=== PATIENT | female | born 2000 | race Caucasian/White ===

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

== ENCOUNTER → 2021-02-20 16:15 | Outpatient (CLI) | payer MEDICAID, SELFPAY ==
--- NOTE | 2021-02-20 16:46 | RAD_ITS ---
STUDY: X-RAY CHEST REASON FOR EXAM: Female, 20 years old. Left-sided chest pain. TECHNIQUE: PA and lateral views of the chest. COMPARISON: None. FINDINGS: The lungs are clear and expanded. There is no demonstrated pleural abnormality. Normal size heart. Normal mediastinum and chloe. Normal visualized pulmonary arteries. Normal visualized aortic arch and descending thoracic aorta. Normal visualized thoracic spine. Normal visualized ribs, clavicles, and shoulders. There is no demonstrated abnormality of the visualized soft tissue structures of the upper abdomen. RAD/Chest PA and Lateral IMPRESSION: Normal x-ray examination of the chest. Electronically Signed: Aristides Bermudez DO at 19:19 EST Tel [phone], Service support ,
[2021-02-20 17:02] LABS: Absolute Lymphocyte Count 1.26 X10^3/uL (0.83-4.51); Absolute Neutrophil Count 7.2 X10^3/uL (2.0-7.7); Basophil# 0.02 X10^3/uL; Basophil% 0.2 % (0-1); Eosinophil# 0.02 X10^3/uL; Eosinophils% 0.2 % (0-5); Hematocrit 40.3 % (37-47); Hemoglobin 13.2 g/dL (12.0-15.0); Lymphocyte # 1.26 X10^3/ul (0.83-4.51); Lymphocyte % 13.5 % (19-41); Mean Corp Hgb Conc 32.8 g/dL (32-36); Mean Corpuscular Hgb 30.3 pg (27.0-32.0); Mean Corpuscular Volume 92.4 fL (81-99); Mean Platelet Vol. 9.6 fl (6.2-12.0); Monocyte# 0.77 X10^3/uL; Monocyte% 8.3 % (0-10); NRBC Flagged by Analyzer 0 % (0-5); Neutrophil # 7.23 X10^3/uL (2.7-7.7); Neutrophil % 77.5 % (47-70); Platelet Count 267 K/mm3 (150-450); RBC Distribution Width CV 12.5 % (11.6-14.6); RBC Distribution Width SD 42.8 fl (35.1-43.9); Red Blood Count 4.36 M/mm3 (4.2-5.4); White Blood Count 9.3 K/mm3 (4.4-11.0)
[2021-02-20 17:23] LABS: D-Dimer Quantitative (DVT/PE) <= 0.27 FEU/ug/m (0.27-0.49)
[2021-02-20 17:26] LABS: Vitamin D,25 Hydroxy 25.8 ng/mL
[2021-02-20 17:40] LABS: AST(SGOT) 11 U/L (15-37); Alanine Aminotransfer ALT/SGPT 14 U/L (13-56); Albumin, Serum 4.4 g/dL (3.2-5.0); Alkaline Phosphatase 73 U/L (45-117); Anion Gap 4 (5-15); BUN 10 mg/dL (7-18); BUN/Creat Ratio 17.4 RATIO (10-20); Calcium,Total 9.4 mg/dL (8.5-10.1); Chloride 104 mmol/L (98-107); Creatinine, Serum 0.58 mg/dL (0.55-1.02); EST Glomerular Filtration Rate 141 mL/min (>60); Est Glom Filt Rate - Afr Amer 171 mL/min (>60); Globulin 4.2 g/dL (2.2-4.2); Glucose 80 mg/dL (74-106); Potassium 3.5 mmol/L (3.5-5.1); Protein, Total 8.6 g/dL (6.4-8.2); Sodium Level 138 mmol/L (136-145); Thyroid Stim Hormone (TSH) 1.63 uIU/mL (0.358-3.74)
== END ==
PROVIDERS: PCP Internal Medicine; Referring Provider Internal Medicine; Visit Provider Internal Medicine
DX: R07.9 Chest pain, unspecified (principal)
CPT/HCPCS: 36415; 71046; 80053; 82306; 84443; 85025; 85379

== ENCOUNTER 2021-07-26 17:32 | Emergency (ER) | payer MEDICAID, SELFPAY ==
[2021-07-26 17:33] VITALS: BP 120/73; PULSE 115; RESP 16; TEMP 37.1; O2SAT 95; BMI 17.2
--- NOTE | 2021-07-26 18:34 | EX.ED.DYSGE1 ---
HPI <CHEYANNE Carnes - Last Filed: 07/26/21 19:07> History of Present Illness Chief Complaint: Nausea/Vomiting Narrative Narrative: 21-year-old female with history of anxiety, depression with history of a eating disorder presents the emergency department 24 hours of nausea and vomiting. Patient states she also has decreased urinary output because she is dehydrated. Patient does smoke marijuana daily however she states is not all day, patient has no history of vomiting secondary to cannabis. Patient denies any abdominal pain however states to have pain in her epigastric area from retching. Patient denies any blood in stool or vomit. Patient denies any recent antibiotics, sick contacts. PFSH <CHEYANNE Carnes - Last Filed: 07/26/21 19:07> [facility] Medical History (Updated 07/26/21 @ 21:[address] Rob Biggs MD) Juvenile idiopathic arthritis Home Medications ondansetron 4 mg PO Q8H PRN #10 tab 07/26/21 [Rx Last Taken Unknown] Allergy/AdvReac Type Severity Reaction Status Date / Time red dye Allergy Mild hives Verified 07/26/21 17:33 yellow dye Allergy Mild hives Verified 07/26/21 17:33 Family History (Updated 02/20/21 @ 14:43 by Suzanne Almeida) Other Asthma Cancer Hypertension Social History (Updated 02/20/21 @ 14:48 by Suzanne Almeida) Smoking Status: Never smoker alcohol intake: current alcohol intake frequency: holidays/special occasions only substance use type: marijuana and other details: smokes daily at least 3 times daily ROS <CHEYANNE Carnes - Last Filed: 07/26/21 19:07> ROS ED ROS Narrative Constitutional: Negative for fever, chills, weight loss, weakness Eyes: Negative for vision loss, vision change, double vision ENT: Negative for any sore throat, ear pain, congestion Cardiovascular: Negative for any chest pain, tightness, palpitations, racing heartbeat Respiratory: Negative for any cough, sputum production, hemoptysis, shortness of breath, shortness of breath on exertion, orthopnea Gastrointestinal: Negative for any abdominal pain, constipation, blood in stool, blood in vomit. Positive for nausea, vomiting, diarrhea : Negative for any urinary frequency, incontinence, dysuria, retention, blood in urine Muscle skeletal: Negative for any muscle joint pain, stiffness, myalgias, arthralgias, neck pain, back pain Neurological: Negative for any headache, dizziness, syncope, numbness or tingling Skin: Negative for any rashes, lumps, itching, abrasions, lacerations Psychiatric: Negative for any depression, anxiety, stress, suicidal ideation, homicidal ideation Hematologic: Negative for any easy bruising, excessive bruising, easy bleeding Allergies: Negative for any eczema, hives, rash EXAM <CHEYANNE Carnes - Last Filed: 07/26/21 19:07> Physical Exam Narrative Exam Narrative: Vital signs reviewed. HEET: Head normocephalic atraumatic, TMs clear bilaterally. Posterior pharynx is clear, dry mucous membranes. Nares clear bilaterally. Neck: Supple with no lymphadenopathy or tenderness. No signs of meningismus, negative jolt sign. Cardiac: Regular rate and rhythm no murmurs gallops or rubs, equal peripheral pulses bilaterally. Respiratory: Lungs clear to auscultation bilaterally. No chest tenderness. Abdomen: Soft, nontender, nondistended. No abdominal bruit or pulsatile masses. No hepatosplenomegaly Extremities: No peripheral edema, no signs of gross trauma or deformity. Active full range of motion of all extremities. Neuro: Cranial nerves II through XII intact, no focal neurological deficits. Skin: Clean dry and intact with no rash, purpura, petechiae, vesicles or pustules. Backslash flank: No CVA tenderness, no midline spinal tenderness, no deformity. Psych: Normal mood and affect. No SI, HI or acute psychosis. Const Vital Signs: 07/26/21 17:33 07/26/21 21:25 Temperature 98.8 F Temperature Source Temporal Pulse Rate 115 H 79 Respiratory Rate 16 18 Blood Pressure 120/73 103/65 Blood Pressure Mean 88 77 Pulse Ox 95 99 Oxygen Delivery Method Room Air Room Air Positive well nourished and well developed General Appearance ED: well developed <Dr. Rob Biggs MD - Last Filed: 07/26/21 22:07> Physical Exam Const Vital Signs: 07/26/21 17:33 07/26/21 21:25 Temperature 98.8 F Temperature Source Temporal Pulse Rate 115 H 79 Respiratory Rate 16 18 Blood Pressure 120/73 103/65 Blood Pressure Mean 88 77 Pulse Ox 95 99 Oxygen Delivery Method Room Air Room Air [facility] <Jules CarpenterTREY-C - Last Filed: 07/26/21 19:07> [facility] Narrative Medical decision making narrative: Patient appears well, patient appears nontoxic, vital signs are stable. Patient presents to the emergency department for 24 hours of nausea vomiting diarrhea. Patient did receive a basic laboratory values, these were unremarkable. Patient did receive IV fluids, IV Zofran, IV Toradol. Patient responded well to treatment. I did discuss at length with the patient secondary to her daily marijuana use. Patient will follow up with her PCP, patient be given Zofran prescription for home. She is instructed to advance her diet as tolerated. Instructed to ensure that she has enough fluids. Due to the patient improving with IV medications, having no abdominal pain, there is no indication for CT scan or any other imaging. Patient be diagnosed with gastroenteritis. Patient stable for discharge. Lab Data Attestation: I reviewed the patient's lab results. Labs: Laboratory Results - last 24 hr 07/26/21 07/26/21 07/26/21 18:45 18:45 19:09 WBC 10.3 RBC 4.83 Hgb 14.7 Hct 43.0 MCV 89.0 MCH 30.4 MCHC 34.2 RDW Std Deviation 41.7 RDW Coeff of Burak 12.7 Plt Count 295 MPV 9.6 Immature Gran % (Auto) 0.300 Neut % (Auto) 69.0 Lymph % (Auto) 18.7 L [place] % (Auto) 11.8 H Eos % (Auto) 0.0 Baso % (Auto) 0.2 Absolute Neuts (auto) 7.1 Absolute Lymphs (auto) 1.92 Nucleated RBC % 0 Sodium 135 L Potassium 3.0 L Chloride 100 Carbon Dioxide 28.0 Anion Gap 7 BUN 10 Creatinine 0.72 Estim Creat Clear Calc 88.97 Est GFR (MDRD) Af Amer 132 Est GFR (MDRD) Non-Af 109 BUN/Creatinine Ratio 13.9 Glucose 109 H Calcium 10.0 Total Bilirubin 0.70 AST 12 L ALT 21 Alkaline Phosphatase 64 Total Protein 8.7 H Albumin 4.6 Globulin 4.1 Albumin/Globulin Ratio 1.1 Lipase 111 Urine Color Yellow Urine Clarity Clear Urine pH 7.0 Ur Specific [place] 1.005 Urine Protein 30 H Urine Glucose (UA) Normal Urine Ketones 150 A* Urine Occult Blood 50 H Urine Nitrite Negative Urine Bilirubin Negative Urine Urobilinogen Normal Ur Leukocyte Esterase 25 H Urine RBC 0 SEEN Urine WBC 0 SEEN Ur Squamous Epith Cells 0 SEEN Urine Bacteria 0 SEEN Urine Mucus 0 SEEN Urine Test Negative <Dr. Rob Biggs MD - Last Filed: 07/26/21 22:07> [facility] Narrative Medical decision making narrative: I have personally performed a face to face assessment of the patient and have reviewed the NUBIA Note. I performed a substantive portion of the visit including all aspects of the following. My [place] findings include: History is remarkable for numerous episodes of vomiting without blood or coffee grounds. 3 mushy soft stools without blood or mucus. No known ill contacts. Does smoke marijuana daily. Denies fever or chills. Denies cardiac respiratory symptoms. She does endorse thirst dry mouth and lightheadedness. Exam is tachycardia and dry mucosa. Clinically patient appears dehydrated. HEENT is otherwise unremarkable. Heart is rapid and regular. Lungs are clear to auscultation. Abdomen soft nontender. Medical Decision Making patient nausea and vomiting with diarrhea most likely is due to viral illness. Doubt hyperemesis due to marijuana. Patient was treated with Zofran and Toradol initially. She will receive 5 mg of Reglan for her persistent nausea. Other additions or changes: Patient was reassessed at 05/08/2004. She feels markedly better. 500 cc of the 1000 cc of D5 half-normal has infused. She will be discharged after the complete liter has infused. Lab Data Attestation: I reviewed the patient's lab results. Lab results narrative: CBC, H&H and differential unremarkable. Potassium is slightly low at 3.0. Glucose is slightly elevated 109. Labs: Laboratory Results - last 24 hr 07/26/21 07/26/21 07/26/21 18:45 18:45 19:09 WBC 10.3 RBC 4.83 Hgb 14.7 Hct 43.0 MCV 89.0 MCH 30.4 MCHC 34.2 RDW Std Deviation 41.7 RDW Coeff of Burak 12.7 Plt Count 295 MPV 9.6 Immature Gran % (Auto) 0.300 Neut % (Auto) 69.0 Lymph % (Auto) 18.7 L [place] % (Auto) 11.8 H Eos % (Auto) 0.0 Baso % (Auto) 0.2 Absolute Neuts (auto) 7.1 Absolute Lymphs (auto) 1.92 Nucleated RBC % 0 Sodium 135 L Potassium 3.0 L Chloride 100 Carbon Dioxide 28.0 Anion Gap 7 BUN 10 Creatinine 0.72 Estim Creat Clear Calc 88.97 Est GFR (MDRD) Af Amer 132 Est GFR (MDRD) Non-Af 109 BUN/Creatinine Ratio 13.9 Glucose 109 H Calcium 10.0 Total Bilirubin 0.70 AST 12 L ALT 21 Alkaline Phosphatase 64 Total Protein 8.7 H Albumin 4.6 Globulin 4.1 Albumin/Globulin Ratio 1.1 Lipase 111 Urine Color Yellow Urine Clarity Clear Urine pH 7.0 Ur Specific [place] 1.005 Urine Protein 30 H Urine Glucose (UA) Normal Urine Ketones 150 A* Urine Occult Blood 50 H Urine Nitrite Negative Urine Bilirubin Negative Urine Urobilinogen Normal Ur Leukocyte Esterase 25 H Urine RBC 0 SEEN Urine WBC 0 SEEN Ur Squamous Epith Cells 0 SEEN Urine Bacteria 0 SEEN Urine Mucus 0 SEEN Urine Test Negative Discharge Plan Triage Chief Complaint: Nausea/Vomiting ED Midlevel Provider: Jules Carpenter ED Provider: Rob Biggs Dx/Rx/DC Orders Clinical Impression: Gastroenteritis, Acute hypokalemia, Moderate dehydration, Ketosis Instructions: ED Gastritis (Adult) Prescriptions: New ondansetron 4 mg tablet,disintegrating 4 mg PO Q8H PRN (Reason: nausea and vomiting) Qty: 10 RF: 0 Primary Care Provider: Linda Rizo Referrals: Linda Rizo MD [Primary Care Provider] - Activity Restrictions/Additional Instructions: Please advance your diet as tolerated Print Language: Ukrainian Disposition Disposition: Home, Self Care
[2021-07-26 19:03] LABS: Absolute Lymphocyte Count 1.92 X10^3/uL (0.83-4.51); Absolute Neutrophil Count 7.1 X10^3/uL (2.0-7.7); Basophil# 0.02 X10^3/uL; Basophil% 0.2 % (0-1); Hemoglobin 14.7 g/dL (12.0-15.0); Lymphocyte # 1.92 X10^3/ul (0.83-4.51); Lymphocyte % 18.7 % (19-41); Mean Corp Hgb Conc 34.2 g/dL (32-36); Mean Corpuscular Hgb 30.4 pg (27.0-32.0); Mean Platelet Vol. 9.6 fl (6.2-12.0); Monocyte# 1.21 X10^3/uL; Monocyte% 11.8 % (0-10); NRBC Flagged by Analyzer 0 % (0-5); Platelet Count 295 K/mm3 (150-450); RBC Distribution Width CV 12.7 % (11.6-14.6); RBC Distribution Width SD 41.7 fl (35.1-43.9); Red Blood Count 4.83 M/mm3 (4.2-5.4); White Blood Count 10.3 K/mm3 (4.4-11.0)
[2021-07-26] MEDS: 0.9% Normal Saline 1,000 ML 1000 ML IV (19:12)
[2021-07-26] MEDS: Ondansetron 4 MG/2 ML Vial IV (19:13)
[2021-07-26 19:17] LABS: Bacteria 0 SEEN /hpf (None Seen); Mucous, Urine 0 SEEN /hpf (<or=2+); Red Blood Cells-Urine 0 SEEN /hpf (0-5); Squamous Epithelial Cells - UA 0 SEEN /hpf (5-10); White Blood Cells 0 SEEN /hpf (0-5)
[2021-07-26 19:19] LABS: BUN 10 mg/dL (7-18); Creatinine, Serum 0.72 mg/dL (0.55-1.02); EST Glomerular Filtration Rate 109 mL/min (>60); Estimated Creatinine Clearance 88.97 ml/min; Glucose 109 mg/dL (74-106)
[2021-07-26 19:20] LABS: ALB/GLOB Ratio 1.1 RATIO (0.9-2.4); AST(SGOT) 12 U/L (15-37); Alanine Aminotransfer ALT/SGPT 21 U/L (13-56); Albumin, Serum 4.6 g/dL (3.2-5.0); Alkaline Phosphatase 64 U/L (45-117); Anion Gap 7 (5-15); BUN/Creat Ratio 13.9 RATIO (10-20); Chloride 100 mmol/L (98-107); Est Glom Filt Rate - Afr Amer 132 mL/min (>60); Globulin 4.1 g/dL (2.2-4.2); Lipase 111 U/L (73-393); Protein, Total 8.7 g/dL (6.4-8.2); Sodium Level 135 mmol/L (136-145)
[2021-07-26 19:20] LABS: Color, Urine Yellow (Yellow); Glucose, Dipstick Normal (Normal); Leukocyte Esterase-Dipstick 25 /ul (Negative); Nitrite-Dipstick Negative (Negative); Occult Blood-Urine 50 /ul (Negative); Protein-Dipstick 30 mg/dl (Negative); Specific Gravity, Urine 1.005 (1.002-1.030); Urine Bilirubin Dipstick Negative (Negative); Urine Clarity Clear (Clear); Urine Urobilinogen Normal (Normal)
[2021-07-26 19:51] LABS: Internal QC Validated? YES +Cl - CLEAR BKGD; Pregnancy, Urine Negative Negative
[2021-07-26 20:07] LABS: Ketone-Dipstick 150 mg/dl (Negative)
[2021-07-26] MEDS: Metoclopramide 10 MG/2 ML Vial 5 MG IV (21:09)
[2021-07-26] MEDS: Dext 5%-0.45% NS 1,000 ML 1000 ML IV (21:23)
[2021-07-26 21:25] VITALS: BP 103/65; PULSE 79; RESP 18; O2SAT 99
[2021-07-26 22:33] VITALS: BP 116/60; PULSE 77; RESP 16; O2SAT 98
== END 2021-07-26 22:34 | disposition home or self-care (01) ==
PROVIDERS: Nurse Practitioner; Emergency Provider Emergency Medicine; PCP Internal Medicine; Visit Provider Emergency Medicine
DX: K52.9 Noninfective gastroenteritis and colitis, unspecified (principal); F41.9 Anxiety disorder, unspecified; E86.0 Dehydration; F32.A Depression, unspecified; F12.90 Cannabis use, unspecified, uncomplicated; E87.6 Hypokalemia
CPT/HCPCS: 80053; 81001; 81025; 83690; 85025; 96361; 96365; 96375; 99283; J7030; A4216; J2405; J7799

== ENCOUNTER → 2021-09-06 | Outpatient (CLI) | payer MEDICAID, SELFPAY ==
[2021-09-06 11:48] LABS: Erythrocyte Sedimentation Rate 4 mm/hr (0-30)
[2021-09-06 11:50] LABS: Absolute Neutrophil Count 1.7 X10^3/uL (2.0-7.7); Basophil# 0.04 X10^3/uL; Basophil% 0.9 % (0-1); Eosinophil# 0.05 X10^3/uL; Eosinophils% 1.1 % (0-5); Hematocrit 40.5 % (37-47); Lymphocyte % 50.3 % (19-41); Mean Corp Hgb Conc 32.1 g/dL (32-36); Mean Corpuscular Hgb 30.4 pg (27.0-32.0); Mean Corpuscular Volume 94.8 fL (81-99); Mean Platelet Vol. 9.3 fl (6.2-12.0); Monocyte# 0.42 X10^3/uL; Monocyte% 9.6 % (0-10); NRBC Flagged by Analyzer 0 % (0-5); Neutrophil # 1.65 X10^3/uL (2.7-7.7); Neutrophil % 37.9 % (47-70); Platelet Count 269 K/mm3 (150-450); RBC Distribution Width CV 12.7 % (11.6-14.6); RBC Distribution Width SD 44.4 fl (35.1-43.9); Red Blood Count 4.27 M/mm3 (4.2-5.4); White Blood Count 4.4 K/mm3 (4.4-11.0)
[2021-09-06 12:17] LABS: AST(SGOT) 10 U/L (15-37); Alanine Aminotransfer ALT/SGPT 15 U/L (13-56); Albumin, Serum 4.1 g/dL (3.2-5.0); Alkaline Phosphatase 56 U/L (45-117); Anion Gap 5 (5-15); BUN 9 mg/dL (7-18); BUN/Creat Ratio 14.6 RATIO (10-20); CRP < 2.90 mg/L (0.0-3.0); Calcium,Total 9.4 mg/dL (8.5-10.1); Chloride 107 mmol/L (98-107); Creatinine, Serum 0.62 mg/dL (0.55-1.02); EST Glomerular Filtration Rate 130 mL/min (>60); Est Glom Filt Rate - Afr Amer 158 mL/min (>60); Glucose 84 mg/dL (74-106); Potassium 3.8 mmol/L (3.5-5.1); Protein, Total 8.1 g/dL (6.4-8.2); Sodium Level 139 mmol/L (136-145)
[2021-09-08 18:06] LABS: Endomysial Antibody IgA Negative (Negative)
[2021-09-09 09:40] LABS: Immunoglobulin A 203 mg/dL (87-352); t-Transglutaminase IgA <2 U/mL (0-3)
[2021-09-09 13:07] LABS: Anti-Centromere B Ab <0.2 AI (0.0-0.9); Anti-Chromatin <0.2 AI (0.0-0.9); Anti-Jo <0.2 AI (0.0-0.9); Anti-Scleroderma-70 AB <0.2 AI (0.0-0.9); RNP Ab <0.2 AI (0.0-0.9); SJOGREN'S Anti-SS-A test < 0.2 AI (0.0-0.9); SJOGREN'S Anti-SS-B test < 0.2 AI (0.0-0.9); Smith Ab <0.2 AI (0.0-0.9)
[2021-09-09 15:38] LABS: Anti-dsDNA Ab <1 IU/mL (0-9)
== END | disposition home or self-care (01) ==
LOC: LAB 11:17
PROVIDERS: PCP Internal Medicine; Referring Provider Nurse Practitioner Adult Health; Visit Provider Nurse Practitioner Adult Health
DX: R19.7 Diarrhea, unspecified (principal); R11.2 Nausea with vomiting, unspecified; R63.4 Abnormal weight loss; Z87.39 Personal history of other diseases of the musculoskeletal system and connective tissue
CPT/HCPCS: 36415; 80053; 82784; 83516; 85025; 85652; 86140; 86225; 86235; 86255

== ENCOUNTER → 2021-10-11 | Outpatient (CLI) | payer MEDICAID, SELFPAY ==
--- NOTE | 2021-10-11 17:29 | CT_ITS ---
STUDY: CT ABDOMEN AND PELVIS WITH CONTRAST REASON FOR EXAM: Female, 21 years old. LLQ tender, wt loss, n/v/d -- oral and iv RADIATION DOSAGE (If Supplied By Facility): CTDIvol = ( 10.58 ) mGy, DLP = ( 227.28 ) mGycm TECHNIQUE: Transaxial images were obtained from the dome of the diaphragm to the symphysis pubis without oral contrast. Oral and amp; IV Readi-CAT and amp; 100mL Isovue-300 was administered. Sagittal and coronal images were reconstructed. Individualized dose optimization techniques were used for this CT. COMPARISON: None. FINDINGS: The visualized lung bases are unremarkable. The visualized portions of the heart are within normal limits. Normal liver. Normal gallbladder and extrahepatic biliary system. Normal spleen. Normal pancreas. Normal bilateral adrenal glands. Normal right kidney. Normal left kidney. Nonspecific gastric distention with diffuse ileus and diffuse colonic fecal retention. No evidence for acute appendicitis. Normal abdominal aorta. Normal inferior vena cava. Normal retroperitoneum. Normal urinary bladder. Cystic changes in left ovary with small amount of free fluid in the cul-de-sac likely due to recent ovulation. Normal abdominal wall. Normal osseous structures. CT/Abdomen/Pelvis WITH Contrast IMPRESSION: Diffuse gastric distention and nonspecific ileus with fecal retention in the colon. No evidence for small bowel obstruction. Cystic changes in left ovary with fluid in the cul-de-sac likely due to recent ovulation Pelvic sonogram may be useful for further evaluation if indicated Electronically Signed: Mario Magallon MD at 22:12 EDT ,
== END | disposition home or self-care (01) ==
LOC: CT 17:27
PROVIDERS: PCP Internal Medicine; Referring Provider Nurse Practitioner Adult Health; Visit Provider Nurse Practitioner Adult Health
DX: K56.7 Ileus, unspecified (principal); R63.4 Abnormal weight loss; R10.814 Left lower quadrant abdominal tenderness; N83.202 Unspecified ovarian cyst, left side; R11.2 Nausea with vomiting, unspecified; R19.7 Diarrhea, unspecified
CPT/HCPCS: 74177; Q9967

== ENCOUNTER 2021-11-16 11:04 | Emergency (ER) | payer MEDICAID, SELFPAY ==
[2021-11-16 11:06] VITALS: BP 104/83; PULSE 136; RESP 17; TEMP 36.4; O2SAT 93; BMI 15.0
--- NOTE | 2021-11-16 11:21 | EDS_ITS ---
HPI <TATYANA Salcedo - Last Filed: 11/16/21 13:45> History of Present Illness Chief Complaint: Nausea/Vomiting Narrative Narrative: 21-year-old female with PMH of cyclic vomiting, anxiety, depression, daily marijuana use presents with 2-day history of worsening nausea and vomiting. This is been a chronic issue for her over the last year. She has had decreased intake of food since November 05 but states she was feeling better the last couple days and try to eat a full meal yesterday which set off vomiting. Today she has not been able to keep down fluids. Her abdomen is sore from vomiting but she has no real pain. Had a normal bowel movement this morning. Normal urination. No surgical history. She saw the GI office 2 months ago and had a normal CT scan. She is scheduled for endoscopy/colonoscopy the first week of December. She still smokes marijuana daily but states she has cut back. PFSH <TATYANA Salcedo - Last Filed: 11/16/21 13:45> PFSH Medical History Juvenile idiopathic arthritis Home Medications ondansetron 4 mg disintegrating tablet 4 mg PO Q6H PRN nausea and vomiting #15 tabs 11/16/21 [Rx Last Taken Unknown] potassium chloride 20 mEq tablet,extended release(part/cryst) (Klor-Con M) 40 meq PO DAILY 5 days #10 TABLETS 11/16/21 [Rx Last Taken Unknown] Allergy/AdvReac Type Severity Reaction Status Date / Time red dye Allergy Mild hives Verified 11/16/21 11:05 yellow dye Allergy Mild hives Verified 11/16/21 11:05 Family History Other Asthma Cancer Hypertension Social History Smoking Status: Never smoker alcohol intake: current alcohol intake frequency: holidays/special occasions only substance use type: marijuana and other details: smokes daily at least 3 times daily ROS <TATYANA Salcedo - Last Filed: 11/16/21 13:45> ROS ED ROS Narrative Constitutional: Negative for fever, chills, malaise. Eyes: Negative for visual change. ENT: Negative for sore throat, ear pain, rhinorrhea. CVS: Negative for palpitations, chest pain, syncope. Respiratory: Negative for shortness of breath, cough, orthopnea. GI: Positive for nausea, vomiting. Negative for abdominal pain, diarrhea, constipation, melena, hematochezia. : Negative for dysuria, hematuria or frequency. Neuro: Negative for headache, motor/sensory dysfunction. Skin: Negative for rash, abscess, or wound. Musc: Negative for joint pain, swelling, trauma. Heme: Negative for easy bruising, bleeding, lymphadenopathy. EXAM <TATYANA Salcedo - Last Filed: 11/16/21 13:45> Physical Exam Narrative Exam Narrative: CONST: Patient sitting in no acute distress. EYES: Normal inspection. ENT: Normal inspection, moist mucous membranes. NECK: Normal inspection. RESP: No respiratory distress, CTAB. CVS: Regular rate and rhythm, no murmur, no gallop. ABD: Soft with mild diffuse tenderness, no guarding or rebound, nondistended, no hepatosplenomegaly. SKIN: Color normal, no rash, warm, dry, intact. EXTREMITIES: Normal appearance, no pedal edema. NEURO: Oriented x4. PSYCH: Normal affect. Const Vital Signs: 11/16/21 11:06 11/16/21 13:04 Temperature 97.5 F L Temperature Source Temporal Pulse Rate 136 H 72 Respiratory Rate 17 16 Blood Pressure 104/83 H 122/64 H Blood Pressure Mean 90 83 Pulse Ox 93 98 Oxygen Delivery Method Room Air Room Air <Dr. Aretha Garcia MD - Last Filed: 11/16/21 13:47> Physical Exam Const Vital Signs: 11/16/21 11:06 11/16/21 13:04 Temperature 97.5 F L Temperature Source Temporal Pulse Rate 136 H 72 Respiratory Rate 17 16 Blood Pressure 104/83 H 122/64 H Blood Pressure Mean 90 83 Pulse Ox 93 98 Oxygen Delivery Method Room Air Room Air MDM <TATYANA Salcedo - Last Filed: 11/16/21 13:45> [facility] Narrative Medical decision making narrative: Patient with history of cyclical vomiting presents with intractable nausea and vomiting. She appears well and nontoxic. She was tachycardic at 136, BP 104/83, otherwise normal vital signs. Medical exam is benign. CBC shows normal white count, hemoconcentration at 16.9. BMP remarkable for hypokalemia 2.5. Patient was given IV fluids, Ativan, Pepcid and Zofran with significant improvement. She was able to tolerate fluids and oral potassium replacement and feels well enough to go home. I prescribed Zofran and 5 days of oral potassium. She is scheduled to follow-up with GI in a few weeks. If symptoms worsen return to ER. Lab Data Attestation: I reviewed the patient's lab results. Labs: Laboratory Results - last 24 hr 11/16/21 11/16/21 11/16/21 11:30 11:30 12:36 WBC 9.2 RBC 5.54 H Hgb 16.9 H Hct 49.6 H MCV 89.5 MCH 30.5 MCHC 34.1 RDW Std Deviation 37.3 RDW Coeff of Burak 11.5 L Plt Count 364 MPV 9.4 Immature Gran % (Auto) 0.200 Neut % (Auto) 57.3 Lymph % (Auto) 32.2 Cooper % (Auto) 9.9 Eos % (Auto) 0.1 Baso % (Auto) 0.3 Absolute Neuts (auto) 5.3 Absolute Lymphs (auto) 2.97 Nucleated RBC % 0 Sodium 133 L Potassium 2.5 L* Chloride 86 L Carbon Dioxide 35.0 H Anion Gap 12 BUN 11 Creatinine 0.94 Estim Creat Clear Calc 59.18 Est GFR (MDRD) Af Amer 96 Est GFR (MDRD) Non-Af 79 BUN/Creatinine Ratio 11.6 Glucose 109 H Calcium 10.3 H Total Bilirubin 1.00 AST 39 H ALT 70 H Alkaline Phosphatase 64 Total Protein 9.7 H Albumin 5.0 Globulin 4.7 H Albumin/Globulin Ratio 1.1 Urine Color Urine Clarity Urine pH Ur Specific [place] Urine Protein Urine Glucose (UA) Urine Ketones Urine Occult Blood Urine Nitrite Urine Bilirubin Urine Urobilinogen Ur Leukocyte Esterase Urine Test Negative 11/16/21 12:36 WBC RBC Hgb Hct MCV MCH MCHC RDW Std Deviation RDW Coeff of Burak Plt Count MPV Immature Gran % (Auto) Neut % (Auto) Lymph % (Auto) Cooper % (Auto) Eos % (Auto) Baso % (Auto) Absolute Neuts (auto) Absolute Lymphs (auto) Nucleated RBC % Sodium Potassium Chloride Carbon Dioxide Anion Gap BUN Creatinine Estim Creat Clear Calc Est GFR (MDRD) Af Amer Est GFR (MDRD) Non-Af BUN/Creatinine Ratio Glucose Calcium Total Bilirubin AST ALT Alkaline Phosphatase Total Protein Albumin Globulin Albumin/Globulin Ratio Urine Color Yellow Urine Clarity Clear Urine pH 6.0 Ur Specific [place] 1.025 Urine Protein 30 H Urine Glucose (UA) Normal Urine Ketones 50 H Urine Occult Blood 25 H Urine Nitrite Negative Urine Bilirubin 1 H Urine Urobilinogen 1 H Ur Leukocyte Esterase Negative Urine Test <Dr. Aretha Garcia MD - Last Filed: 11/16/21 13:47> [facility] Lab Data Labs: Laboratory Results - last 24 hr 11/16/21 11/16/21 11/16/21 11:30 11:30 12:36 WBC 9.2 RBC 5.54 H Hgb 16.9 H Hct 49.6 H MCV 89.5 MCH 30.5 MCHC 34.1 RDW Std Deviation 37.3 RDW Coeff of Burak 11.5 L Plt Count 364 MPV 9.4 Immature Gran % (Auto) 0.200 Neut % (Auto) 57.3 Lymph % (Auto) 32.2 Cooper % (Auto) 9.9 Eos % (Auto) 0.1 Baso % (Auto) 0.3 Absolute Neuts (auto) 5.3 Absolute Lymphs (auto) 2.97 Nucleated RBC % 0 Sodium 133 L Potassium 2.5 L* Chloride 86 L Carbon Dioxide 35.0 H Anion Gap 12 BUN 11 Creatinine 0.94 Estim Creat Clear Calc 59.18 Est GFR (MDRD) Af Amer 96 Est GFR (MDRD) Non-Af 79 BUN/Creatinine Ratio 11.6 Glucose 109 H Calcium 10.3 H Total Bilirubin 1.00 AST 39 H ALT 70 H Alkaline Phosphatase 64 Total Protein 9.7 H Albumin 5.0 Globulin 4.7 H Albumin/Globulin Ratio 1.1 Urine Color Urine Clarity Urine pH Ur Specific [place] Urine Protein Urine Glucose (UA) Urine Ketones Urine Occult Blood Urine Nitrite Urine Bilirubin Urine Urobilinogen Ur Leukocyte Esterase Urine Test Negative 11/16/21 12:36 WBC RBC Hgb Hct MCV MCH MCHC RDW Std Deviation RDW Coeff of Burak Plt Count MPV Immature Gran % (Auto) Neut % (Auto) Lymph % (Auto) Cooper % (Auto) Eos % (Auto) Baso % (Auto) Absolute Neuts (auto) Absolute Lymphs (auto) Nucleated RBC % Sodium Potassium Chloride Carbon Dioxide Anion Gap BUN Creatinine Estim Creat Clear Calc Est GFR (MDRD) Af Amer Est GFR (MDRD) Non-Af BUN/Creatinine Ratio Glucose Calcium Total Bilirubin AST ALT Alkaline Phosphatase Total Protein Albumin Globulin Albumin/Globulin Ratio Urine Color Yellow Urine Clarity Clear Urine pH 6.0 Ur Specific [place] 1.025 Urine Protein 30 H Urine Glucose (UA) Normal Urine Ketones 50 H Urine Occult Blood 25 H Urine Nitrite Negative Urine Bilirubin 1 H Urine Urobilinogen 1 H Ur Leukocyte Esterase Negative Urine Test Treatment and Re-Evaluation Narrative: Patient seen and evaluated with [facility]. I personally interviewed and examined the patient. I was involved in all aspects of patient's orders, interpretation of results, and treatment. Patient presents secondary to nausea and vomiting. She has a history of cyclic vomiting. Symptoms have been well controlled over the past couple months but worsened again last evening. She is following with Dr. Esquivel and is scheduled for an EGD in December. No fever or chills. No diarrhea. Patient sitting upright in bed no acute distress. She is nontoxic-appearing. Head and neck examination reveals mildly dry mucous membranes. Heart is tachycardic but regular. Lung sounds are clear. Abdomen is soft with no focal tenderness. Hypoactive bowel sounds are noted. Patient given IV fluids along with Pepcid, Ativan, Zofran. Lab work is significant for hypokalemia with potassium of 2.5. Hemoglobin is concentrated at 16.9. test is negative. Urinalysis reveals 50 ketones with no nitrites. Patient was able to tolerate p.o. potassium and symptoms are significantly improved. She is being discharged with a prescription for Zofran and potassium. Return instructions given. At the time of discharge heart rate is improved into the 70s. Discharge Plan Triage Chief Complaint: Nausea/Vomiting ED Midlevel Provider: Haylee Camejo ED Provider: Aretha Garcia Dx/Rx/DC Orders Clinical Impression: Nausea & vomiting, Acute hypokalemia Instructions: ED Hypokalemia, ED Vomiting (Adult) Prescriptions: New ondansetron 4 mg tablet,disintegrating 4 mg PO Q6H PRN (Reason: nausea and vomiting) Qty: 15 0RF potassium chloride [Klor-Con M20] 20 mEq tablet,ER particles/crystals 40 meq PO DAILY 5 Days Qty: 10 0RF Primary Care Provider: Linda Rizo Referrals: Linda Rizo MD [Primary Care Provider] - Activity Restrictions/Additional Instructions: Take potassium for the next 5 days. Use Zofran as needed for nausea and vomiting. Follow-up with the GI office. If symptoms worsen despite medication return to the ER. Disposition Disposition: Home, Self Care
[2021-11-16 11:37] LABS: Absolute Lymphocyte Count 2.97 X10^3/uL (0.83-4.51); Absolute Neutrophil Count 5.3 X10^3/uL (2.0-7.7); Basophil# 0.03 X10^3/uL; Basophil% 0.3 % (0-1); Eosinophil# 0.01 X10^3/uL; Eosinophils% 0.1 % (0-5); Hematocrit 49.6 % (37-47); Hemoglobin 16.9 g/dL (12.0-15.0); Lymphocyte # 2.97 X10^3/ul (0.83-4.51); Lymphocyte % 32.2 % (19-41); Mean Corp Hgb Conc 34.1 g/dL (32-36); Mean Corpuscular Hgb 30.5 pg (27.0-32.0); Mean Corpuscular Volume 89.5 fL (81-99); Mean Platelet Vol. 9.4 fl (6.2-12.0); Monocyte# 0.91 X10^3/uL; Monocyte% 9.9 % (0-10); NRBC Flagged by Analyzer 0 % (0-5); Neutrophil # 5.28 X10^3/uL (2.7-7.7); Neutrophil % 57.3 % (47-70); Platelet Count 364 K/mm3 (150-450); RBC Distribution Width CV 11.5 % (11.6-14.6); RBC Distribution Width SD 37.3 fl (35.1-43.9); Red Blood Count 5.54 M/mm3 (4.2-5.4); White Blood Count 9.2 K/mm3 (4.4-11.0)
[2021-11-16] MEDS: Famotidine 200 MG/20 ML MDV 20 MG in 0.9% Normal Saline (Pres. free 8 ML 300 MG IV (11:50)
[2021-11-16] MEDS: Ondansetron 4 MG/2 ML Vial IV (11:51)
[2021-11-16] MEDS: LORazepam 2 MG/ML Syringe 0.5 MG IV (11:51)
[2021-11-16] MEDS: 0.9% Normal Saline 1,000 ML 999 ML IV (11:51)
[2021-11-16 11:57] LABS: ALB/GLOB Ratio 1.1 RATIO (0.9-2.4); AST(SGOT) 39 U/L (15-37); Alanine Aminotransfer ALT/SGPT 70 U/L (13-56); Alkaline Phosphatase 64 U/L (45-117); Anion Gap 12 (5-15); BUN 11 mg/dL (7-18); BUN/Creat Ratio 11.6 RATIO (10-20); Calcium,Total 10.3 mg/dL (8.5-10.1); Chloride 86 mmol/L (98-107); Creatinine, Serum 0.94 mg/dL (0.55-1.02); EST Glomerular Filtration Rate 79 mL/min (>60); Est Glom Filt Rate - Afr Amer 96 mL/min (>60); Estimated Creatinine Clearance 59.18 ml/min; Globulin 4.7 g/dL (2.2-4.2); Glucose 109 mg/dL (74-106); Potassium 2.5 mmol/L (3.5-5.1); Protein, Total 9.7 g/dL (6.4-8.2); Sodium Level 133 mmol/L (136-145)
[2021-11-16] MEDS: Potassium Chloride Oral Tablet 20 MEQ 40 MEQ PO (12:31)
[2021-11-16 12:46] LABS: Mucous, Urine 0 SEEN /hpf (<or=2+); Red Blood Cells-Urine 0 SEEN /hpf (0-5); Squamous Epithelial Cells - UA 0 SEEN /hpf (5-10)
[2021-11-16 12:51] LABS: Internal QC Validated? YES +Cl - CLEAR BKGD; Pregnancy, Urine Negative Negative
[2021-11-16 13:04] VITALS: BP 122/64; PULSE 72; RESP 16; O2SAT 98
[2021-11-16 13:40] LABS: Color, Urine Yellow (Yellow); Glucose, Dipstick Normal (Normal); Ketone-Dipstick 50 mg/dl (Negative); Leukocyte Esterase-Dipstick Negative /ul (Negative); Nitrite-Dipstick Negative (Negative); Occult Blood-Urine 25 /ul (Negative); Protein-Dipstick 30 mg/dl (Negative); Specific Gravity, Urine 1.025 (1.002-1.030); Urine Bilirubin Dipstick 1 mg/dL (Negative); Urine Clarity Clear (Clear); Urine Urobilinogen 1 mg/dl (Normal)
[2021-11-16 13:47] LABS: Bacteria 2+ /hpf (None Seen); White Blood Cells 0-5 SEEN /hpf (0-5)
== END 2021-11-16 14:07 | disposition home or self-care (01) ==
PROVIDERS: Physician Assistant; Emergency Provider Emergency Medicine; PCP Internal Medicine; Visit Provider Emergency Medicine
DX: E87.6 Hypokalemia (principal); F41.9 Anxiety disorder, unspecified; R11.15 Cyclical vomiting syndrome unrelated to migraine; F12.90 Cannabis use, unspecified, uncomplicated
CPT/HCPCS: 80053; 81001; 81025; 85025; 87086; 96361; 96374; 96375; 99284; J7030; A4216; J2405; J3490

== ENCOUNTER 2022-05-10 13:32 | Emergency (ER) | payer MEDICAID, SELFPAY ==
[2022-05-10 13:33] VITALS: BP 113/84; PULSE 91; RESP 14; TEMP 36.6; O2SAT 100; BMI 16.8
--- NOTE | 2022-05-10 14:40 | ED.RN ---
im going somewhere else.
== END 2022-05-10 14:40 | disposition left against medical advice (07) ==
LOC: ED 15:06
PROVIDERS: PCP Internal Medicine
DX: Z53.21 Procedure and treatment not carried out due to patient leaving prior to being seen by health care provider (principal)

== ENCOUNTER 2022-05-15 16:05 | Emergency (ER) | payer MEDICAID, SELFPAY ==
[2022-05-15 16:07] VITALS: BP 102/65; PULSE 110; RESP 16; TEMP 37.1; O2SAT 94; BMI 16.9
--- NOTE | 2022-05-15 17:04 | EX.ED.DYSGE1 ---
HPI History of Present Illness Chief Complaint: Shortness of Breath Informant: patient and parent Narrative Narrative: Patient was seen by her primary physician today. He did call in and the case was discussed with him by members of our staff. This patient has a history of chronic nausea and vomiting. She has known cannabis hyperemesis syndrome. She is still using cannabis. She states she just uses it regularly on a daily basis. She was admitted at [facility] about 4 days ago. She had a low potassium and was dehydrated. She was treated with IV fluids and meds in the hospital. She said they did a CT scan. She was sent home. She is eating and drinking now. She is not getting the nausea and vomiting that she was getting. She is not taking anything for nausea and vomiting. Nothing was sent home with her or prescribe to her for nausea and vomiting by the hospital nor her primary. When she swallows food she gets esophageal pain. She can swallow liquids and soft stuff without pain. The pain is in the lower esophagus. No vomiting of blood. Mom started Prilosec about 2 days ago and it seems like that is helping the odynophagia. Patient is not having diarrhea. She is not having fevers. She has had no prior surgery. Patient is not complaining of cough or dyspnea to me. She states when she swallows and gets chest pain it hurts and affects her breathing but she is not short of breath at any other time. This is all related to swallowing solid foods only. [facility] Medical History Anxiety Back pain Depression Gastric reflux History of edema Juvenile idiopathic arthritis Marijuana use Migraine headache Shortness of breath on exertion Home Medications ondansetron 4 mg disintegrating tablet 4 mg PO Q6H PRN nausea and vomiting #15 tabs 11/16/21 [Rx Last Taken Unknown] cholecalciferol (vitamin D3) 25 mcg (1,000 unit) capsule (Vitamin D3) 25 mcg PO DAILY 12/04/21 [History Last Taken Unknown] Allergy/AdvReac Type Severity Reaction Status Date / Time red dye Allergy Mild hives Verified 05/15/22 15:03 yellow dye Allergy Mild hives Verified 05/15/22 15:03 Family History Other Asthma Cancer Hypertension Social History Smoking Status: Never smoker alcohol intake: current alcohol intake frequency: holidays/special occasions only substance use type: marijuana and other details: smokes daily at least 3 times daily ROS ROS ED Constitutional Constitutional ED: Denies chills or fever(s) ENT ENT ED: Denies rhinorrhea or sore throat Cardiovascular Cardiovascular: Denies palpitations or racing heartbeat Respiratory/Chest Respiratory/Chest: Denies cough or dyspnea Gastrointestinal Gastrointestinal: Reports nausea and other Details: History of present illness. ; Denies abdominal pain, diarrhea or vomiting Genitourinary Genitourinary ED: Denies dysuria or hematuria Musculoskeletal Musculoskeletal: Denies myalgias or neck pain Integumentary Denies Abrasions or rash Neurologic Neurologic: Denies paresthesias or weakness Endocrine Endocrinology: Denies polydipsia or polyuria Hematologic/Lymphatic Hematologic/Lymphatic: Denies easy bleeding or easy bruising Allergic/Immunologic Allergic/Immunologic ED: Denies urticaria EXAM Physical Exam Narrative Exam Narrative: Patient is awake alert no acute distress. She carries on normal conversation. She is quite thin but not emaciated. Does not look toxic or acutely ill. HEENT: Mucous membranes are moist. No icterus. No JVD. No stridor. Chest is clear bilaterally. Heart is regular. Current rate is about 90 without murmur gallop or rub. Peripheral pulses are equal. Abdomen is thin soft and nontender. Her abdomen is actually quite benign. : No CVA tenderness. No suprapubic tenderness. Extremities: No edema. No mottling. No trauma. Neurologically patient is awake alert and appropriate. No sign of weakness. No carpopedal spasm. Const Vital Signs: 05/15/22 16:07 Temperature 98.8 F Temperature Source Temporal Pulse Rate 110 H Respiratory Rate 16 Blood Pressure 102/65 Blood Pressure Mean 77 Pulse Ox 94 Oxygen Delivery Method Room Air MDM MDM MDM Narrative Medical decision making narrative: Patient's CBC shows mildly elevated hemoglobin at 15.8. However, her electrolytes, liver function test are all within normal limits. Potassium is not low today. My independent interpretation of the patient's 2 view chest x-ray shows no sign of pneumothorax or mediastinal air. Heart is normal shape and size. No mediastinal enlargement. This patient is actually doing better with home treatment. I will write for some Zofran as she is still having some intermittent nausea but she is able to eat and drink. I was able to discuss the case with gastroenterology, DrSteph Esquivel. We will start the patient on pantoprazole twice a day, meds for nausea and she will follow-up as an outpatient. I talked with her and her family and all questions were answered including reasons to return. We also discussed slowly advancing diet from liquids to thicker liquids to soft and then finally to easily chewed solids. Lab Data Attestation: I reviewed the patient's lab results. Labs: Laboratory Results - last 24 hr 05/15/22 05/15/22 17:05 17:05 WBC 8.1 RBC 5.12 Hgb 15.8 H Hct 46.1 MCV 90.0 MCH 30.9 MCHC 34.3 RDW Std Deviation 39.7 RDW Coeff of Burak 12.0 Plt Count 329 MPV 9.2 Immature Gran % (Auto) 0.200 Neut % (Auto) 44.8 L Lymph % (Auto) 45.0 H [place] % (Auto) 8.4 Eos % (Auto) 0.9 Baso % (Auto) 0.7 Absolute Neuts (auto) 3.6 Absolute Lymphs (auto) 3.64 Nucleated RBC % 0 Sodium 137 Potassium 3.5 Chloride 99 Carbon Dioxide 27.0 Anion Gap 11 BUN 13 Creatinine 0.81 Estim Creat Clear Calc 77.49 Est GFR (MDRD) Af Amer 114 Est GFR (MDRD) Non-Af 95 BUN/Creatinine Ratio 16.1 Glucose 76 Calcium 9.8 Total Bilirubin 0.50 AST 15 ALT 19 Alkaline Phosphatase 59 Total Protein 8.3 H Albumin 4.3 Globulin 4.0 Albumin/Globulin Ratio 1.1 Radiography Diagnostic Testing: Clinical Impression(s) from Imaging Studies Chest X-Ray 05/15/22 17:20 IMPRESSION: No radiographic evidence of acute cardiopulmonary disease. Electronically Signed: Jules Ott MD at 17:35 EST , Discharge Plan Triage Chief Complaint: Shortness of Breath Other Complaint: Chest Pain Nausea/Vomiting ED Provider: Errol Bergman Dx/Rx/DC Orders Clinical Impression: Odynophagia, Cannabis hyperemesis syndrome concurrent with and due to cannabis abuse, Esophagitis Instructions: Esophagitis Prescriptions: No Action cholecalciferol (vitamin D3) [Vitamin D3] 25 mcg (1,000 unit) Capsule 25 mcg PO DAILY ondansetron 4 mg tablet,disintegrating 4 mg PO Q6H PRN (Reason: nausea and vomiting) Qty: 15 0RF Primary Care Provider: Linda Rizo Referrals: Linda Rizo MD [Primary Care Provider] - Ga Esquivel DO [Med Staff - Active Staff] - As soon as possible Disposition Disposition: Home, Self Care
[2022-05-15 17:18] LABS: Absolute Lymphocyte Count 3.64 X10^3/uL (0.83-4.51); Absolute Neutrophil Count 3.6 X10^3/uL (2.0-7.7); Basophil# 0.06 X10^3/uL; Basophil% 0.7 % (0-1); Eosinophil# 0.07 X10^3/uL; Eosinophils% 0.9 % (0-5); Hematocrit 46.1 % (37-47); Hemoglobin 15.8 g/dL (12.0-15.0); Lymphocyte # 3.64 X10^3/ul (0.83-4.51); Mean Corp Hgb Conc 34.3 g/dL (32-36); Mean Corpuscular Hgb 30.9 pg (27.0-32.0); Mean Platelet Vol. 9.2 fl (6.2-12.0); Monocyte# 0.68 X10^3/uL; Monocyte% 8.4 % (0-10); NRBC Flagged by Analyzer 0 % (0-5); Neutrophil # 3.62 X10^3/uL (2.7-7.7); Neutrophil % 44.8 % (47-70); Platelet Count 329 K/mm3 (150-450); RBC Distribution Width SD 39.7 fl (35.1-43.9); Red Blood Count 5.12 M/mm3 (4.2-5.4); White Blood Count 8.1 K/mm3 (4.4-11.0)
--- NOTE | 2022-05-15 17:20 | RAD_ITS ---
INDICATION: CP, shortness of breath EXAMINATION/TECHNIQUE: X-RAY - XR Chest 2 Views COMPARISON: 02/20/2021 FINDINGS: LINES/DEVICES: None. LUNGS: No consolidation, edema or effusion. No pneumothorax. MEDIASTINUM AND CARDIOVASCULAR STRUCTURES: Cardiac silhouette not enlarged. Central airways and mediastinal contour are unremarkable. RAD/Chest PA and Lateral IMPRESSION: No radiographic evidence of acute cardiopulmonary disease. Electronically Signed: Jules Ott MD at 17:35 EST ,
[2022-05-15 17:33] LABS: ALB/GLOB Ratio 1.1 RATIO (0.9-2.4); AST(SGOT) 15 U/L (15-37); Alanine Aminotransfer ALT/SGPT 19 U/L (13-56); Albumin, Serum 4.3 g/dL (3.2-5.0); Alkaline Phosphatase 59 U/L (45-117); Anion Gap 11 (5-15); BUN 13 mg/dL (7-18); BUN/Creat Ratio 16.1 RATIO (10-20); Calcium,Total 9.8 mg/dL (8.5-10.1); Chloride 99 mmol/L (98-107); Creatinine, Serum 0.81 mg/dL (0.55-1.02); EST Glomerular Filtration Rate 95 mL/min (>60); Est Glom Filt Rate - Afr Amer 114 mL/min (>60); Estimated Creatinine Clearance 77.49 ml/min; Glucose 76 mg/dL (74-106); Potassium 3.5 mmol/L (3.5-5.1); Protein, Total 8.3 g/dL (6.4-8.2); Sodium Level 137 mmol/L (136-145)
== END 2022-05-15 19:18 | disposition home or self-care (01) ==
PROVIDERS: Emergency Provider Emergency Medicine; PCP Internal Medicine; Visit Provider Emergency Medicine
DX: F12.188 Cannabis abuse with other cannabis-induced disorder (principal); R11.2 Nausea with vomiting, unspecified; R06.02 Shortness of breath; R13.10 Dysphagia, unspecified; K20.90 Esophagitis, unspecified without bleeding
CPT/HCPCS: 71046; 80053; 85025; 96361; 96374; 99282; J7030; A4216; J3490

== ENCOUNTER → 2022-06-12 | Outpatient (CLI) | payer MEDICAID, SELFPAY ==
[2022-06-12 16:33] LABS: Absolute Lymphocyte Count 2.99 X10^3/uL (0.83-4.51); Absolute Neutrophil Count 2.8 X10^3/uL (2.0-7.7); Basophil# 0.07 X10^3/uL; Basophil% 1.1 % (0-1); Eosinophil# 0.04 X10^3/uL; Eosinophils% 0.6 % (0-5); Hematocrit 40.4 % (37-47); Hemoglobin 13.3 g/dL (12.0-15.0); Lymphocyte # 2.99 X10^3/ul (0.83-4.51); Lymphocyte % 46.8 % (19-41); Mean Corp Hgb Conc 32.9 g/dL (32-36); Mean Corpuscular Hgb 30.9 pg (27.0-32.0); Mean Corpuscular Volume 93.7 fL (81-99); Mean Platelet Vol. 9.3 fl (6.2-12.0); Monocyte# 0.52 X10^3/uL; Monocyte% 8.1 % (0-10); NRBC Flagged by Analyzer 0 % (0-5); Neutrophil # 2.76 X10^3/uL (2.7-7.7); Neutrophil % 43.2 % (47-70); Platelet Count 290 K/mm3 (150-450); RBC Distribution Width CV 12.1 % (11.6-14.6); Red Blood Count 4.31 M/mm3 (4.2-5.4); White Blood Count 6.4 K/mm3 (4.4-11.0)
[2022-06-12 17:12] LABS: Vitamin D,25 Hydroxy 26.8 ng/mL
[2022-06-12 17:23] LABS: ALB/GLOB Ratio 1.1 RATIO (0.9-2.4); AST(SGOT) 14 U/L (15-37); Alanine Aminotransfer ALT/SGPT 23 U/L (13-56); Albumin, Serum 4.2 g/dL (3.2-5.0); Alkaline Phosphatase 59 U/L (45-117); Anion Gap 6 (5-15); BUN 11 mg/dL (7-18); BUN/Creat Ratio 18.3 RATIO (10-20); Calcium,Total 9.6 mg/dL (8.5-10.1); Chloride 103 mmol/L (98-107); EST Glomerular Filtration Rate 133 mL/min (>60); Est Glom Filt Rate - Afr Amer 161 mL/min (>60); Free T3 2.4 pg/mL (2.18-3.98); Globulin 3.7 g/dL (2.2-4.2); Glucose 80 mg/dL (74-106); Potassium 3.6 mmol/L (3.5-5.1); Protein, Total 7.9 g/dL (6.4-8.2); Sodium Level 137 mmol/L (136-145); T4 Free Direct 0.86 ng/dL (0.76-1.46); Thyroid Stim Hormone (TSH) 4.48 uIU/mL (0.358-3.74)
== END | disposition home or self-care (01) ==
LOC: LAB 15:56
PROVIDERS: PCP Internal Medicine; Referring Provider Internal Medicine; Visit Provider Internal Medicine
DX: F41.9 Anxiety disorder, unspecified (principal); F12.20 Cannabis dependence, uncomplicated; F50.9 Eating disorder, unspecified; R11.10 Vomiting, unspecified; E55.9 Vitamin D deficiency, unspecified
CPT/HCPCS: 36415; 80053; 82306; 84439; 84443; 84481; 85025

== ENCOUNTER 2022-07-02 06:47 | Day surgery (SDC) | payer MEDICAID, SELFPAY ==
[2022-07-02] VITALS (9 sets, daily range): BP systolic 92–122; BP diastolic 57–87; PULSE 59–100; RESP 16–17; TEMP 36.2–36.6; O2SAT 93–99; BMI 17.4
[2022-07-02 07:12] LABS: Internal QC Validated? YES +Cl - CLEAR BKGD; Pregnancy, Urine Negative Negative
[2022-07-02] MEDS: Lactated Ringers 1,000 ML 15 ML IV (07:18)
--- NOTE | 2022-07-02 07:43 | HP.PCM_ITS ---
History and Physical Date of Admission: 07/02/22 21 F who presents to the office today for nausea and vomiting, and loose stools in the setting of weight loss, eating disorder, anxiety and depression, marijuana use. She is feeling better for about a month now, but is curious if she has an ulcer or other underlying GI issue. Prior to having nausea and vomiting, she reports a long history of her brain and stomach not telling her that she is hungry.? She does not think she limited her food intake intentionally.? She says she now has some appetite, no longer forgetting to eat, no longer getting stomach upset when she eats.? Her BMI is only 17.2. Years of nausea, notices it at least 1-2x per day, not any worse, not bothersome currently, says she is just used to this being her norm. No vomiting for about 1 month now, she is not sure why.? She does still use marijuana daily but may be less often than before. Bowels--stools tend to be soft, attributes this to poor food choices ie processed foods. Denies abdominal pain. Says she has occas diaphragm pain. Says no recent heartburn, but maybe feels something in throat at times, no regurgitation. No difficulty swallowing.? She has not had hematemesis or hematochezia or melena. She was seen in the ED 07/26/2021 for nausea vomiting and diarrhea, it was felt she had a gastroenteritis.? She has seen her primary care doctor Dr. Rizo twice since then.? He has encouraged counseling for her anxiety and depression. 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 Symptoms not as bad now as in her teens but still has symptoms--intermittent joint swelling, has joint pains, back pain. She was treated with melatonin to try to help sleep. Doesn't recall other meds for RA. Was told it had resolved because RF was negative. No rashes. No dry eyes. No oral sores. FH autoimmune but not certain re details ROS Const Constitutional: Positive for fatigue and weight change ENT ENT: No difficulty swallowing Gastro GI: Positive for abdominal pain, bloating, change in bowel habits, constipation, diarrhea, heartburn, excessive flatus and nausea/dyspepsia; No belching, change in stool character, coffee ground emesis, cramping, difficulty swallowing, feeling full early, incontinent of stools, Vomiting blood/hematemesis, Blood in stool, loose stools, Black,tarry stools, pain with swallowing, vomiting or other Musc Musculoskeletal: Positive for joint pain, back pain, numbness, stiffness, t ingling, Arthritis and restless legs Skin Skin: No yellowing of the eye or itchy eyes Neuro Neurology: Positive for numbness, tingling and restless legs Psych Psychiatric: Positive for anxiety, Positive for depression, Positive for hyperactivity and Positive for inattentiveness Endo Endocrine: Positive for fatigue and weight change Aller/Imm Allergy/Immunologic: No itchy eyes Jean/Lymp Hematologic/Lymphatic: No easy bleeding or easy bruising Exam Const General: cooperative and no acute distress Nutritional Appearance: underweight Eyes Conjunctivae: conjunctivae normal Sclera: sclerae normal Neck Neck: normal visual inspection Resp Effort & Inspection: normal respiratory effort GI Inspection: normal to inspection Auscultation: normal bowel sounds Palpation: soft, no hepatosplenomegaly, no masses and tender in the LLQ Skin General: no rashes or lesions noted and no jaundice Neuro Speech: speech normal Gait: normal gait Psych Mood: anxious mood (mildly) Affect: normal affect Quality Reporting Tobacco Screening ([facility] 138) Smoking Status: Never smoker Assessment and Plan Assessment and Plan (1) Hx of acute juvenile rheumatoid arthritis: ?Status:?Acute (2) Nausea & vomiting: ?Status:?Acute (3) Diarrhea: ?Status:?Acute (4) Weight loss: ?Status:?Acute (5) Abdominal tenderness of left lower quadrant: ?Status:?Acute ? ? ? Orders:?Orders: ? Comprehensive Metabolic Profil Today Z87.39, R11.2, R19.7, R63.4 ? ? CRP Today Z87.39, R11.2, R19.7, R63.4 ? ? CBC W/Diff, Automated Today Z87.39, R11.2, R19.7, R63.4 ? ? Erythrocyte Sed Rate Today Z87.39, R11.2, R19.7, R63.4 ? ? ALBERTO Comprehensive Panel Today Z87.39, R11.2, R19.7, R63.4 ? ? Calprotectin, Stool Today Z87.39, R11.2, R19.7, R63.4 ? ? Stool Lactoferrin/WBC Today Z87.39, R11.2, R19.7, R63.4 ? ? Celiac Disease Profile Today Z87.39, R11.2, R19.7, R63.4 ? ? Abdomen/Pelvis WITH Contrast Today R11.2, R19.7, R63.4, R10.814 ? ? Ova and Parasites 8623 Today R19.7 ? ? CDIFF (PCR) Today R19.7 ? ? ENTERIC PATHOGEN PANEL STOOL Today R19.7 ? ? Giardia Lamblia, Stool EIA Today R19.7 ?Plan - Sadie Mcmillan LICENSED AND CERTIFIED MIDWIFE, LICENSED AND CERTIFIED MIDWIFE-C: This very nice 21-year-old female with nausea and vomiting, diarrhea, weight loss, left lower quadrant abdominal tenderness on exam, marijuana use, juvenile rheumatoid arthritis.? Differential diagnosis includes IBS, IBD, other au toimmune disorder, eating disorder, marijuana hyperemesis.? Biochemical work-up to include inflammatory markers, comprehensive ALBERTO panel.? Stool tests for ruling out infection, looking for inflammation in the colon.? Abdomen and pelvis with oral and IV contrast considering significant weight loss, chronic nausea vomiting and diarrhea, abdominal tenderness on exam.? She will be scheduled for EGD and colonoscopy.? Follow-up 2 weeks after endoscopies.? We will also do office follow-up before her endoscopies to review results and see how she is feeling and if any further eval or treatment is needed before endoscopies are done. I have examined the patient and the H&P has been reviewed. There are no clinical changes since date of exam.
--- NOTE | 2022-07-02 07:45 | IMM_PTH ---
PATIENT: DEBORAH GOMEZ LOC: EN U#:[id number] AGE/SX: 21/F ROOM: RE07/02/[address]: Dr. Ga Esquivel DO : 2000 BED: DIS: 07/02/2022 SPEC #: [id number] RECD: 07/02/22 14:18 STATUS: [place] #: [id number] ABBE: 07/02/22 07:[address]: Ga Esquivel DEPT: IMMUNOHISTOCHEMISTRY RECD BY: Ana Borjas ENTERED: 07/02/22 14:19 SP TYPE: IMMUNO OTHR DR: Dr. Linda Rizo MD Tissues: B - Stomach, NOS Procedures: H Pylori (initial) PHYSICIAN & INSTITUTION [address] [address] SPECIMEN INFORMATION: Tissue Source: B ? Gastric body Clinical Info: Nausea, vomiting, diarrhea, weight loss, abdominal tenderness left lower quadrant Specimen Number: [id number] CPT code: 80671 METHODOLOGY: Deparaffinized sections of prefer/formalin-fixed tissue or PAP/DQ stained slides are incubated with monoclonal/polyclonal antibodies/oligonucleotide probes. Localization is made via biotin free immunoperoxidase method. Appropriate controls are performed and reacted as expected. Results on target cell population are indicated in the following table: RESULTS: ANTIBODY / CLONE RESULT Block B H Pylori (polyclonal) negative These tests were developed and their performance characteristics determined by [facility]. They may not have been cleared or approved by the U.S. Food and Drug Administration. The FDA has determined that such clearance or approval is not necessary. The above immunohistochemical/dualISH markers are ordered and reviewed by the Pathologist. INTERPRETATION: B. Gastric body, biopsy: Negative for Helicobacter pylori organisms. AM:aure 07/03/2022
--- NOTE | 2022-07-02 07:45 | COLBX_PTH ---
PATIENT: DEBORAH GOMEZ LOC: EN U#:[id number] AGE/SX: 21/F ROOM: RE07/02/[address]: Dr. Ga Esquivel DO : 2000 BED: DIS: 07/02/2022 SPEC #: [id number] RECD: 07/02/22 09:21 STATUS: [place] COURTNEY #: [id number] ABBE: 07/02/22 07:[address]: Ga Esquivel DEPT: SURGICAL PATHOLOGY RECD BY: Perry Rubio ENTERED: 07/02/22 11:20 SP TYPE: COLON BX OTHR DR: Dr. Linda Rizo MD Tissues: A - Duodenum, NOS B - Gastric mucous membrane C - Esophagus, NOS D - Ileum, NOS Procedures: Special Stain Group II Surgery Specimen Level IV Alcian Blue/PAS (control) HEADER OPERATION: Colonoscopy, EGD ([place]) with biopsies PRE-OP DIAGNOSIS: Nausea, vomiting, diarrhea, weight loss, abdominal tenderness of left lower quadrant TISSUE SUBMITTED: A ? Duodenal biopsy, B ? Gastric body biopsy, C ? Distal esophagus biopsy, D ? Terminal ileum biopsy MICROSCOPIC DIAGNOSIS A. 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 B. Gastric body, biopsy: Chronic gastritis. See comment. C. Distal esophagus, biopsy: Fragment of gastric mucosa with mild chronic inflammation. No evidence of goblet cell metaplasia. See comment. D. Terminal ileum, biopsy: No pathologic change. AM:aure 07/03/2022 COMMENT B. The results of immunohistochemistry for Helicobacter pylori will be reported separately ([id number]). C. Alcian blue/PAS stain with matched control supports the above diagnosis. MICROSCOPIC DESCRIPTION Slides are reviewed. GROSS DESCRIPTION A - Received in fixative is one container labeled with the patient's name and designated duodenum biopsy. The specimen consists of three irregular fragments of light montero soft tissue that in aggregate measure 1.3 x 0.5 x 0.1 cm. The specimen is totally submitted in one cassette. B - Received in fixative is one container labeled with the patient's name and designated gastric body biopsy. The specimen consists of two irregular fragments of light montero soft tissue that in aggregate measure 1.0 x 0.5 x 0.1 cm. The specimen is totally submitted in one cassette. C - Received in fixative is one container labeled with the patient's name and designated distal esophagus. The specimen consists of one irregular fragment of light montero soft tissue that measures 0.5 x 0.3 x 0.1 cm. The specimen is totally submitted in one cassette. D - Received in fixative is one container labeled with the patient's name and designated terminal ileum. The specimen consists of one irregular fragment of light montero soft tissue that measures 0.7 x 0.5 x 0.1 cm. The specimen is totally submitted in one cassette. / AM:aure 07/02/2022 TC:5 CPT: 38254 x4, 62148
--- NOTE | 2022-07-02 08:16 | OP.EGD_ITS ---
Patient Name: Brynn Venegas Procedure Date: 07/02/2022 7:39 AM Date of : 2000 Age: 21 Procedure: Upper GI endoscopy Indications: Epigastric abdominal pain Providers: Ga Esquivel DO Referring MD: Linda Rizo Medicines: Monitored Anesthesia Care Patient Profile: This is a 21 year old female. Refer to note in patient chart for documentation of history and physical. Patient has symptoms of chronic abdominal cramping, chronic epigastric abdominal pain and chronic dyspepsia. Complications: No immediate complications. Procedure: Pre-Anesthesia Assessment: - Prior to the procedure, a History and Physical was performed, and patient medications and allergies were reviewed. The patient is competent. The risks and benefits of the procedure and the sedation options and risks were discussed with the patient. All questions were answered and informed consent was obtained. Patient identification and proposed procedure were verified by the physician. Mental Status Examination: alert and oriented. Airway Examination: normal oropharyngeal airway and neck mobility. Respiratory Examination: clear to auscultation. CV Examination: normal. Prophylactic Antibiotics: The patient does not require prophylactic antibiotics. Prior Anticoagulants: The patient has taken no previous anticoagulant or antiplatelet agents. ASA Grade Assessment: II - A patient with mild systemic disease. After reviewing the risks and benefits, the patient was deemed in satisfactory condition to undergo the procedure. The anesthesia plan was to use monitored anesthesia care (MAC). Immediately prior to administration of medications, the patient was re-assessed for adequacy to receive sedatives. The heart rate, respiratory rate, oxygen saturations, blood pressure, adequacy of pulmonary ventilation, and response to care were monitored throughout the procedure. The physical status of the patient was re-assessed after the procedure. After obtaining informed consent, the endoscope was passed under direct vision. Throughout the procedure, the patient's blood pressure, pulse, and oxygen saturations were monitored continuously. The colonoscope was introduced through the mouth, and advanced to the second part of duodenum. The upper GI endoscopy was accomplished without difficulty. The patient tolerated the procedure well. Scope In: 7:49:22 AM Scope Out: 7:53:17 AM Total Procedure Duration Time 0 hours 3 minutes 55 seconds Findings: Non-severe esophagitis with no bleeding was found 37 to 38 cm from the incisors. Biopsies were taken with a cold forceps for histology. Verification of patient identification for the specimen was done. Estimated blood loss was minimal. Patchy mildly erythematous mucosa without bleeding was found in the gastric body. Biopsies were taken with a cold forceps for histology. Verification of patient identification for the specimen was done. Estimated blood loss was minimal. No gross lesions were noted in the second portion of the duodenum. Biopsies were taken with a cold forceps for histology. Verification of patient identification for the specimen was done. Estimated blood loss was minimal. Impression: - Non-severe reflux esophagitis. Biopsied. - Erythematous mucosa in the gastric body. Biopsied. - No gross lesions in the second portion of the duodenum. Biopsied. Recommendation: - Discharge patient to home. - Resume previous diet. - Continue present medications. - Await pathology results. Procedure Code(s): --- Professional --- 06253, Esophagogastroduodenoscopy, flexible, transoral; with biopsy, single or multiple CPT copyright 2017 [employer]. All rights reserved. The codes documented in this report are preliminary and upon pet training instructor review may be revised to meet current compliance requirements. Ga Esquivel DO 07/02/2022 8:16:20 AM This report has been signed electronically. Number of Addenda: 0 Note Initiated On: 07/02/2022 7:39 AM
--- NOTE | 2022-07-02 08:17 | OP.CCLET_ITS ---
07/02/2022 Linda Rizo [facility] [address] [place] [address] Re : Upper GI endoscopy procedure for Brynn Venegas Dear Dr. Rizo This procedure was performed on Saturday, July 02, 2022. My impressions and recommendations are as follows: Impressions : - Non-severe reflux esophagitis. Biopsied. - Erythematous mucosa in the gastric body. Biopsied. - No gross lesions in the second portion of the duodenum. Biopsied. Recommendations : - Discharge patient to home. - Resume previous diet. - Continue present medications. - Await pathology results. My findings are described in the full procedure note, which is enclosed. If I can be of further assistance, please feel free to contact me at . Sincerely, Ga Esquivel, 07/02/2022 8:16:20 AM This report has been signed electronically.
--- NOTE | 2022-07-02 08:24 | OP.COLON_ITS ---
Patient Name: Brynn Venegas Procedure Date: 07/02/2022 7:53 AM Date of : 2000 Age: 21 Procedure: Colonoscopy Indications: Generalized abdominal pain Providers: Ga Esquivel DO Referring MD: Linda Rizo Medicines: Monitored Anesthesia Care Patient Profile: This is a 21 year old female. Refer to note in patient chart for documentation of history and physical. Patient has symptoms of chronic abdominal cramping, chronic epigastric abdominal pain and chronic dyspepsia. Last Colonoscopy: none. The patient's first colonoscopy is today. Complications: No immediate complications. Procedure: Pre-Anesthesia Assessment: - Prior to the procedure, a History and Physical was performed, and patient medications and allergies were reviewed. The patient is competent. The risks and benefits of the procedure and the sedation options and risks were discussed with the patient. All questions were answered and informed consent was obtained. Patient identification and proposed procedure were verified by the physician. Mental Status Examination: alert and oriented. Airway Examination: normal oropharyngeal airway and neck mobility. Respiratory Examination: clear to auscultation. CV Examination: normal. Prophylactic Antibiotics: The patient does not require prophylactic antibiotics. Prior Anticoagulants: The patient has taken no previous anticoagulant or antiplatelet agents. ASA Grade Assessment: II - A patient with mild systemic disease. After reviewing the risks and benefits, the patient was deemed in satisfactory condition to undergo the procedure. The anesthesia plan was to use monitored anesthesia care (MAC). Immediately prior to administration of medications, the patient was re-assessed for adequacy to receive sedatives. The heart rate, respiratory rate, oxygen saturations, blood pressure, adequacy of pulmonary ventilation, and response to care were monitored throughout the procedure. The physical status of the patient was re-assessed after the procedure. After I obtained informed consent, the scope was passed under direct vision. Throughout the procedure, the patient's blood pressure, pulse, and oxygen saturations were monitored continuously. The colonoscope was introduced through the anus and advanced to the terminal ileum. The terminal ileum, ileocecal valve, appendiceal orifice, and rectum were photographed. The quality of the bowel preparation was poor. Scope In: 7:55:27 AM Scope Withdrawal Time 0 hours 6 minutes 5 seconds Scope Out: 8:11:18 AM Total Procedure Duration Time 0 hours 15 minutes 51 seconds Findings: The perianal and digital rectal examinations were normal. Extensive amounts of stool was found in the entire colon, precluding visualization. The terminal ileum appeared normal. Biopsies were taken with a cold forceps for histology. Verification of patient identification for the specimen was done. Estimated blood loss was minimal. Impression: - Stool in the entire examined colon. - The examined portion of the ileum was normal. Biopsied. Recommendation: - Discharge patient to home. - Resume previous diet. - Continue present medications. - Await pathology results. - Repeat colonoscopy for surveillance based on pathology results. Procedure Code(s): --- Professional --- 69468, Colonoscopy, flexible; with biopsy, single or multiple CPT copyright 2017 [place] [employer] [place] [employer]. All rights reserved. The codes documented in this report are preliminary and upon film and video editor review may be revised to meet current compliance requirements. Ga Esquivel DO 07/02/2022 8:24:16 AM This report has been signed electronically. Number of Addenda: 0 Note Initiated On: 07/02/2022 7:53 AM
--- NOTE | 2022-07-02 08:25 | OP.CCLET_ITS ---
07/02/2022 Linda Rizo [facility] [address] [place] [address] Re : Colonoscopy procedure for Brynn Venegas Dear Dr. Rizo This procedure was performed on Saturday, July 02, 2022. My impressions and recommendations are as follows: Impressions : - Stool in the entire examined colon. - The examined portion of the ileum was normal. Biopsied. Recommendations : - Discharge patient to home. - Resume previous diet. - Continue present medications. - Await pathology results. - Repeat colonoscopy for surveillance based on pathology results. My findings are described in the full procedure note, which is enclosed. If I can be of further assistance, please feel free to contact me at . Sincerely, Ga Esquivel, 07/02/2022 8:24:16 AM This report has been signed electronically.
== END 2022-07-02 09:23 | disposition home or self-care (01) ==
LOC: EN 06:48 → AC 06:49
PROVIDERS: Anesthesiology; PCP Internal Medicine; Referring Provider Internal Medicine; Visit Provider Internal Medicine Gastroenterology
PROC: 0DJD8ZZ Inspection of Lower Intestinal Tract, Via Natural or Artificial Opening Endoscopic (ICD-10-PCS; CPT 45378; principal; 2022-07-02 07:40)
DX: K21.00 Gastro-esophageal reflux disease with esophagitis, without bleeding (principal); K29.50 Unspecified chronic gastritis without bleeding
CPT/HCPCS: 45380; 43239; 81025; 88305; 88313; 88342; J7120; J2405

== ENCOUNTER 2022-08-16 13:26 | Emergency (ER) | payer MEDICAID, SELFPAY ==
[2022-08-16 13:27] VITALS: BP 110/78; PULSE 119; RESP 16; TEMP 36.7; O2SAT 98; BMI 15.7
--- NOTE | 2022-08-16 13:53 | EDS_ITS ---
HPI History of Present Illness Chief Complaint: Nausea/Vomiting Informant: patient Narrative Narrative: Noted increasing nausea 2 days increasing indigestion decreased p.o. intake. No diarrhea nonbloody stools. Muscle aches. History of marijuana dependence. La st used today. She is followed by GI DrSteph Esquivel, upper and lower endoscopy recently. She states there is gastritis findings. States he is not aching and medications for this. Denies urinary symptoms. States she has had low potassium in the past for unclear reasons. She denies any laxative use. She has been told of cannabis hyperemesis syndrome. Symptoms do improve with warm water she is caring of hot water container currently. Prior similar symptoms: Yes [facility] Medical History Abdominal tenderness of left lower quadrant Anxiety Back pain Depression Diarrhea Gastric reflux History of edema Juvenile idiopathic arthritis Marijuana use Migraine headache Shortness of breath on exertion Home Medications ondansetron 4 mg disintegrating tablet 4 mg PO Q8H PRN PRN Nausea #10 tabs 05/15 [Rx Last Taken Unknown] haloperidol 0.5 mg tablet 0.5 mg PO BID PRN nausea and vomiting #14 tabs 05/23/22 [Rx Last Taken Unknown] pantoprazole 20 mg tablet,delayed release 20 mg PO BID #60 tabs 06/18/22 [Rx Last Taken Unknown] cyanocobalamin (vitamin B-12) 100 mcg tablet (Vitamin B-12) 100 mcg PO DAILY 06/26/22 [History Last Taken Unknown] thiamine HCl (vitamin B1) 50 mg tablet (Vitamin B-1) 50 mg PO DAILY 06/26/22 [History Last Taken Unknown] sucralfate 1 gram tablet 1 g PO BID #60 tabs 07/18/22 [Rx Last Taken Unknown] pantoprazole 20 mg tablet,delayed release 20 mg PO BID #60 tabs 08/16/22 [Rx Last Taken Unknown] potassium chloride 20 mEq tablet,extended release 20 meq PO BID #7 tabs 08/16/22 [Rx Last Taken Unknown] sucralfate 1 gram tablet (Carafate) 1 g PO BID #60 tabs 08/16/22 [Rx Last Taken Unknown] Allergy/AdvReac Type Severity Reaction Status Date / Time red dye Allergy Mild hives Verified 08/16/22 13:27 yellow dye Allergy Mild hives Verified 08/16/22 13:27 Family History Other Asthma Cancer Hypertension Social History Smoking Status: Never smoker alcohol intake: current alcohol intake frequency: holidays/special occasions only substance use type: marijuana and other details: smokes daily at least 3 times daily ROS ROS ED Constitutional Constitutional ED: Denies chills, fever(s) or sweats Eyes Eyes: Denies change in vision ENT ENT ED: Denies dysphagia or sore throat Cardiovascular Cardiovascular: Denies chest pain, leg edema, palpitations or racing heartbeat Respiratory/Chest Respiratory/Chest: Denies cough, dyspnea or dyspnea on exertion Gastrointestinal Gastrointestinal: Reports nausea; Denies abdominal pain, diarrhea or vomiting Genitourinary Genitourinary ED: Denies dysuria, hematuria or urinary frequency Musculoskeletal Musculoskeletal: Reports myalgias; Denies back pain, extremity pain or neck pain Integumentary Denies rash or wounds Neurologic Neurologic: Denies headache(s), paresthesias or weakness EXAM Physical Exam Const Vital Signs: 08/16/22 13:27 08/16/22 16:08 Temperature 98.0 F Temperature Source Temporal Pulse Rate 119 H 93 Respiratory Rate 16 16 Blood Pressure 110/78 100/69 Blood Pressure Mean 88 79 Pulse Ox 98 97 Oxygen Delivery Method Room Air Room Air Positive well nourished and well developed General Appearance ED: well developed and NAD HEENT Reports dry mucous membranes normocephalic and atraumatic Mouth ED: Yes dry mucous membranes Mouth: dry mucous membranes Eyes PERRL, EOMs intact bilaterally and conjunctivae normal General Eye ED: Yes normal appearance of both eyes Neck no lymphadenopathy and supple General: Negative for tenderness Chest Wall Chest: Negative for tenderness Resp normal respiratory effort and normal air movement Effort and Inspection: symmetric chest movement; Negative for respiratory distress Cardio regular rhythm and no murmurs Rate: tachycardic Peripheral Pulses: pulses 2+ throughout GI normal to inspection, nondistended, normoactive bowel sounds and non-tender GI Narrative: Negative Asencio's or McBurney's tenderness, no epigastric tenderness on exam. Palpation: Negative for guarding or rebound tenderness present Back/Spine no CVA tenderness and no thoracic nor lumbar tenderness Extremity normal to inspection General Extremety ED: Negative for edema or tenderness General Extremity: Negative for edema Neuro oriented x3 and no sensory deficits noted Sensorium / Orientation: awake and alert Skin no rashes or lesions noted and no wounds MDM MDM MDM Narrative Medical decision making narrative: Interventions / MDM: Differential diagnosis: Cannabis hyperemesis syndrome, electrolyte abnormalities, esophagitis, gastritis Diagnosis considered but do not suspect: N/A My EKG interpretation: N/A Imaging independently reviewed and interpreted by myself: N/A External documents reviewed: Reviewing of the GI notes from June with endoscopies noting esophagitis and recommendations continuing her pantoprazole twice daily and Carafate that was started last month. Test considered but not ordered:N/A ED course: Clinical dehydration IV fluids were given Labs were checked potassium 2.6 magnesium normal at 2.4. She is treated with Pepcid Zofran IV fluids.. White count normal 10.6. hCG negative. Patient able to take p.o. intake with potassium. Discussed recommendations from her GI team for which she states she ran out of her pantoprazole she did not ever scrap picker prescription for her Carafate from her follow-up with GI. She written for a week ago potassium for replacement she is written for a month supply of her pantoprazole along with her Carafate. She will follow-up with her doctors for recheck of labs. Patient has Zofran at home. Return precautions. All questions were answered. Re-evaluation: stable Disposition discussed with patient/family/significant other: Patient Case discussed with consulting clinician: N/A Lab Data Attestation: I reviewed the patient's lab results. Labs: Laboratory Results - last 24 hr 08/16/22 08/16/22 08/16/22 14:02 14:02 14:02 WBC 9.1 RBC 5.16 Hgb 15.6 H Hct 45.6 MCV 88.4 MCH 30.2 MCHC 34.2 RDW Std Deviation 37.3 RDW Coeff of Burak 11.7 Plt Count 306 MPV 9.4 Immature Gran % (Auto) 0.600 Neut % (Auto) 43.7 L Lymph % (Auto) 44.0 H Thurston % (Auto) 10.8 H Eos % (Auto) 0.3 Baso % (Auto) 0.6 Absolute Neuts (auto) 4.0 Absolute Lymphs (auto) 3.99 Nucleated RBC % 0 Sodium 129 L Potassium 2.6 L* Chloride 84 L Carbon Dioxide 34.0 H Anion Gap 11 BUN 13 Creatinine 0.86 Estim Creat Clear Calc 67.38 Est GFR (MDRD) Af Amer 107 Est GFR (MDRD) Non-Af 88 BUN/Creatinine Ratio 15.2 Glucose 107 H Calcium 9.5 Magnesium 2.4 Serum , Qual NEGATIVE Discharge Plan Triage Chief Complaint: Nausea/Vomiting ED Provider: Rajeev Leung Dx/Rx/DC Orders Clinical Impression: Gastritis, Nausea & vomiting, Dehydration, Hypokalemia, Marijuana dependence Instructions: Dehydration, ED Gastritis (Adult), ED Hypokalemia Prescriptions: New pantoprazole 20 mg tablet,delayed release (DR/EC) 20 mg PO BID Qty: 60 0RF sucralfate [Carafate] 1 gram tablet 1 g PO BID Qty: 60 0RF potassium chloride 20 mEq tablet extended release 20 meq PO BID Qty: 7 0RF No Action sucralfate 1 gram tablet 1 g PO BID Qty: 60 0RF cyanocobalamin (vitamin B-12) [Vitamin B-12] 100 mcg Tablet 100 mcg PO DAILY thiamine HCl (vitamin B1) [Vitamin B-1] 50 mg Tablet 50 mg PO DAILY ondansetron [ondansetron] 4 mg tablet,disintegrating 4 mg PO Q8H PRN PRN (Reason: Nausea) Qty: 10 0RF haloperidol 0.5 mg tablet 0.5 mg PO BID PRN (Reason: nausea and vomiting) Qty: 14 0RF pantoprazole 20 mg tablet,delayed release (DR/EC) 20 mg PO BID Qty: 60 5RF Primary Care Provider: Linda Rizo Referrals: Linda Rizo MD [Primary Care Provider] - 1 Week Ga Esquivel DO [Med Staff - Active Staff] - 1-2 Weeks Activity Restrictions/Additional Instructions: Potassium 2.6 magnesium normal at 2.4. Oral placement in the ED continued prescriptions as prescribed. Take Carafate and pantoprazole as prescribed and recommended by your GI team on your visits. Your EGD noted esophagitis with this recommendation. Trying to stop your marijuana use to prevent symptoms. Disposition Disposition: Home, Self Care Discharge Date/Time: 08/16/22 16:14
[2022-08-16] MEDS: 0.9% Normal Saline 1,000 ML 1000 ML IV (14:07)
[2022-08-16] MEDS: Ondansetron 4 MG/2 ML Vial IV (14:08)
[2022-08-16 14:16] LABS: Absolute Lymphocyte Count 3.99 X10^3/uL (0.83-4.51); Basophil# 0.05 X10^3/uL; Basophil% 0.6 % (0-1); Eosinophil# 0.03 X10^3/uL; Eosinophils% 0.3 % (0-5); Hematocrit 45.6 % (37-47); Hemoglobin 15.6 g/dL (12.0-15.0); Lymphocyte # 3.99 X10^3/ul (0.83-4.51); Mean Corp Hgb Conc 34.2 g/dL (32-36); Mean Corpuscular Hgb 30.2 pg (27.0-32.0); Mean Corpuscular Volume 88.4 fL (81-99); Mean Platelet Vol. 9.4 fl (6.2-12.0); Monocyte# 0.98 X10^3/uL; Monocyte% 10.8 % (0-10); NRBC Flagged by Analyzer 0 % (0-5); Neutrophil # 3.97 X10^3/uL (2.7-7.7); Neutrophil % 43.7 % (47-70); Platelet Count 306 K/mm3 (150-450); RBC Distribution Width CV 11.7 % (11.6-14.6); RBC Distribution Width SD 37.3 fl (35.1-43.9); Red Blood Count 5.16 M/mm3 (4.2-5.4); White Blood Count 9.1 K/mm3 (4.4-11.0)
[2022-08-16 14:22] LABS: Internal QC Validated? YES +Cl - CLEAR BKGD; Pregnancy, Serum, hCG Quali. NEGATIVE Negative
[2022-08-16] MEDS: Famotidine 200 MG/20 ML MDV 20 MG in 0.9% Normal Saline (Pres. free 8 ML 300 MG IV (14:27)
[2022-08-16 14:31] LABS: Anion Gap 11 (5-15); BUN 13 mg/dL (7-18); BUN/Creat Ratio 15.2 RATIO (10-20); Calcium,Total 9.5 mg/dL (8.5-10.1); Chloride 84 mmol/L (98-107); Creatinine, Serum 0.86 mg/dL (0.55-1.02); EST Glomerular Filtration Rate 88 mL/min (>60); Est Glom Filt Rate - Afr Amer 107 mL/min (>60); Estimated Creatinine Clearance 67.38 ml/min; Glucose 107 mg/dL (74-106); Magnesium 2.4 mg/dL (1.6-2.6); Potassium 2.6 mmol/L (3.5-5.1); Sodium Level 129 mmol/L (136-145)
[2022-08-16] MEDS: Potassium Chloride Oral Tablet 20 MEQ 40 MEQ PO (14:45)
[2022-08-16 16:08] VITALS: BP 100/69; PULSE 93; RESP 16; O2SAT 97
== END 2022-08-16 16:14 | disposition home or self-care (01) ==
PROVIDERS: Emergency Provider Emergency Medicine; PCP Internal Medicine; Visit Provider Emergency Medicine
DX: K29.70 Gastritis, unspecified, without bleeding (principal); F12.20 Cannabis dependence, uncomplicated; E86.0 Dehydration; E87.6 Hypokalemia; Z79.899 Other long term (current) drug therapy
CPT/HCPCS: 80048; 83735; 84703; 85025; 96361; 96374; 96375; 99282; J7030; A4216; J2405; J3490

== ENCOUNTER 2022-09-10 13:35 | Emergency (ER) | payer MEDICAID, SELFPAY ==
[2022-09-10 13:36] VITALS: BP 134/101; PULSE 89; RESP 16; TEMP 35.9; O2SAT 100; BMI 15.7
--- NOTE | 2022-09-10 13:45 | ED.RN ---
pt states abd pain started after vomiting
--- NOTE | 2022-09-10 13:59 | CT_ITS ---
EXAM: CT ABDOMEN AND PELVIS WITHOUT INTRAVENOUS CONTRAST CLINICAL INDICATION: Pain -- N/V X3 DAYS TECHNIQUE: Helically acquired images were obtained of the abdomen and pelvis without intravenous contrast. This CT exam was performed using one or more of the following dose reduction techniques: automated exposure control, adjustment of the mA and/or kV according to patient size, and/or use of iterative reconstruction technique. RADIATION DOSE: CTDIvol = 6.04 mGy, DLP = 288.42 mGy-cm COMPARISON: 7.8.22 FINDINGS: LOWER THORAX: Unremarkable. Lung bases are clear. No cardiomegaly. No significant pericardial effusion. ABDOMEN: LIVER: Unremarkable. Homogeneous. GALLBLADDER AND BILE DUCTS: Unremarkable. No calcified gallstones. No gallbladder distention or wall edema. No intra- or extrahepatic biliary ductal dilation. PANCREAS: Unremarkable. No focal cystic mass. SPLEEN: Unremarkable. Normal size without focal cystic or solid mass. ADRENALS: Unremarkable. No nodules. KIDNEYS AND URETERS: Unremarkable. Normal renal size and position. No hydronephrosis. STOMACH AND BOWEL: Unremarkable. No stomach or bowel distention. No focal inflammatory change. PELVIS: APPENDIX: No evidence of acute appendicitis. BLADDER: Unremarkable. REPRODUCTIVE: Unremarkable as visualized. No mass. ABDOMEN and PELVIS: INTRAPERITONEAL SPACE: Unremarkable. No ascites or other fluid collection. No free air. BONES/JOINTS: Unremarkable. No suspicious lytic or blastic abnormality. SOFT TISSUES: Unremarkable. No discrete abdominal or pelvic wall hernia. VASCULATURE: Unremarkable. Abdominal aorta is non-dilated. LYMPH NODES: Unremarkable. No enlarged lymph nodes. CT/Abdomen/Pelvis without Cont IMPRESSION: Negative CT of the abdomen and pelvis without intravenous contrast. Electronically Signed: Wesley Mckeon MD at 16:45 EDT ,
--- NOTE | 2022-09-10 14:00 | EX.ED.DYSGE1 ---
HPI History of Present Illness Chief Complaint: Nausea/Vomiting Detail of Chief Complaint: Vomiting and abdominal pain Informant: patient Narrative Narrative: Patient presents the emergency department complaint of vomiting and abdominal pain is been going on for about 3 days. Patient now having mostly dry heaves. Patient describes diffuse abdominal pain. She has had no real diarrhea. Patient states she had episodes like this before and had been attributed to hyperemesis from THC use. Patient continues to smoke marijuana. She denies any other illicit drug use. She has not missed a menstrual period. She denies fevers. [facility] Medical History (Updated 09/10/22 @ 16:[address] Vj Shi, DO) Abdominal tenderness of left lower quadrant Anxiety Avoidant-restrictive food intake disorder (ARFID) Back pain Depression Diarrhea Gastric reflux History of edema Juvenile idiopathic arthritis Marijuana use Migraine headache Shortness of breath on exertion Home Medications ondansetron 4 mg disintegrating tablet 4 mg PO Q8H PRN PRN Nausea #10 tabs 05/15/22 [Rx Last Taken Unknown] haloperidol 0.5 mg tablet 0.5 mg PO BID PRN nausea and vomiting #14 tabs 05/23/22 [Rx Last Taken Unknown] pantoprazole 20 mg tablet,delayed release 20 mg PO BID #60 tabs 06/18/22 [Rx Last Taken Unknown] cyanocobalamin (vitamin B-12) 100 mcg tablet (Vitamin B-12) 100 mcg PO DAILY 06/26/22 [History Last Taken Unknown] thiamine HCl (vitamin B1) 50 mg tablet (Vitamin B-1) 50 mg PO DAILY 06/26/22 [History Last Taken Unknown] sucralfate 1 gram tablet 1 g PO BID #60 tabs 07/18/22 [Rx Last Taken Unknown] pantoprazole 20 mg tablet,delayed release 20 mg PO BID #60 tabs 08/16/22 [Rx Last Taken Unknown] potassium chloride 20 mEq tablet,extended release 20 meq PO BID #7 tabs 08/16/22 [Rx Last Taken Unknown] sucralfate 1 gram tablet (Carafate) 1 g PO BID #60 tabs 08/16/22 [Rx Last Taken Unknown] ondansetron 4 mg disintegrating tablet 4 mg PO Q8H PRN PRN Nausea #10 tabs 09/10/22 [Rx Last Taken Unknown] Allergy/AdvReac Type Severity Reaction Status Date / Time red dye Allergy Mild hives Verified 09/10/22 13:36 yellow dye Allergy Mild hives Verified 09/10/22 13:36 Family History Other Asthma Cancer Hypertension Social History Smoking Status: Never smoker alcohol intake: current alcohol intake frequency: holidays/special occasions only substance use type: marijuana and other details: smokes daily at least 3 times daily ROS ROS ED Review of Systems ROS Unobtainable: other Constitutional Constitutional ED: Reports lethargy; Denies chills, fever(s), sweats or weight loss Eyes Eyes: Denies blurry vision, change in vision or diplopia ENT ENT ED: Denies rhinorrhea or sore throat Cardiovascular Cardiovascular: Reports racing heartbeat; Denies chest pain or orthopnea Respiratory/Chest Respiratory/Chest: Denies cough, dyspnea, dyspnea on exertion, orthopnea or sputum Gastrointestinal Gastrointestinal: Reports abdominal pain, nausea and vomiting; Denies diarrhea Genitourinary Genitourinary ED: Denies dysuria, hematuria or urinary frequency Musculoskeletal Musculoskeletal: Denies arthralgias, back pain, myalgias or neck pain Integumentary Denies abscess, Abrasions or rash Neurologic Neurologic: Denies headache(s) or weakness Psychiatric Psychiatric: Denies anxiety, depression or suicidal thoughts Endocrine Endocrinology: Denies polydipsia, polyphagia or polyuria Hematologic/Lymphatic Hematologic/Lymphatic: Denies easy bleeding, easy bruising or lymphadenopathy Allergic/Immunologic Allergic/Immunologic ED: Denies mouth swelling, tongue swelling or urticaria EXAM Physical Exam Const Vital Signs: 09/10/22 13:36 Temperature 96.7 F L Temperature Source Temporal Pulse Rate 89 Respiratory Rate 16 Blood Pressure 134/101 H Blood Pressure Mean 112 Pulse Ox 100 Oxygen Delivery Method Room Air Positive well nourished and well developed General Appearance ED: well developed and NAD HEENT Reports TM's clear and dry mucous membranes; Denies moist mucous membranes normocephalic and atraumatic; Negative for trauma or tenderness Tympanic Membrane ED: Yes TM's clear Mouth ED: Yes dry mucous membranes Mouth: dry mucous membranes Eyes PERRL and EOMs intact bilaterally General Eye ED: Negative for pale conjunctiva or scleral icterus Neck no lymphadenopathy, supple and no JVD General: Negative for tenderness Chest Wall inspection of chest normal and palpation of chest normal Chest: Negative for tenderness Resp normal respiratory effort and clear to auscultation bilaterally Effort and Inspection: Negative for respiratory distress or pain with movement Auscultation: Negative for rhonchi, wheezes or diminished lung sounds Cardio regular rate, regular rhythm, S1 normal heart sound, S2 normal heart sound and no murmurs Peripheral Pulses: pulses 2+ throughout GI normal to inspection, nondistended, normoactive bowel sounds, soft to palpation, non-distended and no masses GI Narrative: Tenderness diffusely. There is no rebound or rigidity. There is some mild guarding diffusely. Back/Spine no CVA tenderness and no thoracic nor lumbar tenderness Extremity normal to inspection General Extremety ED: Negative for edema General Extremity: Negative for edema Neuro oriented x3, CN's II-XII intact bilaterally, no sensory deficits noted and gait normal Sensorium / Orientation: awake, alert, oriented to person, oriented to place and oriented to time Motor Exam: strength 5/5 throughout and strength abnormal Psych mental status grossly normal Skin no rashes or lesions noted and no wounds MDM MDM MDM Narrative Medical decision making narrative: IV line established. Patient given a liter of the same fluid bolus. Patient was given Zofran 4 mg IV. CBC with differential showing of 8.7 with hemoglobin 14.6 and platelet count of 345. Chemistries showed a depressed potassium of 2.7 for which I did order 40 mEq of potassium chloride p.o. LFTs essentially unremarkable. Urinalysis was negative infection but did show 100 for bones. Serum hCG ordered and pending. Patient also had a CT scan of the abdomen pelvis ordered to evaluate for significant abdominal pain. Care of patient turned over to evening physician awaiting CT results. Lab Data Labs: Laboratory Results - last 24 hr 09/10/22 09/10/22 09/10/22 14:15 14:15 15:10 WBC 8.7 RBC 4.92 Hgb 14.6 Hct 44.5 MCV 90.4 MCH 29.7 MCHC 32.8 RDW Std Deviation 41.6 RDW Coeff of Burak 12.6 Plt Count 345 MPV 9.5 Immature Gran % (Auto) 0.700 Neut % (Auto) 76.4 H Lymph % (Auto) 16.7 L [place] % (Auto) 5.8 Eos % (Auto) 0.1 Baso % (Auto) 0.3 Absolute Neuts (auto) 6.6 Absolute Lymphs (auto) 1.45 Nucleated RBC % 0 Sodium 135 L Potassium 2.7 L* Chloride 101 Carbon Dioxide 22.0 Anion Gap 12 BUN 18 Creatinine 0.91 Estim Creat Clear Calc 63.54 Est GFR (MDRD) Af Amer 99 Est GFR (MDRD) Non-Af 82 BUN/Creatinine Ratio 19.7 Glucose 124 H Calcium 9.8 Total Bilirubin 0.60 AST 22 ALT 34 Alkaline Phosphatase 57 Total Protein 8.8 H Albumin 4.4 Globulin 4.4 H Albumin/Globulin Ratio 1.0 Lipase 29 Urine Color Yellow Urine Clarity Sl. Cloudy Urine pH 5.0 Ur Specific [place] 1.030 Urine Protein 30 H Urine Glucose (UA) Normal Urine Ketones 150 A* Urine Occult Blood 50 H Urine Nitrite Negative Urine Bilirubin 1 H Urine Urobilinogen 1 H Ur Leukocyte Esterase Negative Urine RBC 0-5 SEEN Urine WBC 0-5 SEEN Ur Squamous Epith Cells 0-5 SEEN Urine Bacteria 1+ Urine Mucus 1+ Discharge Plan Triage Chief Complaint: Nausea/Vomiting ED Provider: Vj Shi Dx/Rx/DC Orders Clinical Impression: Vomiting, Abdominal pain Prescriptions: New ondansetron [ondansetron] 4 mg tablet,disintegrating 4 mg PO Q8H PRN PRN (Reason: Nausea) Qty: 10 0RF No Action sucralfate 1 gram tablet 1 g PO BID Qty: 60 0RF cyanocobalamin (vitamin B-12) [Vitamin B-12] 100 mcg Tablet 100 mcg PO DAILY thiamine HCl (vitamin B1) [Vitamin B-1] 50 mg Tablet 50 mg PO DAILY ondansetron [ondansetron] 4 mg tablet,disintegrating 4 mg PO Q8H PRN PRN (Reason: Nausea) Qty: 10 0RF pantoprazole 20 mg tablet,delayed release (DR/EC) 20 mg PO BID Qty: 60 0RF sucralfate [Carafate] 1 gram tablet 1 g PO BID Qty: 60 0RF potassium chloride 20 mEq tablet extended release 20 meq PO BID Qty: 7 0RF haloperidol 0.5 mg tablet 0.5 mg PO BID PRN (Reason: nausea and vomiting) Qty: 14 0RF pantoprazole 20 mg tablet,delayed release (DR/EC) 20 mg PO BID Qty: 60 5RF Primary Care Provider: Linda Rizo Referrals: Linda Rizo MD [Primary Care Provider] -
[2022-09-10] MEDS: 0.9% Normal Saline 1,000 ML 125 ML IV (14:16)
[2022-09-10 14:35] LABS: Absolute Lymphocyte Count 1.45 X10^3/uL (0.83-4.51); Absolute Neutrophil Count 6.6 X10^3/uL (2.0-7.7); Basophil# 0.03 X10^3/uL; Basophil% 0.3 % (0-1); Eosinophil# 0.01 X10^3/uL; Eosinophils% 0.1 % (0-5); Hematocrit 44.5 % (37-47); Hemoglobin 14.6 g/dL (12.0-15.0); Lymphocyte # 1.45 X10^3/ul (0.83-4.51); Lymphocyte % 16.7 % (19-41); Mean Corp Hgb Conc 32.8 g/dL (32-36); Mean Corpuscular Hgb 29.7 pg (27.0-32.0); Mean Corpuscular Volume 90.4 fL (81-99); Mean Platelet Vol. 9.5 fl (6.2-12.0); Monocyte% 5.8 % (0-10); NRBC Flagged by Analyzer 0 % (0-5); Neutrophil # 6.62 X10^3/uL (2.7-7.7); Neutrophil % 76.4 % (47-70); Platelet Count 345 K/mm3 (150-450); RBC Distribution Width CV 12.6 % (11.6-14.6); RBC Distribution Width SD 41.6 fl (35.1-43.9); Red Blood Count 4.92 M/mm3 (4.2-5.4); White Blood Count 8.7 K/mm3 (4.4-11.0)
[2022-09-10 15:19] LABS: Color, Urine Yellow (Yellow); Glucose, Dipstick Normal (Normal); Leukocyte Esterase-Dipstick Negative /ul (Negative); Nitrite-Dipstick Negative (Negative); Occult Blood-Urine 50 /ul (Negative); Protein-Dipstick 30 mg/dl (Negative); Urine Clarity Sl. Cloudy (Clear); Urine Urobilinogen 1 mg/dl (Normal)
[2022-09-10 15:20] LABS: Ketone-Dipstick 150 mg/dl (Negative); Urine Bilirubin Dipstick 1 mg/dL (Negative)
[2022-09-10 15:29] LABS: AST(SGOT) 22 U/L (15-37); Alanine Aminotransfer ALT/SGPT 34 U/L (13-56); Albumin, Serum 4.4 g/dL (3.2-5.0); Alkaline Phosphatase 57 U/L (45-117); Anion Gap 12 (5-15); BUN 18 mg/dL (7-18); BUN/Creat Ratio 19.7 RATIO (10-20); Calcium,Total 9.8 mg/dL (8.5-10.1); Chloride 101 mmol/L (98-107); Creatinine, Serum 0.91 mg/dL (0.55-1.02); EST Glomerular Filtration Rate 82 mL/min (>60); Est Glom Filt Rate - Afr Amer 99 mL/min (>60); Estimated Creatinine Clearance 63.54 ml/min; Globulin 4.4 g/dL (2.2-4.2); Glucose 124 mg/dL (74-106); Lipase 29 U/L (13-75); Potassium 2.7 mmol/L (3.5-5.1); Protein, Total 8.8 g/dL (6.4-8.2); Sodium Level 135 mmol/L (136-145)
[2022-09-10 15:31] LABS: Bacteria 1+ /hpf (None Seen); Mucous, Urine 1+ /hpf (<or=2+); Squamous Epithelial Cells - UA 0-5 SEEN /hpf (5-10); White Blood Cells 0-5 SEEN /hpf (0-5)
[2022-09-10 15:32] LABS: Red Blood Cells-Urine 0-5 SEEN /hpf (0-5)
[2022-09-10] MEDS: Potassium Chloride Oral Tablet 20 MEQ 40 MEQ PO (15:37)
[2022-09-10] MEDS: Ondansetron 4 MG/2 ML Vial IV (15:37)
[2022-09-10] MEDS: 0.9% Normal Saline 1,000 ML 999 ML IV (15:39)
[2022-09-10 16:25] LABS: Internal QC Validated? YES +Cl - CLEAR BKGD; Pregnancy, Serum, hCG Quali. NEGATIVE Negative
[2022-09-10] MEDS: LORazepam 2 MG/ML Syringe 0.5 MG IV (17:03)
[2022-09-10] MEDS: Famotidine 200 MG/20 ML MDV 20 MG in 0.9% Normal Saline (Pres. free 8 ML 300 MG IV (17:14)
[2022-09-10] MEDS: Capsaicin 0.025% 1 APPLIC Tube TOPICAL (17:14)
[2022-09-10] MEDS: Potassium Chloride Oral Soln 20 MEQ/15 ML UDC 40 MEQ PO (19:27)
== END 2022-09-10 20:21 | disposition home or self-care (01) ==
PROVIDERS: Emergency Provider Emergency Medicine; PCP Internal Medicine; Visit Provider Emergency Medicine
DX: R11.2 Nausea with vomiting, unspecified (principal); R10.9 Unspecified abdominal pain
CPT/HCPCS: 74176; 80053; 81001; 83690; 84703; 85025; 87086; 96361; 96365; 96367; 96375; 99284; J7030; A4216; J2405; J3490

== ENCOUNTER → 2023-01-14 | Outpatient (CLI) | payer MEDICAID, SELFPAY ==
[2023-01-14 15:58] LABS: Absolute Lymphocyte Count 2.68 X10^3/uL (0.83-4.51); Absolute Neutrophil Count 3.4 X10^3/uL (2.0-7.7); Basophil# 0.06 X10^3/uL; Basophil% 0.9 % (0-1); Eosinophil# 0.02 X10^3/uL; Eosinophils% 0.3 % (0-5); Hematocrit 39.6 % (37-47); Hemoglobin 12.4 g/dL (12.0-15.0); Lymphocyte # 2.68 X10^3/ul (0.83-4.51); Lymphocyte % 38.8 % (19-41); Mean Corp Hgb Conc 31.3 g/dL (32-36); Mean Corpuscular Volume 95.9 fL (81-99); Mean Platelet Vol. 9.2 fl (6.2-12.0); Monocyte# 0.73 X10^3/uL; Monocyte% 10.6 % (0-10); NRBC Flagged by Analyzer 0 % (0-5); Neutrophil # 3.39 X10^3/uL (2.7-7.7); Neutrophil % 49.1 % (47-70); Platelet Count 253 K/mm3 (150-450); RBC Distribution Width CV 12.8 % (11.6-14.6); RBC Distribution Width SD 45.2 fl (35.1-43.9); Red Blood Count 4.13 M/mm3 (4.2-5.4); White Blood Count 6.9 K/mm3 (4.4-11.0)
[2023-01-14 16:08] LABS: Erythrocyte Sedimentation Rate 3 mm/hr (0-30)
[2023-01-14 16:47] LABS: Insulin 14.1 mU/L (2.6-37.6); Vitamin B12 425 pg/mL (211-911); Vitamin D,25 Hydroxy 27.9 ng/mL
[2023-01-14 16:56] LABS: ALB/GLOB Ratio 1.1 RATIO (0.9-2.4); AST(SGOT) 12 U/L (15-37); Alanine Aminotransfer ALT/SGPT 30 U/L (13-56); Albumin, Serum 3.8 g/dL (3.2-5.0); Alkaline Phosphatase 55 U/L (45-117); Anion Gap 1 (5-15); BUN 10 mg/dL (7-18); BUN/Creat Ratio 12.3 RATIO (10-20); CRP < 2.90 mg/L (0.0-3.0); Calcium,Total 9.2 mg/dL (8.5-10.1); Chloride 109 mmol/L (98-107); Cholesterol 130 mg/dL (200); Creatinine, Serum 0.81 mg/dL (0.55-1.02); EST Glomerular Filtration Rate 93 mL/min (>60); Est Glom Filt Rate - Afr Amer 113 mL/min (>60); Globulin 3.6 g/dL (2.2-4.2); Glucose 83 mg/dL (74-106); High Density Lipoprotein 59 mg/dL; Protein, Total 7.4 g/dL (6.4-8.2); Sodium Level 139 mmol/L (136-145); Thyroid Stim Hormone (TSH) 1.98 uIU/mL (0.358-3.74); Triglycerides 84 mg/dL; Very Low Density Lipoprotein 17 mg/dL (5-40)
== END | disposition home or self-care (01) ==
LOC: LAB 15:39
PROVIDERS: PCP Internal Medicine; Referring Provider Internal Medicine; Visit Provider Internal Medicine
DX: K58.0 Irritable bowel syndrome with diarrhea (principal); M06.9 Rheumatoid arthritis, unspecified; F41.1 Generalized anxiety disorder; F50.9 Eating disorder, unspecified; R10.10 Upper abdominal pain, unspecified; R63.4 Abnormal weight loss; Z87.39 Personal history of other diseases of the musculoskeletal system and connective tissue; E55.9 Vitamin D deficiency, unspecified; E53.8 Deficiency of other specified B group vitamins; Z13.220 Encounter for screening for lipoid disorders
CPT/HCPCS: 36415; 80053; 80061; 82306; 82607; 83525; 84443; 85025; 85652; 86140

== ENCOUNTER 2023-03-29 20:22 | Emergency (ER) | payer MEDICAID, SELFPAY ==
[2023-03-29 20:23] VITALS: BP 123/110; PULSE 102; RESP 16; TEMP 36.8; O2SAT 97; BMI 16.1
--- NOTE | 2023-03-29 20:48 | ED.VIS.GI ---
HPI HPI - GI History of Present Illness Chief Complaint: Abd Pain Informant: patient Abdominal Pain/Flank Pain Onset: Days (4) Context: Sudden Onset Timing: Continuous Quality: Burning, Cramping and Dull Location: Diffuse Worsened by: - (Exertion) Relieved by: Nothing Nausea/Vomiting/Emesis GI Symptom: Positive for Nausea and Vomiting Diarrhea/Melena/Hematochezia GI Symptom: Negative for Diarrhea, Melena or Hematochezia Associated Symptoms Associated Symptoms: Negative for Dysuria, Frequency or Hematuria LMP: 4 days ago Narrative Narrative: Patient presents with abdominal pain that has been getting worse over the past 4 days. Patient states it began rather suddenly. Patient describes it as dull, cramping, and burning. Patient states her pain is diffuse across her abdomen. Patient states it is worse with exertion. Patient states nothing seems to help with it. Patient admits to some nausea and vomiting. Patient denies any hematemesis or coffee-ground emesis. Patient denies any diarrhea, melena, or hematochezia. Patient denies any dysuria, frequency, or hematuria. Patient states her last menstrual period started 4 days ago. Patient admits to some subjective chills. [facility] Medical History Abdominal tenderness of left lower quadrant Anxiety Avoidant-restrictive food intake disorder (ARFID) Back pain Depression Diarrhea Gastric reflux Generalized anxiety disorder History of edema Juvenile idiopathic arthritis Marijuana use Migraine headache Shortness of breath on exertion Home Medications cyanocobalamin (vitamin B-12) 100 mcg tablet (Vitamin B-12) 100 mcg PO DAILY 06/26/22 [History Last Taken Unknown] gabapentin 100 mg capsule 200 mg (2 x 100 mg) PO TID #180 caps 01/14/23 [Rx Last Taken Unknown] metoclopramide HCl 10 mg tablet 10 mg PO BID PRN nausea and vomiting 30 days #60 tabs 01/14/23 [Rx Last Taken Unknown] pantoprazole 40 mg tablet,delayed release 40 mg PO DAILY 30 days #30 tabs 01/14/23 [Rx Last Taken Unknown] Allergy/AdvReac Type Severity Reaction Status Date / Time red dye Allergy Mild hives Verified 03/29/23 20:25 yellow dye Allergy Mild hives Verified 03/29/23 20:25 Family History Other Asthma Cancer Hypertension Surgical History no surgical history no surgical history Social History Smoking Status: Never smoker alcohol intake: current alcohol intake frequency: holidays/special occasions only substance use type: marijuana and other details: smokes daily at least 3 times daily ROS ROS ED Constitutional Constitutional ED: Reports chills; Denies fever(s) Eyes Eyes: Reports blurry vision; Denies change in vision ENT ENT ED: Denies rhinorrhea or sore throat Cardiovascular Cardiovascular: Reports chest pain; Denies palpitations Respiratory/Chest Respiratory/Chest: Reports dyspnea; Denies cough Gastrointestinal Gastrointestinal: Reports abdominal pain, nausea and vomiting Genitourinary Genitourinary ED: Denies dysuria or hematuria Musculoskeletal Musculoskeletal: Reports back pain; Denies neck pain Integumentary Denies abscess or rash Neurologic Neurologic: Denies headache(s) or weakness Allergic/Immunologic Allergic/Immunologic ED: Denies mouth swelling or urticaria EXAM Physical Exam Const Vital Signs: 03/29/23 20:23 03/29/23 22:23 Temperature 98.2 F Temperature Source Temporal Pulse Rate 102 H 66 Respiratory Rate 16 18 Blood Pressure 123/110 H 110/62 Blood Pressure Mean 114 78 Pulse Ox 97 Oxygen Delivery Method Room Air Positive cachectic General Appearance ED: cachectic and NAD Nutritional Appearance: cachectic HEENT Reports moist mucous membranes Neck supple and no JVD Resp normal respiratory effort and clear to auscultation bilaterally Cardio regular rate and regular rhythm GI non-distended Palpation: soft and tender epigastric, LLQ, RLQ, LUQ, RUQ, periumbilical and suprapubic; Negative for guarding or rebound tenderness present Extremity full ROM Neuro CN's II-XII intact bilaterally, moves all extremities, no sensory deficits noted and gait normal Sensorium / Orientation: alert Motor Exam: strength 5/5 throughout Psych mental status grossly normal MDM MDM MDM Narrative Medical decision making narrative: Differential diagnosis includes gastroenteritis, viral illness, bowel obstruction, perforation, urinary tract infection, diabetes, pancreatitis, ectopic , and ovarian cyst. CT scan of the abdomen and pelvis will be obtained to assess for bowel obstruction, perforation, and ovarian cyst. CBC will be obtained to assess for leukocytosis and anemia. Comprehensive metabolic profile will be obtained to assess for electrolyte abnormality, renal function, and hepatic function. Lipase will be obtained to assess for pancreatitis. Serum hCG will be obtained to assess for . Urinalysis will be obtained to assess for urinary tract infection and hematuria. Lab Data Lab results narrative: CBC was reviewed and was essentially within normal limits. Comprehensive metabolic profile was reviewed. Potassium was low at 2.7. The remainder was within normal limits. Lipase was reviewed and was normal at 45. Serum hCG was reviewed and was negative. Urinalysis was reviewed. There is no evidence of urinary tract infection or hematuria. Labs: Laboratory Results - last 24 hr 03/29/23 03/29/23 20:55 21:30 WBC 7.9 RBC 5.30 Hgb 15.7 H Hct 46.4 MCV 87.5 MCH 29.6 MCHC 33.8 RDW Std Deviation 38.0 RDW Coeff of Burak 11.9 Plt Count 307 MPV 9.6 Immature Gran % (Auto) 0.300 Neut % (Auto) 36.4 L Lymph % (Auto) 50.0 H [place] % (Auto) 11.9 H Eos % (Auto) 0.8 Baso % (Auto) 0.6 Absolute Neuts (auto) 2.9 Absolute Lymphs (auto) 3.96 Nucleated RBC % 0 Sodium 133 L Potassium 2.7 L* Chloride 93 L Carbon Dioxide 31.0 Anion Gap 9 BUN 10 Creatinine 0.87 Estim Creat Clear Calc 68.41 Est GFR (MDRD) Af Amer 105 Est GFR (MDRD) Non-Af 86 BUN/Creatinine Ratio 11.5 Glucose 119 H Calcium 9.9 Total Bilirubin 0.90 AST 19 ALT 48 Alkaline Phosphatase 60 Total Protein 8.1 Albumin 4.1 Globulin 4.0 Albumin/Globulin Ratio 1.0 Lipase 45 Serum , Qual NEGATIVE Urine Color Yellow Urine Clarity Clear Urine pH 6.0 Ur Specific [place] 1.015 Urine Protein 30 H Urine Glucose (UA) Normal Urine Ketones 15 H Urine Occult Blood 25 H Urine Nitrite Negative Urine Bilirubin Negative Urine Urobilinogen 4 H Ur Leukocyte Esterase 25 H Urine RBC 0-5 SEEN Urine WBC 0-5 SEEN Ur Squamous Epith Cells 0 SEEN Urine Bacteria 1+ Urine Mucus 2+ Radiography Diagnostic Testing: Clinical Impression(s) from Imaging Studies Abdomen/Pelvis CT 03/29/23 23:30 IMPRESSION: Negative CT of the abdomen and pelvis with intravenous contrast. Electronically Signed: Jameel Gonzalez MD at 23:53 EST , CT scan of the abdomen and pelvis was obtained. There is no evidence of bowel obstruction or perforation. There is no free air or free fluid. There is no acute abnormality noted. This was interpreted by the radiologist and was also independently reviewed by myself. Treatment and Re-Evaluation :: Patient was given IV fluids, morphine, and Zofran. Patient was feeling better on reevaluation. Patient was advised of her findings. Patient was given oral potassium and IV potassium here. Patient was instructed to drink plenty of fluids. Patient was instructed to follow-up with her primary care physician in 3 to 5 days for reevaluation. Patient understood and was agreeable with the plan. All questions were answered. Discharge Plan Triage Chief Complaint: Abd Pain Other Complaint: Nausea/Vomiting ED Provider: Carlos Aguilar Dx/Rx/DC Orders Clinical Impression: Abdominal pain, Eating disorder Instructions: ED Abdominal Pain Unkn Cause Fem Prescriptions: No Action gabapentin 100 mg capsule 200 mg PO TID Qty: 180 2RF metoclopramide HCl 10 mg tablet 10 mg PO BID PRN (Reason: nausea and vomiting) 30 Days Qty: 60 2RF pantoprazole 40 mg tablet,delayed release (DR/EC) 40 mg PO DAILY 30 Days Qty: 30 2RF cyanocobalamin (vitamin B-12) [Vitamin B-12] 100 mcg Tablet 100 mcg PO DAILY Primary Care Provider: Linda Rizo Referrals: Linda Rizo MD [Primary Care Provider] - 3-5 Days Disposition Disposition: Home, Self Care
[2023-03-29 21:32] LABS: Absolute Lymphocyte Count 3.96 X10^3/uL (0.83-4.51); Absolute Neutrophil Count 2.9 X10^3/uL (2.0-7.7); Basophil# 0.05 X10^3/uL; Basophil% 0.6 % (0-1); Eosinophil# 0.06 X10^3/uL; Eosinophils% 0.8 % (0-5); Hematocrit 46.4 % (37-47); Hemoglobin 15.7 g/dL (12.0-15.0); Lymphocyte # 3.96 X10^3/ul (0.83-4.51); Mean Corp Hgb Conc 33.8 g/dL (32-36); Mean Corpuscular Hgb 29.6 pg (27.0-32.0); Mean Corpuscular Volume 87.5 fL (81-99); Mean Platelet Vol. 9.6 fl (6.2-12.0); Monocyte# 0.94 X10^3/uL; Monocyte% 11.9 % (0-10); NRBC Flagged by Analyzer 0 % (0-5); Neutrophil # 2.89 X10^3/uL (2.7-7.7); Neutrophil % 36.4 % (47-70); Platelet Count 307 K/mm3 (150-450); RBC Distribution Width CV 11.9 % (11.6-14.6); White Blood Count 7.9 K/mm3 (4.4-11.0)
[2023-03-29] MEDS: 0.9% Normal Saline (1000mL) 1,000 ML 1000 ML IV (21:32)
[2023-03-29] MEDS: Ondansetron 4 MG/2 ML Vial IV (21:33)
[2023-03-29] MEDS: Morphine 4 MG/ML Syringe IV (21:34)
[2023-03-29 21:35] LABS: Internal QC Validated? YES +Cl - CLEAR BKGD; Pregnancy, Serum, hCG Quali. NEGATIVE Negative
[2023-03-29 21:36] LABS: Lipase 45 U/L (13-75)
[2023-03-29 21:39] LABS: Squamous Epithelial Cells - UA 0 SEEN /hpf (5-10)
[2023-03-29 21:43] LABS: Color, Urine Yellow (Yellow); Glucose, Dipstick Normal (Normal); Ketone-Dipstick 15 mg/dl (Negative); Leukocyte Esterase-Dipstick 25 /ul (Negative); Nitrite-Dipstick Negative (Negative); Occult Blood-Urine 25 /ul (Negative); Protein-Dipstick 30 mg/dl (Negative); Specific Gravity, Urine 1.015 (1.002-1.030); Urine Bilirubin Dipstick Negative (Negative); Urine Clarity Clear (Clear); Urine Urobilinogen 4 mg/dl (Normal)
[2023-03-29 21:51] LABS: Mucous, Urine 2+ /hpf (<or=2+)
[2023-03-29 21:52] LABS: Bacteria 1+ /hpf (None Seen); Red Blood Cells-Urine 0-5 SEEN /hpf (0-5); White Blood Cells 0-5 SEEN /hpf (0-5)
[2023-03-29 22:23] VITALS: BP 110/62; PULSE 66; RESP 18
[2023-03-29 23:12] LABS: AST(SGOT) 19 U/L (15-37); Alanine Aminotransfer ALT/SGPT 48 U/L (13-56); Albumin, Serum 4.1 g/dL (3.2-5.0); Alkaline Phosphatase 60 U/L (45-117); Anion Gap 9 (5-15); BUN 10 mg/dL (7-18); BUN/Creat Ratio 11.5 RATIO (10-20); Calcium,Total 9.9 mg/dL (8.5-10.1); Chloride 93 mmol/L (98-107); Creatinine, Serum 0.87 mg/dL (0.55-1.02); EST Glomerular Filtration Rate 86 mL/min (>60); Est Glom Filt Rate - Afr Amer 105 mL/min (>60); Estimated Creatinine Clearance 68.41 ml/min; Glucose 119 mg/dL (74-106); Potassium 2.7 mmol/L (3.5-5.1); Protein, Total 8.1 g/dL (6.4-8.2); Sodium Level 133 mmol/L (136-145)
--- NOTE | 2023-03-29 23:30 | CT_ITS ---
EXAM: CT ABDOMEN AND PELVIS WITH INTRAVENOUS CONTRAST CLINICAL INDICATION: Abdominal pain -- IV PO Contrast TECHNIQUE: Helically acquired images were obtained of the abdomen and pelvis with intravenous contrast. This CT exam was performed using one or more of the following dose reduction techniques: automated exposure control, adjustment of the mA and/or kV according to patient size, and/or use of iterative reconstruction technique. CONTRAST: Oral and amp; IV Gastrografin and amp; 75mL Isovue-300 COMPARISON: 09/10/2022 FINDINGS: LOWER THORAX: Unremarkable. Lung bases are clear. No cardiomegaly. No significant pericardial effusion. ABDOMEN: LIVER: Unremarkable. Homogeneous. No focal mass. GALLBLADDER AND BILE DUCTS: Unremarkable. No calcified gallstones. No gallbladder distention or wall edema. No intra- or extrahepatic biliary ductal dilation. PANCREAS: Unremarkable. No focal cystic or solid mass. SPLEEN: Unremarkable. Normal size without focal cystic or solid mass. ADRENALS: Unremarkable. No nodules. KIDNEYS AND URETERS: Unremarkable. Normal renal size and position. No hydronephrosis. STOMACH AND BOWEL: Unremarkable. No stomach or bowel distention. No focal inflammatory change. PELVIS: APPENDIX: No evidence of acute appendicitis. BLADDER: Unremarkable. REPRODUCTIVE: Unremarkable as visualized. No mass. ABDOMEN and PELVIS: INTRAPERITONEAL SPACE: Unremarkable. No ascites or other fluid collection. No free air. BONES/JOINTS: Unremarkable. No suspicious lytic or blastic abnormality. SOFT TISSUES: Unremarkable. No discrete abdominal or pelvic wall hernia. VASCULATURE: Unremarkable. Abdominal aorta is non-dilated. LYMPH NODES: Unremarkable. No enlarged lymph nodes. CT/Abdomen/Pelvis WITH Contrast IMPRESSION: Negative CT of the abdomen and pelvis with intravenous contrast. Electronically Signed: Jameel Gonzalez MD at 23:53 EST ,
[2023-03-29] MEDS: Potassium Chloride 10mEq/100mL 10 MEQ/100 ML IV.SOLN. 100 MEQ IV BOLUS (23:44)
[2023-03-29] MEDS: Potassium Chloride Oral Tablet 20 MEQ 40 MEQ PO (23:44)
[2023-03-30 00:46] VITALS: BP 116/72; PULSE 86; RESP 16; O2SAT 93
== END 2023-03-30 01:07 | disposition home or self-care (01) ==
PROVIDERS: Emergency Provider Emergency Medicine; PCP Internal Medicine; Visit Provider Emergency Medicine
DX: R10.9 Unspecified abdominal pain (principal); R11.2 Nausea with vomiting, unspecified; F50.9 Eating disorder, unspecified; R07.9 Chest pain, unspecified; R06.00 Dyspnea, unspecified; M54.9 Dorsalgia, unspecified
CPT/HCPCS: 74177; 80053; 81001; 83690; 84703; 85025; 96361; 96365; 96366; 96375; 99282; J7030; J7050; Q9967; A4216; J2405

== ENCOUNTER → 2023-08-25 | Outpatient (CLI) | payer MEDICAID, SELFPAY ==
--- NOTE | 2023-08-25 11:29 | NM_ITS ---
CLINICAL: 23-year-old female with history of chronic nausea. SEMI-SOLID PHASE 99m Tc SULFUR COLLOID GASTRIC EMPTYING STUDY COMPARISON: None available FINDINGS: The patient was administered 1.1 mCi of 99m Tc sulfur colloid mixed with oatmeal and consumed per os. Image acquisitions in the anterior-posterior projections were obtained for 60 minutes. There is prompt visualization of the stomach. There is no gastroesophageal reflux identified. First order kinetics are maintained throughout the duration of the acquisitions. The T ? linear fit was extrapolated to be 123.23 minutes, (Normal: 12-56 minutes). NM/Gastric Emptying Study IMPRESSION: 1. ABNORMAL 99m Tc sulfur colloid semi-solid phase (oatmeal) gastric emptying imaging examination. A. There is delayed semi-solid phase gastric emptying compared to normal controls with maintained first order kinetics throughout all components of the examination. (Laura et al, J Nucl Med Tech 38: 186, 2010). Electronically Signed: Krish Castañeda DO at 9:13 EDT ,
== END | disposition home or self-care (01) ==
PROVIDERS: PCP Internal Medicine; Referring Provider Internal Medicine Gastroenterology; Visit Provider Internal Medicine Gastroenterology
DX: F41.1 Generalized anxiety disorder (principal); R68.81 Early satiety
CPT/HCPCS: 78264; A9541

== ENCOUNTER → 2023-11-19 | Outpatient (CLI) | payer MEDICAID, SELFPAY ==
[2023-11-19 16:48] LABS: Erythrocyte Sedimentation Rate 1 mm/hr (0-30)
[2023-11-19 17:02] LABS: Vitamin B12 622 pg/mL (211-911)
[2023-11-19 17:35] LABS: AST(SGOT) 21 U/L (15-37); Alanine Aminotransfer ALT/SGPT 34 U/L (13-56); Albumin, Serum 4.1 g/dL (3.2-5.0); Alkaline Phosphatase 71 U/L (45-117); Anion Gap 7 (5-15); BUN 12 mg/dL (7-18); BUN/Creat Ratio 14.6 RATIO (10-20); Calcium,Total 9.2 mg/dL (8.5-10.1); Chloride 103 mmol/L (98-107); Creatinine, Serum 0.82 mg/dL (0.55-1.02); EST Glomerular Filtration Rate 91 mL/min (>60); Est Glom Filt Rate - Afr Amer 111 mL/min (>60); Globulin 4.1 g/dL (2.2-4.2); Glucose 83 mg/dL (74-106); Magnesium 1.9 mg/dL (1.6-2.6); Potassium 3.4 mmol/L (3.5-5.1); Protein, Total 8.2 g/dL (6.4-8.2); Rheumatoid Factor < 10.0 IU/mL (<15); Sodium Level 138 mmol/L (136-145)
[2023-11-23 15:07] LABS: ANTINUCLEAR ANTIBODIES DIRECT Negative (Negative)
[2023-11-25 01:07] LABS: Vitamin B1, Thiamine 156.2 nmol/L (66.5-200.0)
== END | disposition home or self-care (01) ==
LOC: LAB 15:41
PROVIDERS: PCP Internal Medicine; Referring Provider Internal Medicine; Visit Provider Internal Medicine
DX: E53.8 Deficiency of other specified B group vitamins (principal); M06.9 Rheumatoid arthritis, unspecified; K31.84 Gastroparesis; F41.1 Generalized anxiety disorder
CPT/HCPCS: 86225; 86235 ×5; 36415; 80053; 82607; 83735; 84425; 85652; 86038; 86431

== ENCOUNTER 2024-01-26 08:00 | Outpatient (RCR) | payer MEDICAID, SELFPAY ==
--- NOTE | 2024-01-26 09:29 | BH.COMM ---
Communication Note Communication with Client Communication Note: Met with pt to complete initial paperwork and administer the CSSR-S screening and risk assessment. Pt is a mild-moderate risk as pt has had suicidal ideations with thoughts of methods in the past month, but no history of attempts and no active SI. Pt denies any passive SI today, sharing it was three weeks ago that she had passive SI. Pt did not want to discuss methods, but pt did deny any access to weapons and guns. Pt has history of self-harm by burning but pt has not done this within the past three months. Pt does endorse survival ambivalence and thoughts of . Pt is future oriented. Pt reports ability to maintain safety today. Discussed case with Dr. 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
--- NOTE | 2024-01-26 10:15 | BH.SGPN.GN ---
Behaviors/Verbalizations/Mental Status: [] Eye contact is poor. Motor activity is restless. Appearance is casual. Speech is Appropriate. Mood is anxious. Affect is congruent. Thoughts are linear and logical. No evidence of psychosis. Client Response/Progress/Benefit: [] Pt was an engaged participant AEB listening attentively to others, taking notes, and providing feedback in small group discussions. Attentive during psychoeducation AEB by note taking and providing some input. Pt worked along with peers in small groups to define inappropriate guilt and appropriate guilt. Interactive discussion on examples of both inappropriate and appropriate guilt. Worked well in small group with peers where they identified example of inappropriate vs appropriate guilt and the impact inappropriate guilt can have on MH. Benefited from increased awareness of guilt and the differences between appropriate and inappropriate guilt. Plan is to continue in IOP to prevent decompensation, increase healthy coping, and improve functioning.
--- NOTE | 2024-01-26 11:15 | BH.SGPN.GN ---
Behaviors/Verbalizations/Mental Status: []Pt alert and oriented, casually dressed and groomed. Eye contact fair. Motor activity appropriate. Speech within normal limits. Affect congruent, mood anxious. Thoughts linear, logical, no signs of hallucinations or delusions. Client Response/Progress/Benefit: []Pt engaged participant AEB listening attentively to others and providing input throughout group. Pt worked within their small group to identify strategies to manage inappropriate guilt. Identified a personal example of inappropriate guilt, but did not share out loud with group. Pt seemed to connect with the strategies for combatting inappropriate guilt. Pt seemed to benefit from learning about strategies to manage appropriate and inappropriate guilt. Pt to continue IOP level of care to improve use of healthy coping skills, challenge distortions, and prevent decompensation.
--- NOTE | 2024-01-27 09:05 | BH.SGPN.GN ---
Behaviors/Verbalizations/Mental Status: [] Eye contact is good. Motor activity is restless. Appearance is casual. Speech is Appropriate. Mood is anxious. Affect is congruent. Thoughts are linear and logical. No evidence of psychosis. Reviewed daily check in sheet and no reports of suicidal ideations or intent. Client Response/Progress/Benefit: [] Pt was an active participant in group discussions. Attentive. This was her 2nd?day in IOP and first day in process group. Briefly introduced herself and discussed mental healthy struggles which have been exacerbated by ? being around people? as well as family and life stressors. Identified a mental health win from yesterday which was that she ?went to be early?. Discussed struggles related to sleep due to ruminations, anxiety, and racing thoughts. No progress noted as this is 2nd?day. Benefited from group support, encouragement, and feedback. Will continue in IOP to prevent decompensation, increase healthy coping, and improve functioning. Narrative Note: []
--- NOTE | 2024-01-27 11:10 | BH.NA_ITS ---
Physical Data Vital Signs Pulse Rate: 69 Blood Pressure: 108/69 Height/Weight Height: 1.63 m Weight:: 46.266 kg Weight in Pounds: 102.0 lbs Nutritional History Appetite Nutritional Instructions: Describe your appetite:: Fair Additional nutritional information:: Client has ARFID and gastroparesis- client states her weight is stable and it is typical for her not to have a large appetite. Client states she typically eats 1-2 meals per day. Functional Assessment Sleep Pattern Describe any problems with sleeping: Client states she sleeps about 6 hours per night. 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 If so, list type and date:: No Substance Abuse Substance Abuse Please describe substance abuse in the last 30 days:: Client denies current alcohol use. Client denies tobacco use. Client smokes 5 bowls of marijuana per day and has for 4-5 years. Client denies caffeine use. Mental Status Summary Mental Status Significant Findings/Observations on Appearance and Mood:: Client is alert and oriented x 4. Client is casually groomed. Client is cooperative with assessment. Client makes fair eye contact. Client's voice has normal rate and volume. Client has a restricted affect. Client makes logical associations and has normal processing. Client denies delusions/hallucinations. Client admits to some passive thoughts of , but denies SI or plan or intent. Suicide Assessment Suicidal Ideation Are you currently or have you been suicidal in the past?: Yes Suicidal Intentional Rating Scale (SIRS): Suicidal thoughts (past) (passive thoughts of , but denies active SI with plan or intent) Physician Notification Past Psychiatric History MH Treatment Hx Past Psychiatric Medications:: some antidepressants but does not know the names Age of first mental health symptoms: Client states she first had issues with her mental health around age 19 and first took medication for her mental health around age 20. Describe (age, circumstance, etc) any past hospitalizations: None. Current providers for mental health treatment (counselor, psychiatrist, case finishing machine adjuster, etc.): Dr. Torres for psychiatry Fall Risk Assessment Age Age: Less than 60 Mental Status Mental Status: Willing & able to ask for assistance when needed Physical Status Physical Status: No problems Impairments Impairments: None Elimination Elimination: Continent AND independent Gait or Balance Gait or Balance: Walks independently Hx of Falls History of falls in the past 6 months: No known history Medications/Substances Psychotropics:: Antidepressants Medications/substances used within the past 24 hours or ordered to administer: 1-2 of the medications/substances listed above Total Score Total Points:: 1 RN Summary of Impressions Impressions Recommendations Impressions: Psychiatric Issues: 1. Major depressive disorder, recurrent, severe without psychosis 2. Generalized anxiety disorder 3. Strong cluster B traits 4. ARFID and gastroparesis 5. Rule out mild autism 6. Rule out PTSD 7. THC use disorder 8. Primary support and work issues Level of Care How do the client's current symptoms and functional deficits support need for this level of care?: Client was referred to IOP by Dr. Torres for increased anxiety and passive thoughts of . Client states she has been feeling overwhelmed recently with passive thoughts of (why am I even alive?). Client also reports ruminations, constant worry, isolation and decreased motivation. Client states I've been trying to figure out my health lately, and it's just been overwhelming. IOP will promote gains and prevent further decompensation while providing social support and skills training.
[2024-01-27 11:42] VITALS: BP 108/69; PULSE 69
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
--- NOTE | 2024-01-27 12:55 | BH.DR.ITP ---
Initial Treatment Plan Patient Information Visit Information: ADMISSION DATE: EXPECTED LOS: 4-6 weeks Problems/Symptoms Problem #1:: Depression Symptom:: Sadness, hopelessness, worthlessness, low energy, guilt, recent suicidal ideation Problem #2:: Anxiety Symptom:: Worry, rumination, panic attacks, avoidance
--- NOTE | 2024-01-27 14:00 | BH.MTP_ITS ---
Master Treatment Plan Patient Information Program Physician:: Dr. Prather Primary Therapist:: Monika Berkowitz, [facility] Psychiatric Diagnoses Psychiatric Diagnoses:: 1. Major depressive disorder, recurrent, severe without psychosis 2. Generalized anxiety disorder 3. Strong cluster B traits 4. ARFID and gastroparesis 5. Rule out mild autism 6. Rule out PTSD 7. THC use disorder Diagnosis Code(s):: F33.2 Estimated LOS Estimated LOS (in weeks):: 6 Problem/Goal #1 Problem/Goal #1 Stated Goal:: Client will reduce depressive symptoms, feeling of hopelessness, and anhedonia due to Major Depressive Disorder through Intensive Outpatient Program. Description of Barriers: Client's ARFID could be potential barrier if client has difficulty eating enough to have nutrients and energy. Client has hx of needing to go to ER for fluids and potassium when has ARFID flareups. Additional potential barriers include: cognitive distortions, low self-worth, anxious thoughts, and difficulty focusing on self-care. Functional Impact: lient reported throughout her life she has struggled with depression, anxiety, and Avoidant Restrictive Food Intake Disorder (ARFID). Client reported was referred to the [facility] behavioral health IOP by her psychiatrist due to worsening anxiety, depression and suicidal ideation. 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 Client reported she has a difficult time keeping a job due to her ARFID. Client stated she has to call off often when she gets sick which leads her to either having to quit or get fired. She restricts her food based on textures and taste and is done this perception a number of years. The patient is stressed by some family conflict with her mother, sister and her grandmother and she states that she has no strong connections with anyone in the family. She endorses sadness, some crying, low motivation, hopelessness, worthlessness, decreased appetite with stable weight, low energy, guilt. The patient had suicidal ideation 1 month ago but denies passive thoughts of , suicidal ideation although then later admits she had passive suicidal ideation possibly 1 week ago but has no plan. Reports panic attacks at least once a week. Goal Relevant Strengths/Supports: Client is resilient, intelligent, and is open- minded to change. Objectives Objective #1: Stated Objective: Client will learn and utilize 2-3 healthy coping strategies to manage depressive symptoms. Interventions: Therapist and group therapy will utilize CBT techniques to assist client with understanding the connection between thoughts, feelings and behaviors. Education will be provided on behavioral activation. Therapist will assist client in learning internal coping strategies to manage depressive symptoms, along with helping client identify triggers. Discharge Criteria: Client will have achieved this goal when can verbalize and has practiced at least 2 healthy coping strategies that successfully manage depressive symptoms. Target Date: 03/08/24 Review Date: 02/23/24 Objective #2: Stated Objective: Identify at least 2-3 negative self-talk messages that reinforce feelings of hopelessness and replace thoughts with positive messages. Interventions: Therapist and group therapy will help client identify distorted, negative beliefs about self and replace with more realistic, affirmative messages. Discharge Criteria: Client will have achieved this goal when can verbalize at least 2 negative self-talk messages and effectively replace those thoughts with affirmative messages. Target Date: 03/08/24 Review Date: 02/23/24 Problem/Goal #2 Problem/Goal #2 Stated Goal:: Client will reduce overall frequency, intensity, and duration of the anxiety so that daily functioning is not impaired.? Description of Barriers: Client's ARFID could be potential barrier if client has difficulty eating enough to have nutrients and energy. Client has hx of needing to go to ER for fluids and potassium when has ARFID flareups. Additional potential barriers include: cognitive distortions, low self-worth, anxious t houghts, and difficulty focusing on self-care. Functional Impact: liekinsey reported throughout her life she has struggled with depression, anxiety, and Avoidant Restrictive Food Intake Disorder (ARFID). Client reported was referred to the [facility] behavioral health IOP by her psychiatrist due to worsening anxiety, depression and suicidal ideation. 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 Client reported she has a difficult time keeping a job due to her ARFID. Client stated she has to call off often when she gets sick which leads her to either having to quit or get fired. She restricts her food based on textures and taste and is done this perception a number of years. The patient is stressed by some family conflict with her mother, sister and her grandmother and she states that she has no strong connections with anyone in the family. She endorses sadness, some crying, low motivation, hopelessness, worthlessness, decreased appetite with stable weight, low energy, guilt. The patient had suicidal ideation 1 month ago but denies passive thoughts of , suicidal ideation although then later admits she had passive suicidal ideation possibly 1 week ago but has no plan. Identifies having panic attacks at least once week. Goal Relevant Strengths/Supports: Client is resilient, intelligent, and is open- minded to change. Objectives Objective #1: Stated Objective: Client will learn and implement 2-3 calming skills to reduce overall anxiety and manage anxiety symptoms. Interventions: Therapist and group sessions will help client identify physiological warning signs of anxiety, increase awareness of thoughts that increase anxiety, and identify behaviors that reinforce anxious symptoms. Group and individual counseling will teach client calming skills to help manage anxious symptoms. Discharge Criteria: Client will have achieved this goal when can verbalize at least 2 calming skills and reports skills successfully help reduce anxious s ymptoms. Target Date: 03/08/24 Review Date: 02/23/24 Objective #2: Stated Objective: Client will identify 2-3 anxiety triggers and 2 coping skills to use when feeling anxious. Interventions: Therapist and group therapy will assist client in exploring what triggers anxiety and teach client coping strategies to effectively manage anxiety symptoms. Discharge Criteria: Client will have met this goal when can identify at least 2 triggers to anxiety and verbalize two healthy ways to cope with feelings of anxiety. Target Date: 03/08/24 Review Date: 02/23/24
--- NOTE | 2024-01-27 15:26 | BH.MDN ---
Multi-Disciplinary Note Note 60-min Individual: Time Started:: 11:30 Date: 01/27/24 Purpose of session/treatment goals addressed:: Purpose of session was to build rapport, gather background information, and identify treatment goals for IOP. Eye Contact:: Fair Motor Activity:: Restless Appearance:: Casual Speech:: Rambling Mood:: Anxious Affect:: Congruent Thoughts:: Logical and No evidence of hallucinations/delusions noted Staff Interventions:: CBT techniques, mindfulness skills, rapport building, strengths perspective, treatment planning and taught coping skills (belly breathing and grounding tools) Client Response:: Client reported throughout her life she has struggled with depression, anxiety, and Avoidant Restrictive Food Intake Disorder (ARFID). Client reported was referred to the [facility] behavioral health IOP by her psychiatrist due to worsening anxiety, depression and suicidal ideation. 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 Client reported she has a difficult time keeping a job due to her ARFID. Client stated she has to call off often when she gets sick which leads her to either having to quit or get fired. She restricts her food based on textures and taste and is done this perception a number of years. The patient is stressed by some family conflict with her mother, sister and her grandmother and she states that she has no strong connections with anyone in the family. She endorses sadness, some crying, low motivation, hopelessness, worthlessness, decreased appetite with stable weight, low energy, guilt. The patient had suicidal ideation 1 month ago but denies passive thoughts of , suicidal ideation although then later admits she had passive suicidal ideation possibly 1 week ago but has no plan. Client stated she has a hard time identifying goals for herself because she has no direction. Client reported she does have difficulty being social because of her anxiety. Client stated she does feel like she is constantly hypervigilant when out of her home. Client reported she will avoid doing things because of her anxiety like she doesn't drive out of fear. Client reported she would like to explore life direction. Client reported she would be open to learning about anxiety, strategies to help decrease anxious avoidance, and improve ability to challenge thoughts. Client connected with psychoeducation about anxiety and the impact avoidance has on anxiety. Client responded well to education about belly breathing and grounding. Agreeable to practice skills over the next week. Risks/Concerns:: Client denies current suicidal ideation, plan, or intention to date. Progress Toward Goals/Plan:: No progress observed given it's first week in IOP. Session focused on building rapport and exploring what client would like to get out of IOP. Client stated she struggles with identifying future goals because currently lacks direction. Client reported it would be helpful to better understand her anxiety and how to manage anxious symptoms. Plan is for client to continue IOP to improve daily functioning, increase healthy coping skills, and prevent decompensation. Time Stopped:: 12:30
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
--- NOTE | 2024-03-25 10:10 | BH.SGPN.GN ---
Behaviors/Verbalizations/Mental Status: [] Client alert and oriented, casually dressed and groomed. Eye contact good. Motor activity appropriate. Speech within normal limits. Affect congruent, mood dysthymic and anxious. Thoughts linear, logical, no signs of hallucinations or delusions. Client Response/Progress/Benefit: [] Client was an active participant AEB contributing to discussion, taking notes, and engaging in group activity. Connected with the topic of pitfalls and listened to group discussion on barriers that prevent from choosing a healthier path to mental wellness. Group worked together to identify examples of personal pitfalls. Pt identified personal pitfalls to include: negative thinking, lack of communication with supports, rumination, not using skills. Client benefited from group as client learned to better identify potential barriers to improving mental health symptoms. Client will continue IOP tx to improve mood stability, promote use of healthy coping skills, and prevent decompensation. Narrative Note: []
== END 2024-02-04 23:59 ==
LOC: BHIOP 08:00
PROVIDERS: PCP Internal Medicine; Referring Provider Psychiatry & Neurology Psychiatry; Visit Provider Psychiatry & Neurology Psychiatry
DX: F33.2 Major depressive disorder, recurrent severe without psychotic features (principal); F41.1 Generalized anxiety disorder; F50.82 Avoidant/restrictive food intake disorder; K31.84 Gastroparesis; F12.90 Cannabis use, unspecified, uncomplicated; Z79.899 Other long term (current) drug therapy
CPT/HCPCS: H2012; S9480; 90837

== ENCOUNTER 2024-02-05 08:01 | Outpatient (RCR) | payer MEDICAID, SELFPAY ==
[2024-02-05 00:53] VITALS: BP 108/69; PULSE 69
--- NOTE | 2024-02-05 09:05 | BH.SGPN.GN ---
Behaviors/Verbalizations/Mental Status: [] Eye contact is good. Motor activity is restless. Appearance is casual. Speech is Appropriate. Mood is anxious. Affect is congruent. Thoughts are linear and logical. No evidence of psychosis. Reviewed daily check in sheet and no reports of suicidal ideations or intent. Client Response/Progress/Benefit: [] Pt was an active participant in group discussions. Attentive. Shared with the group that she was sick all last week however did not elaborate which did impact her mental health. Negative thoughts, hopelessness, and low energy. Restless during most of group. No progress noted. Benefited from group support, encouragement, and feedback. Will continue in IOP to prevent decompensation, stabilize mood, and improve functioning. Narrative Note: []
--- NOTE | 2024-02-05 11:10 | BH.SGPN.GN ---
Behaviors/Verbalizations/Mental Status: []Pt alert and oriented, casual in appearance. Eye contact good. Motor activity appropriate. Speech within normal limits. Affect constricted, mood anxious. Thoughts linear, logical, no signs of hallucinations or delusions. Client Response/Progress/Benefit: [] Pt responded well to session, taking notes and participating in worksheet discussion. Pt connected with the discussion on motion vs action steps, and this helped pt learn how to set goals differently. Pt set a goal to improving physical health. Pt identified motion steps including identifying daily gratitude, planning meals, planning fun activities, and breathing exercises. Pt stated what will help take action is set alarm same time everyday as a reminder to engage in strategies. Appeared to benefit from identifying a small goal to benefit mental health. Pt is to continue IOP tx to challenge distorted thoughts, decrease anxious avoidance, and prevent decompensation.
--- NOTE | 2024-02-05 15:54 | BH.MDN ---
Multi-Disciplinary Note Note 45-min Individual: Time Started:: 12:15 Date: 02/05/24 Purpose of session/treatment goals addressed:: Purpose of session was to address goals 1 and 2 from MTP. Eye Contact:: Fair Motor Activity:: Restless Appearance:: Casual Speech:: Soft Mood:: Anxious Affect:: Congruent Thoughts:: Linear, Logical and No evidence of hallucinations/delusions noted Staff Interventions:: CBT techniques, mindfulness skills, strengths perspective, treatment planning, goal setting and taught coping skills Client Response:: Client reported she has missed several days of IOP due to getting sick which she noted is part of her gastroparesis and possibly connected to her ARFID. Client stated she did have to go to the ER two times since last due to feeling weak. Client reported she was given fluids both times for dehydration and a potassium drink. Client shared at the one ER visit she was under 95 pounds, which she reported she knows is a concerning weight for her. Client stated she had been doing well with not getting sick, but has noticed decreased appetite and difficulty finding foods that she can eat because of her ARFID. Client reported she doesn't like to waste food so usually goes day by day on what to eat. Client stated this will keep her from meal prepping in advance. Client reported she eats small amounts of snacks throughout the day that probably equal to one meal a day. Client reported either she will forget to eat or can't eat something because the texture of the food is wrong to her. Client stated she does start thinking about if eating will make her nauseous before she eats anything. Client agreed her anxious thoughts surrounding food could lead her to feel nauseous. Client stated she has been trying to practice the breathing and grounding tools reviewed in previous sessions. This instructional writer provided psychoeducation that there is a connection between anxiety and ARFID. This instructional writer explained that client practicing calming skills and working on reduction of anxiety could have a positive impact on her ARFID. Client agreed to start using the breathing skills prior to eating to see if she can reduce anxious thoughts surrounding food. Risks/Concerns:: This instructional writer is concerned that client had to go to the ER for fluids two times in the last week due to vomiting. This instructional writer will speak with treatment team today to discuss if client's ARFID diagnosis needs to be addressed first by a specialist. Client shared she had previously tried the [facility] program and did not find it to be helpful. Client admitted she only attended the program for one day. Progress Toward Goals/Plan:: Progress limited due to client missing 3 IOP sessions in the last week due to getting physically sick and having to go to the ER two times. Client's gastroparesis and ARFID are current barriers to her mental charlee treatment. This instructional writer will be working with treatment team to discuss best plan of action for client to ensure she is getting the right level of care. Plan is for client to continue IOP to increase consistent use of calming skills, improve view of self, and prevent decompensation. Time Stopped:: 13:00
--- NOTE | 2024-02-09 09:00 | BH.SGPN.GN ---
Behaviors/Verbalizations/Mental Status: [] Pt alert and oriented, casually dressed and groomed. Eye contact good. Motor activity appropriate. Speech within normal limits. Affect congruent, mood anxious. Thoughts linear, logical, no signs of hallucinations or delusions. Reviewed pt?s symptom tracker, no risk for suicidal ideation, plan, or intent 02/09/24 Client Response/Progress/Benefit: []Pt was an active participant in group discussions. Attentive. Able to identify mental health wins including coming to group despite feeling anxious, eating this morning, and not smoking marijuana this morning. Pt's stressor today is that she has ongoing health issues that I feel so frustrated about because I don't have answers or what causes what. Others connected with this and pt reported benefitting from this. Pt stated she is feeling anxious this morning. Pt receptive to feedback from peers which pt reported was helpful. Progress noted. Benefited from group support, encouragement, and feedback. Will continue in IOP to prevent decompensation, improve daily functioning, and gain healthy coping skills. Narrative Note: []
--- NOTE | 2024-02-09 10:15 | BH.SGPN.GN ---
Behaviors/Verbalizations/Mental Status: [] Eye contact is fair. Motor activity is appropriate. Appearance is casual. Speech is Appropriate. Mood is anxious. Affect is congruent. Thoughts are linear and logical. No evidence of psychosis. Client Response/Progress/Benefit: [] Pt was an active participant during interactive group discussions. Along with peers contributed to interactive discussion on defining what a boundary is in mental health. Pt along with peers identified challenges to setting boundaries which included; people pleasing, fear of rejection, fear of loss, fear people won't respect the boundary, etc. Pt along with peers identified the benefits to setting boundaries such as reduces assumptions, can reduce stress, improve communication/relationships, and can keep us safe. Attentive during psychoeducation on types of boundaries (rigid, porous, flexible). Pt benefited from increased awareness and insight on the importance/benefit to setting health boundaries. Will continue in IOP to increase consistent use of healthy coping skills, improve view of self, and prevent decompensation.
--- NOTE | 2024-02-09 11:20 | BH.SGPN.GN ---
Behaviors/Verbalizations/Mental Status: []Eye contact is good. Motor activity is appropriate. Appearance is casual. Speech is Appropriate. Mood is depressed and anxious. Affect is congruent. Thoughts are linear and logical. No evidence of psychosis. Client Response/Progress/Benefit: []Pt responded well to session AEB listening attentively to peers and taking notes throughout. Reports connecting with porous boundaries, especially with her intellectual and emotional boundaries. Participated in group discussion brainstorming various strategies for improving healthy boundary setting. Pt reports wanting to improve her ability to more intentionally share with others and know what not to share at times. Seemed to benefit from increased awareness of how different boundary styles can impact mental health. Will continue IOP tx to prevent decompensation, improve daily functioning, and increase mood stability. Narrative Note: []
--- NOTE | 2024-02-10 09:00 | BH.SGPN.GN ---
Behaviors/Verbalizations/Mental Status: [] Eye contact is good. Motor activity is restless. Appearance is casual. Speech is Appropriate. Mood is anxious. Affect is congruent. Thoughts are linear and logical. No evidence of psychosis. Reviewed daily check in sheet and no reports of suicidal ideations or intent. Client Response/Progress/Benefit: [] Pt was an active participant in group discussions. Attentive. Reports feeling anxious today. Shared long-standing intrusive thoughts or unnecessary and gory images. Elaborated on how these can impact her mental health, thoughts, and overall functioning. Also described a recent stressor event which caused her to be restless and anxious. States I didn't freak out and actually utilized support and healthy coping skills to manage through the distress. Progress noted. Benefited from group support, encouragement, and feedback. Will continue in IOP to prevent decompensation, stabilize mood, and improve functioning. Narrative Note: []
--- NOTE | 2024-02-10 10:15 | BH.SGPN.GN ---
Behaviors/Verbalizations/Mental Status: [] Eye contact is good. Motor activity is appropriate. Appearance is casual. Speech is Appropriate. Mood is anxious and content. Affect is congruent. Thoughts are linear and logical. No evidence of psychosis. Client Response/Progress/Benefit: [] Pt receptive to session AEB listening attentively to others and taking notes. Pt attentive and contributing throughout psychoeducation on the cognitive triangle and maintenance cycles. Pt engaged during group discussion reviewing the impact of daily activities and behaviors in either reinforcing unhealthy maintenance cycles and depression or assisting in reducing symptoms (?down? vs ?up? activities). Pt identified personal ?down? activities they engage in as: avoiding tasks, shutting down, and isolating. Attentive during discussion on Common ?Up? activities Pt identified theirs to include: walks, taking care of basic needs, and crafting. Appeared to benefit from increased awareness of current behaviors and impact these have on mental health. Will continue IOP to improve mood stability, prevent decompensation, and reduce negative thinking patterns. ?? Narrative Note: []
--- NOTE | 2024-02-10 11:15 | BH.SGPN.GN ---
Behaviors/Verbalizations/Mental Status: []Eye contact is fair. Motor activity is appropriate. Appearance is casual. Speech is Appropriate. Mood is anxious. Affect is congruent. Thoughts are linear and logical. No evidence of psychosis. Client Response/Progress/Benefit: [] Pt responded well to session, attentive and engaged in group discussions and activity. Actively engaged in continued discussion about up activities and down activities. Active participant as group discussed values and the benefits that knowing one's values can have on one's mental health. Pt completed personal cognitive triangle negative loop. Pt set a goal to use opposite action by reaching out to supports instead of isolating and not communicating. Benefited from increased awareness of their personal values and how incorporating their values into behavioral activation goals can positive impact mental health. Will continue in IOP to increase consistent use of healthy coping skills, challenge negative/distorted thoughts, and prevent decompensation.
--- NOTE | 2024-02-11 09:00 | BH.SGPN.GN ---
Behaviors/Verbalizations/Mental Status: [] Client alert and oriented, casual appearance. Eye contact fair. Motor activity restless. Speech within normal limits. Affect congruent, mood anxious. Thoughts linear, logical, no signs of hallucinations or delusions. Reviewed client's symptom tracker, no risk for suicidal ideation, plan, or intent. Client Response/Progress/Benefit: [] Client responded well to session AEB listening to others and sharing thoughts/feelings. Client stated mental health positive as spending the night at her sister's last night. Client reported it was nice to spend quality time with her sister. Client reported additional positive as not getting sick yesterday after eating and feeling nauseous. Client reported current stressor as his grandma wanting to cut off all of the family from her. Client stated she is frustrated that her grandma won't talk to client so they can work it out. Client reported having a hard time accepting what is outside her control. Appeared to benefit from support from peers. Will continue IOP tx to Narrative Note: []
--- NOTE | 2024-02-11 10:15 | BH.SGPN.GN ---
Behaviors/Verbalizations/Mental Status: []Client alert and oriented, casually dressed and groomed. Eye contact good. Motor activity appropriate. Speech within normal limits. Affect congruent, mood depressed and engaged. Thoughts linear, logical, no signs of hallucinations or delusions. Client Response/Progress/Benefit: [] Pt responded well to session, contributing to discussion and engaged during the activity. Group identified the benefits of change which included: better mental health, increased confidence, and improved relationships. Worked with the group to identify barriers to change, which included: uncomfortable emotions such as anxiety, lack of motivation, fear of failure, negative self-talk, and not having control of the change. Pt participated along with group in activity where they identified and discussed the emotions related to change. Pt discussed how even difficult emotions can push you to make meaningful change. Benefited from increased awareness and understanding of emotions, benefits, and barriers related to change. Will continue IOP tx to prevent decompensation, gain healthy coping skills, and reduce isolation. Narrative Note: []
--- NOTE | 2024-02-11 15:40 | BH.MDN ---
Multi-Disciplinary Note Note 45-min Individual: Time Started:: 11:20 Date: 02/11/24 Purpose of session/treatment goals addressed:: Purpose of session was to address goals 1 and 2 from MTP. Eye Contact:: Good Motor Activity:: Restless Appearance:: Casual Speech:: Appropriate Mood:: Anxious Affect:: Congruent Thoughts:: Logical and No evidence of hallucinations/delusions noted Staff Interventions:: thought challenging, psychoeducation on: (cognitive distortions), CBT techniques, strengths perspective, goal setting, taught coping skills and other (provided referral to ARFID specialist) Client Response:: Client reported overall she feels like she has been doing better compared to last week. Client stated she has been able to stay out of the ER for over a week. Client reported she has been trying to focus on eating as best she can to ensure she is being nutrients she needs. Client stated although she has been trying to eat something every day she does find herself still in having a hard time with feeling nauseous which then results in her throwing up. Client stated part of her nausea and throwing up is her gastroparesis and part of it is also connected to her Avoidant/Restrictive Food Intake Disorder (ARFID). Client reported at this time she does not have a specialist for her ARFID and recognizes it is probably something that she needs to explore. This job specification writer explained to her that there is concern among the treatment team that if client does not work on treating her ARFID then there is a chance she will need residential care or higher level of care for her ARFID. Client expressed understanding and agreed to contact the provided number that has individual counselors and utility engineer that can help treat ARFID. Client stated while in IOP they can work together to build healthy coping skills to manage anxiety which is closely connected and related to ARFID. Client agreed it would also be helpful to work on challenging and developing healthier thought patterns. Client states she often feels like a burden and that she is a nuisance which can keep her from reaching out for help. Client agreeable to complete homework to identify cognitive distortions that she connects with and to start using a thought log. Risks/Concerns:: Denies suicidal ideation, plan, or intention. future oriented. Progress Toward Goals/Plan:: Progress noted with client reporting improvement with decrease in getting sick and staying out of the ER due to her ARFID. Client still struggling with negative thought patterns which negatively impact her self-esteem and self-worth. Client's low self-esteem contributes to increased anxiety when has to make decisions or is worried about upsetting someone else. Plan is for client to reach out to provided number to get established with the [facility] that has specialists in ARFID. Pt is to continue IOP to increase consistent use of healthy coping skills, improve view of self, and prevent decompensation. Time Stopped:: 12:00
--- NOTE | 2024-02-16 09:05 | BH.SGPN.GN ---
Behaviors/Verbalizations/Mental Status: [] Pt alert and oriented, casually dressed and groomed. Eye contact good. Motor activity restless. Speech within normal limits. Affect congruent, mood anxious. Thoughts linear, logical, no signs of hallucinations or delusions. Reviewed pt?s symptom tracker, no risk for suicidal ideation, plan, or intent 02/16/24 Client Response/Progress/Benefit: []Pt was an active participant in group discussions. Attentive. Able to identify mental health wins including not getting as anxious after a conflict, blocking someone toxic, and eating today even though she got sick this morning. Pt's stressor today is that she was woken up by the girlfriend of a friend who then started yelling at me. Pt shared she has tried to defuse conflict with this person in the past, but she is jealous and puts her insecurities on me. Pt appeared to handle the situation well and gave herself some credit. Pt stated pt is feeling lost this morning. Pt receptive to feedback from peers which pt reported was helpful. Progress noted. Benefited from group support, encouragement, and feedback. Will continue in IOP to prevent decompensation, improve daily functioning, and increase distress tolerance skills. Narrative Note: []
--- NOTE | 2024-02-16 10:15 | BH.SGPN.GN ---
Behaviors/Verbalizations/Mental Status: []Pt alert and oriented, casually dressed and groomed. Eye contact fair. Motor activity appropriate. Speech within normal limits. Affect congruent, mood anxious. Thoughts linear, logical, no signs of hallucinations or delusions. Client Response/Progress/Benefit: [] Pt was attentive during psychoeducation and participated in group activity. Group discussed what contributes to a person?s perspective and how perspective can positively or negatively impact mental health treatment. Pt reflected on their perspective today and how it is impacting them. Pt shared she is currently closer to a negative perspective about mental health treatment. Pt stated she judges herself for needing help which contributes to pessimistic perspective. Pt shared she is starting to allow some positive perspective in by having a little hope she can get better. Pt appeared to benefit from increasing awareness of different perspectives and how they can affect mental health. Pt will continue IOP tx to challenge distorted thoughts, improve view of self, and prevent decompensation.
--- NOTE | 2024-02-16 11:18 | BH.SGPN.GN ---
Behaviors/Verbalizations/Mental Status: []Pt alert and oriented, casually dressed and groomed. Eye contact good. Motor activity appropriate. Speech within normal limits. Affect congruent, mood anxious and dysthymic. Thoughts linear, logical, no signs of hallucinations or delusions. Client Response/Progress/Benefit: []Pt was attentive and contributed to group discussion. Pt worked with group to identify strategies that can help with challenging negative perspective. Pt stated she can try asking others for help reframing as a way to challenge negative perspective. Pt completed strengths exploration worksheet, identifying personal strengths. Pt able to acknowledge how these strengths are helping pt and can continue to help pt in mental health journey. Pt identified wanting to work on leaning on strength of empathy and to practice skill of daily gratitude. Benefited from identifying personal strengths and strategies for enhancing use of identified strengths. Pt will continue IOP tx to continue practice healthy coping skills, build confidence and consistent self-care application, and prevent decompensation. Narrative Note: []
--- NOTE | 2024-02-17 09:05 | BH.SGPN.GN ---
Behaviors/Verbalizations/Mental Status: [] Pt alert and oriented, casually dressed and groomed. Eye contact good. Motor activity appropriate. Speech within normal limits. Affect congruent, mood depressed and anxious. Thoughts linear, logical, no signs of hallucinations or delusions. Reviewed pt?s symptom tracker, no risk for suicidal ideation, plan, or intent 02/17/24 Client Response/Progress/Benefit: [] Pt was an active participant in group discussions. Attentive. Able to identify mental health wins including beginning to use breathing exercises to better manage her anxiety, as well as successfully eating something this morning despite being sick all day yesterday. Shared that her ongoing issues with nausea continue to be a stressor and are impacting her relationships as a result. Did well to identify steps that she is taking to relieve additional help and support in that area. Benefited from group support, encouragement, and feedback. Will continue in IOP to prevent decompensation, promote mood stability, and continue to improve use of healthy coping and mindfulness skills. Narrative Note: []
--- NOTE | 2024-02-17 10:15 | BH.SGPN.GN ---
Behaviors/Verbalizations/Mental Status: []Eye contact is good. Motor activity is appropriate. Appearance is casual. Speech is Appropriate. Mood is anxious. Affect is congruent. Thoughts are linear and logical. No evidence of psychosis. Client Response/Progress/Benefit: [] Pt was engaged and participating throughout, providing input and taking notes. Participated in an interactive discussion on defining anxiety and identifying cognitive and physiological symptoms of anxiety. The group discussed the role of anxiety on isolation, avoidance, and who this emotion impacts their ability to start and complete activities/goals. Pt identified their physical/physiological signs of anxiety (i.e. bowel irritation, pain, numbness, and shallow breathing). Pt identified safety behaviors (i,e not going out to eat, people pleasing, and avoiding.) Benefited from increased awareness and insight on anxiety and its impact. Will continue in IOP to prevent decompensation, increase distress tolerance skills, and improve daily functioning. Narrative Note: []
--- NOTE | 2024-02-17 12:11 | PCM.BH.PN ---
Progress Note Progress Note: History of Present Illness/Interim History: The patient is a 23-year-old single, female with a history of anxiety, depression and avoidant restrictive food intake disorder who is seen in follow-up at the [facility] behavioral health IOP. I last saw the patient 3 weeks ago and at that time no medication changes were made as the patient is very resistant to taking or changing medication. The patient states that in the past few weeks she has been doing pretty well overall. She has not had any visits to the emergency room since over a week ago. She continues to restrict her food intake and vomited 1 time yesterday but otherwise is doing better than she was a few weeks ago. She feels her mood is less depressed overall. She states that she has had some increase stress lately due to somebody online confronting her but states that she was able to handle this. She still has some sadness but less hopelessness than before. She is having panic attacks about once a week still. She denies passive thoughts of , suicidal ideation, homicidal ideation, plan for suicide, hallucinations, delusions or marilia ever. Current Psychiatric Medications: [] Prozac 10 mg p.o. daily; gabapentin 200 mg p.o. 3 times daily but takes it only once a day. Mental Status Examination: [] The patient is a 23-year-old female who is very thin and appears younger than stated age. She is ambulatory with a normal gait and casually dressed and groomed with good hygiene. She has no psychomotor agitation or retardation. Eye contact is good and speech is normal rate and rhythm and fluent with no pressure. Mood is less depressed and anxious. Affect is mildly constricted. Thought process is goal-directed and organized. Thought content: There is no evidence of passive thoughts of , suicidal ideation, homicidal ideation, plan for suicide, hallucinations or delusions. The patient remains very resistant to taking medication or changing medication. Reality testing is intact. Intelligence is average. Judgment is intact. Insight is limited. Impulsivity is moderate to high. Diagnoses: [] 1. Major depressive disorder, recurrent, moderate 2. Generalized anxiety disorder 3. Strong cluster B traits 4. ARFID and gastroparesis 5. Rule out mild autism 6. Rule out PTSD 7. THC use disorder 8. Primary support and work issues Plan: [] The patient will continue the IOP in behavioral health at [facility] as the structure, support, education and group therapy will hopefully prevent worsening of the patient's symptoms. She felt safe during the interview and if it anytime she does not feel safe she agrees to let us know or go to the emergency room. During the interview the patient states that she feels that the Prozac worsens her nausea so she does not take it every day. But then she refuses to try the mirtazapine or Remeron which would not cause nausea and then she backtracks and states that well I am uncertain if the Prozac causes nausea so I am going to try to take it and see. Patient is very resistant to changing or taking medication. She will continue to follow-up with her outpatient providers and I will see the patient in follow-up while in the [facility].
--- NOTE | 2024-02-17 14:42 | BH.MTP_ITS ---
Treatment Plan Review Demographics Date of Admission:: 01/26/24 Date of Treatment Plan Review:: 02/17/24 Admitting Diagnoses:: 1. Major depressive disorder, recurrent, severe without psychosis F33.2 2. Generalized anxiety disorder 3. Strong cluster B traits 4. ARFID and gastroparesis 5. Rule out mild autism 6. Rule out PTSD 7. THC use disorder Current Diagnoses:: 1. Major depressive disorder, recurrent, severe without psychosis F33.2 2. Generalized anxiety disorder 3. Strong cluster B traits 4. ARFID and gastroparesis 5. Rule out mild autism 6. Rule out PTSD 7. THC use disorder Patient Status Patient's Response to Treatment:: Pt has missed several IOP sessions due to being sick and needed to go to the ER two times due to dehydration and malnutrition. Pt's ARFID symptoms have recently started to worsen, which has led to difficulty eating and throwing up. When pt has attended IOP sessions she often provides her contributions and feedback. Pt does struggle with follow th rough on some goals set in individual sessions outside treatment environment. Pt not compliant with psychiatric medications. Pt reports daily negative thoughts about herself which contribute to depressed symptoms. Pt reports worries that she is a nuisance to others and doesn't want to be a bother. Pt has not been medication compliant because she is worried her medication is causing her nausea. Status of Current Problems and Symptoms: Ongoing problems. Pt had to miss 4 IOP sessions due to getting sick connected to her ARFID. Pt had to go to the ER two separate times to get fluids for dehydration. Pt has reported recent improvement in the last few days with not getting sick. Pt continues to report daily moderate to severe anxiety and moderate depression. Pt reported motivation and energy has been low. Pt has struggled with consistent use of healthy coping skills. Pt has shared part of her struggles with the idea of getting better because she is used to feeling the way she has felt most her life. Progress Problem #1: Problem Name:: Depression Status of Goals:: Obj 1 - not met. Pt is able to identify healthy coping skills like opposite action, healthy distraction, challenging perspective, and engaging in hobbies. Pt does struggle with consistent follow through on the skills learned. Per DSM 5 cross-cutting measure at review pt's scores indicate a 17% decrease in depression. Obj 2 - not met. Client recently started to learn and gain more awareness of her distorted and negative thought patterns that reinforce depressed symptoms. Client struggles with reframing distorted thoughts. Team Recommendations:: Team recommends referral to ARFID specialist due to two recent ER visits for malnutrition and dehydration connected to not being able to eat. Team also recommends continued reinforcement of healthy coping skills and helping address barriers that are getting in the way to pt practicing skills on a more consistent basis. Problem #2: Problem Name:: Anxiety Status of Goals:: Obj 1- not met. Client continues to report moderate anxious symptoms. Per DSM 5 cross-cutting measure at review pt's scores indicate a 10% decrease in anxiety. Pt is able to identify healthy calming skills like belly breathing, grounding, and walking. Pt has shown recent improvement with starting to use these skills. Obj 2 - not met. Pt able to identify several triggers to her anxiety, but needs to continued work and practice with skills. Team Recommendations:: Team recommends referral to ARFID specialist due to two recent ER visits for malnutrition and dehydration connected to not being able to eat. Team also recommends continued reinforcement of healthy coping skills and helping address barriers that are getting in the way to pt practicing skills on a more consistent basis.
--- NOTE | 2024-02-19 09:00 | BH.SGPN.GN ---
Behaviors/Verbalizations/Mental Status: [] Client alert and oriented, casual appearance. Eye contact good. Motor activity appropriate. Speech within normal limits. Affect congruent, mood anxious. Thoughts linear, logical, no signs of hallucinations or delusions. Reviewed client's symptom tracker, no risk for suicidal ideation, plan, or intent. Client Response/Progress/Benefit: [] Client responded well to session AEB listening to others and sharing thoughts/feelings. Client reported mental health positive as practicing belly breathing techniques learned in previous sessions. Client stated additional mental health positive as reorganizing cat area. Client reported current stressor as feeling scattered which has made it hard to remember things. Client appeared to benefit from support from peers. Will continue IOP tx to increase consistent use of healthy coping skills, challenge negative thoughts, and prevent decompensation.
--- NOTE | 2024-02-19 10:15 | BH.SGPN.GN ---
Behaviors/Verbalizations/Mental Status: [] Eye contact is good. Motor activity is restless. Appearance is casual. Speech is Appropriate. Mood is anxious. Affect is congruent. Thoughts are linear and logical. No evidence of psychosis. Client Response/Progress/Benefit: [] Pt was an active participant during group discussions and group activities. This portion of group was very psychoeducation heavy and pt was attentive during psychoeducation. Engaged during activity in which they identified which type of foods (i.e. carbs, sugar, salt, fast food, caffeine, etc) they seek out when sad, tired, angry, stressed, anxious, etc. Pt was able to identify the impact that certain foods as well as lack of proper nutrition can have on their mental health through group example which was beneficial. Benefited from increased awareness of the connection between nutrition and mental health. Will continue in IOP to prevent decompensation, increase functioning, and improve healthy coping strategies. Narrative Note: []
--- NOTE | 2024-02-19 11:15 | BH.SGPN.GN ---
Behaviors/Verbalizations/Mental Status: [] Client alert and oriented, casually dressed and groomed. Eye contact good. Motor activity appropriate. Speech within normal limits. Affect congruent, mood anxious. Thoughts linear, logical, no signs of hallucinations or delusions. Client Response/Progress/Benefit: []Client was an active participant throughout AEB contributing to group discussion and taking notes. Client provided input during small group discussion on strategies to combat each factor maintaining adverse nutritional cycles. Worked with group to identify ways to foster more mindful nutritional choices. Each group participant identified one small step they could take today to begin establishing mental wellness promoting nutritional choices. Client noted plans to practice gaining awareness of her daily nutritional choices.?Appeared to benefit from gaining insight into mental wellness centered nutrition and identifying personal steps client can take to support own nutritional psychology. Recommended continued IOP tx to prevent decompensation, promote mood stability, and improve overall functioning.? Narrative Note: []
--- NOTE | 2024-02-19 14:49 | BH.MDN ---
Multi-Disciplinary Note Note 60-min Individual: Time Started:: 12:05 Date: 02/19/24 Purpose of session/treatment goals addressed:: Purpose of session was to address goals 1 and 2 from MTP. Eye Contact:: Fair Motor Activity:: Restless Appearance:: Casual Speech:: Appropriate Mood:: Anxious Affect:: Constricted Thoughts:: Racing Staff Interventions:: thought challenging (reviewed thought log), CBT techniques, mindfulness skills, strengths perspective and goal setting Client Response:: Client reported she completed homework from last individual session of looking at cognitive distortions handout and highlighting the ones she connects with the most. Client stated she connects with personalization, all or nothing thinking, predicting the future, and overgeneralization. Client reported she could connect with most of the distortions, but utilizes the former more frequently. Client able to connect how her distorted thoughts negatively impact her behavior and mood. Client completed thought log over the last week. Client struggled with challenging distorted thought patterns even with help from therapist. Client stated what if there is evidence to support the negative thought, each time therapist attempted to help her challenge or reframe the distortion. Client stated she has a hard time believing the reframed thought or coming up with evidence against many of her distorted thoughts. Client did not want to continue practicing reframing/challenging distortions. Client expressed anxiety about upcoming appointment with her gastrologist today. Client stated she thinks she knows what she wants to talk about with the provider. Therapist recommended client write down any questions or thoughts she wants to share with the specialist. Client stated she didn't think it was necessary to write down anything. Client expressed anxiety about having to wait for another 2 hours before her appointment and is worried people will be judging her for sitting in the hospital for that long. Client somewhat receptive to challenging this distorted thought. Therapist reviewed calming skills like belly breathing, grounding, and taking a walk. Client agreeable to practice these skills while waiting for her appointment. Risks/Concerns:: Denies suicidal ideation, plan, or intention to date. Client does have chronic passive thoughts of , but denies any intention to ever act on those thoughts. Progress Toward Goals/Plan:: Client progress variable. Client struggles with using skills on a consistent basis which could contribute to reasoning behind client still reporting moderate to severe anxiety and depression. Client not appearing ready to challenge distorted/negative thoughts based on her not wanting to continue to practice in session. Client continuing to not take her Prozac out of fear it has caused nausea. Client did not report any throwing up recently. Client does have intake appointment with [facility] in 2 weeks to get established with provider for ARFID. Client to continue IOP to increase utilization of healthy coping skills, build confidence, and prevent decompensation. Time Stopped:: 13:00
--- NOTE | 2024-02-22 09:05 | BH.SGPN.GN ---
Behaviors/Verbalizations/Mental Status: [] Eye contact is good. Motor activity is appropriate. Appearance is casual. Speech is Appropriate. Mood is anxious. Affect is congruent. Thoughts are linear and logical. No evidence of psychosis. Reviewed daily check in sheet and pt reports 1/5 for suicidal ideations and 0/5 for intent. Client Response/Progress/Benefit: [] Pt was an active participant in group discussions. Attentive. Daily symptom tracker notes 2/5 for depression, 1/5 for anxiety, and 1/5 for self-harm urges. ? I started taking a new medication?. According to pt her dross puller prescribed her Xanax to help with sleep and nausea. She is fearful that she will become addicted and that making herself ?numb? will worsen her depression. Despite these concerns she took the medication and reported ?good sleep? last evening and decreased anxiety this AM. From pt?s perspective her nausea and limited food intake are becoming a concern to her health therefore using a ?schedule one? medication may be necessary. Benefited from group support, encouragement, and feedback. Will continue in IOP to maintain safety, decrease anxiety, increase healthy coping, and improve functioning. Narrative Note: []
--- NOTE | 2024-02-22 10:10 | BH.SGPN.GN ---
Behaviors/Verbalizations/Mental Status: [] Eye contact is fair. Motor activity is appropriate. Appearance is casual. Speech is Appropriate. Mood is anxious. Affect is constricted. Thoughts are linear and logical. No evidence of psychosis. Client Response/Progress/Benefit: [] Pt receptive of session, actively engaged throughout AEB taking notes, providing input, and contributing in small group discussion. Appeared to connect with group topic of automatic thoughts and cognitive distortions, as well as the impact of thought patterns on mental health, coping behaviors, and relationships. This particular group is very heavy on psychoeducation and pt appeared to connect with distortions and how they can impact functioning. Identified struggling with personalization distortion. Pt appeared to benefit from gaining insight on distorted thinking patterns and how this impacts overall mental health. Will continue IOP to improve view of self, increase use of healthy coping skills, and prevent decompensation.
--- NOTE | 2024-02-22 11:15 | BH.SGPN.GN ---
Behaviors/Verbalizations/Mental Status: [] Eye contact is good. Motor activity is appropriate. Appearance is casual. Speech is Appropriate. Mood is anxious. Affect is congruent. Thoughts are linear and logical. No evidence of psychosis. Client Response/Progress/Benefit: [] Pt was an active participant during group discussion. Pt was placed in a smaller group and participated in cognitive distortions jeopardy game with peers. Pt was engaged in the smaller group, participated in group interactions to brainstorm answers, and appeared to be comprehending cognitive distortions. Pt stated could connect with many of the distortions covered in group. Pt stated they now have knowledge on how cognitive distortions are affecting them negatively, and reports struggling specifically with labeling. Benefited from gaining further insight and awareness of cognitive distortions as well as practicing ways to reframe and challenge thoughts. Will continue in IOP tx to increase healthy thinking patterns, functioning, and reduce anxiety. Narrative Note: []
--- NOTE | 2024-02-23 10:15 | BH.SGPN.GN ---
Behaviors/Verbalizations/Mental Status: [] Eye contact is fair. Motor activity is appropriate. Appearance is casual. Speech is Appropriate. Mood is anxious. Affect is congurent. Thoughts are linear and logical. No evidence of psychosis Client Response/Progress/Benefit: [] Pt engaged in session AEB listening attentively to others and providing input throughout. Pt engaged in activity, able to connect how it can be uncomfortable and difficult to accept when things are out of one?s own control. Worked with peer group to identify things in life which are hard to accept which included; loss, medical diagnoses, change, lack of control, failure, and needing help. Seemed to benefit from increased awareness of the meaning as well as the importance of acceptance. Will continue in IOP to prevent decompensation, stabilize anxiety, improve healthy coping, and improve functioning. Narrative Note: []
--- NOTE | 2024-02-23 11:10 | BH.SGPN.GN ---
Behaviors/Verbalizations/Mental Status: []Pt alert and oriented, casually dressed and groomed. Eye contact fair. Motor activity appropriate. Speech within normal limits. Affect congruent, mood anxious. Thoughts linear, logical, no signs of hallucinations or delusions. Client Response/Progress/Benefit: [] Pt responded well to session AEB taking notes and contributing to discussion throughout. Pt engaged as group continued discussion on acceptance and the mental health benefits of practicing acceptance. Pt and peers identified what makes acceptance challenging and pt completed a self-reflection exercise on what is hard to accept in pt's life. Pt identified things that are hard to accept for her include: change, past trauma, needing help, and limitations. Client stated by not accepting certain situations it leads to decreased confidence and motivation. Group identified strategies to increase acceptance. Pt appeared to benefit from gaining insight and learning strategies to increase acceptance. Pt will continue IOP tx to increase consistent use of healthy coping skills, challenge distortions, and prevent decompensation.
--- NOTE | 2024-02-23 14:50 | BH.MDN_ITS ---
Multi-Disciplinary Note Note 45-min Individual: Time Started:: 09:00 Date: 02/23/24 Purpose of session/treatment goals addressed:: Purpose of session was to address goals 1 and 2 from MTP. Eye Contact:: Fair Motor Activity:: Restless Appearance:: Casual Speech:: Tangential Mood:: Anxious Affect:: Congruent Thoughts:: Racing Staff Interventions:: thought challenging, CBT techniques, mindfulness skills, strengths perspective and goal setting Client Response:: Client reported she met with her gastrologist last week and was given Xanax she thinks to help with nausea and vomiting. Client stated they didn't talk about her two ER visits due to her needing fluids because of throwing up and being dehydrated. Client reported she thought he would bring it up, but he never asked her about it. Client stated she didn't bring it up because in appointments she struggles with verbalizing her questions in the moment. Client reported after appointments is when she thinks about the things she wanted to talk about. Client stated she did not write down questions prior to the appointment as suggested by therapist last week. Client reported she doesn't really understand the long-term plan provided to her by the gastrologist. Client stated she wasn't sure if she was supposed to be taking the medication two times a day until her next appointment which is in three weeks. Client had the medication bottle on her and therapist showed client per the mason ttle instructions she only has enough medication for 2 times a day for 10 days. Therapist encouraged client to write down her questions and concerns then call the specialist office to speak to one of the nurses for clarification. Client reported she did try one of the Xanax over the weekend and it did help her feel less nauseous which helped her be able to eat. Client stated the medication also makes her feel tired so she took one closer to bed to help her eat in the evening and get better sleep. Client expressed still feeling anxious since she doesn't understand the plan from the specialist. Client agreeable to reach out to her specialist office to get clarification which would help decrease her anxiety. Client noted she did complete homework from last session of practicing breathing and grounding tools as she waited for her appointment on Thursday. Client shared she did think using those skills helped her be more in the moment and less focused on what others were thinking. Risks/Concerns:: Client reports passive thoughts of stating she sometimes thinks it would be easier if she didn't exist. client denies any active plan or intention to kill herself. no access to firearms. Pt reports ability to keep self safe. Progress Toward Goals/Plan:: Progress stagnant. Client continuing to struggle with daily anxiety and depression. Client's anxiety impacts ability for client to advocate for herself or ask questions to her medical providers which has led to her feeling confused and lost. Client's negative view of herself and fear of being a burden negatively impact her ability to stand of up for herself because she tries to be invisible. Client has hard time challenging negative thoughts about herself and often reinforces her negative beliefs. Client still not taking Prozac because she is worried about the interaction with her Xanax. Plan is for client to reach out to her specialist office today to get clarification on the plan of care decided by her doctor last week. Client to continue IOP to increase consistent use of healthy coping skills, challenge distorted/negative thoughts, and prevent decompensation. Time Stopped:: 09:45
--- NOTE | 2024-02-26 09:00 | BH.SGPN.GN ---
Behaviors/Verbalizations/Mental Status: [] Eye contact is good. Motor activity is appropriate. Appearance is casual. Speech is Appropriate. Mood is anxious/depressed. Affect is congruent. Thoughts are linear and logical. No evidence of psychosis. Reviewed daily check in sheet and pt reports 1/5 for thoughts of and 0/5 for suicidal intent. Client Response/Progress/Benefit: [] ?Pt was an active participant in group discussions. Attentive. Daily symptom tracker notes 3/5 for anxiety and 2/5 for depression. Also reports 1/5 for self-harm thoughts. ?Bad anxiety today?. Shared that she is struggling to use skills and ?it feels like my brain has more space for negative stuff? Ruminating on an interaction with her PCP in which it she discussed recent prescription for Xanax from gastro. The short-term prescription has been beneficial with improved sleep and appetite which has kept her from vomiting and ER visits.? ? I?m not getting sick?. Benefited from group support, encouragement, and feedback. Will continue in IOP to prevent decompensation, stabilize anxiety, and improve functioning. Narrative Note: []
--- NOTE | 2024-02-26 10:15 | BH.SGPN.GN ---
Behaviors/Verbalizations/Mental Status: []Pt alert and oriented, casually dressed and groomed. Eye contact good. Motor activity appropriate. Speech within normal limits. Affect congruent, mood content. Thoughts linear, logical, no signs of hallucinations or delusions. Client Response/Progress/Benefit: [] Pt took notes and contributed to group discussions. Attentive during psychoeducation on growth mindset. Participated during the activity. Interactive group discussion on growth mindset in which group verbalized their current fixed mindsets and how they affect their mental health. Pt shared common fixed mindset thoughts they have. These thoughts lead to feeling and staying stuck, giving up, and self-criticism. Pt stated they have personally struggled with fixed thoughts causing them to stay stuck in unhealthy patterns. Pt benefited from increased awareness of growth mindset and fixed thoughts and how fixed thoughts impact their mental health. Will continue IOP tx to prevent decompensation, improve daily functioning, and promote mood stability. Narrative Note: []
--- NOTE | 2024-02-26 11:10 | BH.SGPN.GN ---
Behaviors/Verbalizations/Mental Status: []Pt alert and oriented, casually dressed and groomed. Eye contact good. Motor activity appropriate. Speech within normal limits. Affect congruent, mood stressed. Thoughts linear, logical, no signs of hallucinations or delusions. Client Response/Progress/Benefit: []Pt was an active participant during activity and discussion. Pt did well to remain attentive and participate as group worked on identifying characteristics and benefits of adopting a growth mindset. Worked with fellow participants in reframing the example fixed thoughts into growth mindset thoughts. Pt worked on changing own fixed thought and reframed the thought to ?those who care about me want the best for me and want me to take care of myself.? Pt also wants to work on using dialectical thinking. Pt appeared to benefit from challenging own thoughts and engaging in the activity. Pt will continue IOP tx to reduce negative thinking patterns, improve distress tolerance skills, and increase use of healthy coping skills. Narrative Note: []
--- NOTE | 2024-02-29 09:00 | BH.SGPN.GN ---
Behaviors/Verbalizations/Mental Status: [] Eye contact is good. Motor activity is appropriate. Appearance is casual. Speech is Appropriate. Mood is depressed. Affect is full. Thoughts are linear and logical. No evidence of psychosis. Reviewed daily check in sheet and pt reports SI as 3/5 with intent noted as 1/5. Pt will meet with individual therapist today for further assessment. Client Response/Progress/Benefit: [] Pt participated throughout. Attentive and providing supportive feedback to peers. Daily symptom tracker notes 2/5 for anxiety and 3/5 for depression. Reports mental health wins as using positive self-talk throughout her weekend. Stated that she has still had some negative thoughts but is doing better to focus on the positive. Additional win noted as taking her cat on a walk as a form of personal self-care. Current stressor reported as ongoing existential thoughts but did not elaborate further. Benefited from group support, encouragement, and feedback. Will continue in IOP to prevent decompensation, stabilize mood, and further improve functioning. Narrative Note: []
--- NOTE | 2024-02-29 10:15 | BH.SGPN.GN ---
Behaviors/Verbalizations/Mental Status: []Patient was alert and oriented, casually dressed and groomed. Eye contact fair. motor activity congruent. speech within normal limits. Affect congruent, mood anxious and dysthymic. Thoughts linear, logical, no signs of hallucinations or delusion. Client Response/Progress/Benefit: []Pt participated in the group discussions AEB nodding and taking notes. Attentive during psychoeducation Goal Setting. Participated during the discussion on common barriers. Pt stated a personal barrier to completing goals is fear of not being worthy of the accomplishment. Group also identified benefits of goals as sense of purpose, improved self-confidence, more motivation for other goals, and improved mental health. Pt identified personal benefits to goal setting. Benefited from increased awareness of mental health benefits of goals as well as psychoeducation on SMART goal criteria. Will continue in IOP to increase consistent use of healthy coping skills, challenge negative/distorted thoughts, improve view of self, and prevent decompensation.
--- NOTE | 2024-02-29 14:50 | BH.MDN ---
Multi-Disciplinary Note Note 45-min Individual: Time Started:: 11:10 Date: 02/29/24 Purpose of session/treatment goals addressed:: Purpose of session was to address goals 1 and 2 from MTP. Eye Contact:: Fair Motor Activity:: Restless Appearance:: Casual Speech:: Rambling Mood:: Anxious and Depressed Affect:: Constricted Thoughts:: Racing and No evidence of hallucinations/delusions noted Staff Interventions:: thought challenging, CBT techniques, strengths perspective, goal setting, taught coping skills and other (problem solving) Client Response:: Client reported she has not reached out to the donor recruitment manager as recommended last individual session to clarify the plan of action in regards to medication and follow up. Therapist work with client to write down the questions she has for clarification purposes that client can right in her online portal directly to her doctor. Client had expressed some anxiety about having the xanax because her primary care doctor that she just met with mentioned it wasn't good option for her to take xanax as a replacement of her marijuana. Therapist did provide some psychoeducation about cannabinoid hyperemesis syndrome. Client stated she could connect with majority of the symptoms connected with this syndrome including taking numerous hot showers as a way to alleviate nausea. Client reported she has been trying to reduce her marijuana usage to only two times a day which is a significant decrease for her period client stated she has not gotten sick via vomiting in over a week. Client still has some issues with bouts of nausea but has noted that the Xanax has helped her eat more. Therapist encouraged client to utilize her climbing skills like breathing techniques, mindfulness, and grounding tools prior to smoking marijuana as a way to teach yourself how to manage anxiety without needing to use a substance. Client stated she recognizes it would be important for her to decrease or stop marijuana use but doesn't know if it's realistic at this time. Client reported she will continue to focus on decreasing her use the marijuana and is open to trying the calming skills prior to smoking. Therapist discouraged client from taking the xanax and smoking together which client noted she has done at least one time recently. Client reported she does have her intake appointment with the [facility] to establish with an individual therapist that specializes in arfid. Client expresses some anxiety because she knows it's something that she needs to work on but it's still unsure if she wants to do the hard work that would be associated with that. 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 Risks/Concerns:: Daily check in sheet and pt reports SI/thoughts of not existing as 3/5 with intent noted as 1/5. Therapist clarified client's responses on symptom tracker. Client stated when she scored a 3/5 she was referring to thoughts of not existing. Client reported she doesn't have any intention on acting on those thoughts. Client denied any suicidal intention or plan. Client reported recent increase in existential thinking which leads to thoughts of not existing. Client future oriented. No access to guns. Client reports ability to maintain safety. Progress Toward Goals/Plan:: Progress stagnant. Client struggles with consistent use of healthy coping and calming skills to manage anxiety and depressed symptoms. Client did not recent use of opposite action to make herself get things done around her house instead of sitting doing nothing. Client continues to report not taking her Prozac at this time. Client is to reach out via online portal to her specialist today with the questions identified and written down in session to get clarification for her treatment. Client has intake appointment with [facility] tomorrow. Plan is for client to continue IOP to reinforce and build calming skills, decrease use of substances to manage her anxiety, and prevent decompensation. Time Stopped:: 12:00
--- NOTE | 2024-03-01 09:05 | BH.SGPN.GN ---
Behaviors/Verbalizations/Mental Status: [] Eye contact is good. Motor activity is restless. Appearance is casual. Speech is Appropriate. Mood is depressed and anxious. Affect is congruent. Thoughts are linear and logical. No evidence of psychosis. Reviewed daily check in sheet and pt reports 4/5 for passive thoughts of or survival ambivalence and 0/5 for suicidal intent. Client Response/Progress/Benefit: [] Pt was an active participant in group discussions. Attentive. Daily symptom tracker notes 3/5 for depression and 4/5 for thoughts of not existing. ?I accomplished my goal yesterday?. Shared she has been ruminating regarding the reasons for recent prescription and sent a message to physician rather than continue to mind read and speculate. ?My anxiety is better however my depression is worse?. Improve sleep and appetite. No visits to the ER in past week. Progress noted, however unclear reasons for increase in depression. Will continue in IOP to maintain safety, stabilize mood, and increase healthy coping skills. Narrative Note: []
--- NOTE | 2024-03-01 10:15 | BH.SGPN.GN ---
Behaviors/Verbalizations/Mental Status: [] Eye contact is fair. Motor activity is appropriate. Appearance is casual. Speech is Appropriate. Mood is dysthymic and anxious. Affect is congruent. Thoughts are linear and logical. No evidence of psychosis. Client Response/Progress/Benefit: [] Pt engaged participant AEB listening to others, engaging in activity, and providing feedback at times. Attentive during psychoeducation and provided insight into obstacles that impede mental wellness. Pt chose to not share with group current mental health reality and desired mental health reality. Did appear attentive to others that shared. Identified barriers to desired reality include: low self-worth, fear of failure, and feeling like a burden. Benefited from taking look at current mental health state and obstacles for progress. Pt to continue IOP tx to improve use of healthy coping skills, challenge negative/distorted thoughts, and prevent decompensation.
--- NOTE | 2024-03-02 09:00 | BH.SGPN.GN ---
Behaviors/Verbalizations/Mental Status: []Client alert and oriented, casual appearance. Eye contact fair. Motor activity restless. Speech within normal limits. Affect congruent, mood dysthymic and anxious. Thoughts linear, logical, no signs of hallucinations or delusions. Reviewed client's symptom tracker, no risk for suicidal ideation, plan, or intent. Client Response/Progress/Benefit: []Client responded well to session AEB listening to others and sharing thoughts/feelings. Client reported mental health positive as watching positive/interesting videos on social media instead of watching videos that put her in a negative headspace. Client reported additional mental health positive as feeling appreciation for her dog because of the emotional support her dog provides. Client reported current stressor as having difficult time maintaining boundaries with others. Appeared to benefit from support from peers. Will continue IOP tx to increase consistent use of healthy coping skills, challenge distorted/negative thoughts, and prevent decompensation.
--- NOTE | 2024-03-02 11:15 | BH.SGPN.GN ---
Behaviors/Verbalizations/Mental Status: []Pt alert and oriented, neatly dressed. Eye contact good. Motor activity appropriate. Speech within normal limits. Affect congruent, mood anxious. Thoughts linear, logical, no signs of hallucinations or delusions. Client Response/Progress/Benefit: [] Pt responded well to session AEB Pt listening attentively to others and providing input during group discussion on the pay offs and costs of the different communication styles. Pt able to connect how current communication style impacts mental health. Connected with peers? comments about importance of using assertive communication. Pt did well with practicing being assertive in the group activity and worked with group to identify potential skills for improving communication skills. Pt stated she will practice being assertive by being a ?better active listener? and writing out things she wants to say. Pt seemed to benefit from increasing awareness of healthy strategies to improve communication. Will continue IOP tx to prevent decompensation, gain healthy coping skills, and increase self-care. Narrative Note: []
--- NOTE | 2024-03-02 12:04 | PCM.BH.PN ---
Progress Note Progress Note: History of Present Illness/Interim History: The patient is a 23-year-old single, female with a history of anxiety, depression and avoidant restrictive food intake disorder and gastroparesis who is seen in follow-up at the [facility]. I last saw the patient 2 weeks ago and at that time no medication changes were made as the patient is very resistant to changing medication. The patient states today that she discontinued her Prozac while she was sick but wants to restart it soon. In addition her GI doctor has prescribed Xanax to help with her anxiety and possibly to help with her wean off the marijuana use to ultimately help with her GI issues. The patient states that in the past 2 weeks she has not had any emergency room visits and no significant vomiting in any way. She said her anxiety has improved since last visit but her depression remains. No recent panic attacks. She denies passive thoughts of , suicidal ideation, homicidal ideation, plan for suicide, hallucinations or delusions. Patient states that she has tried to decrease her marijuana use and may have decreased it slightly but she states that if she feels depressed that day then she smokes more marijuana. Current Psychiatric Medications: [] Prozac 10 mg p.o. daily: Discontinued while sick but patient is unable to state exactly when that was that she stopped taking it.; Gabapentin 200 mg p.o. 3 times daily but takes it once daily at most; Xanax 1 mg p.o. as needed for anxiety and patient states that she does not take it every day but only takes if she has severe anxiety at night which is several days a week at most. Mental Status Examination: [] The patient is a 23-year-old female who is very thin and appears younger than stated age. She is casually dressed and groomed with good hygiene and ambulatory with a normal gait. She has no psychomotor agitation or retardation. Eye contact is good and speech is normal rate and rhythm and fluent with no pressure. Mood is depressed. Affect is mildly constricted. Thought process is goal-directed and organized. Thought content: There is no evidence of passive thoughts of , suicidal ideation, homicidal ideation, plan for suicide, hallucinations or delusions. The patient remains resistant to changing medication or taking medication as prescribed. Reality testing is intact. Intelligence is average. Judgment is intact. Insight is limited. Impulsivity is moderate to high. Diagnoses: [] 1. Major depressive disorder, recurrent, moderate 2. Generalized anxiety disorder 3. Strong cluster B traits 4. ARFID and gastroparesis 5. Rule out mild autism 6. Rule out PTSD 7. THC use disorder 8. Primary support and work issues Plan: [] The patient will continue the IOP and behavioral health at [facility] as the structure, support, education and group therapy will hopefully prevent worsening of the patient's symptoms. She felt safe during the interview and if it anytime she does not feel safe she has agreed to let us know or go to the emergency room. No medication changes were made today. The patient has an appointment with [facility] ([facility]) in 2 days. No medication changes were made today. The patient will continue to follow-up with all her outpatient medical and psychiatric providers and I will see the patient in follow-up while she is in the IOP.
== END 2024-03-05 23:59 ==
LOC: BHIOP 08:01
PROVIDERS: PCP Internal Medicine; Referring Provider Psychiatry & Neurology Psychiatry; Visit Provider Psychiatry & Neurology Psychiatry
DX: F33.2 Major depressive disorder, recurrent severe without psychotic features (principal); F50.82 Avoidant/restrictive food intake disorder; F41.1 Generalized anxiety disorder; K31.84 Gastroparesis; F12.99 Cannabis use, unspecified with unspecified cannabis-induced disorder; Z79.899 Other long term (current) drug therapy
CPT/HCPCS: H2012; H2020; S9480; 90834; 90837

== ENCOUNTER → 2024-02-19 | Outpatient (CLI) | payer MEDICAID, SELFPAY ==
[2024-02-19 14:54] LABS: Vitamin B12 655 pg/mL (211-911)
[2024-02-19 15:28] LABS: ALB/GLOB Ratio 1.1 RATIO (0.9-2.4); AST(SGOT) 19 U/L (15-37); Alanine Aminotransfer ALT/SGPT 26 U/L (13-56); Albumin, Serum 4.1 g/dL (3.2-5.0); Alkaline Phosphatase 67 U/L (45-117); Anion Gap 7 (5-15); BUN 5 mg/dL (7-18); BUN/Creat Ratio 6.5 RATIO (10-20); Calcium,Total 9.3 mg/dL (8.5-10.1); Chloride 104 mmol/L (98-107); Creatinine, Serum 0.77 mg/dL (0.55-1.02); EST Glomerular Filtration Rate 99 mL/min (>60); Est Glom Filt Rate - Afr Amer 120 mL/min (>60); Globulin 3.9 g/dL (2.2-4.2); Glucose 81 mg/dL (74-106); Potassium 2.9 mmol/L (3.5-5.1); Sodium Level 139 mmol/L (136-145)
[2024-02-24 14:09] LABS: Ceruloplasmin 22.3 mg/dL (19.0-39.0); Copper, Serum or Plasma 82 ug/dL (80-158); Immunoglobulin A 235 mg/dL (87-352); Immunoglobulin G 1484 mg/dL (586-1602); Immunoglobulin M 101 mg/dL (26-217); VITAMIN B6 9.9 ug/L (3.4-65.2)
[2024-02-25 00:07] LABS: Methylmalonic Acid Bld 88 nmol/L (0-378)
--- NOTE | 2024-03-02 10:15 | BH.SGPN.GN ---
Behaviors/Verbalizations/Mental Status: [] Eye contact is good. Motor activity is appropriate. Appearance is casual. Speech is Appropriate. Mood is anxious and dysthymic. Affect is congruent. Thoughts are linear and logical. No evidence of psychosis. Client Response/Progress/Benefit: [] Pt was an active participant in group discussions. Attentive during psychoeducation on the 4 communication styles (Passive, Passive-Aggressive, Aggressive, and Assertive) and the obstacles to effective communication. ?Participated during interactive discussions on the benefits and disadvantages to each communication style. Along with peers was able to identify struggles and illusions to effective communication. Pt believes that she is most often passive which results in people-pleasing, walking on egg shells to avoid conflcit, and isolation. Benefited from increased understanding of communication styles and how these can impact effective communication. Will continue in IOP tx to prevent decompensation/re-admission to psych unit, decrease anxiety, and improve functioning. Narrative Note: []
== END | disposition home or self-care (01) ==
PROVIDERS: PCP Internal Medicine
DX: R20.9 Unspecified disturbances of skin sensation (principal)
CPT/HCPCS: 82175; 83655; 83825; 36415; 80053; 82390; 82525; 82607; 82746; 82784; 83921; 84207; 84443; 86334

== ENCOUNTER 2024-03-07 07:06 | Outpatient (RCR) | payer MEDICAID, SELFPAY ==
[2024-03-06 00:53] VITALS: BP 108/69; PULSE 69
--- NOTE | 2024-03-07 09:05 | BH.SGPN.GN ---
Behaviors/Verbalizations/Mental Status: [] Pt alert and oriented, casually dressed and groomed. Eye contact good. Motor activity appropriate. Speech within normal limits. Affect congruent, mood dysthymic and anxious. Thoughts linear, logical, no signs of hallucinations or delusions. Reviewed pt?s symptom tracker, no risk for suicidal ideation, plan, or intent 03/07/24 Client Response/Progress/Benefit: [] Pt was an active participant in group discussions. Attentive. Able to identify mental health wins including successfully attending family Thanksgiving without panic or self-comparison. Noted that she had gone on a long emotional release walk prior to the get together and believes this helped significantly in managing her anxiety during the gathering. Additional win noted as continuing to use opposite action to engage in self-care and challenge unhealthy thought patterns. Stressor continues to be pt's existential thoughts that reinforce depressive sx. Benefited from group support, encouragement, and feedback. Will continue in IOP to prevent decompensation, promote mood stability, and continue to improve use of dialectical thinking. Narrative Note: []
--- NOTE | 2024-03-07 10:15 | BH.SGPN.GN ---
Behaviors/Verbalizations/Mental Status: [] Client alert and oriented, neatly dressed and groomed. Eye contact good. Motor activity appropriate. Speech within normal limits. Affect congruent, mood euthymic. Thoughts linear, logical, no signs of hallucinations or delusions. Client Response/Progress/Benefit: [] Client was anactive participant in group discussions. Attentive during psychoeducation on 4 types of conflict styles (Competing, Collaborating, Avoiding, and Accommodating). Worked with group to define conflict and identify how conflict is helpful. With peers identified barriers to addressing or managing conflict which included:trauma, body language, and cognitive distortions. Client believes they use avoidant style of conflict resolution. Client shared this style leads them having poor boundary making skills. Benefited from group due to increase insight and awareness of benefits to conflict, conflict styles, and obstacles to managing conflict. Will continue in IOP to prevent decompensation, gain healthier core beliefs, and increase self care. Narrative Note: []
--- NOTE | 2024-03-07 11:20 | BH.SGPN.GN ---
Behaviors/Verbalizations/Mental Status: [] Client alert and oriented, neatly dressed and groomed. Eye contact good. Motor activity appropriate. Speech within normal limits. Affect congruent, mood euthymic. Thoughts linear, logical, no signs of hallucinations or delusions. Client Response/Progress/Benefit: [] Client engaged in session AEB contributing to discussion and engaging in small group. Attentive during discussion on strategies for more effectively managing conflict in personal life. Client participated in small group for activity and did well collaborating. Client given handout on DEAR [employer] with strategies to to communicate effectively in conflict. Client indicated what needs improvement in conflict for them to work on is knowing when to step away and body language. Appeared to benefit from gaining strategies to help client better manage conflict. Will continue IOP tx to reduce negative thinking patterns, increase overall functioning, and increase self-care. Narrative Note: []
--- NOTE | 2024-03-09 09:00 | BH.SGPN.GN ---
Behaviors/Verbalizations/Mental Status: [] Client alert and oriented, casual appearance. Eye contact good. Motor activity appropriate. Speech within normal limits. Affect congruent, mood anxious. Thoughts linear, logical, no signs of hallucinations or delusions. Reviewed client's symptom tracker client noted a 1 out of 5 with 5 being severe for thoughts of not existing. Per symptom tracker client denies any risk of suicide or intent. This score is lower than her baseline. Client Response/Progress/Benefit: [] Client responded well to session AEB listening to others and sharing thoughts/feelings. Per daily symptom tracker client notes a 2/5 for depression, with 5 being severe, and a 3/5 for anxiety. Client shared mental positive as trying to utilize positive affirmations and challenging negative thought patterns on a more consistent basis. Client reported she still has a hard time believing some of the affirmations but does see progress with how frequently she uses them. Client reported challenging negative thoughts has been useful in changing her behavior for the better. Client noted additional mental positive as feeling a connection to a kitten that she has been caring for. Client stated stressor is still being stuck in her head with racing thoughts at times and not being able to get out of it at times. Stated her emotion this morning is grateful. Appeared to benefit from support from peers. Will continue IOP tx to promote utilization of positive affirmations and challenging negative thoughts, continue utilization of healthy coping skills, and prevent decompensation. Narrative Note: []
--- NOTE | 2024-03-09 10:10 | BH.SGPN.GN ---
Behaviors/Verbalizations/Mental Status: [] Pt alert and oriented, casually dressed and groomed. Eye contact good. Motor activity appropriate. Speech within normal limits. Affect congruent, mood dysthymic and anxious. Thoughts linear, logical, no signs of hallucinations or delusions. Client Response/Progress/Benefit: [] Pt participated during small group discussions. Attentive during psychoeducation on self-sabotage and the reasons people self-sabotage, and impacts on mental health. Showed engagement during small group discussions and helped group identify different types of self-sabotage. Noted she struggles with perfectionism, people pleasing, and chronic quitting which often results in resentment, disappointment, and not following through with goals. Seemed to benefit from gaining awareness about the different ways people self-sabotage and identifying their own. Pt to continue IOP tx to prevent decompensation, stabilize mood, increase healthy coping, and improve functioning. Narrative Note: []
--- NOTE | 2024-03-09 11:05 | BH.SGPN.GN ---
Behaviors/Verbalizations/Mental Status: []Pt alert and oriented, neatly dressed and groomed. Eye contact good. Motor activity appropriate. Speech within normal limits. Affect congruent, mood anxious. Thoughts linear, logical, no signs of hallucinations or delusions. Client Response/Progress/Benefit: []Pt responded well to session, attentive and providing input. Pt worked on her mental health wellness garden picture and discussed things that contribute to mental wellness in his life. With peers, pt discussed things that would sabotage one's mental health wellness and added it to the garden metaphor. Pt identified things pt personally does to sabotage as getting impatient and destroying things, procrastination, and setting unrealistic goals. Pt attentive during psychoeducation on ways to reduce self-sabotage and pt selected using an accomplishment log and delay, distract, decide as the skills that could help pt reduce self-sabotaging behaviors. Pt appeared to benefit from learning skills and gaining awareness of self-sabotaging behaviors. Pt will continue IOP tx to prevent decompensation, increase distress tolerance skills, and improve daily functioning. Narrative Note: []
--- NOTE | 2024-03-11 10:10 | BH.SGPN.GN ---
Behaviors/Verbalizations/Mental Status: [] Eye contact is good. Motor activity is appropriate. Appearance is casual. Speech is Appropriate. Mood is anxious. Affect is congruent. Thoughts are linear and logical. No evidence of psychosis Client Response/Progress/Benefit: [] Pt responded well to session AEB contributing to small group discussion, taking notes, and listening attentively to others. Group defined anger and discussed the benefits of managed anger (advocating for self, getting needs met, catalyst for change). Worked with peers in small groups to identify common anger triggers as well as emotions which lay underneath anger or 'drive anger such as; helplessness, fear, guilt, anxiety, grief, shame, and jealously. Appeared to benefit from increased knowledge of the anger cycle as well as personal triggers. Will continue IOP to prevent decompensation, increase healthy coping, and improve functioning. Narrative Note: []
--- NOTE | 2024-03-11 11:15 | BH.SGPN.GN ---
Behaviors/Verbalizations/Mental Status: []Client alert and oriented, casually dressed and groomed. Eye contact fair. Motor activity appropriate. Speech within normal limits. Affect congruent, mood anxious. Thoughts linear, logical, no signs of hallucinations or delusions. Client Response/Progress/Benefit: []Pt was engaged throughout AEB contributing to group discussion and activity. Group processed how they each responded to the intentionally difficult task they were asked to completed and described the physical and emotional anger cues experienced throughout, as well as strategies used for managing these frustrations. Pt contributed as group brainstormed healthy coping skills for better managing anger which included: music, walking/exercise, taking a break, healthy venting, avoiding unnecessary stressors, reflection, and journaling. Pt cooperative with working in small groups to identify what strategy wants to work on to help interrupt personal anger cycle. Pt to continue IOP to increase consistent use of healthy coping skills, improve view of self, and prevent decompensation.
--- NOTE | 2024-03-11 14:39 | BH.MDN ---
Multi-Disciplinary Note Note 45-min Individual: Time Started:: 09:05 Date: 03/11/24 Purpose of session/treatment goals addressed:: Purpose of session was to address goals 1 and 2 from MTP. Eye Contact:: Fair Motor Activity:: Restless Appearance:: Casual Speech:: Appropriate Mood:: Anxious Affect:: Congruent Thoughts:: Racing (At one point pt reported her thoughts were rapidly racing that she had to stop talking mid-sentence.) and No evidence of hallucinations/delusions noted Staff Interventions:: thought challenging, CBT techniques, mindfulness skills, discharge planning, strengths perspective and goal setting (Homework is to complete accomplishment journal ) Client Response:: Client reported she has been doing better of the last week with improved motivation, improved mood, and being able to function better around the house. Client stated she has allowed herself to break tasks into smaller parts which has helped decrease feelings of being overwhelmed and get her chores completed. Client stated she felt very motivated yesterday and also noticed ability to cope with her emotions more effectively. Client reported she has noticed since starting to feel a little better with decreased depression and decreased anxiety that she is feeling emotions that she is not used to. Client stated she has started to feel angry which has led her to be more passive aggressive towards her friends and family. Client stated this makes her feel a little selfish because she is starting to see that her emotions matter but recognizes she is not going about it in the most healthy way to stand up for herself. Client reported her nausea has improved drastically, improved eating, and no throwing up in the last week. Client reported she became too nervous about taking the Xanax that was prescribed to her by her specialist so she only takes it about once a week for severe anxiety at night so that she can sleep. Client stated she is still not taking the Prozac. Client stated she is unsure if she will be willing to explore other medications. When therapist address concern over client not being able to formulate thoughts due to her racing thoughts in session client stated she just used to being that way. Client reported part of her is unsure if she wants to get rid of the racing thoughts because it has been a part of who she is for most of her life. Client could connect potential consequences of not being able to function in certain areas of her life if her anxiety continues to stay worth or get worse. During discussion about tentative discharge time frame for IOP client stated she is most worried about discharging because she will not have the social support that she has from group therapy. Client reported she is worried about being only around her family home are not always the most supportive people in her life. Client agreed with a tentative discharge date of 2 weeks. Discussed possibly starting the [facility] aftercare group program following discharge from [facility] for continued reinforcement of skills and social support. Client stated she needs to find out from the [facility] on when her first individual counseling appointment will be. Client stated she is concerned that her individual counseling through the [facility] will be virtual and she is worried she will be able to be as honest because of fear that her mom will overhear what she says during session. Discussed possibly only working on the RFID with the [facility] counselor and getting established with a different outpatient counselor to work on trauma and other issues that she could do in person. Client agreeable with this discharge plan. Client agreeable to talk with the [facility] and to 10 sure it is okay to have 2 different counselors. Risks/Concerns:: Denies suicidal ideation, plan, intention. Improvement with eating and no ER visits for malnutrition or dehydration in several weeks. Progress Toward Goals/Plan:: Progress note with client reporting improved mood, decreased depression, decreased anxiety, improved eating, and starting to view herself in a better light. Provided homework for client to focus on giving herself credit for the things she is accomplishing because her negative core beliefs about herself continue to bring her down which results in her putting other people's needs and opinions ahead of her own. Plan is for client to discharge from [facility] in 2 weeks. Client has had her first intake with the [facility] to establish with a individual counselor that specializes in ARFID. Will help client also established with a trauma therapist. Time Stopped:: 09:50
--- NOTE | 2024-03-15 09:05 | BH.SGPN.GN ---
Behaviors/Verbalizations/Mental Status: [] Eye contact is good. Motor activity is appropriate. Appearance is casual. Speech is Appropriate. Mood is anxious/depressed. Affect is congruent. Thoughts are linear and logical. No evidence of psychosis. Reviewed daily check in sheet and pt reports 1/5 for passive thoughts of and 0/5 for intent. Client Response/Progress/Benefit: [] - Pt was an active participant in group discussions. Attentive. Daily symptom tracker notes 2/5 for depression and anxiety. Started off by discussion increase confidence and self-esteem as she recently learned a new skill and ?I?m getting good at it?. Discussed how anxiety, negative thoughts, and poor self-esteem have in the past been obstacles in learning new skills. Was also able to work through normal setbacks and feels of failure associated with learning something new. She reports ?scattered brain? and ?weird energy in my chest?. Spent time with a friend which was beneficial however taking pictures triggered poor self-concept which led to negative through which were difficulty to manage. She attempted to use skills. Group praised her for trying and practicing rather than giving up or self-medicating. Benefited from group support, encouragement, and feedback. Will continue in IOP to maintain safety, prevent decompensation, and increase healthy coping skills. Narrative Note: []
--- NOTE | 2024-03-15 10:15 | BH.SGPN.GN ---
Behaviors/Verbalizations/Mental Status: []Pt alert and oriented, neatly dressed and groomed. Eye contact good. Motor activity appropriate. Speech within normal limits. Affect congruent, mood anxious. Thoughts linear, logical, no signs of hallucinations or delusions. Client Response/Progress/Benefit: [] Pt engaged and participating in discussion, taking notes. Pt attentive during psychoeducation about the window of tolerance and noted personal connections. Group identified what contributes to low distress tolerance. The group gained awareness of the three zones of tolerance and pt was able to identify what they look like in each zone. Pt noted that in the hyperarousal zone pt gets controlling, fearful, and over thinks. In Hypoarousal, pt shtus down and people pleases to avoid conflict. When pt is in the window of tolerance, Pt feels mindful and able to problem-solve. Pt appeared to benefit from psychoeducation on distress tolerance and practicing self-reflection. Pt will continue IOP tx to prevent decompensation, improve use of healthy coping skills, and increase self-care. Narrative Note: []
--- NOTE | 2024-03-15 11:20 | BH.SGPN.GN ---
Behaviors/Verbalizations/Mental Status: []Pt alert and oriented, casually dressed and groomed. Eye contact good. Motor activity appropriate. Speech within normal limits. Affect congruent, mood anxious. Thoughts linear, logical, no signs of hallucinations or delusions. Client Response/Progress/Benefit: [] Pt responded well to session AEB taking notes and contributing to discussion throughout. Pt engaged as group continued discussion on distress tolerance and the mental health benefits of widening their overall Window of Tolerance. Pt engaged with group in experiential activity provided input on connections between variables in the activity and distress tolerance. Worked within small groups to identify strategies to increase distress tolerance and reduce hyper-arousal and hypo-arousal states. Identified wanting to begin implementing distress tolerance skills of: dialectical thinking, improve boundaries, and values based activities. Pt appeared to benefit from gaining insight and learning strategies to increase distress tolerance. Pt will continue IOP tx to promote use of healthy coping skills, improve perspective, and prevent decompensation. Narrative Note: []
--- NOTE | 2024-03-16 09:00 | BH.SGPN.GN ---
Behaviors/Verbalizations/Mental Status: [] Pt alert and oriented, casually dressed and groomed. Eye contact good. Motor activity appropriate. Speech within normal limits. Affect congruent, mood anxious and content. Thoughts linear, logical, no signs of hallucinations or delusions. Reviewed pt?s symptom tracker, no risk for suicidal ideation, plan, or intent 03/16/24 Client Response/Progress/Benefit: [] Pt was an active participant in group discussions. Attentive. Able to identify mental health wins including not allowing her fire truck driver's mood to negatively impact her own. Pt reports she instead allowed her front loader residential driver to vent without internalizing it by reminding herself that this is not because of something she did. Additional win noted as spending time crafting with her family yesterday and was able to see her grandmother as well which was a positive. Stressor noted as ongoing issues with negative self-talk and perspective but is actively working on improving in thought challenging skills. Benefited from group support, encouragement, and feedback. Will continue in IOP to prevent decompensation, promote mood stability, and continue to improve use of thought challenging. Narrative Note: []
--- NOTE | 2024-03-16 10:05 | BH.SGPN.GN ---
Behaviors/Verbalizations/Mental Status: []Client alert and oriented, casually dressed and groomed. Eye contact fair. Motor activity appropriate. Speech within normal limits. Affect constricted, mood anxious and dysthymic. Thoughts linear, logical, no signs of hallucinations or delusions. Client Response/Progress/Benefit: [] Pt was an attentive an active participant, AEB taking notes and providing input in group discussion when prompted. Attentive during psychoeducation. Pt engaged during interactive discussion in which the group defined self-care and discussed its benefits. Group discussed barriers to engaging in self-care. Group members together came up with guilt, time, ?people pleasing?, not knowing what to do, and perception that its unproductive as barriers to engage in self-care. Pt stated their personal barrier is feeling like she doesn't deserve to engage in self-care. Pt participated in small groups where they worked to identify and challenge common self-care ?myths?. Benefited from increased awareness of self-care, its benefits, and the consequences of not utilizing self-care strategies. Will continue IOP tx to challenge negative thoughts, increase use of healthy coping skills, and prevent decompensation.
--- NOTE | 2024-03-16 11:05 | BH.SGPN.GN ---
Behaviors/Verbalizations/Mental Status: []Client alert and oriented, casually dressed and groomed. Eye contact good. Motor activity appropriate. Speech within normal limits. Affect congruent, mood anxious. Thoughts linear, logical, no signs of hallucinations or delusions. Client Response/Progress/Benefit: [] Pt engaged in discussion reviewing different areas of self-care and completing self-assessment of current self-care, as well as providing input throughout discussion. Did well to complete self-care self-assessment worksheet. Pt identified how pt is doing in each category and what self-care activities pt wants to start using. Pt selected emotional self-care to begin practicing more consistently. Pt plans to do this by addressing her emotions and sitting with them without making it worse (the ride the wave technique). Appeared to benefit from completing the self-care evaluation and gaining insights into current self-care practices, as well as identifying areas in which pt would like to improve upon. Pt will continue IOP tx to prevent decompensation, improve self-confidence, and increase distress tolerance. Narrative Note: []
--- NOTE | 2024-03-18 10:05 | BH.SGPN.GN ---
Behaviors/Verbalizations/Mental Status: []Pt alert and oriented, casually dressed and groomed. Eye contact good. Motor activity appropriate. Speech within normal limits. Affect congruent, mood depressed and engaged. Thoughts linear, logical, no signs of hallucinations or delusions. ? Client Response/Progress/Benefit: [] Pt responded well to session, attentive and engaged. Group participated in the discussion defining stigma as well as what stigma has kept pt's from doing in their lives. Pt stated mental health stigma has kept pt from getting help and led pt to ?become a shape shifter? which pt shared kept her from being authentic. Pt worked with peers to begin discussion of what reinforces stigma, both socially and internally, and this was discussed further in the next group. Pt appeared to benefit from learning about the different types of stigma as well as gaining awareness of how stigma has personally impacted pt. Pt will continue IOP tx to promote the use of healthy coping skills, reduce negative self-talk, and increase socialization. Narrative Note: []
--- NOTE | 2024-03-18 11:05 | BH.SGPN.GN ---
Behaviors/Verbalizations/Mental Status: []Pt alert and oriented, casually dressed and groomed. Eye contact fair. Motor activity appropriate. Speech within normal limits. Affect congruent, mood dysthymic. Thoughts linear, logical, no signs of hallucinations or delusions. Client Response/Progress/Benefit: [] Pt engaged participant AEB participating in the activity, providing input during small group discussion, and listening attentively to others. Pt appeared to connect with discussion in the benefits of addressing mental health stigma which included: improved relationships, increased willingness to seek help, increased happiness, and improved confidence. Group brainstormed strategies to combat social and perceived stigma. Pt identified that they can contribute to stigma by shutting down and not advocating for themselves.?Pt shared one thing pt can do to combat stigma is to be mindful to not use negative mental health labels and practice self-compassion. Appeared to benefit from increasing awareness of strategies to combat stigma. Pt is to continue IOP to improve view of self, challenge distortions, and prevent decompensation.
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
--- NOTE | 2024-03-22 09:00 | BH.SGPN.GN ---
Behaviors/Verbalizations/Mental Status: [] Eye contact is good. Motor activity is appropriate. Appearance is casual. Speech is Appropriate. Mood is anxious and depressed. Affect is congruent. Thoughts are linear and logical. No evidence of psychosis. Reviewed daily check in sheet and pt reports 1/5 for passive thoughts of and 0/5 for intent. Client Response/Progress/Benefit: [] Pt was an active participant in group discussions. Attentive. Daily symptom tracker notes 2/5 for depression and 1/5 for anxiety. ?I?m appreciating the world?. Discussed mindfulness skills associated with nature. ? I?m still doing my skills ? kind of?. Frustrated that she feels she constantly has to challenge and reframe her thoughts. She has urge to stop trying her skills however understands that practicing is helping even if there is not significant relief. Progress noted. Benefited from group support, encouragement, and feedback. Will continue in IOP to prevent decompensation, increase healthy coping, and improve functioning. Narrative Note: []
--- NOTE | 2024-03-22 10:10 | BH.SGPN.GN ---
Behaviors/Verbalizations/Mental Status: []Pt alert and oriented, casually dressed and groomed. Eye contact good. Motor activity appropriate. Speech within normal limits. Affect congruent, mood depressed and anxious. Thoughts linear, logical, no signs of hallucinations or delusions. Client Response/Progress/Benefit: [] Pt was an active?participant in small group discussion. Pt?s group worked together to identify benefits of healthy relationships which included insight, accountability, and guidance. Group identified factors that lead to unhealthy relationships. Pt?s personal factors included lack of communication and poor boundaries. Actively participated in group experiential activity and expressed ideas to group. Benefited from increased insight and awareness of benefits of healthy relationships and factors that contribute to unhealthy relationships. Will continue IOP tx to promote mood stability, increase self-compassion and calming skill application, and improve daily functioning. Narrative Note: []
--- NOTE | 2024-03-22 11:10 | BH.SGPN.GN ---
Behaviors/Verbalizations/Mental Status: [] Pt alert and oriented, casually dressed and groomed. Eye contact good. Motor activity appropriate. Speech within normal limits. Affect coingruent, mood euthymic, Thoughts linear, logical, no signs of hallucinations or delusions. Client Response/Progress/Benefit: [] Client responded well to session, engaged and taking notes throughout. Worked with group to connect components of the experiential activity with characteristics of healthy and unhealthy relationships. Attentive during psychoeducation about characteristics of healthy, unhealthy, and abusive relationships. Client reported she would like to work on giving herself more control over own decisions instead of constantly people pleasing. Client stated she is going to start to do this by doing things that she likes. Appeared to benefit from identifying current healthy relationship attributes and an area client wants to work on to build healthier relationships. Client to continue IOP to promote use of healthy coping, improve view of self, and prevent decompensation.
--- NOTE | 2024-03-23 09:00 | BH.SGPN.GN ---
Behaviors/Verbalizations/Mental Status: [] Client alert and oriented, casual appearance. Eye contact fair. Motor activity appropriate. Speech within normal limits. Affect congruent, mood euthymic and slightly anxious. Thoughts linear, logical, no signs of hallucinations or delusions. Reviewed client's symptom tracker, no risk for suicidal ideation, plan, or intent. Client Response/Progress/Benefit: [] Client responded well to session AEB listening to others and sharing thoughts/feelings. Per daily symptom tracker client reports a 1/5 for depression and 2/5 for anxiety. Client reported mental health positive as waking up and her mind being less busy. Client reported additional mental health positive as feeling rested and alert this morning. Client stated she is finding it easier to use healthy skills when her mind is less busy. Client stated last night she used opposite action by doing stretches prior to going to bed. Client shared current stressor is still having to experience negative and anxious thought loops. Appeared to benefit from support from peers. Will continue IOP tx to promote use of consistently applying healthy coping skills, improve view of self, and prevent decompensation.
--- NOTE | 2024-03-23 10:10 | BH.SGPN.GN ---
Behaviors/Verbalizations/Mental Status: [] Eye contact is good. Motor activity is appropriate. Appearance is casual. Speech is Appropriate. Mood is depressed/anxious. Affect is congruent. Thoughts are linear and logical. No evidence of psychosis. Client Response/Progress/Benefit: [] Pt participated at times during the interactive group discussions. Along with peers contributed to interactive discussion on defining what a boundary is in mental health. Pt along with peers identified challenges to setting boundaries which included; people pleasing, possible conflict, possible abandonment, fear of rejection, fear of loss, fear people won't respect the boundary, etc. Pt worked well in small group in which they identified different types of boundaries (material, sexual, intellectual, physical, emotional) and provided examples. Pt benefited from increased awareness and insight on the challenges to setting boundaries and the types of boundaries. Will continue in IOP to prevent decompensation, stabilize mood, and improve functioning Narrative Note: []
--- NOTE | 2024-03-23 14:39 | BH.MDN ---
Multi-Disciplinary Note Note 45-min Individual: Time Started:: 11:15 Date: 03/23/24 Purpose of session/treatment goals addressed:: Purpose of session was to identify treatment goals, complete maintenance plan, and solidify aftercare plans. Eye Contact:: Good Motor Activity:: Restless Appearance:: Casual Speech:: Appropriate and Soft (at times) Mood:: Euthymic and Anxious Affect:: Congruent Thoughts:: Logical, Racing (at times) and No evidence of hallucinations/delusions noted Staff Interventions:: thought challenging, CBT techniques, discharge planning, strengths perspective and other (completed maintenance plan) Client Response:: Client reported overall her weekend went well. Client stated on Fridays she has been spending time with her brothers and one of their friends playing dungeons and dragons together. Client stated this has been helpful for her anxiety because in a way she is forced to make decisions for herself throughout the game play. Client reported spending helpful to be around supportive individuals to allow her to take time in outpatient when she needs time to think about her decisions throughout the game. Client stated she recognizes Jorge continues to expose herself to anxious provoking situations that can help her to feel better and gain confidence on her decision making. Client reported this morning she woke up with less racing thoughts which helped her be able to use skills throughout the day so far more efficiently. Client worked with therapist to complete maintenance plan in which she identified possible triggers, warning signs, self-care activities and healthy coping skills. Client was provided this maintenance plan handout to have for continued reference as she discharges from [facility] this week. When working together to identify treatment progress client really struggled with giving herself credit for the things she has done throughout this program. Often client would immediately say after identifying a small progress that does not really count because she has also been struggling in her area. Client agreed she does have expectations for herself that she can give herself credit unless it is something that she does all the time. Through discussion client recognizes if her expectations are to be perfect in order for her to give herself credit and she likely will never give herself credit. With support and assistance from therapist client could identify treatment progress with using breathing skills to help manage her anxiety, decreased nausea, improved functioning with getting daily chores completed at home, decreased depression, and ability to bounce back from rough days. Client stated in the past prior to [facility] some of her negative thought spirals would be at least a week when she would not get much accomplished, but now she is able to catch herself spiral, reframe thoughts, and get back to functioning within 2 to 3 days. Client stated she has been also doing better with starting to acknowledge accomplishments throughout the day. Risks/Concerns:: Denies suicide ideation, plan, or intention. Progress Toward Goals/Plan:: Per DSM 5 cross-cutting measure client's scores indicate a 33% decrease in depression, 30% decrease in anxiety, 100% decrease in thoughts of hurting self, and an overall 35% decrease in mental health symptoms when compared to admission DSM 5 scores. Client struggled with identifying her treatment progress. Client expects herself to be doing 100% better in order for her to give any credit or identify progress. Through discussion with therapist client recognizes these unrealistic expectations will maintain a not good enough negative belief set and reinforce depressed symptoms. Client has struggled throughout her time in [facility] with giving self credit for progress and often comes up with a counter argument as to why an area of progress, is not progress. Client recently has been trying to work on this by acknowledging daily accomplishments which she has noted has become easier. Client has noted use of healthy calming skills like engaging in temperature change and breathing techniques to help decrease anxiety and physiological symptoms. Client reports decrease in nausea and throwing up in the last couple weeks. Client starting to make connection that if she can decrease her anxiety she experiences less issues with food and nausea. Client has established with a specialist for her ARFID at the [facility] and has weekly sessions scheduled. Client has also reported improvement with getting chores and responsibilities completed around the house. Plan is for client to discharge from [facility] on Thursday. Client is established with Dr. Torres for psychiatry. Client is also to establish with [facility] for trauma counseling. Client will start [facility] Aftercare program on 04/08/24. Time Stopped:: 12:00
--- NOTE | 2024-03-25 09:00 | BH.SGPN.GN ---
Behaviors/Verbalizations/Mental Status: [] Eye contact is good. Motor activity is appropriate. Appearance is casual. Speech is Appropriate. Mood is anxious. Affect is congruent. Thoughts are linear and logical. No evidence of psychosis. Reviewed daily check in sheet and no reports of suicidal ideations or intent. Client Response/Progress/Benefit: [] Pt was an active participant in group discussions. Attentive. Symptom tracker notes 05/11 for depression and 04/10 for anxiety. Shared with the group that she is discharging successfully from [facility] today. She is nervous about discharge however states that she is ? doing better with skills?. Admits that she became attached to the ?people? here is [facility] and will have a hard time not attending. She will however follow-up with aftercare here. Discussed her progress and believed that the groups surrounding communication were most beneficial for her. Will discharge from [facility] today. Narrative Note: []
--- NOTE | 2024-03-25 11:10 | BH.SGPN.GN ---
Behaviors/Verbalizations/Mental Status: []Client alert and oriented, casually dressed and groomed. Eye contact good. Motor activity appropriate. Speech within normal limits. Affect congruent, mood euthymic and anxious. Thoughts linear, logical, no signs of hallucinations or delusions. Client Response/Progress/Benefit: [] Pt receptive of session, engaged throughout AEB Pt actively listening and contributing to discussion as well as taking notes.? Pt participated in the experiential activity and did well to communicate ideas with peers and manage emotions. Pt attentive as group processed how the emotions and perspective of the group impacted the activity. Group worked together to identify different coping skills to help manage pitfalls. Pt identified a pitfall they struggle with as not acknowledging progress. Pt plans to work on their pitfall by continuing to find the lezama and practice self-compassion. Benefited from identifying personal pitfalls and strategies to overcome these pitfalls. Pt will discharge from IOP as she has accomplished her tx goals and no longer meets criteria for IOP level of care. Narrative Note: []
--- NOTE | 2024-03-25 19:12 | BH.DS_ITS ---
Discharge Summary Demographics Date of Admission:: 02/10/24 Discharge Date: 03/25/24 Presenting Problems at Admission:: Client reported throughout her life she has struggled with depression, anxiety, and Avoidant Restrictive Food Intake Disorder (ARFID). Client reported was referred to the [facility] behavioral health IOP by her psychiatrist due to worsening anxiety, depression and suicidal ideation. 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 Client reported she has a difficult time keeping a job due to her ARFID. Client stated she has to call off often when she gets sick which leads her to either having to quit or get fired. She restricts her food based on textures and taste and is done this perception a number of years. The patient is stressed by some family conflict with her mother, sister and her grandmother and she states that she has no strong connections with anyone in the family. She endorses sadness, some crying, low motivation, hopelessness, worthlessness, decreased appetite with stable weight, low energy, guilt. The patient had suicidal ideation 1 month ago but denies passive thoughts of , suicidal ideation although then later admits she had passive suicidal ideation possibly 1 week ago but has no plan. Reports panic attacks at least once a week. Discharge Diagnoses:: 1. Major depressive disorder, recurrent, severe without psychosis F33.2 2. Generalized anxiety disorder 3. Strong cluster B traits 4. ARFID and gastroparesis 5. Rule out mild autism 6. Rule out PTSD 7. THC use disorder Reason for Discharge:: Pt discharging from IOP due to showing treatment progress on goals and meeting maximum benefit from IOP. Treatment Progress During Treatment & Response: Per DSM 5 cross-cutting measure client's scores indicate a 33% decrease in depression, 30% decrease in anxiety, 100% decrease in thoughts of hurting self, and an overall 35% decrease in mental health symptoms when compared to admission DSM 5 scores. Client struggled with identifying her treatment progress. Client expects herself to be doing 100% better in order for her to give any credit or identify progress. Through discussion with therapist client recognizes these unrealistic expectations will maintain a not good enough negative belief set and reinforce depressed symptoms. Client has struggled throughout her time in IOP with giving self credit for progress and often comes up with a counter argument as to why an area of progress, is not progress. Client recently has been trying to work on this by acknowledging daily accomplishments which she has noted has become easier. Client has noted use of healthy calming skills like engaging in temperature change and breathing techniques to help decrease anxiety and physiological symptoms. Client reports decrease in nausea and throwing up in the last couple weeks. Client starting to make connection that if she can decrease her anxiety she experiences less issues with food and nausea. Issues Still to be Addressed:: Client could benefit from continued work on improving healthy coping skills, increase utilization of healthy calming skills to manage anxiety, and continued reinforcement in challenge distorted thoughts. client could also benefit from trauma therapy and creating healthy core beliefs. Discharge Recommendations/Instructions:: Client is established for outpatient counseling at the [facility] for individual counseling, specifically focusing on ARFID and sees her therapist every Thursday. Client is working on getting established with Aretha Phan at [facility] for trauma therapy. Client is established with Dr. Torres for psychiatry. Discharge Handout
== END 2024-03-25 12:42 | disposition home or self-care (01) ==
LOC: BHIOP 07:06
PROVIDERS: PCP Internal Medicine; Referring Provider Psychiatry & Neurology Psychiatry; Visit Provider Psychiatry & Neurology Psychiatry
DX: F33.2 Major depressive disorder, recurrent severe without psychotic features (principal); F41.1 Generalized anxiety disorder; F50.82 Avoidant/restrictive food intake disorder; K31.84 Gastroparesis; F12.99 Cannabis use, unspecified with unspecified cannabis-induced disorder; Z79.899 Other long term (current) drug therapy
CPT/HCPCS: H2012; H2020; S9480; 90834

== ENCOUNTER → 2024-03-15 | Outpatient (CLI) | payer MEDICAID, SELFPAY ==
[2024-03-28 05:06] LABS: Arsenic 7245 2 ug/L (0-9); Lead, Blood < 1.0 ug/dL (0.0-3.4); Mercury, Blood 85324 < 1.0 ug/L (0.0-14.9)
== END | disposition home or self-care (01) ==
LOC: LAB.FUTURE 13:53 → LAB 14:00
PROVIDERS: PCP Internal Medicine
DX: R20.9 Unspecified disturbances of skin sensation (principal)
CPT/HCPCS: 36415; 82175; 83655; 83825

== ENCOUNTER 2024-04-07 08:00 | Outpatient (RCR) | payer MEDICARE, MEDICAID, SELFPAY ==
--- NOTE | 2024-04-07 14:00 | BH.SGPN.GN ---
Behaviors/Verbalizations/Mental Status: []Pt alert and oriented, casually dressed and groomed. Eye contact fair. Motor activity appropriate. Speech within normal limits. Affect constricted, mood anxious. Thoughts linear, logical, no signs of hallucinations or delusions. Client Response/Progress/Benefit: []Pt receptive of session, engaged throughout. Pt has been consistent with taking his medications and has an appointment with her outpatient therapist tomorrow. Pt reported she has been using coping skills of breathing, accomplishment log, and yoga to help manage stress and symptoms. Receptive of discussion on ?Chapters of my life? poem. Pt contributed to the discussion of the different chapters one may go through and how they connect with current mental health progress. Pt completed self-reflection on what chapter he believes she is in. During processing of situation with another group member that was coming off angry throughout their check-in client stated she felt nervous and wishes she could have said something that would have helped the group member feel better. Pt seemed to benefit from support from peers and increasing understanding of ?Chapters of my life?. Will continue IOP aftercare to increase consistent use of healthy coping skills and prevent decompensation.
--- NOTE | 2024-04-07 15:32 | BH.MTP ---
Master Treatment Plan Patient Information Program Physician:: Dr. Kenzie Abdul Primary Therapist:: Deb WALTER Psychiatric Diagnoses Psychiatric Diagnoses:: 1. Major depressive disorder, recurrent, severe without psychosis F33.2 2. Generalized anxiety disorder 3. Strong cluster B traits 4. ARFID and gastroparesis 5. Rule out mild autism 6. Rule out PTSD 7. THC use disorder Diagnosis Code(s):: F 33.2 Estimated LOS Estimated LOS (in weeks):: 8 Problem/Goal #1 Problem/Goal #1 Stated Goal:: client will maintain or see a reduction in symptoms AEB client score on the DSM 5 cross-cutting measure and improve client's daily functioning. Objectives Objective #1: Stated Objective: Client will continue to consistently apply healthy coping skills to maintain progress made in IOP tx. Interventions: Through group therapy, client will review warning signs and triggers as well as healthy coping skills learned in IOP tx to successfully maintain gains while transitioning into outpatient therapy. Discharge Criteria: Client will have accomplished this goal when client's score on the DSM-5 cross-cutting measure has maintained or reduced over a 8 week period Target Date: 06/02/24 Review Date: 05/05/24 Status: open Objective #2: Stated Objective: Client will learn and utilize 2-3 maintenance strategies to prevent decompensation from original IOP DSM-5 scores. Interventions: Through group therapy, client will be provided with education on healthy maintenance behaviors, relapse prevention techniques, and healthy coping strategies. Discharge Criteria: Client will have accomplished this goal when can report using at least 2 maintenance skills to prevent decompensation compared to original IOP DSM-5 scores Target Date: 06/02/24 Review Date: 05/05/24 Status: open
--- NOTE | 2024-04-14 14:00 | BH.SGPN.GN ---
= Behaviors/Verbalizations/Mental Status: []Pt alert and oriented, casually dressed and groomed. Eye contact good. Motor activity appropriate. Speech within normal limits. Affect congruent, mood anxious. Thoughts linear, logical, no signs of hallucinations or delusions. Client Response/Progress/Benefit: []Pt responded well to session AEB sharing and listening attentively to others. Pt has scheduled outpatient mental health appointments virtually and in process of scheduling in-person. Pt reports using skills of healthy distraction, opposite action, and vagus nerve stretches to maintain mood stability. Pt participated in group discussion defining affirmations and why they are important. Pt provided insight throughout clinician?s presentation of tips for writing personal affirmations and wrote their own affirmations, including ?I am excited about the person I am becoming?, ?I am alive and deserving of living? and ?I am making efforts to improve?. Pt appeared to benefit from increased knowledge of affirmation writing skills and creating their own affirmation statements to remind themselves of outside tx environment. Will continue aftercare tx to promote consistent mental health maintenance and prevent decompensation. Narrative Note: []
--- NOTE | 2024-04-21 14:00 | BH.SGPN.GN ---
Behaviors/Verbalizations/Mental Status: []Client alert and oriented, neatly dressed and groomed. Eye contact good. Motor activity appropriate. Speech within normal limits. Affect constricted, mood anxious. Thoughts linear, logical, no signs of hallucinations or delusions. Client Response/Progress/Benefit: []Pt responded well to session, providing support to peers and contributing. Pt reports meeting with her therapist, taking her meds, and using healthy coping skills. Pt reported using skills such as; deep breathing, stretching, jazz hands, and affirmations to cope with stressors. Pt engaged in discussion of problem-solving, learned the ABCDEs of problem-solving, and participated in the activity. Pt, along with peers, had to use outside of the box thinking and team work to accomplish the goal. Pt shared she learned that she tends to struggle with seeing other perspectives when she is faced with a problem, so pt benefitting from asking for clarification. Pt will work on problem-solving skills for homework. Pt will continue IOP aftercare to reinforce healthy coping skills and promote mental wellness. Narrative Note: []
--- NOTE | 2024-05-05 14:00 | BH.SGPN.GN ---
Behaviors/Verbalizations/Mental Status: []Pt alert and oriented, neatly dressed and groomed. Eye contact good. Motor activity appropriate. Speech within normal limits. Affect congruent, mood euthymic and anxious. Thoughts linear, logical, no signs of hallucinations or delusions. Client Response/Progress/Benefit: []Pt responded well to session, completed their self-reflection worksheet. Pt noted they have met with their therapist since last session and used coping skills like giving herself credit, stretching, reframing thoughts, deep breathing, and affirmations. Pt also noted they completed last weeks homework and found it helpful. Pt engaged well during the discussion of the components of self-compassion. Pt connected with the benefits of self-compassion and participated in the activity of reframing a recent setback using self-compassion. Pt used self-compassion to combat negative self-talk and assisted peers in identifying examples of the three components of self-compassion.?Pt appeared to benefit from practicing self-compassion and connecting with peers. Will continue aftercare to promote mood stability and reinforce healthy coping skills.? Narrative Note: []
--- NOTE | 2024-05-05 14:36 | BH.TPR ---
Treatment Plan Review Demographics Date of Admission:: 04/07/24 Date of Treatment Plan Review:: 05/05/24 Admitting Diagnoses:: 1. Major depressive disorder, recurrent, severe without psychosis F33.2 2. Generalized anxiety disorder 3. Strong cluster B traits 4. ARFID and gastroparesis 5. Rule out mild autism 6. Rule out PTSD 7. THC use disorder Current Diagnoses:: 1. Major depressive disorder, recurrent, severe without psychosis F33.2 2. Generalized anxiety disorder 3. Strong cluster B traits 4. ARFID and gastroparesis 5. Rule out mild autism 6. Rule out PTSD 7. THC use disorder Patient Status Patient's Response to Treatment:: Pt continues to respond well to treatment AEB pt's consistent attendance, ongoing attentiveness and engagement in group discussions, and continued reporting use of skills outside treatment environment. Pt's DSM-5 scores are 42% lower than pt's admission scores to [facility] with depression being 17% lower and anxiety being 40% lower. Pt also reports an increase in mindfulness skills since IOP discharge. Status of Current Problems and Symptoms: Pt's symptoms of depression, issues with sleep, and use of marijuana are still present, but less intense compared to IOP. Pt also continues to report stressors at home, negative thinking patterns, and isolation at times. Progress Problem #1: Problem Name:: Pt will maintain or see a reduction in sx Status of Goals:: Obj 1 - completed but ongoing work encouraged. As noted above, pt's scores are still lower than they were at IOP admission. Obj 2 - complete with ongoing work encouraged. Pt had been reporting using opposite action, self-talk, stretching, and challenging thoughts. Team Recommendations:: Recommended client continue [facility] aftercare group in addition to attending regular outpatient counseling in order to maintain gains. Pt also recommended to continue working on self-compassion, practice self-care, and setting realistic goals.
== END 2024-05-06 23:59 ==
LOC: BHOG 08:00
PROVIDERS: PCP Internal Medicine; Referring Provider Psychiatry & Neurology Psychiatry; Visit Provider Psychiatry & Neurology Psychiatry
DX: F33.2 Major depressive disorder, recurrent severe without psychotic features (principal); F41.1 Generalized anxiety disorder; F50.82 Avoidant/restrictive food intake disorder; K31.84 Gastroparesis; F12.90 Cannabis use, unspecified, uncomplicated; Z79.899 Other long term (current) drug therapy
CPT/HCPCS: 90853

== ENCOUNTER 2024-05-09 07:18 | Outpatient (RCR) | payer MEDICARE, MEDICAID, SELFPAY ==
--- NOTE | 2024-05-19 14:00 | BH.SGPN.GN ---
Behaviors/Verbalizations/Mental Status: []Client alert and oriented, casually dressed and groomed. Eye contact good. Motor activity appropriate. Speech within normal limits. Affect congruent, mood anxious, rushed. Thoughts linear, logical, no signs of hallucinations or delusions. Client Response/Progress/Benefit: []Pt responded well to session AEB sharing and listening attentively to others. Pt followed up with all mental health appointments this week, however pt notes she is struggling with taking medications regularly. Pt stated self-hugs, deep breathing, thought challenging, and gratitude skills as pt?s primary coping skills this week. Pt participated in group discussion defining vulnerability, how and why we avoid it, and the benefits. Pt was an active participant and provided personal examples of being vulnerable and the positive things that came with this. Pt stated that she would like to practice vulnerability this week by challenging herself to give out more compliments. Will continue aftercare treatment to reinforce healthy coping skills and promote gains. Narrative Note: []
--- NOTE | 2024-05-26 14:00 | BH.SGPN.GN ---
Behaviors/Verbalizations/Mental Status: []Pt alert and oriented, casually dressed and groomed. Eye contact good. Motor activity appropriate. Speech within normal limits. Affect congruent, mood euthymic. Thoughts linear, logical, no signs of hallucinations or delusions. Client Response/Progress/Benefit: [] Pt receptive of session, engaged throughout. Pt has been reporting utilizing healthy coping skills outside of aftercare. But pt did not meet with her therapist this week. These skills included: finding the lezama, grounding skills, DDD, and giving herself credit. ?Receptive of discussion on distress tolerance and emotional urges. Pt contributed to the discussion of distress tolerance and how building distress tolerance can help improve mood stability and resilience. Pt wants to keep building distress tolerance by not over apologizing. Pt seemed to benefit from support from peers and increasing understanding of distress tolerance. Will discharge from [facility] aftercare as pt has completed the 8-week program. Narrative Note: []
--- NOTE | 2024-05-26 15:44 | BH.DS ---
Discharge Summary Demographics Date of Admission:: 04/07/24 Discharge Date: 05/26/24 Presenting Problems at Admission:: Pt admitted to IOP due to worsening symptoms of depression, anxiety, and ARFID. Pt was avoiding tasking, isolating, and had constant negative thoughts. Pt also reported difficulty functioning in her daily life due to symptoms. Pt admitted to Aftercare to improve distress tolerance, challenge distortions, and maintain gains from IOP. Discharge Diagnoses:: 1. Major depressive disorder, recurrent, severe without psychosis F33.2 2. Generalized anxiety disorder 3. Strong cluster B traits 4. ARFID and gastroparesis 5. Rule out mild autism 6. Rule out PTSD 7. THC use disorder Reason for Discharge:: Pt has accomplished tx goals AEB ability to maintain mood stability and gains made in IOP. Treatment Progress During Treatment & Response: Throughout Aftercare client has reported consistent use of healthy coping skills such as stretching, challenging negative thinking, deep breathing, grounding, and affirmations to cope with stressors. Client has reported difficulty with taking her medications consistently. Per client's discharge scores indicate an overall 33% decrease from her IOP admission scores. Client has reported throughout the program improved functioning and ability to manage stressors. Client responded well to program AEB consistent attendance, active engagement in sessions and consistent completion of homework. Issues Still to be Addressed:: Client could benefit from continued work on improving healthy coping skills, increase utilization of healthy calming skills to manage anxiety, and continued reinforcement in challenge distorted thoughts. client could also benefit from trauma therapy and creating healthy core beliefs. Discharge Recommendations/Instructions:: Client is established for outpatient counseling at the [facility] for individual counseling, specifically focusing on ARFID and sees her therapist every Thursday. Client is established with Dr. Torres for psychiatry. Discharge Handout
== END 2024-05-26 15:29 | disposition home or self-care (01) ==
LOC: BHOG 07:18
PROVIDERS: PCP Internal Medicine; Referring Provider Psychiatry & Neurology Psychiatry; Visit Provider Psychiatry & Neurology Psychiatry
DX: F33.2 Major depressive disorder, recurrent severe without psychotic features (principal); F41.1 Generalized anxiety disorder; F50.82 Avoidant/restrictive food intake disorder; K31.84 Gastroparesis; F12.90 Cannabis use, unspecified, uncomplicated; Z79.899 Other long term (current) drug therapy
CPT/HCPCS: 90853

== ENCOUNTER 2024-09-07 22:58 | Emergency (ER) | payer MEDICARE, MEDICAID, SELFPAY ==
[2024-09-07 22:59] VITALS: BP 148/94; PULSE 105; RESP 26; TEMP 36; O2SAT 97; BMI 17.4
[2024-09-07 23:19] LABS: Absolute Lymphocyte Count 0.82 X10^3/uL (0.83-4.51); Basophil# 0.07 X10^3/uL; Basophil% 0.4 % (0-1); Hematocrit 40.6 % (37-47); Hemoglobin 13.8 g/dL (12.0-15.0); Lymphocyte # 0.82 X10^3/ul (0.83-4.51); Lymphocyte % 4.6 % (19-41); Mean Corpuscular Hgb 30.3 pg (27.0-32.0); Mean Platelet Vol. 9.3 fl (6.2-12.0); Monocyte# 0.76 X10^3/uL; Monocyte% 4.3 % (0-10); NRBC Flagged by Analyzer 0 % (0-5); Neutrophil # 16.03 X10^3/uL (2.7-7.7); Neutrophil % 90.2 % (47-70); Platelet Count 266 K/mm3 (150-450); RBC Distribution Width CV 12.2 % (11.6-14.6); RBC Distribution Width SD 39.9 fl (35.1-43.9); Red Blood Count 4.56 M/mm3 (4.2-5.4); White Blood Count 17.8 K/mm3 (4.4-11.0)
[2024-09-07 23:32] LABS: Internal QC Validated? YES +Cl - CLEAR BKGD; Pregnancy, Serum, hCG Quali. NEGATIVE Negative
[2024-09-07 23:53] LABS: ALB/GLOB Ratio 1.4 RATIO (0.9-2.4); AST(SGOT) 22 U/L (<=31); Alanine Aminotransfer ALT/SGPT 13 U/L (<=34); Albumin, Serum 4.9 g/dL (3.5-5.0); Alkaline Phosphatase 69 U/L (35-104); Anion Gap 17 (5-15); BUN 10 mg/dL (4-19); Calcium,Total 9.9 mg/dL (7.6-11.0); Carbon Dioxide 19.1 mmol/L (21.0-32.0); Chloride 104 mmol/L (98-108); Creatinine, Serum 0.69 mg/dL (0.70-1.20); EST Glomerular Filtration Rate 124 (>60); Estimated Creatinine Clearance 91.49 ml/min (50-250); Globulin 3.6 g/dL (2.2-4.2); Glucose 173 mg/dL (70-99); Lipase 17 U/L (13-75); Potassium 3.7 mmol/L (3.3-5.1); Protein, Total 8.4 g/dL (5.9-8.4); Sodium Level 140 mmol/L (133-145); Total Bilirubin 0.57 mg/dL (0.00-1.30)
--- OUTSIDE RECORDS SUMMARY | 2024-09-07 23:58 | XMS RPT_ITS | CCD ---
Author Organization [facility] Care Team Providers Care Specialist Managers Name Role Phone PERRI WHITTAKER Unavailable Unavailable ADRI, AYAN DEHASS Unavailable Unavailable ADRI, AYAN DEHASS Unavailable Unavailable Dr. Kylah Rizo Primary Care Provider Dr. Kylah Rizo Attending Provider [phone] Dr. Kylah Rizo Referring Provider Deyanira YANG, AUTOMOTIVE MECHANICAL ENGINEER-C Sadie Wright Attending Provider [phone] Dr. Kylah Rizo Primary Care Provider Dr. Kylah Rizo Attending Provider Dr. Kylah Rizo Referring Provider Lyla Arcos Unavailable [phone] Bilderback, Marleen Unavailable Unavailabl e BILDERBACK, MARLEEN Attending Unavailabl e Francisco Jones Unavailable Unavailable BRANDEN PONCE, DR CHOI Admitting Unava ilable KAREL DUNNE MD Attending Unavailable NONE, NONE Primary Care Unavailable JAIME CHAVARRIA APRN Consulting Unavailab DR JIMBO Kaye MD Consulting Unava ilable ODALYS MONTERROSO, DR LIZ Jones Consulting Unavail able RUPALI ST APRN Consulting Unavailable TI PONCE, Robert Wright Consulting Unavailab eda RUTLEDGE MD, RUPAL Lo Consulting Unava SANA Robison MD Consulting Unavailable NONE, NONE Consulting Unavailable CANDELARIO WING, NICOLA Jones Consulting Unavailable KYLAH RIZO Primary Care Unavailable HELLEN DO~[id number], HELLEN Holley Admitting Unavailable HELLEN DO~[id number], HELLENDea Holley Attending Unavailable CANDELARIO WING, NICOLA Jones Consulting Unavailable KYLAH RIZO Consulting Unavailable DARRIUS, KYLAH Consulting Unavailable Josselyn PONCE, Lyla Wilson Primary Care Provide r Kylah Rizo MD Primary Care Provider LYLA ARCOS Primary Care Unavail able LICO RUIZ Attending Unavailable LYLA ARCOS Primary Care Unavail able BARBRA ARELLANO Attending Unavailable LYLA ARCOS Primary Care Unavail able KYLAH RIZO Primary Care Unavaila ble MANOCCHIO, MARLEEN Referring Unavailable KYLAH RIZO Primary Care Unavaila LICO Gaffney Attending Unavailable LICO RUIZ Primary Care Unavailable LICO RUIZ Admitting Unavailable NO, DOCTOR ON Consulting Unavailable Kenzie Abdul Referring Unavailable Kenzie Abdul Attending Unavailable Darrius, Kylah Primary Care Unavailable Kenzie Abdul Attending Unavailable Kenzie Abdul Referring Unavailable Darrius, Kylah Primary Care Unavailable Kenzie Abdul Attending Unavailable Kenzie Abdul Referring Unavailable Darrius, Kylah Primary Care Unavailable Darrius, Kylah Primary Care Unavailable Kenzie Abdul Referring Unavailable Kenzie Abdul Attending Unavailable Darrius, Kylah Primary Care Unavailable AdrianackAretha Attending Unavailable Darrius, Kylah Primary Care Unavailable SknancyckAretha Attending Unavailable Darrius, Kylah Referring Unavailable Darrius, Kylah Attending Unavailable Darrius, Kylah Primary Care Unavailable Darrius, Kylah Attending Unavailable Darrius, Kylah Primary Care Unavailable Darrius, Kylah Primary Care Unavailable SkruckAretha Attending Unavailable Darrius, Kylah Primary Care Unavailable SkruckAretha Attending Unavailable Darrius, Kylah Primary Care Unavailable SkruckAretha Attending Unavailable Darrius, Kylah Primary Care Unavailable Alessandro Torres Attending Unavailable Alessandro Torres Attending Unavailable Darrius, Kylah Primary Care Unavailable Darrius, Kylah Referring Unavailable Alvin, Ga Attending Unavailable Darrius, Kylah Primary Care Unavailable Darrius, Kylah Primary Care Unavailable Seese, Alessandro L Attending Unavailable Darrius, Kylah Primary Care Unavailable SkruckAretha Attending Unavailable Darrius, Kylah Primary Care Unavailable SeeseAlessandro L Attending Unavailable Darrius, Kylah Referring Unavailable Alvin Ga Attending Unavailable Darrius, Kylah Primary Care Unavailable Seese, Alessandro L Attending Unavailable Darrius, Kylah Primary Care Unavailable Seese, Alessandro L Attending Unavailable Darrius, Kylah Primary Care Unavailable Skruck Aretha Attending Unavailable Darrius, Kylah Primary Care Unavailable Darrius, Kylah Primary Care Unavailable SknancyckAretha Attending Unavailable ISAAC BALBUENA Referring Unavailable CHRISTINAEISAAC Attending Unavailable Darrius, Kylah Primary Care Unavailable Kenzie Abdul Attending Unavailable Kenzie Abdul Referring Unavailable Darrius, Kylah Primary Care Unavailable Darrius, Kylah Primary Care Unavailable SkruckAretha Attending Unavailable Darrius, Kylah Primary Care Unavailable SkruckAretha Attending Unavailable Darrius, Kylah Primary Care Unavailable SkruckAretha Attending Unavailable Darrius, Kylah Primary Care Unavailable Darrius, Kylah Attending Unavailable Darrius, Kylah Primary Care Unavailable Skruck, Aretha Attending Unavailable Darrius, Kylah Primary Care Unavailable Skruck, Aretha Attending Unavailable Darrius, Kylah Primary Care Unavailable SkruckBridgetAretha Attending Unavailable Darrius, Kylah Primary Care Unavailable SkAretha price Attending Unavailable KAYODE BALBUENAE Attending Unavailable Darrius, Kylah Primary Care Unavailable Allergies Allergy Classification Reported Allergen(s) Allergy Type Date of Onset Reaction(s) Facility (12 sources) Contrast media; Translations: [RED DYE] Allergy to substance 07-26-2021 [facility] (12 sources) yellow dye; Translations: [YELLOW DYE] Allergy to substance 07-26-2021 [facility] Medications Current Medications Medication Drug Class(es) Dates Sig (Normalized) Sig (Original) cholecalciferol 0.025 mg oral capsule (6 sources) Vitamin D Start: 12-04-2021 take 1 capsule by mouth once daily Cholecalciferol (Vitamin D3) (Vitamin D3) 25 mcg (1,000 unit) Capsule Active 25 MCG PO DAILY December 03, 2021 11:00pm take 1 capsule by mouth once joyce ly gabapentin 100 mg oral capsule (5 sources) Anti-epileptic Agent gabapentin (Neurontin) 100 mg capsule Take 2 capsules (200 mg) by mouth 3 times a day. Only takes once daily Active Magnesium (5 sources) take 1 dose by mouth once daily take 1 dose by mouth once daily 2 ml metoclopramide 5 mg/ml injection (8 sources) Dopamine-2 Receptor Antagonist Start: 01-30-2024 10 mg, intravenous, Once, On 01/30/24 at 1725, For 1 dose Start: 01-30-2024 End: 02-02-2024 take 1 tablet by mouth every six hours metoclopramide (Reglan) 10 mg tablet Indications: Nausea and vomiting, unspecified vomiting type , Gastroparesis , Cannabis abuse, daily use Take 1 tablet (10 mg) by mouth every 6 hours for 3 days. 12 tablet 01/30/2024 02/02/2024 Active Start: 12-16-2022 End: 12-16-2023 take 1 tablet by mouth every six hours metoclopramide (Reglan) 10 mg tablet TAKE 1 TABLET BY MOUTH EVERY 6 HOURS 30 tablet 12/16/2022 12/16/2023 Active Comment on above: It is very important that you take or use this exactly as directed. Do not skip doses or discontinue unless directed by your doctor.May cause drowsiness or dizziness.Take medication on an empty stomach 1 hour before or 2 to 3 hours after a meal unless otherwise directed by your doctor. ondansetron 4 mg disintegrating oral tablet (20 sources) Serotonin-3 Receptor Antagonist Start: take 1 tablet by mouth every eight hours for nausea ondansetron ODT (Zofran-ODT) 4 mg disintegrating tablet Indications: Nausea and vomiting, unspecified vomiting type Take 1 tablet (4 mg) by mouth every 8 hours if needed for nausea or vomiting. 30 tablet 05/02/2023 Active Start: 05-02-2023 End: 05-02-2023 ondansetron (Zofran) injecti on 4 mg Start: 11-16-2021 take 4 mg by mouth e very six hours Ondansetron Active 4 MG PO EVERY 6 HOURS November 15, 2021 11:00pm Start: 07-26-2021 End: 08-29-2021 take 4 mg by mouth every eight hours Ondansetron Discontinued 4 MG PO Q8H July 30, 2021 8:31am August 29, 2021 8:34am Start: 07-28-2019 End: 02-20-2021 take 4 mg by mouth every eight hours as needed Ondansetron Discontinued 4 MG PO EVERY 8 HOURS NEEDED July 27, 2019 11:00pm February 20, 2021 2:41pm pantoprazole 40 mg injection (9 sources) Proton Pump Inhibitor Start: 01-30-2024 40 mg, intravenous, Daily, First dose on 01/30/24 at 1725 Start: 05-02-2023 pantoprazole ( ProtoNix) injection 40 mg Start: 12-16-2022 End: 05-01-2024 take 1 tablet by mouth once daily before mealtime pantoprazole (ProtoNix) 40 mg EC tablet Indications: Nausea and vomiting, unspecified vomiting type Take 1 tablet (40 mg) by mouth once daily in the morning. Take before meals. Do not crush, chew, or split. 30 tablet 05/02/2023 05/01/2024 Active promethazine hydrochloride 25 mg rectal suppository (3 sources) Phenothiazine Start: 11-03-2023 promethazine (Phenergan) 25 mg suppository Indications: Nausea and vomiting, unspecified vomiting type Insert 1 suppository (25 mg) into the rectum every 6 hours if needed for nausea or vomiting for up to 12 doses. 12 suppository 11/03/2023 Active vitamin b12 0.1 mg oral tablet (5 sources) Vitamin B12 take 1 tablet by mouth once daily cyanocobalamin (Vitamin B-12) 100 mcg tablet Take 1 tablet (100 mcg) by mouth once daily. Active Completed/Discontinued Medications Medication Drug Class(es) Dates Sig (Normalized) Sig (Original) diphenhydrAMINE (3 sources) Histamine-1 Receptor Antagonist Start: 01-30-2024 End: 01-30-2024 50 mg, intravenous, Once, On 01/30/24 at 1725, For 1 dose, If giving IV push, max rate of 25 mg/min. Start: 10-13-2023 End: 10-13-2023 50 mg, intravenous, Once, On Thu10/13/23 at 1600, For 1 dose, If giving IV push, max rate of 25 mg/min. Start: 10-13-2023 End: 10-13-2023 Starting on Thu10/13/23 at 15 57, For 1 dose, Created by cabkayleent override 1 ml LORazepam 2 mg/ml injection (2 sources) Benzodiazepine Start: 01-30-2024 End: 01-30-2024 1 mg, intravenous, Administer over 5 Minutes, Once, On 01/30/24 at 1845, For 1 dose Start: 10-13-2023 End: 10-13-2023 0.5 mg, intravenous, Adminis ter over 5 Minutes, Once, On Thu10/13/23 at 1620, For 1 dose, Maximum rate of 2 mg/min. potassium chloride 20 meq powder for oral solution (5 sources) Start: 01-30-2024 End: 01-30-2024 take 1 [oz_av] by mouth once 40 mEq, oral, Once, On 01/30/24 at 1855, For 1 dose, Dissolve each packet in 4 ounces of water = 5 mEq per 1 oz fluid. Start: 10-13-2023 End: 10-13-2023 take 1 [oz_av] by mouth once 20 mEq, oral, Once, On 10/13/23 at 1720, For 1 dose, Dissolve each packet in 4 ounces of water = 5 mEq per 1 oz fluid. Start: 05-02-2023 End: 05-02-2023 potassium chloride CR (Klor- Con M20) ER tablet 40 mEq Start: 05-22-2022 End: 05-25-2022 Potassium Chloride (Eqv-Klor -Con 10) 10 mEq oral tablet, extended release ; 2 tab(s) orally 2 times a day Quantity: 16 Refills: 0 Ordered: 22-May-2022 Malreen Jack Start: 22-May-2022 End: 25-May-2022 Generic Substitution Allowed Comments: It is very important that you take or use this exactly as directed. Do not skip doses or discontinue unless directed by your doctor.Medication should be taken with plenty of water.Take with food or milk. Start: 11-16-2021 Potassium Chlo ride (Klor-Con M20) 20 mEq tablet,ER particles/crystals Active 40 MEQ PO DAILY 01 08November 16, 2021 12:00am Comment on above: It is very important that you take or use this exactly as directed. Do not skip doses or discontinue unless directed by your doctor.Medication should be taken with plenty of water.Take with food or milk. prochlorperazine 5 mg/ml injectable solution (1 source) Phenothiazine Start: 10-13-2023 End: 10-13-2023 10 mg, intravenous, Once, On Thu10/13/23 at 1530, For 1 dose 1000 ml sodium chloride 9 mg/ml injection (4 sources) Start: 01-30-2024 End: 01-30-2024 500 mL, intravenous, at 500 mL/hr, Administer over 1 Hours, Once, On 01/30/24 at 1725, For 1 dose Start: 10-13-2023 End: 10-13-2023 1,000 mL, intravenous, at 2, 000 mL/hr, Administer over 30 Minutes, Once, On Thu10/13/23 at 1620, For 1 dose Start: 05-02-2023 End: 05-02-2023 sodium chloride 0.9 % bolus 1,000 mL Problems Active Problems Problem Classification Problem Date Documented Da te Episodic/Chronic Abdominal pain (14 sources) Abdominal tenderness of left lower quadrant; Translations: [Left lower quadrant abdominal tenderness] Onset: 05-22-2022 Episodic Anxiety disorders (8 sources) Chronic anxiety; Translations: [Anxiety disorder, unspecified] Onset: 04-27-2024 02-20-2021 Chronic Diseases of white blood cells (2 sources) Leukocytosis; Translations: [Leukocytosis, unspecified] 12-14-2022 Chronic Headache; including migraine (5 sources) Frequent headache; Translations: [Frequent headaches] 02-20-2021 Episodic Miscellaneous mental health disorders (13 sources) Eating disorder; Translations: [Eating disorder, unspecified] Onset: 04-27-2024 Chronic Noninfectious gastroenteritis (5 sources) Gastroenteritis; Translations: [Noninfective gastroenteritis and colitis, unspecified] 08-03-2021 Episodic Nonspecific chest pain (5 sources) Chest pain; Translations: [Chest pain, unspecified] 02-20-2021 Episodic Osteoarthritis (5 sources) Degenerative joint disease involving multiple joints; Translations: [Polyosteoarthritis, unspecified] 02-20-2021 Chronic Other connective tissue disease (4 sources) H/O: arthritis; Translations: [Personal history of other diseases of the musculoskeletal system and connective tissue] 09-06-2021 Episodic Other connective tissue disease (3 sources) Personal history of other diseases of the musculoskeletal system and connective tissue; Translations: [Personal history of arthritis] Episodic Other disorders of stomach and duodenum (2 sources) Gastroparesis syndrome; Translations: [Gastroparesis] Onset: 01-30-2024 01-30-2024 Episodic Other gastrointestinal disorders (4 sources) Diarrhea; Translations: [Diarrhea, unspecified] 09-06-2021 Episodic Other gastrointestinal disorders (6 sources) Diarrhea, unspecified; Translations: [Diarrhea] Episodic Other nutritional; endocrine; and metabolic disorders (5 sources) Ketosis; Translations: [Other specified metabolic disorders] 08-03-2021 Chronic Other nutritional; endocrine; and metabolic disorders (4 sources) Weight loss; Translations: [Abnormal weight loss] 09-06-2021 Episodic Other nutritional; endocrine; and metabolic disorders (6 sources) Abnormal weight loss; Translations: [Loss of weight] Episodic Rheumatoid arthritis and related disease (6 sources) Rheumatoid arthritis; Translations: [Rheumatoid arthritis, unspecified] Onset: 11-19-2023 02-20-2021 Chronic Substance-related disorders (14 sources) Cannabis dependence; Translations: [Cannabis dependence, uncomplicated] Onset: 05-15-2022 Chronic Substance-related disorders (1 source) Cannabis use, unspecified with intoxication, uncomplicated; Translations: [CANNABIS USE UNS W/INTOXICAT UNCOMP] Onset: 03-31-2023 Episodic Unclassified (2 sources) VOMITING UNCONTROLLED 05-22-2022 Comment on above: VOMITING UNCONTROLLE D Unclassified (2 sources) VOMITTING. 12-15-2022 Comment on above: VOMITTING. Unclassified (1 source) Nausea and vomiting in adult 12-12-2022 Past or Other Problems Problem Classification Problem Date Documented Da te Episodic/Chronic Fluid and electrolyte disorders (20 sources) Moderate dehydration; Translations: [Dehydration] Onset: 05-15-2022 08-03-2021 Episodic Nausea and vomiting (20 sources) Vomiting; Translations: [Vomiting, unspecified] Onset: 05-22-2022 Episodic Nutritional deficiencies (1 source) Deficiency of other specified B group vitamins; Translations: [Deficiency of other specified B group vitamins] Onset: 12-08-2023 Episodic Other disorders of stomach and duodenum (2 sources) Gastroparesis; Translations: [Gastroparesis] Onset: 11-19-2023 Episodic Other nervous system disorders (1 source) Unspecified disturbances of skin sensation; Translations: [Unspecified disturbances of skin sensation] Onset: 05-03-2024 Episodic Unclassified (1 source) VOMITTING UNCONTROLLED 05-22-2022 Comment on above: VOMITTING UNCONTROLL ED Unclassified (1 source) VOMITTING 12-15-2022 Comment on above: VOMITTING Results Test Name Value Interpretation Reference Range Facility MR/BMSStephNayla 09-02-2024 MR/BMSSteph [facility] [address] [place] [address] OFFICE VISIT Date of Service: 09/02/24 MR#: [id number] Acct: [id number] Name: BRYNN GOMEZYONNY Rep #: [id number] : 2000 Provider: [facility] Aretha cantu Age/Sex: 24/F [place] [facility] [place]: Signed Intake Vital Signs 05/07/24 07:39 08/27/24 11:08 09/02/24 15:57 Height 5 ft 4 in 5 ft 4 in 5 ft 4 in BP Intake Visit Reasons: follow up Allergies red dye Allergy (Mild, Verified 04/27/24 15:13) hives yellow dye Allergy (Mild, Verified 04/27/24 15:13) hives [facility] Medical History Major depressive disorder, recurrent severe without psychotic features Gastroparesis Generalized anxiety disorder Avoidant-restrictive food intake disorder (ARFID) Depression Anxiety Marijuana use Back pain Migraine headache Gastric reflux Shortness of breath on exertion History of edema Abdominal tenderness of left lower quadrant Diarrhea Juvenile idiopathic arthritis Family History Other Asthma Cancer Hypertension Social History Smoking Status: Never smoker alcohol intake: current alcohol intake frequency: holidays/special occasions only substance use type: marijuana and other details: smokes daily at least 3 times daily HPI History of Present Illness HPI: Brynn Gomez is a 24 year-old female returning for therapy. She reported a reduction in depressive symptoms over the last week. Brynn has implemented behavioral activation strategies and reported some increase in social activities. She discussed ongoing stressors about interacting with others including feeling awkward, feeling intense emotions if others do not respond with the same level of intimacy and validation she provides them, and worry about how others perceive her. Reinforced her use of behavioral activation. She is also using mindfulness of thoughts, thought defusion, breathing, and CBT interventions, which was also reinforced. Brynn noted that she has difficulty consistently applying coping skills and that they vary in level of effectiveness. Encouraged verbalization of emotions while providing support. Normalized emotions. Provided psychoeducation on skills varying in effectiveness depending on intensity of emotions with some more effective at certain levels of emotions than others and importance of using skills early to prevent emotions from escalating. Worked on thought patterns related to social interactions using Socratic questioning and exploring alternative thinking. Discussed thoughts and feelings related to past trauma working on dialectics. Assisted her in recognizing her personal strengths including empathy, ability to contemplate, and having a growth mindset. Brynn continues to have times where she physically does not feel well and anxiety impacts her eating. No SI. Future-oriented. Exam Mental Status Exam - Psych Appearance adequately groomed and thin Attitude cooperative, calm and engaged Activity/Motor Behavior appropriate eye contact and fidgeting Speech regular rate, regular volume and regular prosody Mood anxious Affect congruent Thought Process linear, logical, coherent and goal directed Thought Content no delusions and no hallucinations Suicidal Ideation none Homicidal Ideation none Attention intact Concentration intact Sensorium/Orientation awake, alert and oriented x3 Memory/Cognition intact Insight fair Judgement fair Assessment Plan Assessment Plan (1) Generalized anxiety disorder: Plan: therapy using CBT, DBT, and ACT interventions to address thought patterns contributing to anxious symptoms and to teach coping skills. Psychiatric services to monitor anxious symptoms and medication effectiveness. (2) Avoidant-restrictive food intake disorder (ARFID): Plan: Psychiatric monitoring of symptoms and medication effectiveness. No longer participating in treatment from the [facility]. Plan TREATMENT PLAN Goal 1 - Eliminate or reduce the negative impact trauma related symptoms have on functioning AEB reduction of PCL-5 rating. Objective 1 - Participate in Cognitive Processing Therapy to process the trauma and reduce its impact. Intervention 1 - Teach relationship between thoughts, behaviors, and emotions associated with trauma experienced. Intervention 2 - Use cognitive therapy techniques to question biased thoughts and beliefs and explore unbiased alternatives; repeat this process until a shift from biased to unbiased thinking is evident. Goal 2 - Will reduce overall level of anxiety by 50% per self-report. (Added 08/05/2024) Objective 1 - Will learn and implement calming skills to reduce overall an (more content not included)... Normal [facility] MR/BMS.BPon 08-27-2024 MR/BMS.BP [facility] [address] [facility], [address] [place] [address] OFFICE VISIT Date of Service: 08/26/24 MR#: [id number] Acct: [id number] Name: BRYNN GOMEZ Rep #: [id number] : 2000 [facility] Age/Sex: 24/F [place] [facility] [place] Status: Signed Intake Vital Signs 05/07/24 07:39 08/22/24 06:40 08/27/24 11:08 Height 5 ft 4 in 5 ft 4 in 5 ft 4 in BP Intake Visit Reasons: Follow up Allergies red dye Allergy (Mild, Verified 04/27/24 15:13) hives yellow dye Allergy (Mild, Verified 04/27/24 15:13) hives [facility] Medical History Major depressive disorder, recurrent severe without psychotic features Gastroparesis Generalized anxiety disorder Avoidant-restrictive food intake disorder (ARFID) Depression Anxiety Marijuana use Back pain Migraine headache Gastric reflux Shortness of breath on exertion History of edema Abdominal tenderness of left lower quadrant Diarrhea Juvenile idiopathic arthritis Family History Other Asthma Cancer Hypertension Social History Smoking Status: Never smoker alcohol intake: current alcohol intake frequency: holidays/special occasions only substance use type: marijuana and other details: smokes daily at least 3 times daily HPI History of Present Illness HPI: Brynn Gomez is a 24 year-old female returning for therapy. She reported recent increase in depressive symptoms stating that she has had reduced energy, reduced motivation, and some difficulty eating. Assessed level of trauma symptoms using PCL-5. Brynn scored a 34 reflecting a slight reduction in trauma symptoms. She did not completed the CPT homework, which was completing a daily Challenging Questions Worksheet. Worked to complete one during the session on a stuck point related to belonging and acceptance from others. Brynn had significant difficulty doing this as she struggled with perfectionism and racing thoughts. At this time, will not continue CPT protocol as Brynn is struggling with a CBT approach. May resume if she experiences reduced symptoms and/or increased ability to examine thoughts. Discussed recent use of skills. Brynn is using breathing, which is effective when her anxiety does not reach a panic level. She is also utilizing self-compassion meditation. Brynn reported some success with mindfulness of thoughts and ACT defusion techniques as long as symptoms remain moderate. Worked on level of depression providing psychoeducation on behavioral activation. Brynn will implement pleasant, physical, social, and productive tasks over the next week. No SI. Future-oriented. Exam Mental Status Exam - Psych Appearance well kempt and thin Attitude cooperative, calm, engaged and pleasant Activity/Motor Behavior appropriate eye contact and fidgeting Speech regular rate, regular volume and regular prosody Mood depressed and anxious Affect congruent Thought Process linear, logical, coherent and goal directed Thought Content no delusions and no hallucinations Suicidal Ideation none Homicidal Ideation none Attention intact Concentration intact Sensorium/Orientation awake, alert and oriented x3 Memory/Cognition intact Insight fair Judgement fair Assessment Plan Assessment Plan (1) Generalized anxiety disorder: Plan: therapy using CBT, DBT, and ACT interventions to address thought patterns contributing to anxious symptoms and to teach coping skills. Psychiatric services to monitor anxious symptoms and medication effectiveness. (2) Avoidant-restrictive food intake disorder (ARFID): Plan: Psychiatric monitoring of symptoms and medication effectiveness. No longer getting treatment from the [facility]. Plan TREATMENT PLAN Goal 1 - Eliminate or reduce the negative impact trauma related symptoms have on functioning AEB reduction of PCL-5 rating. Objective 1 - Participate in Cognitive Processing Therapy to process the trauma and reduce its impact. Intervention 1 - Teach relationship between thoughts, behaviors, and emotions associated with trauma experienced. Intervention 2 - Use cognitive therapy techniques to question biased thoughts and beliefs and explore unbiased alternatives; repeat this process until a shift from biased to unbiased thinking is evident. Goal 2 - Will reduce overall level of anxiety by 50% per self-report. (Added 08/05/2024) Objective 1 - Will learn and implement calming skills to reduce overall anxiety and manage anxious symptoms. Intervention 1 - Teach calming/relaxation skills (applied relaxation, progressive muscle relaxation, cued controlled relaxation, and mindful breathing); how to discriminate better between (more content not included)... Normal [facility] MR/BMS.BPon 08-22-2024 MR/BMS.BP [facility] [address] [place] [address], [address] [place] [address] OFFICE VISIT Date of Service: 08/19/24 MR#: [id number] Acct: [id number] Name: BRYNN GOMEZ Rep #: [id number] : 2000 [facility] Age/Sex: 24/F [place] [facility] [place] Status: Signed Intake Vital Signs 05/07/24 07:39 08/06/24 09:30 08/22/24 06:40 Height 5 ft 4 in 5 ft 4 in 5 ft 4 in BP Intake Visit Reasons: follow up Allergies red dye Allergy (Mild, Verified 04/27/24 15:13) hives yellow dye Allergy (Mild, Verified 04/27/24 15:13) hives [facility] Medical History Major depressive disorder, recurrent severe without psychotic features Gastroparesis Generalized anxiety disorder Avoidant-restrictive food intake disorder (ARFID) Depression Anxiety Marijuana use Back pain Migraine headache Gastric reflux Shortness of breath on exertion History of edema Abdominal tenderness of left lower quadrant Diarrhea Juvenile idiopathic arthritis Family History Other Asthma Cancer Hypertension Social History Smoking Status: Never smoker alcohol intake: current alcohol intake frequency: holidays/special occasions only substance use type: marijuana and other details: smokes daily at least 3 times daily HPI History of Present Illness HPI: Brynn Gomez is a 24 year-old female returning for therapy. Administered PCL-5 to assess level of trauma symptoms. Brynn scored a 39 endorsing the following as bothering her extremely in the last week: negative thoughts about self, others, and the world. She endorsed the following as bothering her quite a bit in the last week: re-experiencing; feeling very upset when exposed to trauma reminders; physical reactivity when exposed to trauma reminders; feeling distant or cut off from others; and having difficulty concentrating. Brynn identified recognizing stuck points in her daily living but often feeling powerless to address them. Discussed options of using CPT worksheets for addressing and/or labeling them as stuck point thoughts when they occur. Brynn reported some recent panic attacks. Breathing has been effective in managing most symptoms, which was reinforced. She described times of hyperventilating. Provided psychoeducation on breathing techniques to assist with hyperventilation and returning breathing to normal. Brynn is implementing the self-compassion meditation discussed at previous session. This was also reinforced. Practiced completing a Challenging Questions Worksheet, which Brynn will complete daily for homework. No SI. Future- oriented. Exam Mental Status Exam - Psych Appearance well kempt Attitude cooperative, calm, engaged and pleasant Activity/Motor Behavior appropriate eye contact and fidgeting Speech regular rate, regular volume and regular prosody Mood OK and anxious Affect anxious Thought Process linear, logical, coherent and goal directed Thought Content no delusions and no hallucinations Suicidal Ideation none Homicidal Ideation none Attention intact Concentration intact Sensorium/Orientation awake, alert and oriented x3 Memory/Cognition intact Insight fair Judgement fair Assessment Plan Assessment Plan (1) Generalized anxiety disorder: Plan: therapy using CBT, DBT, and ACT interventions to address thought patterns contributing to anxious symptoms and to teach coping skills. Psychiatric services to monitor anxious symptoms and medication effectiveness. (2) Avoidant-restrictive food intake disorder (ARFID): Plan: Psychiatric monitoring of symptoms and medication effectiveness. No longer getting treatment from the [facility]. Plan TREATMENT PLAN Goal 1 - Eliminate or reduce the negative impact trauma related symptoms have on functioning AEB reduction of PCL-5 rating. Objective 1 - Participate in Cognitive Processing Therapy to process the trauma and reduce its impact. Intervention 1 - Teach relationship between thoughts, behaviors, and emotions associated with trauma experienced. Intervention 2 - Use cognitive therapy techniques to question biased thoughts and beliefs and explore unbiased alternatives; repeat this process until a shift from biased to unbiased thinking is evident. Goal 2 - Will reduce overall level of anxiety by 50% per self-report. (Added 08/05/2024) Objective 1 - Will learn and implement calming skills to reduce overall anxiety and manage anxious symptoms. Intervention 1 - Teach calming/relaxation skills (applied relaxation, progressive muscle relaxation, cued controlled relaxation, and mindful breathing); how to discriminate better between relaxation and tension; and how to apply t (more content not included)... Normal [facility] MR/BMS.BPon 08-12-2024 MR/BMS.BP [facility] [address] [facility], [address] [place] [address] OFFICE VISIT Date of Service: 08/12/24 MR#: [id number] Acct: [id number] Name: BRYNN GOMEZ Rep #: [id number] : 2000 [facility] Age/Sex: 24/F [place] [facility] [place] Status: Signed Intake Vital Signs 05/07/24 07:39 08/06/24 09:30 08/12/24 17:21 Height 5 ft 4 in 5 ft 4 in 5 ft 4 in BP Intake Visit Reasons: Follow up Allergies red dye Allergy (Mild, Verified 04/27/24 15:13) hives yellow dye Allergy (Mild, Verified 04/27/24 15:13) hives [facility] Medical History Major depressive disorder, recurrent severe without psychotic features Gastroparesis Generalized anxiety disorder Avoidant-restrictive food intake disorder (ARFID) Depression Anxiety Marijuana use Back pain Migraine headache Gastric reflux Shortness of breath on exertion History of edema Abdominal tenderness of left lower quadrant Diarrhea Juvenile idiopathic arthritis Family History Other Asthma Cancer Hypertension Social History Smoking Status: Never smoker alcohol intake: current alcohol intake frequency: holidays/special occasions only substance use type: marijuana and other details: smokes daily at least 3 times daily HPI History of Present Illness HPI: Brynn Gomez is a 24 year-old female returning for therapy. She reported that her anxious symptoms are reduced and that she was consistently implementing 5-5-8-2 breathing. Continued to work on breathing including implementing into her daily routine and how to increase effectiveness when anxiety is increased. Worked on self-compassion providing psychoeducation and teaching a loving- kindness meditation. Discussed how Brynn could implement into daily living. Brynn discussed recent stressors and how she managed them including situation involving her cat's safety. Encouraged verbalization of emotions while providing support. Assisted her in recognizing that she had been able to problem solve worst case scenario resulting in confidence in taking action. Discussed change process related to thoughts normalizing her thoughts and feelings. Worked on feelings of anger and injustice related to past trauma using CBT interventions. No SI. Future-oriented. Exam Mental Status Exam - Psych Appearance casually dressed and adequately groomed Attitude cooperative, calm and engaged Activity/Motor Behavior appropriate eye contact and fidgeting Speech regular rate, regular volume and regular prosody Mood OK and anxious Affect anxious Thought Process linear, logical, coherent and goal directed Thought Content no delusions and no hallucinations Suicidal Ideation none Homicidal Ideation none Attention intact Concentration intact Sensorium/Orientation awake, alert and oriented x3 Memory/Cognition intact Insight fair Judgement fair Assessment Plan Assessment Plan (1) Generalized anxiety disorder: Plan: therapy using CBT, DBT, and ACT interventions to address thought patterns contributing to anxious symptoms and to teach coping skills. Psychiatric services to monitor anxious symptoms and medication effectiveness. (2) Avoidant-restrictive food intake disorder (ARFID): Plan: Psychiatric monitoring of symptoms and medication effectiveness. No longer getting treatment from the [facility]. Plan TREATMENT PLAN Goal 1 - Eliminate or reduce the negative impact trauma related symptoms have on functioning AEB reduction of PCL-5 rating. Objective 1 - Participate in Cognitive Processing Therapy to process the trauma and reduce its impact. Intervention 1 - Teach relationship between thoughts, behaviors, and emotions associated with trauma experienced. Intervention 2 - Use cognitive therapy techniques to question biased thoughts and beliefs and explore unbiased alternatives; repeat this process until a shift from biased to unbiased thinking is evident. Goal 2 - Will reduce overall level of anxiety by 50% per self-report. (Added 08/05/2024) Objective 1 - Will learn and implement calming skills to reduce overall anxiety and manage anxious symptoms. Intervention 1 - Teach calming/relaxation skills (applied relaxation, progressive muscle relaxation, cued controlled relaxation, and mindful breathing); how to discriminate better between relaxation and tension; and how to apply these skills to daily life. Visit Details Duration of visit (minutes): 60 Duration of counseling (minutes): 60 Total time (minutes): 60 Type of visit: psychotherapy and [id number] [place] [address] PSYTX W PT 60 MINUTES Patient Type Established (more content not included)... Normal [facility] MR/BMS.BPon 08-06-2024 MR/BMS.BP [facility] [address] [facility], [address] [place] [address] OFFICE VISIT Date of Service: 08/05/24 MR#: [id number] Acct: [id number] Name: BRYNN GOMEZ Rep #: [id number] : 2000 [facility] Age/Sex: 24/F [place] [facility] [place] Status: Signed Intake Vital Signs 05/07/24 07:39 07/21/24 15:34 08/06/24 09:30 Height 5 ft 4 in 5 ft 4 in 5 ft 4 in BP Intake Visit Reasons: Follow up Allergies red dye Allergy (Mild, Verified 04/27/24 15:13) hives yellow dye Allergy (Mild, Verified 04/27/24 15:13) hives [facility] Medical History Major depressive disorder, recurrent severe without psychotic features Gastroparesis Generalized anxiety disorder Avoidant-restrictive food intake disorder (ARFID) Depression Anxiety Marijuana use Back pain Migraine headache Gastric reflux Shortness of breath on exertion History of edema Abdominal tenderness of left lower quadrant Diarrhea Juvenile idiopathic arthritis Family History Other Asthma Cancer Hypertension Social History Smoking Status: Never smoker alcohol intake: current alcohol intake frequency: holidays/special occasions only substance use type: marijuana and other details: smokes daily at least 3 times daily HPI History of Present Illness HPI: Brynn Foster is a 24 year-old female returning for therapy. She presented with increased anxiety. Brnyn stated that she is making progress addressing anxious thoughts and recognizing stuck points. She identified increased physical symptoms of anxiety, which has resulted in reduced eating. Brynn discussed stopping treatment with the [facility]. She has implemented the sleep meditation discussed at previous session and has found it helpful. Brynn was given a handout on this. Reinforced her implementing this skill. Explored factors contributing to increased anxiety. Brynn discussed lack of non-treatment support and fulfilling interactions. She stated that group therapy fulfilled some of her needs to meaningfully connect with peers and that she no longer has this since completing IOP. She also identified negative thoughts related to herself and others, which she recognized as stuck points. Explored thought patterns using CBT interventions. Brynn would like to get her permit and take steps towards driving to increase her options for interactions with others. Worked on breaking down driving goals to reduce feelings of being overwhelmed. Worked on mindfulness of body exploring where Brynn experiences physical symptoms of anxiety. Worked on physical interventions including recognizing how she is holding her body and implementing robot vs. noodle intervention. Taught and led Brynn in 5-5-8-2 breathing. She identified experiencing significant reduction in physical symptoms of anxiety following 5-5-8-2 breathing. Encouraged use in daily living. Brynn reported increased panic symptoms. No SI. Future-oriented. Exam Mental Status Exam - Psych Appearance casually dressed and adequately groomed Attitude cooperative and engaged Activity/Motor Behavior appropriate eye contact and fidgeting Speech regular rate, regular volume and regular prosody Mood sad and anxious Affect sad, tearful and anxious Thought Process linear, logical, coherent and goal directed Thought Content no delusions, no hallucinations and ruminations (Related to forming meaningful relationships with others.) Suicidal Ideation none Homicidal Ideation none Attention intact Concentration intact Sensorium/Orientation awake, alert and oriented x3 Memory/Cognition intact Insight fair Judgement fair Assessment Plan Assessment Plan (1) Generalized anxiety disorder: Plan: therapy using CBT, DBT, and ACT interventions to address thought patterns contributing to anxious symptoms and to teach coping skills. Psychiatric services to monitor anxious symptoms and medication effectiveness. (2) Avoidant-restrictive food intake disorder (ARFID): Plan: Psychiatric monitoring of symptoms and medication effectiveness. No longer getting treatment from the [facility]. Plan TREATMENT PLAN Goal 1 - Eliminate or reduce the negative impact trauma related symptoms have on functioning AEB reduction of PCL-5 rating. Objective 1 - Participate in Cognitive Processing Therapy to process the trauma and reduce its impact. Intervention 1 - Teach relationship between thoughts, behaviors, and emotions associated with trauma experienced. Intervention 2 - Use cognitive therapy techniques to question biased thoughts and beliefs and explore unbiased alternatives; repeat this process until a shift from biased to unbiased (more content not included)... Normal [facility] MR/BMS.BPon 07-21-2024 MR/BMS.BP [facility] [address] [facility], [address] [place] [address] OFFICE VISIT Date of Service: 07/21/24 MR#: [id number] Acct: [id number] Name: BRYNN GOMEZ Rep #: [id number] : 2000 Provider: SANTIAGO cantu Age/Sex: 24/F [place] [facility] [place] Status: Signed Intake Vital Signs 05/07/24 07:39 07/04/24 08:38 07/21/24 15:34 Height 5 ft 4 in 5 ft 4 in 5 ft 4 in BP Intake Visit Reasons: follow up Allergies red dye Allergy (Mild, Verified 04/27/24 15:13) hives yellow dye Allergy (Mild, Verified 04/27/24 15:13) hives [facility] Medical History Major depressive disorder, recurrent severe without psychotic features Gastroparesis Generalized anxiety disorder Avoidant-restrictive food intake disorder (ARFID) Depression Anxiety Marijuana use Back pain Migraine headache Gastric reflux Shortness of breath on exertion History of edema Abdominal tenderness of left lower quadrant Diarrhea Juvenile idiopathic arthritis Family History Other Asthma Cancer Hypertension Social History Smoking Status: Never smoker alcohol intake: current alcohol intake frequency: holidays/special occasions only substance use type: marijuana and other details: smokes daily at least 3 times daily HPI History of Present Illness HPI: Brynn Gomez is a 24 year-old female returning for therapy. She reported being less impacted by depressive symptoms but struggling with sleep. Provided psychoeducation on sleep protocol meditation. Administered PCL-5 to assess level of trauma symptoms. Brynn scored a 35, which is a reduction from the previous session. She endorsed the following as bothering her quite a bit: trouble remembering parts of the trauma; strong negative beliefs about self, others, and world; strong negative feelings; anhedonia; difficulty concentrating; and difficulty sleeping. Reviewed 2 A-B-C sheets Brynn completed as homework. She is making progress developing alternative thoughts. Brynn discussed stuckpoints related to the world and to herself. Addressed using Socratic questioning. Brynn will review Patterns of Problematic Thinking Worksheet for homework. No SI. Future-oriented. Exam Mental Status Exam - Psych Appearance well kempt Attitude cooperative and engaged Activity/Motor Behavior MSE activity/motor behavior finding no adventitious movements and appropriate eye contact Speech regular rate, regular volume, regular prosody and excessive Mood anxious Affect anxious Thought Process linear, logical, coherent and goal directed Thought Content no delusions, no hallucinations and ruminations (Related to how she communicates with others.) Suicidal Ideation none Homicidal Ideation none Attention intact Concentration intact Sensorium/Orientation alert and oriented x3 Memory/Cognition intact Insight fair Judgement fair Assessment Plan Assessment Plan (1) Generalized anxiety disorder: Plan: BH therapy using CBT, DBT, and ACT interventions to address thought patterns contributing to anxious symptoms and to teach coping skills. Psychiatric services to monitor anxious symptoms and medication effectiveness. (2) Avoidant-restrictive food intake disorder (ARFID): Plan: Psychiatric monitoring of symptoms and medication effectiveness. No longer getting treatment from the [facility]. Plan TREATMENT PLAN Goal 1 - Eliminate or reduce the negative impact trauma related symptoms have on functioning AEB reduction of PCL-5 rating. Objective 1 - Participate in Cognitive Processing Therapy to process the trauma and reduce its impact. Intervention 1 - Teach relationship between thoughts, behaviors, and emotions associated with trauma experienced. Intervention 2 - Use cognitive therapy techniques to question biased thoughts and beliefs and explore unbiased alternatives; repeat this process until a shift from biased to unbiased thinking is evident. Visit Details Duration of visit (minutes): 60 Duration of counseling (minutes): 60 Total time (minutes): 60 Type of visit: psychotherapy and [id number] [place] [address] PSYTX W PT 60 MINUTES Patient Type Established Diagnoses Generalized anxiety disorder F41.1 Avoidant-restrictive food intake disorder (ARFID) F50.82 Time Spent (min) 60 07/21/24 1700 Date Aretha Phan [facility] Cosigner Signature: Date (if applicable) CC: [facility] MR/BMS.Nayla 07-19-2024 MR/[place] [address] OFFICE VISIT Date of Service: 07/15/24 MR#: [id number] Acct: [id number] Name: BRYNN GOMEZ AFTAB Rep #: [id number] : 2000 Provider: SANTIAGO cantu Age/Sex: 24/F [place] [facility] [place] Status: Signed Intake Vital Signs 05/07/24 07:39 07/04/24 08:05 07/19/24 08:03 Height 5 ft 4 in 5 ft 4 in 5 ft 4 in BP Intake Visit Reasons: follow up Allergies red dye Allergy (Mild, Verified 04/27/24 15:13) hives yellow dye Allergy (Mild, Verified 04/27/24 15:13) hives [facility] Medical History Major depressive disorder, recurrent severe without psychotic features Gastroparesis Generalized anxiety disorder Avoidant-restrictive food intake disorder (ARFID) Depression Anxiety Marijuana use Back pain Migraine headache Gastric reflux Shortness of breath on exertion History of edema Abdominal tenderness of left lower quadrant Diarrhea Juvenile idiopathic arthritis Family History Other Asthma Cancer Hypertension Social History Smoking Status: Never smoker alcohol intake: current alcohol intake frequency: holidays/special occasions only substance use type: marijuana and other details: smokes daily at least 3 times daily HPI History of Present Illness HPI: Brynn Gomez is a 24 year-old female returning for therapy. She reported experiencing avoidance with completing CPT homework but completing several A-B-C worksheets, which was reinforced. Brynn identified struggling with increased depressive symptoms over the last 2 weeks. Explored triggers for increased depressive symptoms and whether or not CPT was increasing her symptoms. Brynn identified pattern of depressive symptoms historically and not believing CPT was causing an increase in depressive symptoms. Brynn identified coping by using opposite action skill, which was reinforced. Administered PCL-5 to assess level of trauma symptoms. Brynn scored a 40, which is a slight reduction from her previous session. She reported being extremely bothered by the following symptoms: emotional reactivity to trauma reminders and negative beliefs about self, others, and the world. Brynn endorsed the following as bothering her quite a bit: intrusive memories; physical reactivity to trauma reminders; anhedonia; and difficulty concentrating. Reviewed A-B-C sheets. Addressed stuck points using Socratic questioning working on cognitive restructuring. Provided a handout out on common trauma stuck points. Brynn will complete several A-B-C sheets for homework and review handout on stuck points for homework. No reports of SI. Future-oriented. Exam Mental Status Exam - Psych Appearance well kempt Attitude cooperative, calm and engaged Activity/Motor Behavior MSE activity/motor behavior finding no adventitious movements and appropriate eye contact Speech regular rate, regular volume and regular prosody Mood sad and anxious Affect restricted Thought Process linear, logical, coherent and goal directed Thought Content no delusions and no hallucinations Suicidal Ideation none Homicidal Ideation none Attention intact Concentration intact Sensorium/Orientation alert and oriented x3 Memory/Cognition intact Insight fair Judgement fair Assessment Plan Assessment Plan (1) Generalized anxiety disorder: Plan: therapy using CBT, DBT, and ACT interventions to address thought patterns contributing to anxious symptoms and to teach coping skills. Psychiatric services to monitor anxious symptoms and medication effectiveness. (2) Avoidant-restrictive food intake disorder (ARFID): Plan: Psychiatric monitoring of symptoms and medication effectiveness. No longer getting treatment from the [facility]. Plan TREATMENT PLAN Goal 1 - Eliminate or reduce the negative impact trauma related symptoms have on functioning AEB reduction of PCL-5 rating. Objective 1 - Participate in Cognitive Processing Therapy to process the trauma and reduce its impact. Intervention 1 - Teach relationship between thoughts, behaviors, and emotions associated with trauma experienced. Intervention 2 - Use cognitive therapy techniques to question biased thoughts and beliefs and explore unbiased alternatives; repeat this process until a shift from biased to unbiased thinking is evident. Visit Details Duration of visit (minutes): 60 Duration of counseling (minutes): 60 Total time (minutes): 60 Type of visit: psychotherapy and [id number] [place] [address] PSYTX W PT 60 MINUTES Patient Type Established Diagnoses Generalized anxiety disorder F41.1 Avoidant- (more content not included)... Normal [facility] MR/BMS.BPon 07-04-2024 MR/BMS.BP [facility] [address] [place] [address], [address] [place] [address] OFFICE VISIT Date of Service: 07/04/24 MR#: [id number] Acct: [id number] Name: BRYNN GOMEZYONNY Rep #: [id number] : 2000 [facility] Age/Sex: 23/F [place] [facility] [place] Status: Signed Intake Vital Signs 05/07/24 07:39 06/27/24 14:14 07/04/24 08:38 Height 5 ft 4 in 5 ft 4 in 5 ft 4 in BP 91/60 Blood Pressure Location Lt brachial Position Sitting Respiration 16 Pulse 82 Pulse Source Monitor BP Intake Visit Reasons: follow up Allergies red dye Allergy (Mild, Verified 04/27/24 15:13) hives yellow dye Allergy (Mild, Verified 04/27/24 15:13) hives [facility] Medical History Major depressive disorder, recurrent severe without psychotic features Gastroparesis Generalized anxiety disorder Avoidant-restrictive food intake disorder (ARFID) Depression Anxiety Marijuana use Back pain Migraine headache Gastric reflux Shortness of breath on exertion History of edema Abdominal tenderness of left lower quadrant Diarrhea Juvenile idiopathic arthritis Family History Other Asthma Cancer Hypertension Social History Smoking Status: Never smoker alcohol intake: current alcohol intake frequency: holidays/special occasions only substance use type: marijuana and other details: smokes daily at least 3 times daily HPI History of Present Illness HPI: Brynn Gomez is a 23 year-old female returning for therapy. Continued CPT. Administered PCL-5 to assess level of trauma symptoms. Brynn scored a 42, which is an increase in symptoms from the previous session when she scored a 37. She identified difficulty concentrating as a symptom bothering her extremely in the last week. Symptoms bothering her quite a bit included intrusive memories, avoidance, difficulty remembering aspects of the trauma, strong negative beliefs, hypervigilance, and difficulty falling asleep. Brynn identified a high level of avoidance since the last session. She minimally completed the A-B-C sheets. Explored factors contributing to the avoidance and problem solved how to manage them. Worked on how trauma has impacted her view of control (assuming ability to control things that cannot be controlled and assuming no control), providing psychoeducation, and normalizing impact trauma has on view of control. Worked on thought pattern that there is one right way to do things exploring impact of this thought on functioning and alternative thinking. No reports of SI. Future-oriented. Exam Mental Status Exam - Psych Appearance well kempt Attitude cooperative, calm and engaged Activity/Motor Behavior appropriate eye contact and fidgeting Speech regular rate, regular volume and regular prosody Mood OK and anxious Affect restricted Thought Process linear, logical, coherent and goal directed Thought Content no delusions, no hallucinations and ruminations (Related to her own actions.) Suicidal Ideation none Homicidal Ideation none Attention intact Concentration intact Sensorium/Orientation alert and oriented x3 Memory/Cognition intact Insight fair Judgement fair Assessment Plan Assessment Plan (1) Generalized anxiety disorder: Plan: therapy using CBT, DBT, and ACT interventions to address thought patterns contributing to anxious symptoms and to teach coping skills. Psychiatric services to monitor anxious symptoms and medication effectiveness. (2) Avoidant-restrictive food intake disorder (ARFID): Plan: Psychiatric monitoring of symptoms and medication effectiveness. No longer getting treatment from the [facility]. Plan TREATMENT PLAN Goal 1 - Eliminate or reduce the negative impact trauma related symptoms have on functioning AEB reduction of PCL-5 rating. Objective 1 - Participate in Cognitive Processing Therapy to process the trauma and reduce its impact. Intervention 1 - Teach relationship between thoughts, behaviors, and emotions associated with trauma experienced. Intervention 2 - Use cognitive therapy techniques to question biased thoughts and beliefs and explore unbiased alternatives; repeat this process until a shift from biased to unbiased thinking is evident. Visit Details Duration of visit (minutes): 60 Duration of counseling (minutes): 60 Total time (minutes): 60 Type of visit: psychotherapy and [id number] [place] [address] PSYTX W PT 60 MINUTES Patient Type Established Diagnoses Generalized anxiety disorder F41.1 Avoidant-restrictive food intake disorder (ARFID) F50.82 Time Spent (min) 60 07/04/24 1008 Date ____ (more content not included)... Normal [facility] MR/BMS.on 06-27-2024 MR/BMS. [address], [address] [place] [address] OFFICE VISIT Date of Service: 06/27/24 MR#: [id number] Acct: [id number] Name: BRYNN GOMEZYONNY Rep #: [id number] : 2000 Provider: Dr. Alessandro Chino se, DO Age/Sex: 23/F [place] [facility] [place] Status: Signed Intake Vital Signs 04/27/24 15:08 06/18/24 07:51 06/27/24 14:14 Height 5 ft 4 in 5 ft 4 in 5 ft 4 in BP 91/60 Blood Pressure Location Lt brachial Position Sitting Respiration 16 Pulse 82 Pulse Source Monitor BP Intake Visit Reasons: 2 M FU Allergies red dye Allergy (Mild, Verified 04/27/24 15:13) hives yellow dye Allergy (Mild, Verified 04/27/24 15:13) hives [facility] Medical History Major depressive disorder, recurrent severe without psychotic features Gastroparesis Generalized anxiety disorder Avoidant-restrictive food intake disorder (ARFID) Depression Anxiety Marijuana use Back pain Migraine headache Gastric reflux Shortness of breath on exertion History of edema Abdominal tenderness of left lower quadrant Diarrhea Juvenile idiopathic arthritis Family History Other Asthma Cancer Hypertension Social History Smoking Status: Never smoker alcohol intake: current alcohol intake frequency: holidays/special occasions only substance use type: marijuana and other details: smokes daily at least 3 times daily HPI History of Present Illness History provided by: patient HPI: Brynn Gomez is a 23 year old female who presents today for follow up evaluation. Patient reports mood has been pretty good. Feels like she continues to have overstimulated moments but otherwise feels like she is doing well. Feels more present than she had been previously. Does feel like she is getting benefit from therapy to this point. Does feel like she has been somewhat more forgetful in word finding in recent past. Still not taking fluoxetine. Has also not been taking medication for nausea in prolonged time, but almost did around her menstrual cycle last month. Has been eating much better overall. Has not been doing therapy through the [facility]. Feels like her self image is in the middle ground. Elaborates that she has days where she judges her body image and others she is 'ok.' Sleep has been doing largely good. Denies SI/HI or AVH. Overall feels like things are still [place]. Review of Systems Constitutional Denies: chills or fatigue Eyes Denies: change in vision or blurry vision Ears, Nose, Mouth, Throat Denies: throat pain, neck pain or change in hearing Cardiovascular Denies: chest pain, palpitations or dyspnea Respiratory Denies: dyspnea, cough or wheezing Gastrointestinal Reports: abdominal pain, nausea (intermittent) and vomiting; Denies: diarrhea or constipation Genitourinary Denies: dysuria or urinary frequency Musculoskeletal Denies: back pain, neck pain, joint pain or muscle weakness Integumentary/Breast Denies: rash or new lesions Neurological Reports: weakness in extremities; Denies: headache(s), dizziness or confusion Psychiatric Reports: anxiety Endocrine Reports: cold intolerance; Denies: fatigue or excessive sweating Hematologic/Lymphatic Denies: easy bruising or easy bleeding Allergic/Immunologic Denies: wheezing Exam Mental Status Exam - Psych Appearance casually dressed and adequately groomed Attitude cooperative and calm Activity/Motor Behavior fidgeting and limited eye contact Speech regular rate, regular volume and regular prosody Mood OK Affect restricted Thought Process linear, logical, coherent and goal directed Thought Content no delusions and no hallucinations Suicidal Ideation none Homicidal Ideation none Attention intact Concentration intact Sensorium/Orientation awake, alert and oriented x3 Memory/Cognition intact Insight fair Judgement fair Assessment Plan Assessment Plan (1) Generalized anxiety disorder: Plan: - has not been taking fluoxetine, and again does not wish to take medication at this time as she feels like she is making progress psychiatrically with behavioral mechanisms alone (2) Avoidant-restrictive food intake disorder (ARFID): Plan: - Continues to have intermittent periods where she just will not eat with no intention of trying to lose weight and actually conversely finds herself frustrated with losing weight especially given to changes in body image that happen along with this Medications: Discontinued gabapentin Discontinued Reason: Order Completed 200 mg (2 x 100 mg) PO TID 180 caps 1RF Visit Details Comments: Spent 22 minutes outside of [facility] (more content not included)... Normal [facility] MR/BMS.BPon 06-18-2024 MR/BMS.BP [address], [address] [place] [address] OFFICE VISIT Date of Service: 06/17/24 MR#: [id number] Acct: [id number] Name: BRYNN GOMEZ Rep #: [id number] : 2000 [facility] Age/Sex: 23/F [place] [facility] [place] Status: Signed Intake Vital Signs 04/27/24 15:08 06/13/24 13:57 06/18/24 07:51 Height 5 ft 4 in 5 ft 4 in 5 ft 4 in BP Intake Visit Reasons: FOLLOW UP Allergies red dye Allergy (Mild, Verified 04/27/24 15:13) hives yellow dye Allergy (Mild, Verified 04/27/24 15:13) hives [facility] Medical History Major depressive disorder, recurrent severe without psychotic features Gastroparesis Generalized anxiety disorder Avoidant-restrictive food intake disorder (ARFID) Depression Anxiety Marijuana use Back pain Migraine headache Gastric reflux Shortness of breath on exertion History of edema Abdominal tenderness of left lower quadrant Diarrhea Juvenile idiopathic arthritis Family History Other Asthma Cancer Hypertension Social History Smoking Status: Never smoker alcohol intake: current alcohol intake frequency: holidays/special occasions only substance use type: marijuana and other details: smokes daily at least 3 times daily HPI History of Present Illness Chief complaint: trauma symptoms HPI: Brynn Gomez is a 23 year-old female returning for therapy. Continued CPT sessions. Administered PCL-5 to assess level of trauma symptoms. Brynn scored a 37, which is a slight reduction in symptoms from previous session. She reported beginning to recognize triggers, thoughts or stuck points, and resulting emotions in daily living. Reviewed A-B-C sheets Brynn completed as homework. She did well identifying triggers, thoughts, and resulting emotions and demonstrated progress at recognizing stuck points. Assisted Brynn in examining stuck points and adding to stuck point log. Stuck points tended to focus on negative view of world and self. Examined whether or not thoughts were realistic or helpful. Worked on recognizing alternative thinking, which was more challenging for Brynn. Assigned completion of 7 A-B-C sheets and review of stuck point handout as homework to complete for next session. No reports of SI. Future-oriented. Exam Mental Status Exam - Psych Appearance casually dressed and adequately groomed Attitude cooperative, calm and engaged Activity/Motor Behavior MSE activity/motor behavior finding no adventitious movements and appropriate eye contact Speech regular rate, regular volume and regular prosody Mood anxious Affect anxious Thought Process linear, logical, coherent and goal directed Thought Content no delusions and no hallucinations Suicidal Ideation none Homicidal Ideation none Attention impaired (Per pt. report.) Concentration impaired (Per pt. report.) Sensorium/Orientation awake, alert and oriented x3 Memory/Cognition intact Insight fair Judgement fair Assessment Plan Assessment Plan (1) Generalized anxiety disorder: Plan: therapy using CBT, DBT, and ACT interventions to address thought patterns contributing to anxious symptoms and to teach coping skills. Psychiatric services to monitor anxious symptoms and medication effectiveness. (2) Avoidant-restrictive food intake disorder (ARFID): Plan: Psychiatric monitoring of symptoms. Treatment from the [facility]. Plan TREATMENT PLAN Goal 1 - Eliminate or reduce the negative impact trauma related symptoms have on functioning AEB reduction of PCL-5 rating. Objective 1 - Participate in Cognitive Processing Therapy to process the trauma and reduce its impact. Intervention 1 - Teach relationship between thoughts, behaviors, and emotions associated with trauma experienced. Intervention 2 - Use cognitive therapy techniques to question biased thoughts and beliefs and explore unbiased alternatives; repeat this process until a shift from biased to unbiased thinking is evident. Visit Details Duration of visit (minutes): 60 Duration of counseling (minutes): 60 Total time (minutes): 60 Type of visit: psychotherapy and [id number] C[place] [address] PSYTX W PT 60 MINUTES Patient Type Established Diagnoses Generalized anxiety disorder F41.1 Avoidant-restrictive food intake disorder (ARFID) F50.82 Time Spent (min) 60 06/18/24 0817 Date Aretha Phan [facility] Cosigner Signature: Date (if applicable) CC: [facility] MR/BMS.BPon 06-13-2024 MR/BMS.BP [address], [place] [address] OFFICE VISIT Date of Service: 06/10/24 MR#: [id number] Acct: [id number] Name: BRYNN GOMEZ Rep #: [id number] : 2000 Provider: [facility] Aretha cantu Age/Sex: 23/F Location: [facility] Status: Signed Intake Vital Signs 04/27/24 15:08 06/06/24 12:59 06/13/24 13:57 Height 5 ft 4 in 5 ft 4 in 5 ft 4 in BP Intake Visit Reasons: FOLLOW UP Allergies red dye Allergy (Mild, Verified 04/27/24 15:13) hives yellow dye Allergy (Mild, Verified 04/27/24 15:13) hives [facility] Medical History Major depressive disorder, recurrent severe without psychotic features Gastroparesis Generalized anxiety disorder Avoidant-restrictive food intake disorder (ARFID) Depression Anxiety Marijuana use Back pain Migraine headache Gastric reflux Shortness of breath on exertion History of edema Abdominal tenderness of left lower quadrant Diarrhea Juvenile idiopathic arthritis Family History Other Asthma Cancer Hypertension Social History Smoking Status: Never smoker alcohol intake: current alcohol intake frequency: holidays/special occasions only substance use type: marijuana and other details: smokes daily at least 3 times daily HPI History of Present Illness HPI: Brynn Gomez is a 23 year-old female returning for therapy. Assessed level of trauma symptoms using PCL-5. Brynn scored a 41. This is an increase from the previous session, which is typical as avoidance is reduced. She identified the following symptoms as most problematic: psychological reactivity to trauma reminders; physical reactivity to trauma reminders; avoidance; negative beliefs; and difficulty concentrating. Brynn came to session with her impact statement complete and was able to read it. Worked with her to begin identifying stuck points and adding them to her stuck point log. Provided psychoeducation on natural (automatic) vs. manufactured (resulting from a thought) emotions. Explored continuums of emotions and discussed emotions Brynn commonly has and how they are experienced. Provided psychoeducation on what stuck points are and are not. Taught A-B-C intervention. Practiced identifying a trigger, thought, and resulting emotions. Explored whether or not the thought was realistic or helpful and identifying a better thought. Brynn will complete an A-B-C sheet daily including one on the index trauma. No reports of SI. Future-oriented. Exam Mental Status Exam - Psych Appearance casually dressed and adequately groomed Attitude cooperative and engaged Activity/Motor Behavior appropriate eye contact and fidgeting Speech regular rate, regular volume and regular prosody Mood anxious Affect anxious Thought Process linear, logical, coherent and goal directed Thought Content no delusions, no hallucinations and ruminations (Related to whether or not she was completing treatment work correctly.) Suicidal Ideation none Homicidal Ideation none Attention impaired (Per pt. report.) Concentration impaired (Per pt. report.) Sensorium/Orientation awake, alert and oriented x3 Memory/Cognition intact Insight fair Judgement fair Assessment Plan Assessment Plan (1) Generalized anxiety disorder: Plan: BH therapy using CBT, DBT, and ACT interventions to address thought patterns contributing to anxious symptoms and to teach coping skills. Psychiatric services to monitor anxious symptoms and medication effectiveness. (2) Avoidant-restrictive food intake disorder (ARFID): Plan: Psychiatric monitoring of symptoms. Treatment from the [facility]. Plan TREATMENT PLAN Goal 1 - Eliminate or reduce the negative impact trauma related symptoms have on functioning AEB reducation of PCL-5 rating. Objective 1 - Participate in Cognitive Processing Therapy to proccess the trauma and reduce its impact. Intervention 1 - Teach relationship between thoughts, behaviors, and emotions associated with trauma experienced. Intervention 2 - Use cognitive therapy techniques to question biased thoughts and beliefs and explore unbiased alternatives; repeat this process until a shift from biased to unbiased thinking is evident. Visit Details Duration of visit (minutes): 60 Duration of counseling (minutes): 60 Total time (minutes): 60 Type of visit: psychotherapy and [id number] C[place] [address] PSYTX W PT 60 MINUTES Patient Type Established Diagnoses Generalized anxiety disorder F41.1 Avoidant-restrictive food intake disorder (ARFID) F50.82 Time Spent (min) 60 06/17/24 1217 Date (more content not included)... Normal [facility] MR/BMS.on 06-06-2024 MR/BMS.BP [address], [place] [address] OFFICE VISIT Date of Service: 06/03/24 MR#: [id number] Acct: [id number] Name: BRYNN GOMEZYONNY Rep #: [id number] : 2000 Provider: [facility] Aretha cantu Age/Sex: 23/F [place] [facility] [place] Status: Signed Intake Vital Signs 04/27/24 15:08 05/07/24 07:39 06/06/24 12:59 Height 5 ft 4 in 5 ft 4 in 5 ft 4 in BP Intake Visit Reasons: FOLLOW UP Allergies red dye Allergy (Mild, Verified 04/27/24 15:13) hives yellow dye Allergy (Mild, Verified 04/27/24 15:13) hives [facility] Medical History Major depressive disorder, recurrent severe without psychotic features Gastroparesis Generalized anxiety disorder Avoidant-restrictive food intake disorder (ARFID) Depression Anxiety Marijuana use Back pain Migraine headache Gastric reflux Shortness of breath on exertion History of edema Abdominal tenderness of left lower quadrant Diarrhea Juvenile idiopathic arthritis Family History Other Asthma Cancer Hypertension Social History Smoking Status: Never smoker alcohol intake: current alcohol intake frequency: holidays/special occasions only substance use type: marijuana and other details: smokes daily at least 3 times daily HPI History of Present Illness HPI: Brynn is a 23 year-old returning for therapy. She arrived to session without her CPT binder and reported confusion about the assignment (writing an impact statement of why the trauma occurred and impact on her thoughts about safety, trust, intimacy, power/control, and and esteem). Administered PCL-5 to assess trauma symptoms. Brynn scored a 30 endorsing the following as bothering her moderately suddenly feeling or acting as if the the stressful experience were actually happening again; avoiding external reminders of the stressful experience; and trouble remembering important parts of the stressful experience. Re-explained assignment and discussed options for completing it if Brynn struggles to complete it outside of session. Provided psychoeducation on stuck points. Brynn appeared to grasp information presented and was able to apply to insight she gained about herself and CBT from [facility]. She recognized that a primary stuckpoint she has is that she is responsible for others actions towards her. No reports of SI. Future-oriented. Exam Mental Status Exam - Psych Appearance casually dressed, malodorous and thin Attitude cooperative and engaged Activity/Motor Behavior appropriate eye contact and fidgeting Speech regular rate, regular volume and regular prosody Mood anxious Affect anxious Thought Process linear, logical, coherent, goal directed and other (Often lost train of thought.) Thought Content no delusions, no hallucinations and ruminations Suicidal Ideation none Homicidal Ideation none Attention impaired (Per pt. report.) Concentration impaired (Per pt. report.) Sensorium/Orientation awake, alert and oriented x3 Memory/Cognition intact Insight fair Judgement fair Assessment Plan Assessment Plan (1) Generalized anxiety disorder: Plan: BH therapy using CBT, DBT, and ACT interventions to address thought patterns contributing to anxious symptoms and to teach coping skills. Psychiatric services to monitor anxious symptoms and medication effectiveness. (2) Avoidant-restrictive food intake disorder (ARFID): Plan: Psychiatric monitoring of symptoms. Treatment from the [facility]. Plan TREATMENT PLAN Goal 1 - Eliminate or reduce the negative impact trauma related symptoms have on functioning AEB reducation of PCL-5 rating. Objective 1 - Participate in Cognitive Processing Therapy to proccess the trauma and reduce its impact. Intervention 1 - Teach relationship between thoughts, behaviors, and emotions associated with trauma experienced. Intervention 2 - Use cognitive therapy techniques to question biased thoughts and beliefs and explore unbiased alternatives; repeat this process until a shift from biased to unbiased thinking is evident. Visit Details Duration of visit (minutes): 60 Duration of counseling (minutes): 60 Total time (minutes): 60 Type of visit: psychotherapy and [id number]-[id number] Coding [place] [address] PSYTX W PT 60 MINUTES Patient Type Established Diagnoses Generalized anxiety disorder F41.1 Avoidant-restrictive food intake disorder (ARFID) F50.82 Time Spent (min) 60 06/07/24 0734 Date Aretha Phan [facility] Cosigner Signature: Date (if applicable) CC: [facility] MR/BMS.Nayla 05-27-2024 MR/[place] [address] OFFICE VISIT Date of Service: 05/27/24 MR#: [id number] Acct: [id number] Name: BRYNN GOMEZYONNY Rep #: [id number] : 2000 [facility] Age/Sex: 23/F [place] [facility] [place] Status: Signed Intake Vital Signs 04/27/24 15:08 05/07/24 07:39 05/27/24 11:45 Height 5 ft 4 in 5 ft 4 in 5 ft 4 in Weight: 95 lb BMI 16.2 BP 87/57 L Blood Pressure Location Lt brachial Position Sitting Respiration 16 Pulse 96 Pulse Source Monitor BP Intake Visit Reasons: FOLLOW UP Allergies red dye Allergy (Mild, Verified 04/27/24 15:13) hives yellow dye Allergy (Mild, Verified 04/27/24 15:13) hives [facility] Medical History Major depressive disorder, recurrent severe without psychotic features Gastroparesis Generalized anxiety disorder Avoidant-restrictive food intake disorder (ARFID) Depression Anxiety Marijuana use Back pain Migraine headache Gastric reflux Shortness of breath on exertion History of edema Abdominal tenderness of left lower quadrant Diarrhea Juvenile idiopathic arthritis Family History Other Asthma Cancer Hypertension Social History Smoking Status: Never smoker alcohol intake: current alcohol intake frequency: holidays/special occasions only substance use type: marijuana and other details: smokes daily at least 3 times daily HPI History of Present Illness HPI: Brynn is a 23 year-old female returning for therapy. She was referred by [facility] for CPT work to address past trauma. Administered PC-L 5 to evaluate level of trauma symptoms. Brynn scored a 42. She endorsed being bothered by feeling distant and cut off from other people as extremely and endorsed the following as quite a bit: suddenly feeling or acting as if the stressful experience is actually happening again; having strong physical reactions when something reminded you of the stressful experience; having strong negative beliefs about yourself, other people, or the world; having strong negative feelings such as fear, horror, anger, guilt, or shame; irritable behavior, angry outbursts, or acting aggressively; having difficulty concentrating; and trouble falling or staying asleep. Brynn endorsed all other symptoms as bothering her moderately, a little bit, or not at all. Provided psychoeducation on trauma symptoms including intrusive symptoms, arousal, autobiographical memory/thought and emotions about the trauma, and avoidance. Brynn identified smell as an intrusive symptom for her and discussed hypervigilance she experiences. Provided psychoeducation on fight/flight, freeze and role of avoidance in maintaining trauma symptoms. She discussed having fight/flight reactions but typically freezing. Provided psychoeducation on cognitive theory including belief structure and stuckpoints. Discussed role of emotions in trauma recovery. Brynn identified index trauma she will be addressing as physical and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 940037-Odhwxqa, Blood; 425799-Gyszdpm, Bloodwas developed and its performance characteristicsdetermined by [facility]. It has not been cleared or approvedby the Food and Drug Administration. Result Comment: Dete ction Limit = 5 Performed By: #### L 500.4050, L3300.0100, L3300.8200, L7400.3000, L3400.0700, L501.9520, L506.0250, L3200.1275, L801.1541, L503.0105, L801.1543 ####[facility] [address] [place], [place], [phone] Immunofixation, Serumon 11-2 VIKAS RESULT,S Comment Normal . [facility] Comment on above: Order Comment: Test( s) 117102-Lbyl, Blood; 444787-Dekalei, Blood; 554717-Aafrmgw, Bloodwas developed and its performance characteristicsdetermined by [facility]. It has not been cleared or approvedby the Food and Drug Administration. Result Comment: No m onoclonality detected. Performed By: #### L 500.4050, L3300.0100, L3300.8200, L7400.3000, L3400.0700, L501.9520, L506.0250, L3200.1275, L801.1541, L503.0105, L801.1543 ####[facility] [address] [place], [place], [phone] IMMUNOGLOB A QN 235 mg/dL Normal 87-352 [facility] Comment on above: Order Comment: Test( s) 899656-Dvbh, Blood; 020991-Yaemynq, Blood; 674510-Nzgddqf, Bloodwas developed and its performance characteristicsdetermined by [facility]. It has not been cleared or approvedby the Food and Drug Administration. Performed By: #### L 500.4050, L3300.0100, L3300.8200, L7400.3000, L3400.0700, L501.9520, L506.0250, L3200.1275, L801.1541, L503.0105, L801.1543 ####[facility] [address] [place], [place], [phone] IMMUNOGLOB G QN 1484 mg/dL Normal 586-1602 [facility] Comment on above: Order Comment: Test( s) 401193-Jlkv, Blood; 970997-Riasxhz, Blood; 162667-Oglegbj, Bloodwas developed and its performance characteristicsdetermined by [facility]. It has not been cleared or approvedby the Food and Drug Administration. Performed By: #### L 500.4050, L3300.0100, L3300.8200, L7400.3000, L3400.0700, L501.9520, L506.0250, L3200.1275, L801.1541, L503.0105, L801.1543 ####[facility] [address] [place], [place], [phone] IMMUNOGLOB M QN 101 mg/dL Normal 26-217 [facility] Comment on above: Order Comment: Test( s) 791080-Qsjb, Blood; 334122-Ejgnjme, Blood; 386766-Uxfcozs, Bloodwas developed and its performance characteristicsdetermined by [facility]. It has not been cleared or approvedby the Food and Drug Administration. Performed By: #### L 500.4050, L3300.0100, L3300.8200, L7400.3000, L3400.0700, L501.9520, L506.0250, L3200.1275, L801.1541, L503.0105, L801.1543 ####[facility] [address] [place], [place], [address] L3300.8200on 02-24-2024 VITAMIN B6 9.9 ug/L Normal 3.4-65.2 [facility] Comment on above: Order Comment: Test( s) 835696-Gezd, Blood; 252780-Igotqal, Blood; 586264-Nlsdcng, Bloodwas developed and its performance characteristicsdetermined by [facility]. It has not been cleared or approvedby the Food and Drug Administration. Result Comment: Defi ciency: <3.4 Marginal: 3.4 - 5.1 Adequate: >5.1 Performed By: #### L 500.4050, L3300.0100, L3300.8200, L7400.3000, L3400.0700, L501.9520, L506.0250, L3200.1275, L801.1541, L503.0105, L801.1543 ####[facility] [address] [place], [place], [phone] Comprehensive Metabolic Prof nmon 02-19-2024 Albumin [Mass/Vol] 4.1 g/dL Normal 3.2-5.0 [facility] Comment on above: Order Comment: N Performed By: #### L 500.4050, L3300.0100, L3300.8200, L7400.3000, L3400.0700, L501.9520, L506.0250, L3200.1275, L801.1541, L503.0105, L801.1543 ####[facility] [address] [place], [place], [phone] Albumin/Globulin [Mass ratio] 1.1 {ratio} Normal 0.9-2.4 [facility] Comment on above: Order Comment: N Performed By: #### L 500.4050, L3300.0100, L3300.8200, L7400.3000, L3400.0700, L501.9520, L506.0250, L3200.1275, L801.1541, L503.0105, L801.1543 ####[facility] [address] [place], [place], [phone]) ALK P 67 U/L Normal 45-117 [facility] Comment on above: Order Comment: N Performed By: #### L 500.4050, L3300.0100, L3300.8200, L7400.3000, L3400.0700, L501.9520, L506.0250, L3200.1275, L801.1541, L503.0105, L801.1543 ####[facility] [address] [place], [place], [phone] ALT [Catalytic activity/Vol] 26 U/L Normal 13-56 [facility] Comment on above: Order Comment: N Performed By: #### L 500.4050, L3300.0100, L3300.8200, L7400.3000, L3400.0700, L501.9520, L506.0250, L3200.1275, L801.1541, L503.0105, L801.1543 ####[facility] [address] [place], [address] AST [Catalytic activity/Vol] 19 U/L Normal 15-37 [facility] Comment on above: Order Comment: N Performed By: #### L 500.4050, L3300.0100, L3300.8200, L7400.3000, L3400.0700, L501.9520, L506.0250, L3200.1275, L801.1541, L503.0105, L801.1543 ####[facility] [address] [place], [address] Bilirubin [Mass/Vol] 0.40 mg/dL Normal 0.20-1.00 [facility] Comment on above: Order Comment: N Result Comment: For patients on eltrombopag therapy, use of Dimension [place] TBIL is not recommended. Performed By: #### L 500.4050, L3300.0100, L3300.8200, L7400.3000, L3400.0700, L501.9520, L506.0250, L3200.1275, L801.1541, L503.0105, L801.1543 ####[facility] [address] [place], [address] BUN/CRE 6.5 RATIO Low 10-20 [facility] Comment on above: Order Comment: N Performed By: #### L 500.4050, L3300.0100, L3300.8200, L7400.3000, L3400.0700, L501.9520, L506.0250, L3200.1275, L801.1541, L503.0105, L801.1543 ####[facility] [address] [place], [address] CA,Total 9.3 mg/dL Normal 8.5-10.1 [facility] Comment on above: Order Comment: N Performed By: #### L 500.4050, L3300.0100, L3300.8200, L7400.3000, L3400.0700, L501.9520, L506.0250, L3200.1275, L801.1541, L503.0105, L801.1543 ####[facility] [address] [place], [address] Chloride [Moles/Vol] 104 mmol/L Normal 98-107 [facility] Comment on above: Order Comment: N Performed By: #### L 500.4050, L3300.0100, L3300.8200, L7400.3000, L3400.0700, L501.9520, L506.0250, L3200.1275, L801.1541, L503.0105, L801.1543 ####[facility] [address] [place], [address] CO2 [Moles/Vol] 28.0 mmol/L Normal 21.0-32.0 [facility] Comment on above: Order Comment: N Performed By: #### L 500.4050, L3300.0100, L3300.8200, L7400.3000, L3400.0700, L501.9520, L506.0250, L3200.1275, L801.1541, L503.0105, L801.1543 ####[facility] [address] [place], [address] Creatinine [Mass/Vol] 0.77 mg/dL Normal 0.55-1.02 [facility] Comment on above: Order Comment: N Result Comment: The validity of the calculated GFR GFRAA in patients over 70 years has not been determined. Clinical correlation is essential. Performed By: #### L 500.4050, L3300.0100, L3300.8200, L7400.3000, L3400.0700, L501.9520, L506.0250, L3200.1275, L801.1541, L503.0105, L801.1543 ####[facility] [address] [place], [address] EST GFR - AA 120 mL/min Normal >60 [facility] Comment on above: Order Comment: N Result Comment: Afri can Austrian GFR Calc Performed By: #### L 500.4050, L3300.0100, L3300.8200, L7400.3000, L3400.0700, L501.9520, L506.0250, L3200.1275, L801.1541, L503.0105, L801.1543 ####[facility] [address] [place], [place], [phone] GAP 7 Normal 5-15 [facility] Comment on above: Order Comment: N Performed By: #### L 500.4050, L3300.0100, L3300.8200, L7400.3000, L3400.0700, L501.9520, L506.0250, L3200.1275, L801.1541, L503.0105, L801.1543 ####[facility] [address] [place], [place], [phone] GFR/1.73 sq M.predicted among non-blacks MDRD (S/P/Bld) [Vol rate/Area] 99 mL/min/{1.73_m2} Normal >60 [facility] Comment on above: Order Comment: N Result Comment: Non- GFR Calc Performed By: #### L 500.4050, L3300.0100, L3300.8200, L7400.3000, L3400.0700, L501.9520, L506.0250, L3200.1275, L801.1541, L503.0105, L801.1543 ####[facility] [address] [place], [address] Globulin (S) [Mass/Vol] 3.9 g/dL Normal 2.2-4.2 [facility] Comment on above: Order Comment: N Performed By: #### L 500.4050, L3300.0100, L3300.8200, L7400.3000, L3400.0700, L501.9520, L506.0250, L3200.1275, L801.1541, L503.0105, L801.1543 ####[facility] [address] [place], [address] Glucose [Mass/Vol] 81 mg/dL Normal 74-106 [facility] Comment on above: Order Comment: N Performed By: #### L 500.4050, L3300.0100, L3300.8200, L7400.3000, L3400.0700, L501.9520, L506.0250, L3200.1275, L801.1541, L503.0105, L801.1543 ####[facility] [address] [place], [address] Potassium [Moles/Vol] 2.9 mmol/L Low 3.5-5.1 [facility] Comment on above: Order Comment: N Performed By: #### L 500.4050, L3300.0100, L3300.8200, L7400.3000, L3400.0700, L501.9520, L506.0250, L3200.1275, L801.1541, L503.0105, L801.1543 ####[facility] [address] [place], [address] Sodium [Moles/Vol] 139 mmol/L Normal 136-145 [facility] Comment on above: Order Comment: N Performed By: #### L 500.4050, L3300.0100, L3300.8200, L7400.3000, L3400.0700, L501.9520, L506.0250, L3200.1275, L801.1541, L503.0105, L801.1543 ####[facility] [address] [place], [place], [phone] PROT 8.0 g/dL Normal 6.4-8.2 [facility] Comment on above: Order Comment: N Performed By: #### L 500.4050, L3300.0100, L3300.8200, L7400.3000, L3400.0700, L501.9520, L506.0250, L3200.1275, L801.1541, L503.0105, L801.1543 ####[facility] [address] [place], [place], [phone] Urea nitrogen [Mass/Vol] 5 mg/dL Low 7-18 [facility] Comment on above: Order Comment: N Performed By: #### L 500.4050, L3300.0100, L3300.8200, L7400.3000, L3400.0700, L501.9520, L506.0250, L3200.1275, L801.1541, L503.0105, L801.1543 ####[facility] [address] [place], [place], [phone] Folates, (Folic Acid)on 02-04 FOLATES 24.20 ng/mL Normal 3.1-55.4 [facility] Comment on above: Order Comment: N Performed By: #### L 500.4050, L3300.0100, L3300.8200, L7400.3000, L3400.0700, L501.9520, L506.0250, L3200.1275, L801.1541, L503.0105, L801.1543 ####[facility] [address] [place], [address] Gastroenterology Visit Repor ton 02-19-2024 Gastroenterology Visit Report [facility] [address] [place] [address] OFFICE VISIT Date of Service: 02/19/24 MR#: [id number] Acct: [id number] Name: BRYNN GOMEZ Rep #: [id number] : 2000 Provider: Ga Esquivel DO Age/Sex: 23/F Location: [facility] [place] Status: Signed Intake Vital Signs 07/22/23 13:33 02/11/24 13:03 Height 5 ft 4 in 5 ft 4 in Intake Visit Reasons: 6 M FU Chief Complaint: F/U ED visit for hyperemesis Allergies red dye Allergy (Mild, Verified 01/27/24 11:36) hives yellow dye Allergy (Mild, Verified 01/27/24 11:36) hives Medications ???Medication ???Instructions ???Recorded ???Confirmed ???Type cyanocobalamin (vitamin B-12) 100 100 mcg PO DAILY 06/26/22 02/19/24 History mcg tablet (Vitamin B-12) fluoxetine 10 mg capsule 10 mg PO QDAY #30 caps 01/13/24 02/19/24 Rx gabapentin 100 mg capsule 200 mg PO TID PRN 01/13/24 02/19/24 History metoclopramide HCl 5 mg tablet 5 mg PO TID PRN 01/13/24 02/19/24 History pantoprazole 40 mg tablet,delayed 40 mg PO DAILY PRN 01/13/24 02/19/24 History release alprazolam 1 mg tablet 1 mg PO BID PRN nausea and 02/19/24 02/19/24 Rx vomiting 10 days #20 tabs dicyclomine 10 mg capsule 10 mg PO BID PRN 02/19/24 02/19/24 History PFSH Medical History (Updated 01/27/24 @ 14:32 by Lory Cherry) Major depressive disorder, recurrent severe without psychotic features Gastroparesis Generalized anxiety disorder Avoidant-restrictive food intake disorder (ARFID) Depression Anxiety Marijuana use Back pain Migraine headache Gastric reflux Shortness of breath on exertion History of edema Abdominal tenderness of left lower quadrant Diarrhea Juvenile idiopathic arthritis Family History Other Asthma Cancer Hypertension Social History Smoking Status: Never smoker alcohol intake: current alcohol intake frequency: holidays/special occasions only substance use type: marijuana and other details: smokes daily at least 3 times daily HPI HPI Chief Complaint: F/U ED visit for hyperemesis Details: BRYNN GOMEZ, is a 23 F who presents to the office today for follow up. abd/pelvis CT 03.29.[address] of the abdomen and pelvis with intravenous contrast. OV 5.8.24 pt reports continued symptoms from last visit. She continues to have daily nausea, unsure of cause. Pt reports having 1-2 soft bm per day. Pt reports she has not had any recent episodes of vomiting. Pt reports continued daily marijuana use. Pt states that she continues with reglan and pantoprazole, but states she does not take her medications regularly. Pt continues to work with psychiatrist. GET 08.24. abnormal 123.23 minutes OV 11.14.24 pt reports continued symptoms from previous visit. Pt continues with Pantoprazole 40mg daily, reports occasional breakthrough HB when she takes all of her medication at night. ROS Const Constitutional: Positive for fatigue, fever(s), weakness and weight change (weight loss) ENT ENT: No difficulty swallowing Cardio Cardiology: Positive for leg pain with exertion Gastro GI: Positive for abdominal pain, change in bowel habits, constipation, heartburn and nausea/dyspepsia; No belching, bloating, change in stool character, coffee ground emesis, cramping, diarrhea, difficulty swallowing, feeling full early, excessive flatus, incontinent of stools, Vomiting blood/hematemesis, Blood in stool, loose stools, Black,tarry stools, pain with swallowing, vomiting or other Musc Musculoskeletal: Positive for back pain, joint swelling, muscle cramps, muscle weakness, numbness, tingling, restless legs and leg pain with exertion; No joint pain Skin Skin: Positive for dry skin and itchy eyes; No yellowing of the eye Neuro Neurology: Positive for weakness, numbness, tingling and restless legs Psych Psychiatric: Positive for anxiety, Positive for depression, Positive for paranoia, Positive for Compulsive Behavior, Positive for hyperactivity and Positive for inattentiveness Endo Endocrine: Positive for fatigue and weight change (weight loss) Aller/Imm Allergy/Immunologic: Positive for itchy eyes Jean/Lymp Hematologic/Lymphatic: No easy bleeding or easy bruising Exam Const General: cooperative and no acute distress Nutritional Appearance: underweight Assessment and Plan Assessment and Plan (1) Irritable bowel syndrome with diarrhea: Status: Chronic Plan: We'll try dicyclomine 10 mg bid to treat intestinal spasms and diarrhea Continue pantoprazole and sucralfate f/u 3 mos (2) Avoidant-restrictive food intake disorder (ARFID): Status: Chronic Plan: She is seeing her psychiatrist and is actually doing very good on establishing coping mechanisms. (more content not included)... Normal [facility] Thyroid Stim Hormone (TSH)on 02-19-2024 TSH 1.590 uIU/mL Normal 0.358-3.74 0 [facility] Comment on above: Order Comment: N Performed By: #### L 500.4050, L3300.0100, L3300.8200, L7400.3000, L3400.0700, L501.9520, L506.0250, L3200.1275, L801.1541, L503.0105, L801.1543 ####[facility] [address] [facility] [place], [place], [address] Vitamin B12on 02-19-2024 Cobalamin (Vitamin B12) [Mass/Vol] 655 pg/mL Normal 211-911 [facility] Comment on above: Performed By: #### L 500.4050, L3300.0100, L3300.8200, L7400.3000, L3400.0700, L501.9520, L506.0250, L3200.1275, L801.1541, L503.0105, L801.1543 ####[facility] [address] [place], [place], [address] MR/OJSE.BPon 02-11-2024 MR/JOSE. [address], [address] [place] [address] OFFICE VISIT Date of Service: 02/11/24 MR#: [id number] Acct: [id number] Name: BRYNN GOMEZ Rep #: [id number] : 2000 Provider: Dr. Alessandro Chino se, DO Age/Sex: 23/F [place] [facility] [place] Status: Signed Intake Vital Signs 01/13/24 12:58 01/27/24 11:42 02/11/24 13:03 Height 5 ft 4 in 5 ft 4 in 5 ft 4 in BP Intake Visit Reasons: 1 M FU Allergies red dye Allergy (Mild, Verified 01/27/24 11:36) hives yellow dye Allergy (Mild, Verified 01/27/24 11:36) hives [facility] Medical History (Updated 01/27/24 @ 14:32 by Lory Cherry) Major depressive disorder, recurrent severe without psychotic features Gastroparesis Generalized anxiety disorder Avoidant-restrictive food intake disorder (ARFID) Depression Anxiety Marijuana use Back pain Migraine headache Gastric reflux Shortness of breath on exertion History of edema Abdominal tenderness of left lower quadrant Diarrhea Juvenile idiopathic arthritis Family History Other Asthma Cancer Hypertension Social History Smoking Status: Never smoker alcohol intake: current alcohol intake frequency: holidays/special occasions only substance use type: marijuana and other details: smokes daily at least 3 times daily HPI History of Present Illness History provided by: patient Chief complaint: Anxiety/eating disorder HPI: Brynn Gomez is a 23 year old female who presents today for follow up evaluation. Patient reports that she has been sick. Went to the ER twice last week secondary to vomiting. Does admit that she did have an edible prior to this episode. When in the ER states that she just received fluids and potassium when there. States that prior to this she felt like her heart was pounding which scared her. Feels like IOP has been going good so far. Feels like she finds it extremely supportive, but she worries about when it will end. States that she does feel apprehensive as she sees others do better and she is unsure if she is improving as much as them. Has not been working yet states that she wishes to try and obtain steady work. Sleep has been fair, getting about 6-7 hours but does feel well rested. Describes some thoughts of not existing most days, when previously was really sick did have some passive thoughts fo SI. This was approximately last week, but no intent, plan or attempt. Denies HI or AVH. Has been taking fluoxetine but however does not know if she has seen a significant improvement. Does feel like her thoughts have slowed down to some degree. Describes home life as good I guess. Reports that mom is temperamental so has to walk on egg shells around her. Review of Systems Constitutional Reports: change in weight; Denies: chills or fatigue Eyes Denies: change in vision or blurry vision Ears, Nose, Mouth, Throat Denies: throat pain, neck pain or change in hearing Cardiovascular Denies: chest pain, palpitations or dyspnea Respiratory Denies: dyspnea, cough or wheezing Gastrointestinal Reports: abdominal pain, nausea and vomiting; Denies: diarrhea or constipation Genitourinary Denies: dysuria or urinary frequency Musculoskeletal Denies: back pain, neck pain, joint pain or muscle weakness Integumentary/Breast Denies: rash or new lesions Neurological Reports: weakness in extremities; Denies: headache(s), dizziness or confusion Psychiatric Reports: anxiety Endocrine Reports: cold intolerance; Denies: fatigue or excessive sweating Hematologic/Lymphatic Denies: easy bruising or easy bleeding Allergic/Immunologic Denies: wheezing Exam Mental Status Exam - Psych Appearance thin Attitude guarded Activity/Motor Behavior fidgeting and limited eye contact Speech regular prosody and soft Mood depressed and anxious Affect restricted and tearful Thought Process linear and logical Thought Content no delusions and no hallucinations Suicidal Ideation none Homicidal Ideation none Attention impaired Concentration intact Sensorium/Orientation awake, oriented x3 and lethargic Memory/Cognition other (appropriate for stated age) [facility]ight impaired Judgement impaired Assessment Plan Assessment Plan (1) Generalized anxiety disorder: Plan: - Continue fluoxetine 10 mg every day for depression and anxiety -As patient has not been consistently adherent to medication would prefer she continue on current dose before we consider titration. ??? We had discussed mirtazapine in the past and it does look like Dr. Abdul made a similar recommendation which again I do believe is an appropriate choice however her adherence to medication is fair to poor and therefore we will only (more content not included)... Normal [facility] ED MED ADMINISTRATION DETAIL on 02-02-2024 ED MED ADMINISTRATION DETAIL Supervisor Varnish Medication Administration Record [address] [place] [address] [id number] 02/01/2024 Patient: BRYNN GOMEZ Sex: Female : 2000 Age: 23y MEASUREMENTS: Wt: 43.1 kg, Ht/Jason: 64.0 in, BMI: 16.31 ALLERGIES: No known drug allergies Medication Ordered Medication Administration Date/Time IV NS 0.9 % 1000 16:02 01/31 IV NS 0.9 % 1000 mL started in bag#1 1000 mL at Started mL at 999 mL/hr 999 mL/hr via Site# 1. - 16:05 Lamin Lowe R.N. 16:02 02/01/2024 (NOW x1) Lamin Lowe R.N. 17:35 01/31 Medication Discontinued: bag #1 infused. Total Stopped amount infused: 1000 mL. IV patency established. IV site checked: 17:35 02/01/2024 no pain, redness, or swelling. IV flushed thoroughly post-medication Yuki Lucio R.N. administration. - 17:35 Yuki Lucio R.N. Scanned Zofran IVP 4 mg 16:03 01/31 Zofran IVP 4 mg given via Site# 1. - 16:05 Lamin Given (NOW x1) Marlyn Lowe 16:03 02/01/2024 Lamin Lowe R.N. Scanned Haldol IVP 2 mg 16:41 01/31 Haldol IVP 2 mg given via Site# 1. Medication Given (NOW x1) Wastage: 3 mg wasted. - 16:41 Lamin Lowe R.N. 16:41 02/01/2024 Lamin Lowe R.N. Not Scanned Potassium Chloride 17:49 01/31 Potassium Chloride PO 20 mEq given. - 17:50 Lamin Given PO 20 mEq (NOW Marlyn Lowe 17:49 02/01/2024 x1) Lamin Lowe R.N. Scanned 1 of 2 Supervisor Varnish Medication Ordered Medication Administration Date/Time LORazepam 17:32 01/31 LORazepam (Ativan) IVP 1 mg given via Site# 1. Given (Ativan) IVP 1 mg Allergies verified and confirmed 5 rights. IV patency established. IV 17:32 02/01/2024 (NOW x1) site checked: no pain, redness, or swelling. IV flushed thoroughly Yuki Lucio R.N. pre-medication administration. IVP given by nurse. Information Scanned reviewed with patient including reason for taking this medication and sedative warning. Medication Wastage: 1 mg wasted. - 17:32 Yuki Lucio R.N. potassium 17:47 01/31 potassium chloride(K-Orestes)20mEq/10 0ml IVPB Started chloride(K-Orestes)20 Premix 20 mEq started at 50 mL/hr via Site# 1. - 17:49 Lamin Lowe, 17:47 02/01/2024 mEq/100ml IVPB R.NSteph Lowe R.N. Premix 20 mEq at Stopped 50 mL/hr (NOW x1) 17:47 01/31 Medication Co-sign: Verified dosage, concentration 19:38 02/01/2024 and rate. - 17:49 Marlyn Rodriguez R.N. Scanned 19:38 01/31 Medication Discontinued: IV completed. Total amount infused: 100 mL. IV patency established. IV site checked: no pain, redness, or swelling. IV flushed thoroughly post-medication administration. - 21:24 Allyson Sarmiento R.N. potassium 19:39 01/31 potassium chloride(K-Orestes)20mEq/10 0ml IVPB Started chloride(K-Orestes)20 Premix 20 mEq started at 50 mL/hr via Site# 1. Allergies verified 19:39 02/01/2024 mEq/100ml IVPB and confirmed 5 rights. IV patency established. IV site checked: no Allyson Sarmiento R.N. Premix 20 mEq at pain, redness, or swelling. IV flushed thoroughly pre-medication Stopped 50 mL/hr (NOW x1) administration. Information reviewed with patient. Verbalizes 21:35 02/01/2024 understanding. - 19:43 Marlyn Ibrahim R.N. Scanned 19:39 01/31 Medication Co-sign: Verified dosage, concentration and rate. - 19:43 Latha Martínez R.N. 21:35 01/31 Medication Discontinued: IV completed. Total amount infused: 100 mL. IV patency established. IV site checked: no pain, redness, or swelling. IV flushed thoroughly post-medication administration. - 21:39 Allyson Sarmiento R.N. 2 of 2 Normal [facility] ED NURSES CLINICAL NOTEon ED NURSES CLINICAL NOTE Nurse Narrative Nurse Clinical Narrative [place] [facility] [place] [address] [phone] 02/01/2024 Patient: BRYNN GOMEZ Sex: Female : 2000 Age: 23y Disposition: Discharge to Home Disposition Decision Time: 18:12 02/01/2024 Departure Time: 21:36 02/01/2024 TRIAGE Historian: patient. Primary physician (Chely Arcos). Triage time: 15:42 02/01/2024. Acuity: LEVEL 3. Chief Complaint: NAUSEA and VOMITING. Onset. (4 days). The patient has had nausea and vomiting. SEPSIS SCREEN: NEGATIVE. SIRS criteria negative: heart rate greater than 90. No possible sources of infection. -- 15:47 02/01/24 JUAN MANUEL Lowe R.N. 15:46 02/01/24. BP: 140/102 MAP: 115. HR: 101. RR: 18. O2 saturation: 99% Temperature: 98.3 F. Pain level now 4/10. -- 15:46 02/01/24 JUAN MANUEL Lowe R.N. Measurements: 15:46 02/01/24 Wt: 43.1 kg, Ht/Jason: 64.0 in, BMI: 16.31 -- 15:46 02/01/24 JUAN MANUEL Lowe R.N. Medications: Reglan 10 mg tablet: as needed. -- 15:44 02/01/24 JUAN MANUEL Lowe R.N. Protonix 40 mg tablet,delayed release: once a day . -- 15:44 02/01/24 JUAN MANUEL Lowe R.N. PROzac 10 mg capsule: once a day . -- 15:44 02/01/24 JUAN MANUEL Lowe R.N. gabapentin oral -- 15:45 02/01/24 JUAN MANUEL Lowe R.N. 1 of 6 Nurse Narrative Allergies: no known drug allergies -- 15:43 02/01/24 JUAN MANUEL Lowe R.N. Problems: Gastroparesis -- 15:43 02/01/24 JUAN MANUEL Lowe R.N. ADDITIONAL SURGERIES: no known surgical history -- 15:44 02/01/24 JUAN MANUEL Lowe R.N. History 15:42 02/01/24. SOCIAL HX: Never smoker. Heavy drug use: marijuana. No alcohol use. The patient has not traveled outside the [place] Infectious disease exposure: No infectious disease exposure. ABUSE ASSESSMENT: The patient answered yes to the question(s) Do you feel safe in your home? and no to the question(s) Are you afraid to go home?. SELF HARM ASSESSMENT: Self harm assessment was performed. The patient answered no to the question(s) Have you recently felt down, depressed, or hopeless? and Do you have thoughts of harming or killing yourself?. FALL RISK ASSESSMENT: Fall risk assessment completed. No risk factors identified. -- 15:47 02/01/24 JUAN MANUEL Lowe R.N. 15:47 02/01/24. PAST MEDICAL HX: Last normal menstrual period- 4 weeks ago. Denies current . -- 15:47 02/01/24 JUAN MANUEL Lowe R.N. Interventions 15:42 02/01/24. Identification band on patient. Advanced care plan discussed with patient. Patient does not have advanced directive. (full code). -- 15:47 02/01/24 JUAN MANUEL Lowe R.N. 2 of 6 Nurse Narrative PHYSICAL ASSESSMENT 16:14 02/01/24. GENERAL / NEURO / PSYCH: Alert. Oriented X 4. Appears in no acute distress. HEENT: Mucous membranes are pink. RESPIRATORY: Respirations not labored. Breath sounds within normal limits. CVS: Normal sinus rhythm noted. GI / : The patient has had nausea. Abdomen soft and nontender. Bowel sounds within normal limits. No emesis noted. SKIN: Skin is warm and dry. -- 16:29 02/01/24 JUAN MANUEL Lowe R.N. NURSING PROGRESS NOTES 15:46 02/01/24. BP: 140/102 MAP: 115. HR: 101. RR: 18. O2 saturation: 99% Temperature: 98.3 F. Pain level now 07/14. -- 22:38 02/01/24 EDT Allyson Sarmiento R.N. 16:02 02/01/24. IV NS 0.9 % 1000 mL started in bag#1 1000 mL at 999 mL/hr via Site# 1. -- 16:05 02/01/24 EDT Lamin Lowe R.N. 16:03 02/01/24. Site #1 started via IV in the right forearm with a 20g angiocath with good blood return; 1 attempt. Blood drawn: rainbow set tube(s). Labeled in the presence of the patient and sent to the lab. Saline lock flushed with 5 mL saline. -- 16:03 02/01/24 AZAMT Lamin Lowe R.N. 16:03 02/01/24. Zofran IVP 4 mg given via Site# 1. -- 16:05 02/01/24 EDT Lamin Lowe R.N. 16:05 02/01/24. HR: 104 bpm. O2 saturation: 99%. -- 22:38 02/01/24 EDT Allyson Sarmiento R.N. 16:41 02/01/24. Haldol IVP 2 mg given via Site# 1. Medication Wastage: 3 mg wasted. -- 16:41 02/01/24 AZAMT Lamin Lowe R.N. 16:42 02/01/24. BP: 134/83 MAP: 100 mmHg. HR: 82 bpm. -- 22:38 02/01/24 EDT Allyson Sarmiento R.N. 16:45 02/01/24. HR: 74 bpm. O2 saturation: 98%. -- 22:38 02/01/24 AZAMT Allyson Sarmiento R.N. 16:47 02/01/24. Patient ID band checked for patient name and birthdate: patient confirmed. Clean catch urine collected with return of yellow-colored clear urine; odor is normal; sample sent to lab for urinalysis. Specimen labeled in the presence of the patient. Two patient identifiers checked. Call light placed in reach. Side rails up x 1. Bed placed in lowest position. Brakes of bed on. -- 16:47 02/01/24 EDT Lamin Lowe R.N. 16:55 02/01/24. HR: 122 bpm. O2 saturation: 97%. -- 22:38 02/01/24 EDT Allyson Sarmiento R.N. 16:57 02/01/24. ( pt c/o anxiety, feels like her heart is jumping out of her chest, pt is tachycardiac, pt place (more content not included)... Normal [facility] ED ORDER SHEET (CPOE ONLY)on 02-02-2024 ED ORDER SHEET (CPOE ONLY) Order Sheet Order Sheet [address] [place] [address] [id number] 02/01/2024 Patient: BRYNN GOMEZ Sex: Female : 2000 Age: 23y MEASUREMENTS: Wt: 43.1 kg, Ht/Jason: 64.0 in, BMI: 16.31 ALLERGIES: No known drug allergies MEDICATION/IV/DRIP/FLUID ORDERS Order Description Priority Entered Acknowledged Completed IV NS 0.9 %1000 mL at 999 15:42 02/01/2024 16:05 mL/hr (NOW x1) Lico Riuz, 02/01/2024 Lorena Lowe R.N. Zofran IVP4 mg (NOW x1) 15:42 02/01/2024 16:05 Lico Ruiz, 02/01/2024 Lorena Lowe R.N. Haldol IVP2 mg (NOW x1) 16:36 02/01/2024 16:39 16:41 Lico Ruiz, 02/01/2024 02/01/2024 Lamin Francis R.N. R.NSteph Reason for ordering with alerts: Benefits outweigh risks --16:36 02/01/2024 Lico Ruiz D.O. potassium 17:25 02/01/2024 Cancelled: Physician Order chloride(K-Orestes)20mEq/10 0ml Lico Ruiz, 17:39 EDT Lico Lemasters, IVPB [id number] mEq at 50 mL/hr D.O. D.O. 1 of 3 Order Sheet (NOW x1) Potassium Chloride PO20 mEq 17:25 02/01/2024 17:29 17:50 (NOW x1) Lico Ruiz, 02/01/2024 02/01/2024 D.O. Lamin Wright R.N. R.N. LORazepam (Ativan) IVP1 mg 17:25 02/01/2024 17:29 17:32 (NOW x1) Lico Ruiz, 02/01/2024 02/01/2024 D.OYuki Lovett, RStephN. R.N. Reason for ordering with alerts: Benefits outweigh risks --17:25 02/01/2024 Fly DiggsOSteph potassium 17:40 02/01/2024 17:49 chloride(K-Orestes)20mEq/10 0ml Lico Ruiz, 02/01/2024 IVPB [id number] mEq at 50 mL/hr D.O. Lamin Lowe, (NOW x1) R.N. Reason for ordering with alerts: Benefits outweigh risks --17:40 02/01/2024 Fly DiggsOSteph potassium 17:40 02/01/2024 19:43 chloride(K-Orestes)20mEq/10 0ml Lico Ruiz, 02/01/2024 IVPB [id number] mEq at 50 mL/hr D.O. Allyson Sarmiento (NOW x1) R.N. Reason for ordering with alerts: Benefits outweigh risks --17:40 02/01/2024 Lico Ruiz D.O. LAB ORDERS Order Description Priority Entered Acknowledged Collected Completed CBC w Diff Stat Stat 15:42 02/01/2024 16:07 02/01/2024 16:07 02/01/2024 Marlyn Alatorre R.N. Lemasters, Kasandra.O. CMP Stat Stat 15:42 02/01/2024 16:07 02/01/2024 16:07 02/01/2024 Marlyn Alatorre R.N. Lemasters, Kasadnra.O. 2 of 3 Order Sheet Lipase Stat Stat 15:42 02/01/2024 16:07 02/01/2024 16:07 02/01/2024 Marlyn Alatorre R.N. Lemasters, D.O. Urinalysis Stat Stat 15:42 02/01/2024 16:08 02/01/2024 16:45 02/01/2024 Marlyn Alatorre R.N. Lemasters, D.O. EKG - ED Stat Stat 17:01 02/01/2024 17:10 02/01/2024 17:10 02/01/2024 Marlyn Alatorre R.N. Lemasters, D.O. DIAGNOSTIC STUDY ORDERS Order Description Priority Entered Acknowledged Completed STAFF ORDERS Order Description Priority Entered Acknowledged Collected Completed IV Saline Lock 15:42 02/01/2024 16:07 02/01/2024 16:07 02/01/2024 Marlyn Alatorre R.N. Lemasters, D.O. [Electronically signed by Lico Ruiz D.O. (02/01/2024 18:14 EDT)] 3 of 3 Normal [facility] ED PHYSICIAN CLINICAL REPORT on 02-02-2024 ED PHYSICIAN CLINICAL REPORT Narrative Physician Clinical Narrative [address] [address] [id number] 02/01/2024 Patient: BRYNN GOMEZ Sex: Female : 2000 Age: 23y Disposition: Discharge Disposition Decision Time: 18:12 02/01/2024 Measurements Wt: 43.1 kg, Ht/Jason: 64.0 in, BMI: 16.31 Initial Vital Sign Measured Time BP MAP HR RR O2Sat ETCO2 Temp Pain GCS RTS 15:46 02/01/2024 140/102 115 101 18 99% 98.3 F 4 Time Seen: 15:38 02/01/2024. Arrived- By private vehicle. Historian- patient. Independent historian- family. HISTORY OF PRESENT ILLNESS Chief Complaint: ABDOMINAL PAIN. (Began 4 days ago. Seen in the emergency department in [place] 2 days ago at which time she had fluids as well as her potassium repleted. States she continues to have nausea vomiting unable to keep anything down. Denies any fever, chills, urinary symptoms. Last menstrual period 3 weeks ago. Daily marijuana use.). REVIEW OF SYSTEMS : No difficulty with urination, pain with urination or urinary frequency. GI: No constipation, black stools or bloody stools. PAST HISTORY Gastroparesis 1 of 11 Narrative Surgeries: no known surgical history Medications: gabapentin oral Protonix 40 mg tablet,delayed release: once a day . PROzac 10 mg capsule: once a day . Reglan 10 mg tablet: as needed. Allergies: no known drug allergies SOCIAL HISTORY Drug use: marijuana. ADDITIONAL NOTES The nursing notes have been reviewed. PHYSICAL EXAM Vital Signs: Have been reviewed. Appearance: No acute distress. ENT: Dry mucous membranes present. Pharynx normal. Neck: Normal inspection. Neck supple. CVS: Normal heart rate and rhythm. Heart sounds normal. Pulses normal. Respiratory: No respiratory distress. Breath sounds normal. Abdomen: Soft and nontender. Skin: Skin warm and dry. Pallor. No rash. Extremities: No lower extremity edema. Neuro: No motor deficit. No sensory deficit. LABS, X-RAYS, AND EKG 2 of 11 Narrative 12-LEAD EKG: EKG time: 16:59 02/01/2024. Normal sinus rhythm. Normal SAVANNA. Normal QTc. Non-specific ST segment / T wave abnormalities. The study has been interpreted contemporaneously by me. Interpretation time: 17:00 02/01/2024. Laboratory Tests: CBC + DIFF Final ABBE: 02/01/2024 16:01:00 EDT MsgRcvd: 02/01/2024 16:33 EDT Lab Test Result Reference Status Received Comments 02/01/2024 16:33 CBC-COMPLETE CBC + DIFF Final EDT BLOOD COUNT 02/01/2024 16:33 WBC 6.7 x 10/UL 4.5 - 10.8 Final EDT 5.45 x 10/UL 02/01/2024 16:33 RBC 4.10 - 5.30 Final Above high normal EDT 16.2 g/dl 02/01/2024 16:33 HEMOGLOBIN 12.0 - 16.0 Final Above high normal EDT 48.9 % 02/01/2024 16:33 HEMATOCRIT 34.0 - 46.0 Final Above high normal EDT 02/01/2024 16:33 MCV 90 fl 80 - 99 Final EDT 02/01/2024 16:33 MCH 30 pg 27 - 33 Final EDT 02/01/2024 16:33 MCHC 33 X10 3 32 - 36 Final EDT 02/01/2024 16:33 RDW/CV 13.0 % 12.0 - 15.6 Final EDT 02/01/2024 16:33 PLATELET 279 x10/UL 150 - 450 Final EDT Narrative 02/01/2024 16:33 AUTOMATED MPV 7.4 fl 6.6 - 10.5 Final EDT DIFFERENTIAL 02/01/2024 16:33 NEUT % 72.6 % 46.0 - 76.0 Final EDT 19.5 % 02/01/2024 16:33 LYMPH % 20.0 - 45.0 Final Below low normal EDT 02/01/2024 16:33 MONOS % 7.3 % 0.0 - 10.0 Final EDT 02/01/2024 16:33 EO % 0.4 % 0.0 - 7.0 Final EDT 02/01/2024 16:33 BASO % 0.3 % 0.0 - 2.0 Final EDT 02/01/2024 16:33 Lymph # 1.31 x10/UL 0.80 - 2.80 Final EDT 02/01/2024 16:33 Neut # 4.88 x10/UL 1.50 - 7.10 Final EDT 02/01/2024 16:33 York # 0.49 x10/UL 0.20 - 1.00 Final EDT 02/01/2024 16:33 EO # 0.03 x10/UL 0.00 - 0.50 Final EDT 02/01/2024 16:33 Baso # 0.02 x10/UL 0.00 - 0.10 Final EDT 02/01/2024 16:33 MANUAL DIFF N/A New Order EDT 02/01/2024 16:33 MORPHOLOGY N/A New Order EDT CMP with eGFR Final Narrative ABBE: 02/01/2024 16:01:00 EDT MsgRcvd: 02/01/2024 17:07 EDT Lab Test Result Reference Status Received Comments COMPREHENSIVE 02/01/2024 CMP with eGFR Final METABOLIC 17:07 EDT PANEL 132 mmol/l 02/01/2024 SODIUM 136 - 145 Final Below low normal 17:07 EDT { CALLED TO JAMILA 750641 2.8 mmol/L 02/01/2024 06405 POTASSIUM Below lower panic 3.5 - 5.1 Final 17:07 EDT { READ BACK BY limits RRB Leslie LOWE 620783 170 94 mmol/L 02/01/2024 CHLORIDE 98 - 107 Final Below low normal 17:07 EDT 02/01/2024 CO2 22.4 mmol/L 21.0 - 32.0 Final 17:07 EDT 02/01/2024 GLUCOSE 91 mg/dl 74 - 106 Final 17:07 EDT 02/01/2024 BUN 15 mg/dl 7 - 18 Final 17:07 EDT 02/01/2024 CREATININE 0.81 mg/dl 0.55 - 1.02 Final 17:07 EDT 02/01/2024 AST/SGOT 21 U/L 13 - 39 Final 17:07 EDT 02/01/2024 ALK PHOS 68 U/L 46 - 1 (more content not included)... Normal [facility] ED [facility] BILL 02-02-2024 ED [place] [address] [place] [address] [id number] 02/01/2024 Patient: BRYNN GOMEZ Sex: Female : 2000 Age: 23y Item Facility Professional Category Description Code Code Quantity Fee Total Drugs Normal Saline 311179 1 $0.00 $0.00 1000cc (185275) Nurse/E/M EMERGENCY 816068 1 $0.00 $0.00 DEPARTMENT VISIT HIGH/URGENT SEVERITY (15078-55) Nurse/IV/IM/Infusions Drip/IVPB 154329 3 $0.00 $0.00 additional hour (44743) Nurse/IV/IM/Infusions Drip/IVPB initial 691866 1 $0.00 $0.00 (33773) Nurse/IV/IM/Infusions Hydration 219074 2 $0.00 $0.00 additional hour (57031) Nurse/IV/IM/Infusions IVP additional 451343 3 $0.00 $0.00 push (87356) Grand Total $0.00 1 of 2 [facility] Providers Lico Ruiz D.O. Chief Complaint ABDOMINAL PAIN. Principal Diagnosis Vomiting with nausea. Sinus tachycardia Hypokalemia ICD-10 Codes R11.2: Nausea with vomiting, unspecified R00.0: Tachycardia, unspecified E87.6: Hypokalemia K52.9: Noninfective gastroenteritis and colitis, unspecified 2 of 2 Normal [facility] ED VISIT SUMMARYon ED VISIT SUMMARY Visit Overview Visit Overview [address] [address] [id number] 02/01/2024 Patient: BRYNN GOMEZ Sex: Female : 2000 Age: 23y 02/02/2024 02:23 AM EDT ED Arrival:15:37 02/01/2024 EDT Status:not Recent Travel:no Language:eng Adv Directive:No Isolation Status: Ethnicity:N Fall Risk:no risk Infectious Disease Exposure:no Measurements:5'4 / 162.6 Self-Harm Status:risk Sepsis Screen:negative cm 95.0 lb / 43.1 kg Chief Complaint:NAUSEA, VOMITING, (4 days), and (Chely Arcos) ALLERGIES No Known Drug Allergies HOME MEDICATIONS gabapentin oral Protonix 40 mg tablet,delayed release: once a day . PROzac 10 mg capsule: once a day . Reglan 10 mg tablet: as needed. 1 of 3 Visit Overview PAST MEDICAL HISTORY / PROBLEMS Gastroparesis Last normal menstrual period- 4 weeks ago PAST SURGICAL HISTORY No Surgeries SOCIAL HISTORY Smoking status: No Alcohol use: No Drug use: Yes ED COURSE MEDICATIONS GIVEN IN EMERGENCY DEPARTMENT 16:02 02/01/24 IV NS 0.9 % 1000 mL 999 mL/hr 16:03 02/01/24 Zofran IVP 4 mg 16:41 02/01/24 Haldol IVP 2 mg 17:32 02/01/24 LORazepam (Ativan) IVP 1 mg 17:47 02/01/24 potassium chloride(K-Orestes)20mEq/10 0ml IVPB Premix 20 mEq 50 mL/hr 17:49 02/01/24 Potassium Chloride PO 20 mEq 19:39 02/01/24 potassium chloride(K-Orestes)20mEq/10 0ml IVPB Premix 20 mEq 50 mL/hr IV SITE INFORMATION INTAKE OUTPUT REASSESMENT (most recent) 18:14 02/01/24. Reassessment after medication administered and fluids administered. The patient is calm and resting quietly. Overall patient status is improved- the patient states feels better. GI / : Denies nausea or vomiting. VITAL SIGNS First Vitals Last Vitals 2 of 3 Visit Overview First Vitals Last Vitals Temp 15:46 02/01/24 98.3 F Temp 21:36 02/01/24 BP 15:46 02/01/24 140/102 BP 21:36 02/01/24 HR 15:46 02/01/24 101 HR 21:36 02/01/24 RR 15:46 02/01/24 18 RR 21:36 02/01/24 O2 Sat 15:46 02/01/24 99% O2 Sat 21:36 02/01/24 Pain 15:46 02/01/24 4 Pain 21:36 02/01/24 0 ETCO2 15:46 02/01/24 ETCO2 21:36 02/01/24 GCS 15:46 02/01/24 GCS 21:36 02/01/24 RTS 15:46 02/01/24 RTS 21:36 02/01/24 PROCEDURES NURSING INTERVENTIONS LABS / STUDIES LABS / STUDIES ORDERED CBC w Diff CMP EKG - ED Lipase Urinalysis LABS - ABNORMAL RESULTS CMP with eGFR POTASSIUM 2.8 mmol/L (LL) CLINICAL IMPRESSION HYPOKALEMIA SINUS TACHYCARDIA VOMITING WITH NAUSEA 3 of 3 Normal [facility] ED VITALS FLOW SHEETon 02-01 ED VITALS FLOW SHEET Vitals Vital Sign Flow Sheet [address] [place] [address] [id number] 02/01/2024 Patient: BRYNN GOMEZ Sex: Female : 2000 Age: 23y Measurements Wt: 43.1 kg, Ht/Jason: 64.0 in, BMI: 16.31 Measured Time BP MAP HR RR O2Sat ETCO2 Temp Pain GCS RTS 21:36 02/01/2024 0 21:33 02/01/2024 124/70 90 105 21:30 02/01/2024 100 98% 21:12 02/01/2024 120/83 89 91 21:05 02/01/2024 102 92% 20:57 02/01/2024 117/74 81 82 20:45 02/01/2024 129 93% 20:42 02/01/2024 120/75 87 93 20:35 02/01/2024 103 95% 20:30 02/01/2024 107 97% 20:27 02/01/2024 114/74 82 94 20:12 02/01/2024 126/77 87 107 20:10 02/01/2024 113 94% 20:05 02/01/2024 131 97% 20:00 02/01/2024 106 99% 1 of 4 Vitals Measured Time BP MAP HR RR O2Sat ETCO2 Temp Pain GCS RTS 19:57 02/01/2024 111/65 74 95 19:55 02/01/2024 117 97% 19:50 02/01/2024 119 97% 19:45 02/01/2024 93 94% 19:42 02/01/2024 123/72 84 111 19:40 02/01/2024 109 95% 19:30 02/01/2024 122 96% 19:27 02/01/2024 125/63 74 113 19:25 02/01/2024 120 96% 19:20 02/01/2024 116 96% 19:15 02/01/2024 134 96% 19:12 02/01/2024 121/67 78 102 19:10 02/01/2024 129 95% 19:05 02/01/2024 121 95% 19:00 02/01/2024 109 95% 18:57 02/01/2024 116/68 76 103 18:55 02/01/2024 128 94% 18:50 02/01/2024 135 97% 18:45 02/01/2024 116 96% 18:42 02/01/2024 116/65 73 101 18:40 02/01/2024 109 97% 18:35 02/01/2024 104 95% 18:30 02/01/2024 93 95% 18:27 02/01/2024 117/65 75 103 18:25 02/01/2024 100 95% 2 of 4 Vitals Measured Time BP MAP HR RR O2Sat ETCO2 Temp Pain GCS RTS 18:20 02/01/2024 103 96% 18:15 02/01/2024 102 97% 18:12 02/01/2024 108/64 74 94 18:10 02/01/2024 101 94% 18:05 02/01/2024 104 96% 18:00 02/01/2024 90 95% 17:57 02/01/2024 112/64 73 94 17:55 02/01/2024 99 96% 17:50 02/01/2024 108 94% 17:45 02/01/2024 103 95% 17:42 02/01/2024 118/67 75 105 17:40 02/01/2024 93 94% 17:35 02/01/2024 97 95% 17:30 02/01/2024 126 96% 17:27 02/01/2024 120/64 76 100 17:25 02/01/2024 131 97% 17:20 02/01/2024 100 95% 17:15 02/01/2024 112 94% 17:12 02/01/2024 117/66 83 116 17:10 02/01/2024 99 94% 17:05 02/01/2024 97 96% 17:00 02/01/2024 77 94% 16:57 02/01/2024 133/74 93 117 16:55 02/01/2024 122 97% 16:50 02/01/2024 133 95% 3 of 4 Vitals Measured Time BP MAP HR RR O2Sat ETCO2 Temp Pain GCS RTS 16:45 02/01/2024 74 98% 16:42 02/01/2024 134/83 100 82 16:25 02/01/2024 91 96% 16:20 02/01/2024 81 95% 16:15 02/01/2024 74 98% 16:10 02/01/2024 84 100% 16:05 02/01/2024 104 99% 15:46 02/01/2024 140/102 115 101 18 99% 98.3 F 4 4 of 4 Normal [facility] CBC + DIFFon 02-01-2024 Baso # 0.02 x10EE3/UL Normal 0.00 - 0.10 [facility] Comment on above: Performed By: #### [id number] #### [facility],[address] [place] [id number] Basophils/100 WBC (Bld) 0.3 % Normal 0.0 - 2.0 [facility] Comment on above: Performed By: #### 2 [id number] #### [facility],[address] [place] [address] CBC + DIFF Normal [facility] Comment on above: Result Comment: CBC- COMPLETE BLOOD COUNT Performed By: #### [id number] #### [facility],[address] [place] [address] EO # 0.03 x10EE3/UL Normal 0.00 - 0.50 [facility] Comment on above: Performed By: #### [id number] #### [facility],[address] [place], [place] [id number] Eosinophils/100 WBC (Bld) 0.4 % Normal 0.0 - 7.0 [facility] Comment on above: Performed By: #### [id number] #### [facility],[address] [place], [place] [id number] Erythrocyte distribution width (RBC) [Ratio] 13.0 % Normal 12.0 - 15.6 [facility] Comment on above: Performed By: #### [id number] #### [facility],[address] [place] [address] Hematocrit (Bld) [Volume fraction] 48.9 % High 34.0 - 46.0 [facility] Comment on above: Performed By: #### [id number] #### [facility],[address] [place] [id number] Hemoglobin (Bld) [Mass/Vol] 16.2 g/dL High 12.0 - 16.0 [facility] Comment on above: Performed By: #### 2 [id number] #### [facility],[address] [place] [address] Lymph # 1.31 x10EE3/UL Normal 0.80 - 2.80 [facility] Comment on above: Performed By: #### [id number] #### [facility],[address] [place] [address] Lymphocytes/100 WBC (Bld) 19.5 % Low 20.0 - 45.0 [facility] Comment on above: Performed By: #### [id number] #### [facility],[address] [place] [address] MANUAL DIFF N/A Normal [facility] Comment on above: Performed By: #### 2 32676 #### [facility],[address] [place] [address] MCH (RBC) [Entitic mass] 30 pg Normal 27 - 33 [facility] Comment on above: Performed By: #### 2 15333 #### [facility],[address] [place] [address] MCHC 33 X10 3 Normal 32 - 36 [facility] Comment on above: Performed By: #### 2 48913 #### [facility],[address] [place], [place] [address] MCV (RBC) [Entitic vol] 90 fL Normal 80 - 99 [facility] Comment on above: Performed By: #### 2 50317 #### [facility],[address] [place] [address] 77598 York # 0.49 x10EE3/UL Normal 0.20 - 1.00 [facility] Comment on above: Performed By: #### 2 08571 #### [facility],[address] [place] [address] 49555 MONOS % 7.3 % Normal 0.0 - 10.0 [facility] Comment on above: Performed By: #### 2 65690 #### [facility],[address] [place] [address] 39066 Morphology Byron (Bld) [Interp] N/A Normal [facility] Comment on above: Performed By: #### 2 42506 #### [facility],[address] [place] [address] 71482 Neut # 4.88 x10EE3/UL Normal 1.50 - 7.10 [facility] Comment on above: Performed By: #### 2 16317 #### [facility],[address] [place] [address] 67122 Neutrophils/100 WBC (Bld) 72.6 % Normal 46.0 - 76.0 [facility] Comment on above: Performed By: #### 2 79990 #### [facility],[address] [place] [address] 97572 PLATELET 279 x10EE3/UL Normal 150 - 450 [facility] Comment on above: Performed By: #### 2 34881 #### [facility],[address] [place] [address] 89529 Platelet mean volume (Bld) [Entitic vol] 7.4 fL Normal 6.6 - 10.5 [facility] Comment on above: Result Comment: AUTO MATED DIFFERENTIAL Performed By: #### 2 52009 #### [facility],[address] [place] [address] 20395 RBC 5.45 x 10EE6/UL High 4.10 - 5.30 [facility] Comment on above: Performed By: #### 2 67668 #### [facility],[address] [place] [address] 78124 WBC 6.7 x 10EE3/UL Normal 4.5 - 10.8 [facility] Comment on above: Performed By: #### 2 16130 #### [facility],[address] [place] [address] 41834 CMP with eGFRon 02-01-2024 AGE 23 years Normal [facility] Comment on above: Performed By: #### 2 43066 #### [facility],[address] [place] [address] 23951 Albumin [Mass/Vol] 4.5 g/dL Normal 3.4 - 5.0 [facility] Comment on above: Performed By: #### 2 54708 #### [facility],[address] [place] [address] 49734 Albumin/Globulin [Mass ratio] 1.1 {ratio} Normal 0.9 - 1.6 [facility] Comment on above: Performed By: #### 2 72139 #### [facility],[address] [place] [address] 30427 ALK PHOS 68 U/L Normal 46 - 116 [facility] Comment on above: Performed By: #### 2 32804 #### [facility],[address] [place] [address] 63134 ALT [Catalytic activity/Vol] 29 U/L Normal 16 - 63 [facility] Comment on above: Performed By: #### 2 82731 #### [facility],[address] [place] [address] 81801 Anion gap [Moles/Vol] 18 mmol/L Normal 10 - 20 [facility] Comment on above: Performed By: #### 2 89543 #### [facility],[address] [place] [address] 17722 AST [Catalytic activity/Vol] 21 U/L Normal 13 - 39 [facility] Comment on above: Performed By: #### 2 67680 #### [facility],[address] [place] [address] 78662 B/C RATIO 19 ratio Normal 0 - 30 [facility] Comment on above: Performed By: #### 2 74721 #### [facility],[address] [place] [address] 99561 Bilirubin [Mass/Vol] 0.8 mg/dL Normal 0.2 - 1.0 [facility] Comment on above: Performed By: #### 2 86071 #### [facility],[address] [place] [address] 71249 Calcium [Mass/Vol] 9.4 mg/dL Normal 8.5 - 10.1 [facility] Comment on above: Performed By: #### 2 83745 #### [facility],[address] [place] [address] 35291 Chloride [Moles/Vol] 94 mmol/L Low 98 - 107 [facility] Comment on above: Performed By: #### 2 36803 #### [facility],[address] [place] [address] 59383 CMP with eGFR Normal [facility] Comment on above: Result Comment: COMP REHENSIVE METABOLIC PANEL Performed By: #### 2 84229 #### [facility],[address] [place] [address] 00200 CO2 [Moles/Vol] 22.4 mmol/L Normal 21.0 - 32.0 [facility] Comment on above: Performed By: #### 2 69164 #### [facility],[address] [place] [address] 98332 Creatinine [Mass/Vol] 0.81 mg/dL Normal 0.55 - 1.02 [facility] Comment on above: Performed By: #### 2 30470 #### [facility],[address] [place] [address] 86580 GFR/1.73 sq M.predicted among non-blacks MDRD (S/P/Bld) [Vol rate/Area] mL/min/{1.73_m2} Normal 60 - 999 [facility] Comment on above: Performed By: #### 2 56515 #### [facility],[address] [place] [address] 35427 Result Comment: ACCO RDING TO THE NATIONAL KIDNEY DISEASE EDUCATION PROGRAM(NKDE), A NORMAL eGFR IS A VALUE GREATER THAN OR EQUAL TO 60 ML/MIN/1.73 SQ METERS. CHRONIC KIDNEY DISEASE: <60mL/MIN/1.73 SQ METERS KIDNEY FAILURE: <15mL/MIN/1.73 SQ METERS THIS TEST SHOULD ONLY BE USED FOR PATIENTS 18 YEARS OF AGE AND OLDER. Globulin (S) [Mass/Vol] 4.0 g/dL High 1.5 - 3.8 [facility] Comment on above: Performed By: #### 2 61845 #### [place] [id number] Glucose [Mass/Vol] 91 mg/dL Normal 74 - 106 [facility] Comment on above: Performed By: #### 2 19221 #### [facility],[address] [place], [place] [address] Potassium [Moles/Vol] 2.8 mmol/L Critically low 3.5 - 5.1 [facility] Comment on above: Result Comment: { CA LLED TO JAMILA [id number] { READ BACK BY RRB Leslie LOWE [id number] Performed By: #### 2 70281 #### [place] [id number] Protein [Mass/Vol] 8.5 g/dL High 6.4 - 8.2 [facility] Comment on above: Performed By: #### 2 58172 #### [address] [address] Sodium [Moles/Vol] 132 mmol/L Low 136 - 145 [facility] Comment on above: Performed By: #### 2 21203 #### [address] [address] Urea nitrogen [Mass/Vol] 15 mg/dL Normal 7 - 18 [facility] Comment on above: Performed By: #### 2 08383 #### [place] [id number] LIPASEon 02-01-2024 Lipase [Catalytic activity/Vol] 65.0 U/L Normal 15.0 - 78.0 [facility] Comment on above: Result Comment: *PLE ASE NOTE THAT RANGES FOR LIPASE HAVE CHANGED OF 04/03/23 DUE TO AN ASSAY UPDATE BY THE PROCESSING TECH.THE NEW ASSAY RANGE IS 6-250 U/L, WITH A REFERENCE RANGE OF 16-77 U/L. Performed By: #### 2 89018 #### [facility],[address] [place] [address] URINALYSISon 02-01-2024 Amorphous NONE Normal [facility] Comment on above: Performed By: #### 2 06409 #### [facility],[address] [place] [address] Bacteria TRACE Normal [facility] Comment on above: Performed By: #### 2 17624 #### [facility],[address] [place] [address] Bilirubin Ql (U) Negative Normal NORMAL: NEGATIVE [facility] Comment on above: Performed By: #### 2 96398 #### [facility],[address] [place] [address] Casts NONE Normal [facility] Comment on above: Performed By: #### 2 54816 #### [facility],[address] [place] [address] Clarity (U) clear Normal NORMAL: CLEAR [facility] Comment on above: Performed By: #### 2 11713 #### [facility],[address] [place], [place] [address] Color (U) yellow Normal NORMAL: YELLOW [facility] Comment on above: Performed By: #### 2 58761 #### [facility],[address] [place] [address] 19057 Crystals LM Nom (Urine sed) NONE Normal [facility] Comment on above: Performed By: #### 2 78449 #### [facility],[address] [place], [place] [address] Epi Cells MODERATE Normal [facility] Comment on above: Performed By: #### 2 75610 #### [facility],[address] [place], [place] [address] Glucose Ql (U) NORM Normal NORMAL: NORMAL [facility] Comment on above: Performed By: #### 2 11961 #### [facility],[address] [place] [address] 23966 Hemoglobin Ql (U) 150 Abnormal NORMAL: NEGATIVE [facility] Comment on above: Performed By: #### 2 44762 #### [facility],[address] [place] [address] 39850 Ketone 150 Abnormal NORMAL: NEGATIVE [facility] Comment on above: Performed By: #### 2 09523 #### [facility],[address] [place] [address] 23604 Leukocytes Negative Normal NORMAL: NEGATIVE [facility] Comment on above: Performed By: #### 2 33716 #### [facility],[address] [place] [address] 69474 Mucous NONE Normal [facility] Comment on above: Performed By: #### 2 16197 #### [facility],[address] [place] [address] 25428 Nitrite Ql (U) Negative Normal NORMAL: NEGATIVE [facility] Comment on above: Performed By: #### 2 05335 #### [facility],[address] [place] [address] 83240 pH (U) 6.5 [pH] Normal NORMAL: 5.0-8.0 [facility] Comment on above: Performed By: #### 2 24462 #### [facility],[address] [place] [address] 05655 Protein Ql (U) 15 Abnormal NORMAL: NEGATIVE [facility] Comment on above: Performed By: #### 2 53513 #### [facility],[address] [place] [address] 82441 Rbc 0-5 Normal 0-3/hpf [facility] Comment on above: Performed By: #### 2 54129 #### [facility],[address] [place] [address] 29884 Sp [place] 1.010 Normal NORMAL: 1.010-1.03 0 [facility] Comment on above: Performed By: #### 2 65617 #### [facility],[address] [place] [address] Specimen Type R Normal [facility] Comment on above: Performed By: #### 2 01365 #### [facility],[address] [place] [address] Urinalysis dipstick W Reflex Microscopic panel (U) SEE BELOW Normal [facility] Comment on above: Result Comment: MICR OSCOPIC Performed By: #### 2 74672 #### [facility],[address] [place] [address] Urobilinog NORM Normal NORMAL: NORMAL [facility] Comment on above: Performed By: #### 2 51833 #### [facility],[address] [place] [address] Wbc NONE Normal 0-5/hpf [facility] Comment on above: Performed By: #### 2 84166 #### [facility],[address] [place] [address] 28122 Yeast NONE Normal [facility] Comment on above: Performed By: #### 2 90581 #### [facility],[address] [place], [place] [address] Basic metabolic 2000 panelon 01-30-2024 Anion gap [Moles/Vol] 16 mmol/L 10 - 2 0 mmol/L [facility] Calcium [Mass/Vol] 10.1 mg/dL 8.6 - 10. 3 mg/dL [facility] Chloride [Moles/Vol] 95 mmol/L Low 98 - 10 7 mmol/L [facility] CO2 [Moles/Vol] 25 mmol/L 21 - 32 mmol/L [facility] Creatinine [Mass/Vol] 0.67 mg/dL 0.50 - 1.05 mg/dL [facility] eGFR - PINF [facility] Comment on above: Calculations of danny mated GFR are performed using the 2020 CKD-EPI Study Refit equation without the race variable for the IDMS-Traceable creatinine methods. https://jasn.asnjournals.org/content//ASN.265323 5055 Glucose [Mass/Vol] 87 mg/dL 74 - 99 mg/dL [facility] Interpretation and review of laboratory results Abnormal [facility] Potassium [Moles/Vol] 3.2 mmol/L Low 3.5 - 5.3 mmol/L [facility] Sodium [Moles/Vol] 133 mmol/L Low 136 - 145 mmol/L [facility] Urea nitrogen [Mass/Vol] 11 mg/dL 6 - 23 mg/dL [facility] Anion gap [Moles/Vol] 16 mmol/L Normal 10-20 [facility] Comment on above: Performed By: #### 2 4323-8 #### YUMIKO CALHOUN ([id number]) [facility] ([facility]) [address] [place] [address] 24949 Calcium [Mass/Vol] 10.1 mg/dL Normal 8.6-10.3 [facility] Comment on above: Performed By: #### 2 4323-8 #### YUMIKO CALHOUN ([id number]) [facility] ([facility]) [address] [place] [address] 68723 Chloride [Moles/Vol] 95 mmol/L Low 98-107 [facility] Comment on above: Performed By: #### 2 4323-8 #### YUMIKO CALHOUN ([id number]) [facility] ([facility]) [address] [place] [address] 90731 CO2 [Moles/Vol] 25 mmol/L Normal 21-32 [facility] Comment on above: Performed By: #### 2 4323-8 #### YUMIKO CALHOUN ([id number]) [facility] ([facility]) [address] [place] [address] 74630 Creatinine [Mass/Vol] 0.67 mg/dL Normal 0.50-1.05 [facility] Comment on above: Performed By: #### 2 4323-8 #### YUMIKO CALHOUN ([id number]) [facility] ([facility]) [address] [place] [address] GFR/1.73 sq M.predicted MDRD (S/P/Bld) [Vol rate/Area] mL/min/{1.73_m2} Normal >60 [facility] Comment on above: Result Comment: Calc ulations of estimated GFR are performed using the 2020 CKD-EPI Study Refit equation without the race variable for the IDMS-Traceable creatinine methods. https://jasn.asnjournals.org/content/early//ASN.304167 5489 Performed By: #### 2 4323-8 #### YUMIKO CALHOUN ([id number]) [facility] ([facility]) [address] [place] [address] 01452 Glucose [Mass/Vol] 87 mg/dL Normal 74-99 [facility] Comment on above: Performed By: #### 2 4323-8 #### YUMIKO CALHOUN ([id number]) [facility] ([facility]) [address] [place] [address] 24370 Potassium [Moles/Vol] 3.2 mmol/L Low 3.5-5.3 [facility] Comment on above: Performed By: #### 2 4323-8 #### YUMIKO CALHOUN ([id number]) [facility] ([facility]) [address] [place] [address] 22801 Sodium [Moles/Vol] 133 mmol/L Low 136-145 [facility] Comment on above: Performed By: #### 2 4323-8 #### YUMIKO CALHOUN ([id number]) [facility] ([facility]) [address] [place] [address] 07022 Urea nitrogen [Mass/Vol] 11 mg/dL Normal 6-23 [facility] Comment on above: Performed By: #### 2 4323-8 #### YUMIKO CALHOUN ([id number]) [facility] ([facility]) [facility] [place] [address] CBC W Auto Differential pane l (Bld)on 01-30-2024 Basophils (Bld) [#/Vol] 0.01 10*3/uL [facility] Basophils/100 WBC (Bld) 0.1 % 0.0 - 2.0 % [facility] Eosinophils (Bld) [#/Vol] 0 10*3/uL [facility] Eosinophils/100 WBC (Bld) 0 % 0.0 - 6.0 % [facility] Erythrocyte distribution width (RBC) [Ratio] 11.9 % 11.5 - 14.5 % [facility] Hematocrit (Bld) [Volume fraction] 44.8 % 36.0 - 46.0 % [facility] Hemoglobin (Bld) [Mass/Vol] 15.4 g/dL 12.0 - 16.0 g/dL [facility] Immature granulocytes (Bld) [#/Vol] 0.03 10*3/uL [facility] Immature granulocytes/100 WBC (Bld) 0.3 % 0.0 - 0.9 % [facility] Comment on above: Immature Granulocyte Count (IG) includes promyelocytes, myelocytes and metamyelocytes but does not include bands. Percent differential counts (%) should be interpreted in the context of the absolute cell counts (cells/UL). Lymphocytes (Bld) [#/Vol] 1.92 10*3/uL [facility] Lymphocytes/100 WBC (Bld) 19.5 % 13.0 - 44.0 % [facility] MCH (RBC) [Entitic mass] 30.1 pg 26.0 - 34.0 pg [facility] MCHC (RBC) [Mass/Vol] 34.4 g/dL 32.0 - 36.0 g/dL [facility] MCV (RBC) [Entitic vol] 88 fL 80 - 100 fL [facility] Monocytes (Bld) [#/Vol] 0.93 10*3/uL [facility] Monocytes/100 WBC (Bld) 9.4 % 2.0 - 10.0 % [facility] Neutrophils (Bld) [#/Vol] 6.98 10*3/uL [facility] Comment on above: Percent differential counts (%) should be interpreted in the context of the absolute cell counts (cells/uL). Neutrophils/100 WBC (Bld) 70.7 % 40.0 - 80.0 % [facility] Nucleated RBC/100 WBC (Bld) [Ratio] 0 % [facility] Platelets (Bld) [#/Vol] 296 10*3/uL [facility] RBC (Bld) [#/Vol] 5.12 10*6/uL [facility] WBC (Bld) [#/Vol] 9.9 10*3/uL [facility] Basophils (Bld) [#/Vol] 0.01 x10*3/uL Normal 0.00-0.10 [facility] Comment on above: Performed By: #### 2 4323-8 #### YUMIKO CALHOUN ([id number]) [facility] ([facility]) [address] [place] [address] 71501 Basophils/100 WBC (Bld) 0.1 % Normal 0.0-2.0 [facility] Comment on above: Performed By: #### 2 4323-8 #### YUMIKO CALHOUN ([id number]) [facility] ([facility]) [address] [place] [address] 79118 Eosinophils (Bld) [#/Vol] 0.00 x10*3/uL Normal 0.00-0.70 [facility] Comment on above: Performed By: #### 2 4323-8 #### YUMIKO CALHOUN ([id number]) [facility] ([facility]) [address] [place] [address] 25315 Eosinophils/100 WBC (Bld) 0.0 % Normal 0.0-6.0 [facility] Comment on above: Performed By: #### 2 4323-8 #### YUMIKO CALHOUN ([id number]) [facility] ([facility]) [address] [place] [address] 24212 Erythrocyte distribution width (RBC) [Ratio] 11.9 % Normal 11.5-14.5 [facility] Comment on above: Performed By: #### 2 4323-8 #### YUMIKO CALHOUN ([id number]) [facility] ([facility]) [address] [place] [address] 21263 Hematocrit (Bld) [Volume fraction] 44.8 % Normal 36.0-46.0 [facility] Comment on above: Performed By: #### 2 432-8 #### YUMIKO CALHOUN ([id number]) [facility] ([facility]) [address] [place] [address] 80883 Hemoglobin (Bld) [Mass/Vol] 15.4 g/dL Normal 12.0-16.0 [facility] Comment on above: Performed By: #### 2 432-8 #### YUMIKO CALHOUN ([id number]) [facility] ([facility]) [address] [place] [address] 06023 Immature granulocytes (Bld) [#/Vol] 0.03 x10*3/uL Normal 0.00-0.70 [facility] Comment on above: Performed By: #### 2 4323-8 #### YUMIKO CALHOUN ([id number]) [facility] ([facility]) [address] [place] [address] 80852 Immature granulocytes/100 WBC (Bld) 0.3 % Normal 0.0-0.9 [facility] Comment on above: Result Comment: Audra ture Granulocyte Count (IG) includes promyelocytes, myelocytes and metamyelocytes but does not include bands. Percent differential counts (%) should be interpreted in the context of the absolute cell counts (cells/UL). Performed By: #### 2 4323-8 #### YUMIKO CALHOUN ([id number]) [facility] ([facility]) [address] [place] [address] 35695 Lymphocytes (Bld) [#/Vol] 1.92 x10*3/uL Normal 1.20-4.80 [facility] Comment on above: Performed By: #### 2 4323-8 #### YUMIKO CALHOUN ([id number]) [facility] ([facility]) [address] [place] [address] 53318 Lymphocytes/100 WBC (Bld) 19.5 % Normal 13.0-44.0 [facility] Comment on above: Performed By: #### 2 432-8 #### YUMIKO CALHOUN ([id number]) [facility] ([facility]) [facility] [place] [address] MCH (RBC) [Entitic mass] 30.1 pg Normal 26.0-34.0 [facility] Comment on above: Performed By: #### 2 432-8 #### YUIMKO CALHOUN ([id number]) [facility] ([facility]) [address] [place] [address] 53304 MCHC (RBC) [Mass/Vol] 34.4 g/dL Normal 32.0-36.0 [facility] Comment on above: Performed By: #### 2 4322-8 #### YUMIKO CALHOUN ([id number]) [facility] ([facility]) [address] [place] [address] 80408 MCV (RBC) [Entitic vol] 88 fL Normal 80-100 [facility] Comment on above: Performed By: #### 2 4322-8 #### YUMIKO CALHOUN ([id number]) [facility] ([facility]) [address] [place] [address] 20823 Monocytes (Bld) [#/Vol] 0.93 x10*3/uL Normal 0.10-1.00 [facility] Comment on above: Performed By: #### 2 432-8 #### YUMIKO CALHOUN ([id number]) [facility] ([facility]) [address] [place] [address] 88451 Monocytes/100 WBC (Bld) 9.4 % Normal 2.0-10.0 [facility] Comment on above: Performed By: #### 2 432-8 #### YUMIKO CALHOUN ([id number]) [facility] ([facility]) [address] [place] [address] 37595 Neutrophils (Bld) [#/Vol] 6.98 x10*3/uL Normal 1.20-7.70 [facility] Comment on above: Result Comment: Perc ent differential counts (%) should be interpreted in the context of the absolute cell counts (cells/uL). Performed By: #### 2 432-8 #### YUMIKO CAHLOUN ([id number]) [facility] ([facility]) [address] [place] [address] 54869 Neutrophils/100 WBC (Bld) 70.7 % Normal 40.0-80.0 [facility] Comment on above: Performed By: #### 2 4323-8 #### YUMIKO CALHOUN ([id number]) [facility] ([facility]) [address] [place] [address] 83153 Nucleated RBC/100 WBC (Bld) [Ratio] 0.0 /100 WBCs Normal 0.0-0.0 [facility] Comment on above: Performed By: #### 2 4323-8 #### YUMIKO CALHOUN ([id number]) [facility] ([facility]) [address] [place] [address] 92955 Platelets (Bld) [#/Vol] 296 x10*3/uL Normal 150-450 [facility] Comment on above: Performed By: #### 2 4323-8 #### YUMIKO CALHOUN ([id number]) [facility] ([facility]) [address] [place] [address] 30705 RBC (Bld) [#/Vol] 5.12 x10*6/uL Normal 4.00-5.20 [facility] Comment on above: Performed By: #### 2 4323-8 #### YUMIKO CALHOUN ([id number]) [facility] ([facility]) [address] [place] [address] 90624 WBC (Bld) [#/Vol] 9.9 x10*3/uL Normal 4.4-11.3 [facility] Comment on above: Performed By: #### 2 4323-8 #### YUMIKO CALHOUN ([id number]) [facility] ([facility]) [address] [place] [address] 65543 ECG 12-LEADon 01-30-2024 ECG 12-LEAD Ventricular Rate 123 Atrial Rate 123 P-R Interval 160 QRS Duration 82 Q-T Interval 410 QTC Calculation(Bazett) 586 P Lugoff 76 R Lugoff 96 T Lugoff 55 QRS Count 20 Q Onset 223 T Offset 428 QTC Fredericia 520 Diagnosis Sinus tachycardia Rightward axis Cannot rule out Inferior infarct , age undetermined Abnormal ECG When compared with ECG of 30-JAN-2024 17:02, (unconfirmed) Non-specific change in ST segment in Anterior leads Nonspecific T wave abnormality now evident in Anterior leads See ED provider note for full interpretation and clinical correlation Confirmed by Marleen Carpenter ([id number]) on 02/05/2024 1:23:50 PM Normal [facility] ECG 12-LEAD Ventricular Rate 96 Atrial Rate 96 P-R Interval 142 QRS Duration 80 Q-T Interval 334 QTC Calculation(Bazett) 421 P Lugoff 80 R Lugoff 93 T Lugoff 52 QRS Count 16 Q Onset 221 P Onset 150 P Offset 200 T Offset 388 QTC Fredericia 390 Diagnosis Normal sinus rhythm Right atrial enlargement Rightward axis Pulmonary disease pattern Abnormal ECG When compared with ECG of 13-OCT-2023 15:51, Minimal criteria for Inferior infarct are no longer Present ST no longer depressed in Anterior leads Nonspecific T wave abnormality no longer evident in Anterior leads See ED provider note for full interpretation and clinical correlation Confirmed by Lico Ruiz ([id number]) on 02/05/2024 2:14:00 PM Normal [facility] FLUAV and FLUBV RNA RENETTA+prob e Nom (Unsp spec)on 01-30-2024 FLUAV RNA RENETTA+probe Ql (Resp) Not detected Not Detected [facility] FLUBV RNA RENETTA+probe Ql (Resp) Not detected Not Detected [facility] This assay is an in vitro diagnostic multiplex nucleic acid amplification test for the detection and discrimination of Influenza A & B from nasopharyngeal specimens, and has been validated for use at [facility]. Negative results do not preclude Influenza A/B infections, and should not be used as the sole basis for diagnosis, treatment, or other management decisions. If Influenza A/B and RSV PCR results are negative, testing for Parainfluenza virus, Adenovirus and Metapneumovirus is routinely performed for [facility] pediatric oncology and intensive care inpatients, and is available on other patients by placing an add-on request. [facility] FLUAV RNA RENETTA+probe Ql (Resp) Not detected Normal Not Detected [facility] Comment on above: Order Comment: Venip uncture immediately after or during the administration of Metamizole may lead to falsely low results. Testing should be performed immediately prior to Metamizole dosing. Performed By: #### 3 040-3 #### YUMIKO CALHOUN ([id number]) [facility] ([facility]) [address] [place] [address] FLUBV RNA RENETTA+probe Ql (Resp) Not detected Normal Not Detected [facility] Comment on above: Order Comment: Venip uncture immediately after or during the administration of Metamizole may lead to falsely low results. Testing should be performed immediately prior to Metamizole dosing. Performed By: #### 3 040-3 #### YUMIKO CALHOUN ([id number]) [facility] ([facility]) [facility] [place] [address] Hepatic function 2000 panelo n 01-30-2024 Albumin BCP dye [Mass/Vol] 5 g/dL 3.4 - 5.0 g/dL [facility] ALP [Catalytic activity/Vol] 64 U/L 33 - 110 U/L [facility] ALT With P-5'-P [Catalytic activity/Vol] 25 U/L 7 - 45 U/L [facility] Comment on above: Patients treated wit h Sulfasalazine may generate falsely decreased results for ALT. AST With P-5'-P [Catalytic activity/Vol] 21 U/L 9 - 39 U/L [facility] Bilirubin [Mass/Vol] 0.6 mg/dL 0.0 - 1 .2 mg/dL [facility] Bilirubin.direct [Mass/Vol] 0.1 mg/dL 0.0 - 0.3 mg/dL [facility] Interpretation and review of laboratory results Abnormal [facility] Protein [Mass/Vol] 8.6 g/dL High 6.4 - 8.2 g/dL [facility] Albumin BCP dye [Mass/Vol] 5.0 g/dL Normal 3.4-5.0 [facility] Comment on above: Performed By: #### 2 4323-8 #### YUMIKO CALHOUN ([id number]) [facility] ([facility]) [facility] [place] [address] ALP [Catalytic activity/Vol] 64 U/L Normal 33-110 [facility] Comment on above: Performed By: #### 2 4323-8 #### YUMIKO CALHOUN ([id number]) [facility] ([facility]) [address] [place] [address] ALT With P-5'-P [Catalytic activity/Vol] 25 U/L Normal 7-45 [facility] Comment on above: Result Comment: Bianca ents treated with Sulfasalazine may generate falsely decreased results for ALT. Performed By: #### 2 4323-8 #### YUMIKO CALHOUN ([id number]) [facility] ([facility]) [address] [place] [address] AST With P-5'-P [Catalytic activity/Vol] 21 U/L Normal 9-39 [facility] Comment on above: Performed By: #### 2 4323-8 #### YUMIKO CALHOUN ([id number]) [facility] ([facility]) [address] [place] [address] Bilirubin [Mass/Vol] 0.6 mg/dL Normal 0.0-1.2 [facility] Comment on above: Performed By: #### 2 4323-8 #### YUMIKO CALHOUN ([id number]) [facility] ([facility]) [address] [place] [address] Bilirubin.direct [Mass/Vol] 0.1 mg/dL Normal 0.0-0.3 [facility] Comment on above: Performed By: #### 2 4323-8 #### YUMIKO CALHOUN ([id number]) [facility] ([facility]) [address] [place] [address]197 Protein [Mass/Vol] 8.6 g/dL High 6.4-8.2 [facility] Comment on above: Performed By: #### 2 4323-8 #### YUMIKO CALHOUN ([id number]) [facility] ([facility]) [address] [place] [address]992 Lipaseon 01-30-2024 Lipase [Catalytic activity/Vol] 26 U/L 9 - 82 U/L [facility] Lipase [Catalytic activity/V ol]on 01-30-2024 Interpretation and review of laboratory results Normal [facility] Venipuncture immedia tely after or during the administration of Metamizole may lead to falsely low results. Testing should be performed immediately prior to Metamizole dosing. [facility] No Panel Informationon 01-29 Extra Tube Hold for add-ons. [facility] Comment on above: Auto resulted. [facility] Interpretation and review of laboratory results Normal [facility] SARS coronavirus 2 RNAon SARS-CoV-2 (COVID-19) RNA RENETTA+probe Ql (Resp) Not detected Normal Not Detected [facility] Comment on above: Order Comment: Venip uncture immediately after or during the administration of Metamizole may lead to falsely low results. Testing should be performed immediately prior to Metamizole dosing. Performed By: #### 3 040-3 #### CALDERON LJ ([id number]) [facility] ([facility]) [address] [place] [address] SARS-CoV-2 (COVID-19) RNA NA A+probe Ql (Resp)on 01-30-2024 This assay has recei petros FDA Emergency Use Authorization (EUA) and is only authorized for the duration of time that circumstances exist to justify the authorization of the emergency use of in vitro diagnostic tests for the detection of SARS-CoV-2 virus and/or diagnosis of COVID-19 infection under section 564(b)(1) of the Act, 21 U.S.C. 360bbb-3(b)(1). This assay is an in vitro diagnostic nucleic acid amplification test for the qualitative detection of SARS-CoV-2 from nasopharyngeal specimens and has been validated for use at [facility]. Negative results do not preclude COVID-19 infections and should not be used as the sole basis for diagnosis, treatment, or other management decisions. [facility] Sars-CoV-2 PCRon 01-30-2024 SARS-CoV-2 (COVID-19) RNA RENETTA+probe Ql (Resp) Not detected Not Detected [facility] Triacylglycerol lipaseon Lipase [Catalytic activity/Vol] 26 U/L Normal 9-82 [facility] Comment on above: Order Comment: Venip uncture immediately after or during the administration of Metamizole may lead to falsely low results. Testing should be performed immediately prior to Metamizole dosing. Performed By: #### 3 040-3 #### YUMIKO CALHOUN ([id number]) [facility] ([facility]) [facility] [place] [id number] Tropinin I.cardiac panel Hig h sensitivity methodon 01-30-2024 Interpretation and review of laboratory results Normal [facility] Less than 99th perce ntile of normal range cutoff- Female and children under 18 years old <14 ng/L; Male <21 ng/L: Negative Repeat testing should be performed if clinically indicated. Female and children under 18 years old 14-50 ng/L; Male 21-50 ng/L: Consistent with possible cardiac damage and possible increased clinical risk. Serial measurements may help to assess extent of myocardial damage. >50 ng/L: Consistent with cardiac damage, increased clinical risk and myocardial infarction. Serial measurements may help assess extent of myocardial damage. NOTE: Children less than 1 year old may have higher baseline troponin levels and results should be interpreted in conjunction with the overall clinical context. NOTE: Troponin I testing is performed using a different testing methodology at [facility] than at other [facility]. Direct result comparisons should only be made within the same method. [facility] Troponin I, High Sensitivity on 01-30-2024 Tropinin I.cardiac panel High sensitivity method 3 ng/L 0 - 13 ng/L [facility] Troponin I.cardiac panelon 1 Tropinin I.cardiac panel High sensitivity method 3 ng/L Normal 0-13 [facility] Comment on above: Order Comment: Venip uncture immediately after or during the administration of Metamizole may lead to falsely low results. Testing should be performed immediately prior to Metamizole dosing. Performed By: #### 3 040-3 #### YUMIKO CALHOUN ([id number]) [facility] ([facility]) [address] [place] [address]24 XR CHEST 1 VIEWon 01-30-2024 XR CHEST 1 VIEW Interpreted By: Carmencita Brar, STUDY: XR CHEST 1 VIEW; ; 01/30/2024 5:34 pm INDICATION: Signs/Symptoms:chest pressure. COMPARISON: 11/03/2023 ACCESSION NUMBER(S): [id number] ORDERING CLINICIAN: MARLEEN CARPENTER TECHNIQUE: Portable chest FINDINGS: Lungs are clear. Heart size and mediastinal contours are within normal limits. No evidence of pleural effusion or pneumothorax. Bones are unremarkable. IMPRESSION: No acute findings. Signed by: Carmencita Goetz 01/30/2024 6:23 PM Dictation workstation: [id number] [facility] XR Chest Single viewon 01-29 No acute findings. Signed by: Carmencita Goetz 01/30/2024 6:23 PM Dictation workstation: [id number] [facility] Interpreted By: Carmencita Brar, STUDY: XR CHEST 1 VIEW; ; 01/30/2024 5:34 pm INDICATION: Signs/Symptoms:chest pressure. COMPARISON: 11/03/2023 ACCESSION NUMBER(S): [id number] ORDERING CLINICIAN: MARLEEN CARPENTER TECHNIQUE: Portable chest FINDINGS: Lungs are clear. Heart size and mediastinal contours are within normal limits. No evidence of pleural effusion or pneumothorax. Bones are unremarkable. [facility]AL Carmencita Goetz MD - 01/30/2024 Interpreted By: Carmencita Goetz, STUDY: XR CHEST 1 VIEW; ; 01/30/2024 5:34 pm INDICATION: Signs/Symptoms:chest pressure. COMPARISON: 11/03/2023 ACCESSION NUMBER(S): [id number] ORDERING CLINICIAN: MARLEEN CARPENTER TECHNIQUE: Portable chest FINDINGS: Lungs are clear. Heart size and mediastinal contours are within normal limits. No evidence of pleural effusion or pneumothorax. Bones are unremarkable. IMPRESSION: No acute findings. Signed by: Carmencita Goetz 01/30/2024 6:23 PM Dictation workstation: [id number] [facility] Work Phone: Radiology Study observation (narrative) [facility] Work Phone: XR Chest Single viewOrdered By: Carmencita Goetz on 01-30-2024 [facility] Work Phone: MR/BMS.BPon 01-13-2024 MR/BMS.[address], [address] [place] [address] OFFICE VISIT Date of Service: 01/13/24 MR#: [id number] Acct: [id number] Name: BRYNN GOMEZ Rep #: [id number] : 2000 Provider: Dr. Alessandro Chino se, DO Age/Sex: 23/F [place] [facility] [place] Status: Signed Intake Vital Signs 10/27/23 09:30 11/19/23 14:34 01/13/24 12:54 01/13/24 12:58 Height 5 ft 4 in 5 ft 4 in 5 ft 4 in 5 ft 4 in Weight: 102 lb BMI 17.5 BP 108/72 Blood Pressure Location Rt brachial Position Sitting Pulse 108 H Pulse Source Monitor BP Intake Visit Reasons: 2-3mfu Is patient in pain?: No Allergies red dye Allergy (Mild, Verified 01/13/24 12:55) hives yellow dye Allergy (Mild, Verified 01/13/24 12:55) hives Medications ???Medication ???Instructions ???Recorded ???Confirmed ???Type cyanocobalamin (vitamin B-12) 100 100 mcg PO DAILY 06/26/22 01/13/24 History mcg tablet (Vitamin B-12) fluoxetine 10 mg capsule 10 mg PO QDAY #30 caps 01/13/24 01/13/24 Rx gabapentin 100 mg capsule 200 mg PO TID PRN 01/13/24 History metoclopramide HCl 5 mg tablet 5 mg PO TID PRN 01/13/24 History pantoprazole 40 mg tablet,delayed 40 mg PO DAILY PRN 01/13/24 History release PFSH Medical History Gastroparesis Generalized anxiety disorder Avoidant-restrictive food intake disorder (ARFID) Depression Anxiety Marijuana use Back pain Migraine headache Gastric reflux Shortness of breath on exertion History of edema Abdominal tenderness of left lower quadrant Diarrhea Juvenile idiopathic arthritis Family History Other Asthma Cancer Hypertension Social History Smoking Status: Never smoker alcohol intake: current alcohol intake frequency: holidays/special occasions only substance use type: marijuana and other details: smokes daily at least 3 times daily HPI History of Present Illness History provided by: patient HPI: Brynn Gomez is a 23 year old female who presents today for follow up evaluation. Reports that she has been ok, I guess. States that she contemplated calling a month and a half ago for an earlier follow up appointment as she was experiencing some worsening anxiety or overthinking. Has been having thoughts of why am I alive but denies feeling suicidal. Patient is extremely restless and ends up standing, pacing for most of the appointment. Grandma recently pressed patient and voiced that she feels like she is not amounting to anything or being an adult. This exacerbated her stress of not being seen and feeling ignored. She did stand up for herself and initially felt good, but this has worsened. Not in any counseling at this time. Continues to feel extremely overwhelmed anytime she tries to make progress in her life. Describes her mood as fearful. Has been trying to spend time with friends/siblings when she can. Has not gotten back in to therapy as we had discussed. Has been spending more time thinking about starting a medication like we had discussed. Appetite has been somewhat stable, but does still sometimes struggle in eating certain foods. Review of Systems Constitutional Reports: change in weight; Denies: chills or fatigue Eyes Denies: change in vision or blurry vision Ears, Nose, Mouth, Throat Denies: throat pain, neck pain or change in hearing Cardiovascular Denies: chest pain, palpitations or dyspnea Respiratory Denies: dyspnea, cough or wheezing Gastrointestinal Reports: abdominal pain, nausea and vomiting; Denies: diarrhea or constipation Genitourinary Denies: dysuria or urinary frequency Musculoskeletal Denies: back pain, neck pain, joint pain or muscle weakness Integumentary/Breast Denies: rash or new lesions Neurological Reports: weakness in extremities; Denies: headache(s), dizziness or confusion Psychiatric Reports: anxiety Endocrine Reports: cold intolerance; Denies: fatigue or excessive sweating Hematologic/Lymphatic Denies: easy bruising or easy bleeding Allergic/Immunologic Denies: wheezing Exam Mental Status Exam - Psych Appearance thin Attitude guarded Activity/Motor Behavior fidgeting, limited eye contact and other (Stands majority of encounter) Speech regular prosody and rapid Mood depressed and anxious Affect restricted Thought Process linear and logical Thought Content no delusions and no hallucinations Suicidal Ideation none Homicidal Ideation none Attention impaired Concentration intact Sensorium/Orientation awake, oriented x3 and lethargic Memory/Cognition other (appropriate for stated age) Insight impaired Judgement impaired Exam Constitutional Vital S (more content not included)... Normal [facility] Vitamin B1, Thiamineon 11-24 VIT B1 THIAMINE 156.2 nmol/L Normal 66.5-200.0 [facility] Comment on above: Order Comment: Test( s) 892611-Jkt. B1, Whole Bloodwas developed and its performance characteristicsdetermined by [facility]. It has not been cleared or approvedby the Food and Drug Administration. Result Comment: Perf ormed at: [facility] [id number] Movement Assembly Final Inspector: Chad Joseph MD, Phone: [phone] Performed By: #### L 505.7010, L3300.8000, L101.9900, L503.0105, L501.5200, L500.4050, L3100.5450 ####[facility] [address] [facility] [place], [address] ALBERTO w/ Reflex Mult Confirmon 11-23-2023 ALBERTO,DIRECT Negative Normal Negative [facility] Comment on above: Result Comment: Perf ormed at: [address] [id number] [employer] Final Inspector: Xavier Wheeler PhD, Phone: [phone] Performed By: #### L 505.7010, L3300.8000, L101.9900, L503.0105, L501.5200, L500.4050, L3100.5450 ####[facility] [address] [place], [address] Comprehensive Metabolic Prof ilon 11-19-2023 Albumin [Mass/Vol] 4.1 g/dL Normal 3.2-5.0 [facility] Comment on above: Performed By: #### L 505.7010, L3300.8000, L101.9900, L503.0105, L501.5200, L500.4050, L3100.5450 ####[facility] [address] [place], [address] Albumin/Globulin [Mass ratio] 1.0 {ratio} Normal 0.9-2.4 [facility] Comment on above: Performed By: #### L 505.7010, L3300.8000, L101.9900, L503.0105, L501.5200, L500.4050, L3100.5450 ####[facility] [address] [place], [address] ALK P 71 U/L Normal 45-117 [facility] Comment on above: Performed By: #### L 505.7010, L3300.8000, L101.9900, L503.0105, L501.5200, L500.4050, L3100.5450 ####[facility] [address] [place], [address] ALT [Catalytic activity/Vol] 34 U/L Normal 13-56 [facility] Comment on above: Performed By: #### L 505.7010, L3300.8000, L101.9900, L503.0105, L501.5200, L500.4050, L3100.5450 ####[facility] [address] [place], [address] AST [Catalytic activity/Vol] 21 U/L Normal 15-37 [facility] Comment on above: Performed By: #### L 505.7010, L3300.8000, L101.9900, L503.0105, L501.5200, L500.4050, L3100.5450 ####[facility] [address] [place], [address] Bilirubin [Mass/Vol] 0.40 mg/dL Normal 0.20-1.00 [facility] Comment on above: Result Comment: For patients on eltrombopag therapy, use of Dimension [place] TBIL is not recommended. Performed By: #### L 505.7010, L3300.8000, L101.9900, L503.0105, L501.5200, L500.4050, L3100.5450 ####[facility] [address] [place], [address] BUN/CRE 14.6 RATIO Normal 10-20 [facility] Comment on above: Performed By: #### L 505.7010, L3300.8000, L101.9900, L503.0105, L501.5200, L500.4050, L3100.5450 ####[facility] [address] [place], [address] CA,Total 9.2 mg/dL Normal 8.5-10.1 [facility] Comment on above: Performed By: #### L 505.7010, L3300.8000, L101.9900, L503.0105, L501.5200, L500.4050, L3100.5450 ####[facility] [address] [place], [address] Chloride [Moles/Vol] 103 mmol/L Normal 98-107 [facility] Comment on above: Performed By: #### L 505.7010, L3300.8000, L101.9900, L503.0105, L501.5200, L500.4050, L3100.5450 ####[facility] [address] [place], [address] CO2 [Moles/Vol] 28.0 mmol/L Normal 21.0-32.0 [facility] Comment on above: Performed By: #### L 505.7010, L3300.8000, L101.9900, L503.0105, L501.5200, L500.4050, L3100.5450 ####[facility] [address] [place], [address] Creatinine [Mass/Vol] 0.82 mg/dL Normal 0.55-1.02 [facility] Comment on above: Result Comment: The validity of the calculated GFR GFRAA in patients over 70 years has not been determined. Clinical correlation is essential. Performed By: #### L 505.7010, L3300.8000, L101.9900, L503.0105, L501.5200, L500.4050, L3100.5450 ####[facility] [address] [place], [place], [phone]) EST GFR - AA 111 mL/min Normal >60 [facility] Comment on above: Result Comment: Afri can Austrian GFR Calc Performed By: #### L 505.7010, L3300.8000, L101.9900, L503.0105, L501.5200, L500.4050, L3100.5450 ####[facility] [address] [place], [place], [phone]) GAP 7 Normal 5-15 [facility] Comment on above: Performed By: #### L 505.7010, L3300.8000, L101.9900, L503.0105, L501.5200, L500.4050, L3100.5450 ####[facility] [address] [place], [place], [phone] GFR/1.73 sq M.predicted among non-blacks MDRD (S/P/Bld) [Vol rate/Area] 91 mL/min/{1.73_m2} Normal >60 [facility] Comment on above: Result Comment: Non- GFR Calc Performed By: #### L 505.7010, L3300.8000, L101.9900, L503.0105, L501.5200, L500.4050, L3100.5450 ####[facility] [address] [place], [place], [phone]) Globulin (S) [Mass/Vol] 4.1 g/dL Normal 2.2-4.2 [facility] Comment on above: Performed By: #### L 505.7010, L3300.8000, L101.9900, L503.0105, L501.5200, L500.4050, L3100.5450 ####[facility] [address] [place], [address] Glucose [Mass/Vol] 83 mg/dL Normal 74-106 [facility] Comment on above: Performed By: #### L 505.7010, L3300.8000, L101.9900, L503.0105, L501.5200, L500.4050, L3100.5450 ####[facility] [address] [place], [address] Potassium [Moles/Vol] 3.4 mmol/L Low 3.5-5.1 [facility] Comment on above: Performed By: #### L 505.7010, L3300.8000, L101.9900, L503.0105, L501.5200, L500.4050, L3100.5450 ####[facility] [address] [place], [address] Sodium [Moles/Vol] 138 mmol/L Normal 136-145 [facility] Comment on above: Performed By: #### L 505.7010, L3300.8000, L101.9900, L503.0105, L501.5200, L500.4050, L3100.5450 ####[facility] [address] [place], [address] T PROT 8.2 g/dL Normal 6.4-8.2 [facility] Comment on above: Performed By: #### L 505.7010, L3300.8000, L101.9900, L503.0105, L501.5200, L500.4050, L3100.5450 ####[facility] [address] [place], [address] Urea nitrogen [Mass/Vol] 12 mg/dL Normal 7-18 [facility] Comment on above: Performed By: #### L 505.7010, L3300.8000, L101.9900, L503.0105, L501.5200, L500.4050, L3100.5450 ####[facility] [address] [place], [address] Erythrocyte Sed Rateon 11-18 SED RATE 1 mm/hr Normal 0-30 [facility] Comment on above: Performed By: #### L 505.7010, L3300.8000, L101.9900, L503.0105, L501.5200, L500.4050, L3100.5450 ####[facility] [address] [place], [address] MR/BMS.Bon 11-19-2023 MR/BMS.[facility] [address] [facility] [place], [place] [address] OFFICE VISIT Date of Service: 11/19/23 MR#: [id number] Acct: [id number] Name: BRYNN GOMEZ Rep #: [id number] : 2000 Provider: Dr. Kylah barry MD Age/Sex: 23/F Location: [facility] Status: Signed Intake Vital Signs 10/27/23 09:30 11/19/23 14:34 Height 5 ft 4 in 5 ft 4 in Weight: 100 lb BMI 17.2 BP 98/63 Blood Pressure Location Lt brachial Position Sitting Respiration 16 Pulse 87 Pulse Source Monitor Temp 98.6 F Temp Source Temporal Pulse Oximetry (%) 95 Oxygen Delivery Method room air Intake Visit Reasons: [facility] FU Chief Complaint: F/U ED visit for hyperemesis Accompanied by: Self Is patient in pain?: Yes (umbilical to epigastric) Pain scale (1-10): 3 Allergies red dye Allergy (Mild, Verified 11/19/23 14:24) hives yellow dye Allergy (Mild, Verified 11/19/23 14:24) hives Medications ???Medication ???Instructions ???Recorded ???Confirmed ???Type cyanocobalamin (vitamin B-12) 100 100 mcg PO DAILY 06/26/22 11/19/23 History mcg tablet (Vitamin B-12) gabapentin 100 mg capsule 200 mg (2 x 100 mg) PO TID #180 01/14/23 11/19/23 Rx caps pantoprazole 40 mg tablet,delayed 40 mg PO DAILY 30 days #30 tabs 07/22/23 11/19/23 Rx release metoclopramide HCl 5 mg tablet 5 mg PO TID #90 TABLETS 11/04/23 11/19/23 Rx PFSH Medical History (Updated 11/19/23 @ 14:26 by Urszula Funes) Gastroparesis Generalized anxiety disorder Avoidant-restrictive food intake disorder (ARFID) Depression Anxiety Marijuana use Back pain Migraine headache Gastric reflux Shortness of breath on exertion History of edema Abdominal tenderness of left lower quadrant Diarrhea Juvenile idiopathic arthritis Family History Other Asthma Cancer Hypertension Social History Smoking Status: Never smoker alcohol intake: current alcohol intake frequency: holidays/special occasions only substance use type: marijuana and other details: smokes daily at least 3 times daily HPI HPI Chief Complaint: F/U ED visit for hyperemesis Details: BRYNN GOMEZ, is a 23 F who presents to the office today for ER follow-up. Nausea vomiting. Went to [facility]. Self-admittedly he gotten off track on her dietary pattern. She was doing well for about 6 months she states, reading more and learning more about her diet, and really trying to follow a better higher quality diet, avoiding processed foods and just being more attentive to regular meals but also taking her medications regular. She went to stay with a friend for a few days and got offkilter on her medications as well as eating, developed nausea vomiting that was persistent and went to the ER in [place]. Had 3 L saline administered, Reglan, Benadryl, Zofran and improved in her symptoms and was released. She had a CT scan that suggested maybe a small amount of pericholecystic fluid. This did not have anything to correlate with in terms of her labs which were all normal in terms of the liver and gallbladder. An ultrasound was performed once again showing a little bit of pericholecystic fluid but no other findings. No gallstones. She was released. She does follow with Dr. Esquivel, gastroenterology local. She has gotten back once again to a better quality diet again, and more regular with her medications. She has worked out some plans to make sure she is taking her medications on a regular basis. She does have generalized anxiety, irritable bowel, avoidant restrictive food intake disorder, gastroparesis. Review of systems per chart. Physical exam. Vital signs on chart. Sclera are clear. No cervical or supraclavicular lymph nodes enlarged or tender. No clear thyromegaly. No thyroid nodules readily palpable. Lungs are without wheeze, rhonchi, rales. No E/A changes are heard. Heart is regular. Not tachycardic. No clear murmur, rub, or gallop is identified. The abdomen is soft. Bowel sounds are present. Nontender nondistended abdomen. No clear palpable masses in the abdomen. No obvious rashes. ROS Const Constitutional: Positive for body ache, chills, fatigue, fever(s), night sweats, sleep problems and change in appetite; No excessive sweating, frequent falls, headache(s), snoring, weakness or weight change Eyes Eyes: Positive for Light sensitivity; No blurry vision, change in vision or eye pain ENT ENT: No abnormal hearing, ear or mastoid pain, tinnitus, nasal congestion, headache(s), neck pain or sore throat Resp Respiratory: No cough, shortness of breath, snoring or wheezing Cardio Cardiology: No chest pain at rest, chest pain with exertion, excessive sweating, shortness of breath, dyspnea (more content not included)... Normal [facility] Magnesiumon 11-19-2023 Magnesium [Mass/Vol] 1.9 mg/dL Normal 1.6-2.6 [facility] Comment on above: Performed By: #### L 505.7010, L3300.8000, L101.9900, L503.0105, L501.5200, L500.4050, L3100.5450 ####[facility] [id number] [place], [address] Rheumatoid Factoron 11-19-19 24 RHEUMATOID FAC < 10.0 Normal <15 [facility] Comment on above: Performed By: #### L 505.7010, L3300.8000, L101.9900, L503.0105, L501.5200, L500.4050, L3100.5450 ####[facility] [id number] [place], [place], [id number] Vitamin B12on 11-19-2023 Cobalamin (Vitamin B12) [Mass/Vol] 622 pg/mL Normal 211-911 [facility] Comment on above: Performed By: #### L 505.7010, L3300.8000, L101.9900, L503.0105, L501.5200, L500.4050, L3100.5450 ####[facility] [id number] [place], [place], [address] CBC panel Auto (Bld)on 11-02 Erythrocyte distribution width (RBC) [Ratio] 12.8 % Normal 11.5-14.5 [facility] Comment on above: Performed By: #### 1 9123-9 #### YUMIKO CALHOUN ([id number]) [facility] ([facility]) [address] [place] [address] 30845 Hematocrit (Bld) [Volume fraction] 38.9 % Normal 36.0-46.0 [facility] Comment on above: Performed By: #### 1 9123-9 #### YUMIKO CALHOUN ([id number]) [facility] ([facility]) [address] [place] [address] 69614 Hemoglobin (Bld) [Mass/Vol] 12.6 g/dL Normal 12.0-16.0 [facility] Comment on above: Performed By: #### 1 9123-9 #### YUMIKO CALHOUN ([id number]) [facility] ([facility]) [address] [place] [address] 60676 MCH (RBC) [Entitic mass] 29.9 pg Normal 26.0-34.0 [facility] Comment on above: Performed By: #### 1 9123-9 #### YUMIKO CALHOUN ([id number]) [facility] ([facility]) [address] [place] [address] 08181 MCHC (RBC) [Mass/Vol] 32.4 g/dL Normal 32.0-36.0 [facility] Comment on above: Performed By: #### 1 9123-9 #### YUMIKO CALHOUN ([id number]) [facility] ([facility]) [address] [place] [address] 25832 MCV (RBC) [Entitic vol] 92 fL Normal 80-100 [facility] Comment on above: Performed By: #### 1 9123-9 #### YUMIKO CALHOUN ([id number]) [facility] ([facility]) [address] [place] [address] 35773 Nucleated RBC/100 WBC (Bld) [Ratio] 0.0 /100 WBCs Normal 0.0-0.0 [facility] Comment on above: Performed By: #### 1 9123-9 #### YUMIKO CALHOUN ([id number]) [facility] ([facility]) [address] [place] [address] 56638 Platelets (Bld) [#/Vol] 231 x10*3/uL Normal 150-450 [facility] Comment on above: Performed By: #### 1 9123-9 #### YUMIKO CALHOUN ([id number]) [facility] ([facility]) [address] [place] [address] 10369 RBC (Bld) [#/Vol] 4.22 x10*6/uL Normal 4.00-5.20 [facility] Comment on above: Performed By: #### 1 9123-9 #### YUMIKO CALHOUN ([id number]) [facility] ([facility]) [address] [place] [address] 10150 WBC (Bld) [#/Vol] 12.5 x10*3/uL High 4.4-11.3 [facility] Comment on above: Performed By: #### 1 9123-9 #### YUMIKO CALHOUN ([id number]) [facility] ([facility]) [address] [place] [address] ABDOMEN PELVIS W IV CONTR Bhumi 11-03-2023 CT ABDOMEN PELVIS W IV CONTRAST Interpreted By: Scott Garcia, STUDY: CT ABDOMEN PELVIS W IV CONTRAST; 11/03/2023 5:42 pm INDICATION: Signs/Symptoms:pain. COMPARISON: None ACCESSION NUMBER(S): [id number] ORDERING CLINICIAN: GIO REDMOND TECHNIQUE: Axial CT images of the abdomen and pelvis with coronal and sagittal reconstructed images obtained. Intravenous contrast was administered, 70 mL Omnipaque 350. FINDINGS: LOWER CHEST: Mild subsegmental atelectasis. LIVER: Within normal limits. BILE DUCTS: Normal caliber. GALLBLADDER: No calcified stones. No wall thickening. Trace pericholecystic fluid. PANCREAS: Within normal limits. SPLEEN: Within normal limits. ADRENALS: Within normal limits. KIDNEYS, URETERS, and BLADDER: No hydronephrosis. Early contrast excretion limits evaluation for small renal calculi. Ureters are non-dilated. Urinary bladder within normal limits. REPRODUCTIVE: No pelvic masses. VESSELS: The aorta and IVC appear normal. RETROPERITONEUM and LYMPH NODES: No lymphadenopathy. BOWEL: The stomach is unremarkable. Small bowel is non-dilated. Normal appendix. Large bowel is normal. PERITONEUM: Trace pelvic free fluid within physiologic limits. BODY WALL: Within normal limits. MUSCULOSKELETAL: No acute osseous abnormality or suspicious osseous lesions. Transitional lumbosacral anatomy with left pseudoarthrosis. IMPRESSION: 1. No definite acute abdominal or pelvic process. 2. Trace nonspecific pericholecystic fluid. Right upper quadrant ultrasound may be considered. 3. Trace pelvic free fluid within physiologic limits. Signed by: Scott Garcia 11/03/2023 6:24 PM Dictation workstation: [id number] Normal [facility] Comprehensive metabolic 2000 panelon 11-03-2023 Albumin BCP dye [Mass/Vol] 4.8 g/dL Normal 3.4-5.0 [facility] Comment on above: Performed By: #### 2 4323-8 #### YUMIKO CALHOUN ([id number]) [facility] ([facility]) [address] [place] [address] 02798 ALP [Catalytic activity/Vol] 57 U/L Normal 33-110 [facility] Comment on above: Performed By: #### 2 4323-8 #### YUMIKO CALHOUN ([id number]) [facility] ([facility]) [address] [place] [address] ALT With P-5'-P [Catalytic activity/Vol] 14 U/L Normal 7-45 [facility] Comment on above: Result Comment: Bianca ents treated with Sulfasalazine may generate falsely decreased results for ALT. Performed By: #### 2 4323-8 #### YUMIKO CALHOUN ([id number]) [facility] ([facility]) [address] [place] [address] Anion gap [Moles/Vol] 17 mmol/L Normal 10-20 [facility] Comment on above: Performed By: #### 2 4323-8 #### YUMIKO CALHOUN ([id number]) [facility] ([facility]) [address] [place] [address] 29883 AST With P-5'-P [Catalytic activity/Vol] 17 U/L Normal 9-39 [facility] Comment on above: Performed By: #### 2 4323-8 #### YUMIKO CALHOUN ([id number]) [facility] ([facility]) [address] [place] [address] Bilirubin [Mass/Vol] 0.7 mg/dL Normal 0.0-1.2 [facility] Comment on above: Performed By: #### 2 4323-8 #### YUMIKO CALHOUN ([id number]) [facility] ([facility]) [address] [place] [address] Calcium [Mass/Vol] 9.6 mg/dL Normal 8.6-10.3 [facility] Comment on above: Performed By: #### 2 4323-8 #### YUMIKO CALHOUN ([id number]) [facility] ([facility]) [address] [place] [address] Chloride [Moles/Vol] 104 mmol/L Normal 98-107 [facility] Comment on above: Performed By: #### 2 4323-8 #### YUMIKO CALHOUN ([id number]) [facility] ([facility]) [address] [place] [address] CO2 [Moles/Vol] 20 mmol/L Low 21-32 [facility] Comment on above: Performed By: #### 2 4323-8 #### YUMIKO CALHOUN ([id number]) [facility] ([facility]) [address] [place] [address] 89973 Creatinine [Mass/Vol] 0.63 mg/dL Normal 0.50-1.05 [facility] Comment on above: Performed By: #### 2 4323-8 #### YUMIKO CALHOUN ([id number]) [facility] ([facility]) [address] [place] [address] 45475 GFR/1.73 sq M.predicted MDRD (S/P/Bld) [Vol rate/Area] mL/min/{1.73_m2} Normal >60 [facility] Comment on above: Result Comment: Calc ulations of estimated GFR are performed using the 2020 CKD-EPI Study Refit equation without the race variable for the IDMS-Traceable creatinine methods. https://jasn.asnjournals.org/content/early//ASN.925784 7051 Performed By: #### 2 4323-8 #### YUMIKO CALHOUN ([id number]) [facility] ([facility]) [address] [place] [address] 25783 Glucose [Mass/Vol] 148 mg/dL High 74-99 [facility] Comment on above: Performed By: #### 2 4323-8 #### YUMIKO CALHOUN ([id number]) [facility] ([facility]) [address] [place] [address] 72716 Potassium [Moles/Vol] 3.3 mmol/L Low 3.5-5.3 [facility] Comment on above: Performed By: #### 2 4323-8 #### YUMIKO CALHOUN ([id number]) [facility] ([facility]) [address] [place] [address] 40629 Protein [Mass/Vol] 7.8 g/dL Normal 6.4-8.2 [facility] Comment on above: Performed By: #### 2 4323-8 #### YUMIKO CALHOUN ([id number]) [facility] ([facility]) [facility] [place] [id number] Sodium [Moles/Vol] 138 mmol/L Normal 136-145 [facility] Comment on above: Performed By: #### 2 4323-8 #### YUMIKO CALHOUN ([id number]) [facility] ([facility]) [address] [place], [place] [address] Urea nitrogen [Mass/Vol] 9 mg/dL Normal 6-23 [facility] Comment on above: Performed By: #### 2 4323-8 #### YUMIKO CALHOUN ([id number]) [facility] ([facility]) [address] [place] [address] HCG ( test) IA.rapi d Ql (U)on 11-03-2023 HCG ( test) Ql (U) Negative Normal NEGATIVE [facility] Comment on above: Performed By: #### 2 4323-8 #### YUMIKO CALHOUN ([id number]) [facility] ([facility]) [address] [place] [address] US GALLBLADDERon 11-03-2023 US GALLBLADDER Interpreted By: Rose Marr, STUDY: US GALLBLADDER; 11/03/2023 7:02 pm INDICATION: Signs/Symptoms:CT abnormalities. COMPARISON: Same day CT of the abdomen and pelvis study. ACCESSION NUMBER(S): [id number] ORDERING CLINICIAN: GIO REDMOND TECHNIQUE: Multiple images of the right upper quadrant were obtained. This examination was interpreted at [facility]. FINDINGS: LIVER: The liver measures 16.7 cm and is grossly unremarkable and free of any focal lesions. GALLBLADDER: The gallbladder is nondistended, and demonstrates no evidence of gallstones, wall thickening or surrounding fluid. The gallbladder wall thickness is 1.0 mm. Sonographic Asencio's sign is negative per technologist report. There is small amount of nonspecific pericholecystic fluid. BILE DUCTS: No evidence of intra or extrahepatic biliary dilatation is identified; the common bile duct measures 1.6 mm. PANCREAS: The pancreas is poorly visualized due to overlying bowel gas. RIGHT KIDNEY: The right kidney measures 10.7 cm in length. The renal cortical echogenicity and thickness are within normal limits. No hydronephrosis or renal calculi are seen. IMPRESSION: 1. Small amount of nonspecific pericholecystic fluid again noted with normal thickness of the gallbladder wall and without cholelithiasis. Correlate with symptoms and laboratory values. MACRO: None Signed by: Rose Ross 11/03/2023 9:15 PM Dictation workstation: [id number] Normal [facility] Urinalysis complete W Reflex Culture panel (U)on 11-03-2023 Appearance (U) Clear Normal Clear [facility] Comment on above: Performed By: #### 2 4323-8 #### YUMIKO CALHOUN ([id number]) [facility] ([facility]) [address] [place] [address] Bilirubin (U) [Mass/Vol] Negative Normal NEGATIVE [facility] Comment on above: Performed By: #### 2 4323-8 #### YUMIKO CALHOUN ([id number]) [facility] ([facility]) [address] [place] [address] Color (U) Light-Yellow Normal Light-Presidio ow, Yellow, Dark-Yello w [facility] Comment on above: Performed By: #### 2 4323-8 #### YUMIKO CALHOUN ([id number]) [facility] ([facility]) [address] [place] [address] Epithelial cells.squamous Auto (Urine sed) [#/Area] 1-9 (SPARSE) Normal Reference range not establishe d. [facility] Comment on above: Performed By: #### 2 4323-8 #### YUMIKO CALHOUN ([id number]) [facility] ([facility]) [address] [place] [address] 38720 Glucose Auto test strip (U) [Mass/Vol] 300 (3+) Abnormal Normal [facility] Comment on above: Performed By: #### 2 4323-8 #### YUMIKO CALHOUN ([id number]) [facility] ([facility]) [address] [place] [address] 45746 Ketones (U) [Mass/Vol] 60 (2+) Abnormal NEGATIVE [facility] Comment on above: Performed By: #### 2 4323-8 #### YUMIKO CALHOUN ([id number]) [facility] ([facility]) [address] [place] [address] 51484 Leukocyte esterase Auto test strip Ql (U) Negative Normal NEGATIVE [facility] Comment on above: Performed By: #### 2 4323-8 #### YUMIKO CALHOUN ([id number]) [facility] ([facility]) [address] [place] [address] 00449 Mucus Auto (Urine sed) [#/Area] 1+ /LPF Normal Reference range not establishe d. [facility] Comment on above: Performed By: #### 2 432-8 #### YUMIKO CALHOUN ([id number]) [facility] ([facility]) [address] [place] [address] 79078 Nitrite Auto test strip Ql (U) Negative Normal NEGATIVE [facility] Comment on above: Performed By: #### 2 432-8 #### YUMIKO CALHOUN ([id number]) [facility] ([facility]) [address] [place] [address] 31389 pH (U) 7.0 [pH] Normal 5.0, 5.5, 6.0, 6.5, 7.0, 7.5, 8.0 [facility] Comment on above: Performed By: #### 2 4323-8 #### YUMIKO CALHOUN ([id number]) [facility] ([facility]) [address] [place] [address] 11767 Protein (U) [Mass/Vol] 50 (1+) Abnormal NEGATIVE, 10 (TRACE), 20 (TRACE) [facility] Comment on above: Performed By: #### 2 4323-8 #### YUMIKO CALHOUN ([id number]) [facility] ([facility]) [address] [place] [address] 04876 RBC (U) [#/Vol] 0.06 (1+) Abnormal NEGATIVE [facility] Comment on above: Performed By: #### 2 4323-8 #### YUMIKO CALHOUN ([id number]) [facility] ([facility]) [address] [place] [address] RBC Auto (Urine sed) [#/Area] 6-10 Abnormal NONE, 1-2, 3-5 [facility] Comment on above: Performed By: #### 2 4323-8 #### YUMIKO CALHOUN ([id number]) [facility] ([facility]) [address] [place] [address] Specific gravity (U) [Rel density] 1.030 Normal 1.005-1.03 5 [facility] Comment on above: Performed By: #### 2 4323-8 #### YUMIKO CALHOUN ([id number]) [facility] ([facility]) [address] [place] [address] Urobilinogen (U) [Mass/Vol] Normal Normal Normal [facility] Comment on above: Performed By: #### 2 4323-8 #### YUMIKO CALHOUN ([id number]) [facility] ([facility]) [address] [place] [address] WBC Auto (Urine sed) [#/Area] 1-5 Normal 1-5, NONE [facility] Comment on above: Performed By: #### 2 4323-8 #### YUMIKO CALHOUN ([id number]) [facility] ([facility]) [address] [place] [address] XR CHEST 1 VIEWon 11-03-2023 XR CHEST 1 VIEW Interpreted By: Sai Parada, STUDY: XR CHEST 1 VIEW; 11/03/2023 3:29 pm INDICATION: Signs/Symptoms:vomiting. COMPARISON: Most recent prior chest x-ray is from 10/13/2023. ACCESSION NUMBER(S): [id number] ORDERING CLINICIAN: GIO REDMOND TECHNIQUE: Single AP portable view of the chest was obtained. FINDINGS: MEDIASTINUM/ LUNGS/ PAPI: No cardiomegaly, vascular congestion, or pleural effusion. No abnormal opacity in either lung worrisome for tumor or pneumonia. No pneumothorax. No tracheal deviation. No abnormal hilar fullness or gross mass on either side. BONES: No lytic or blastic destructive bone lesion. UPPER ABDOMEN: Grossly intact. IMPRESSION: Negative exam. MACRO: None Signed by: Sai Lombardi 11/03/2023 3:45 PM Dictation workstation: [id number] [facility] MR/BMS.Nayla 10-27-2023 MR/BMS.BP [facility] [address] [place] [address], [address] [place] [address] OFFICE VISIT Date of Service: 10/27/23 MR#: [id number] Acct: [id number] Name: BRYNN GOMEZ Rep #: [id number] : 2000 Provider: Dr. Alessandro Chino se, DO Age/Sex: 23/F [place] [facility] [place]: Signed Intake Vital Signs 07/22/23 13:33 10/27/23 09:27 10/27/23 09:30 Height 5 ft 4 in 5 ft 4 in 5 ft 4 in BP 96/64 Blood Pressure Location Rt brachial Position Sitting Pulse 79 Pulse Source Monitor BP Intake Visit Reasons: Follow up Residential Aide Required: No Accompanied by: Self Allergies red dye Allergy (Mild, Verified 07/22/23 13:32) hives yellow dye Allergy (Mild, Verified 07/22/23 13:32) hives Medications ???Medication ???Instructions ???Recorded ???Confirmed ???Type cyanocobalamin (vitamin B-12) 100 100 mcg PO DAILY 06/26/22 10/27/23 History mcg tablet (Vitamin B-12) gabapentin 100 mg capsule 200 mg (2 x 100 mg) PO TID #180 01/14/23 10/27/23 Rx caps pantoprazole 40 mg tablet,delayed 40 mg PO DAILY 30 days #30 tabs 07/22/23 10/27/23 Rx release metoclopramide HCl 5 mg tablet 5 mg PO TID #90 tabs 09/02/23 10/27/23 Rx scopolamine base 1 mg over 3 days 1 patch transdermal Q3D PRN nausea 09/02/23 10/27/23 Rx transdermal patch and vomiting #10 ea Current gender identity: female Nurse's Note: Presents to the office today for follow up. [facility] Medical History Abdominal tenderness of left lower quadrant Anxiety Avoidant-restrictive food intake disorder (ARFID) Back pain Depression Diarrhea Gastric reflux Generalized anxiety disorder History of edema Juvenile idiopathic arthritis Marijuana use Migraine headache Shortness of breath on exertion Family History Other Asthma Cancer Hypertension Social History Smoking Status: Never smoker alcohol intake: current alcohol intake frequency: holidays/special occasions only substance use type: marijuana and other details: smokes daily at least 3 times daily HPI History of Present Illness History provided by: patient HPI: Brynn Gomez is a 23 year old female who presents today for follow up evaluation. Patient reports that she was recently diagnosed with gastroparesis and was prescribed reglan. Feels like her physical health has been worse in recent past, specifically in regards to nausea/stomach concerns. Has missed several therapy appointments, so lost Stephanie Campbell as her therapist at [facility]. In regards to mood, she feels like she is still doing well in regards to improving self image. Does not weigh herself regularly, but feels like she has lost some weight. Describes often times looking at body and seeing herself differently. Feels like when she gains weight she is conscious of how her face looks different. Has been hanging out with friends intermittently, and has been trying to reach out to friends more often. Continues to have some passive thoughts of not being alive, especially when her health dips. Review of Systems Constitutional Reports: change in weight; Denies: chills or fatigue Eyes Denies: change in vision or blurry vision Ears, Nose, Mouth, Throat Denies: throat pain, neck pain or change in hearing Cardiovascular Denies: chest pain, palpitations or dyspnea Respiratory Denies: dyspnea, cough or wheezing Gastrointestinal Reports: abdominal pain, nausea and vomiting; Denies: diarrhea or constipation Genitourinary Denies: dysuria or urinary frequency Musculoskeletal Denies: back pain, neck pain, joint pain or muscle weakness Integumentary/Breast Denies: rash or new lesions Neurological Reports: weakness in extremities; Denies: headache(s), dizziness or confusion Psychiatric Reports: anxiety Endocrine Reports: cold intolerance; Denies: fatigue or excessive sweating Hematologic/Lymphatic Denies: easy bruising or easy bleeding Allergic/Immunologic Denies: wheezing Exam Mental Status Exam - Psych Appearance thin Attitude guarded Activity/Motor Behavior fidgeting and limited eye contact Speech regular prosody and rapid Mood OK Affect restricted and other (Nervous) Thought Process linear and logical Thought Content no delusions and no hallucinations Suicidal Ideation none Homicidal Ideation none Attention impaired Concentration intact Sensorium/Orientation awake, oriented x3 and lethargic Memory/Cognition other (appropriate for stated age) Insight impaired Judgement impaired Assessment Plan Assessment Plan (1) Generalized anxiety disorder: Plan: - Recommended restarting therapy - discussed at length starting an SSRI for anxiety. Specifically discussed flu (more content not included)... Normal [facility] Bacteria identifiedon 2023 Bacteria identified Cx Nom (U) Test: Urine Culture Specimen Source: Clean Catch/Voided Specimen Type: Urine Specimen Date: 10/13/20231704 Result Date: 10/15/2023814 Result Status: Final result Abnormal: No Resulting Lab: [facility] [id number] [place] [address] CULTURE No significant growth Normal [facility] Comment on above: Performed By: #### 1 9123-9 #### CALDERON LJ ([id number]) [facility] ([facility]) [address] [place] [address] Basic metabolic 2000 panelon 10-13-2023 Anion gap [Moles/Vol] 16 mmol/L 10 - 2 0 mmol/L [facility] Calcium [Mass/Vol] 9.3 mg/dL 8.6 - 10. 3 mg/dL [facility] Chloride [Moles/Vol] 101 mmol/L 98 - 10 7 mmol/L [facility] CO2 [Moles/Vol] 22 mmol/L 21 - 32 mmol/L [facility] Creatinine [Mass/Vol] 0.61 mg/dL 0.50 - 1.05 mg/dL [facility] eGFR - PINF [facility] Comment on above: Calculations of danny mated GFR are performed using the 2020 CKD-EPI Study Refit equation without the race variable for the IDMS-Traceable creatinine methods. https://jasn.asnjournals.org/content/early//ASN.319119 2405 Glucose [Mass/Vol] 97 mg/dL 74 - 99 mg/dL [facility] Interpretation and review of laboratory results Abnormal [facility] Potassium [Moles/Vol] 3.3 mmol/L Low 3.5 - 5.3 mmol/L [facility] Sodium [Moles/Vol] 136 mmol/L 136 - 145 mmol/L [facility] Urea nitrogen [Mass/Vol] 15 mg/dL 6 - 23 mg/dL [facility] Anion gap [Moles/Vol] 16 mmol/L Normal 10-20 [facility] Comment on above: Performed By: #### 2 4321-2 #### YUMIKO CALHOUN ([id number]) [facility] ([facility]) [address] [place] [address] 53713 Calcium [Mass/Vol] 9.3 mg/dL Normal 8.6-10.3 [facility] Comment on above: Performed By: #### 2 4321-2 #### YUMIKO CALHOUN ([id number]) [facility] ([facility]) [address] [place] [address] 08777 Chloride [Moles/Vol] 101 mmol/L Normal 98-107 [facility] Comment on above: Performed By: #### 2 4321-2 #### YUMIKO CALHOUN ([id number]) [facility] ([facility]) [facility] [place] [address] CO2 [Moles/Vol] 22 mmol/L Normal 21-32 [facility] Comment on above: Performed By: #### 2 4321-2 #### YUMIKO CALHOUN ([id number]) [facility] ([facility]) [facility] [place] [address] Creatinine [Mass/Vol] 0.61 mg/dL Normal 0.50-1.05 [facility] Comment on above: Performed By: #### 2 4321-2 #### YUMIKO CALHOUN ([id number]) [facility] ([facility]) [address] [place] [address] 31301 GFR/1.73 sq M.predicted MDRD (S/P/Bld) [Vol rate/Area] mL/min/{1.73_m2} Normal >60 [facility] Comment on above: Result Comment: Calc ulations of estimated GFR are performed using the 2020 CKD-EPI Study Refit equation without the race variable for the IDMS-Traceable creatinine methods. https://jasn.asnjournals.org/content/early//ASN.251020 0694 Performed By: #### 2 4321-2 #### YUMIKO CALHOUN ([id number]) [facility] ([facility]) [address] [place] [address] 56381 Glucose [Mass/Vol] 97 mg/dL Normal 74-99 [facility] Comment on above: Performed By: #### 2 4321-2 #### YUMIKO CALHOUN ([id number]) [facility] ([facility]) [address] [place] [address] 58310 Potassium [Moles/Vol] 3.3 mmol/L Low 3.5-5.3 [facility] Comment on above: Performed By: #### 2 4321-2 #### YUMIKO CALHOUN ([id number]) [facility] ([facility]) [address] [place] [address] 87001 Sodium [Moles/Vol] 136 mmol/L Normal 136-145 [facility] Comment on above: Performed By: #### 2 4321-2 #### YUMIKO CALHOUN ([id number]) [facility] ([facility]) [address] [place] [address] 70942 Urea nitrogen [Mass/Vol] 15 mg/dL Normal 6-23 [facility] Comment on above: Performed By: #### 2 4321-2 #### YUMIKO CALHOUN ([id number]) [facility] ([facility]) [address] [place] [address] 97512 CBC W Auto Differential pane l (Bld)on 10-13-2023 Basophils (Bld) [#/Vol] 0.01 10*3/uL [facility] Basophils/100 WBC (Bld) 0.1 % 0.0 - 2.0 % [facility] Eosinophils (Bld) [#/Vol] 0.00 10*3/uL [facility] Eosinophils/100 WBC (Bld) 0.0 % 0.0 - 6.0 % [facility] Erythrocyte distribution width (RBC) [Ratio] 12.2 % 11.5 - 14.5 % [facility] Hematocrit (Bld) [Volume fraction] 44.2 % 36.0 - 46.0 % [facility] Hemoglobin (Bld) [Mass/Vol] 14.7 g/dL 12.0 - 16.0 g/dL [facility] Immature granulocytes (Bld) [#/Vol] 0.02 10*3/uL [facility] Immature granulocytes/100 WBC (Bld) 0.2 % 0.0 - 0.9 % [facility] Comment on above: Immature Granulocyte Count (IG) includes promyelocytes, myelocytes and metamyelocytes but does not include bands. Percent differential counts (%) should be interpreted in the context of the absolute cell counts (cells/UL). Lymphocytes (Bld) [#/Vol] 1.64 10*3/uL [facility] Lymphocytes/100 WBC (Bld) 20.1 % 13.0 - 44.0 % [facility] MCH (RBC) [Entitic mass] 29.8 pg 26.0 - 34.0 pg [facility] MCHC (RBC) [Mass/Vol] 33.3 g/dL 32.0 - 36.0 g/dL [facility] MCV (RBC) [Entitic vol] 90 fL 80 - 100 fL [facility] Monocytes (Bld) [#/Vol] 0.55 10*3/uL [facility] Monocytes/100 WBC (Bld) 6.7 % 2.0 - 10.0 % [facility] Neutrophils (Bld) [#/Vol] 5.95 10*3/uL [facility] Comment on above: Percent differential counts (%) should be interpreted in the context of the absolute cell counts (cells/uL). Neutrophils/100 WBC (Bld) 72.9 % 40.0 - 80.0 % [facility] Nucleated RBC/100 WBC (Bld) [Ratio] 0.0 % [facility] Platelets (Bld) [#/Vol] 384 10*3/uL [facility] RBC (Bld) [#/Vol] 4.94 10*6/uL [facility] WBC (Bld) [#/Vol] 8.2 10*3/uL [facility] Basophils (Bld) [#/Vol] 0.01 x10*3/uL Normal 0.00-0.10 [facility] Comment on above: Performed By: #### 5 7021-8 #### YUMIKO CALHOUN ([id number]) [facility] ([facility]) [address] [place] [address] 54972 Basophils/100 WBC (Bld) 0.1 % Normal 0.0-2.0 [facility] Comment on above: Performed By: #### 5 7021-8 #### YUMIKO CALHOUN ([id number]) [facility] ([facility]) [address] [place] [address] 26208 Eosinophils (Bld) [#/Vol] 0.00 x10*3/uL Normal 0.00-0.70 [facility] Comment on above: Performed By: #### 7021-8 #### YUMIKO CALHOUN ([id number]) [facility] ([facility]) [address] [place] [address] 56322 Eosinophils/100 WBC (Bld) 0.0 % Normal 0.0-6.0 [facility] Comment on above: Performed By: #### 5 7021-8 #### YUMIKO CALHOUN ([id number]) [facility] ([facility]) [address] [place] [address] 07499 Erythrocyte distribution width (RBC) [Ratio] 12.2 % Normal 11.5-14.5 [facility] Comment on above: Performed By: #### 5 7021-8 #### YUMIKO CALHOUN ([id number]) [facility] ([facility]) [address] [place] [address] 00599 Hematocrit (Bld) [Volume fraction] 44.2 % Normal 36.0-46.0 [facility] Comment on above: Performed By: #### 5 7021-8 #### YUMIKO CALHOUN ([id number]) [facility] ([facility]) [address] [place] [address] 35265 Hemoglobin (Bld) [Mass/Vol] 14.7 g/dL Normal 12.0-16.0 [facility] Comment on above: Performed By: #### 5 7021-8 #### YUMIKO CALHOUN ([id number]) [facility] ([facility]) [address] [place] [address] 44127 Immature granulocytes (Bld) [#/Vol] 0.02 x10*3/uL Normal 0.00-0.70 [facility] Comment on above: Performed By: #### 5 7021-8 #### YUMIKO CALHOUN ([id number]) [facility] ([facility]) [address] [place] [address] 61265 Immature granulocytes/100 WBC (Bld) 0.2 % Normal 0.0-0.9 [facility] Comment on above: Result Comment: Audra ture Granulocyte Count (IG) includes promyelocytes, myelocytes and metamyelocytes but does not include bands. Percent differential counts (%) should be interpreted in the context of the absolute cell counts (cells/UL). Performed By: #### 5 7021-8 #### YUMIKO CALHOUN ([id number]) [facility] ([facility]) [address] [place] [address] 88241 Lymphocytes (Bld) [#/Vol] 1.64 x10*3/uL Normal 1.20-4.80 [facility] Comment on above: Performed By: #### 5 7021-8 #### YUMIKO CALHOUN ([id number]) [facility] ([facility]) [address] [place] [address] 44987 Lymphocytes/100 WBC (Bld) 20.1 % Normal 13.0-44.0 [facility] Comment on above: Performed By: #### 5 7021-8 #### YUMIKO CALHOUN ([id number]) [facility] ([facility]) [address] [place] [address] 74886 MCH (RBC) [Entitic mass] 29.8 pg Normal 26.0-34.0 [facility] Comment on above: Performed By: #### 5 7021-8 #### YUMIKO CALHOUN ([id number]) [facility] ([facility]) [address] [place] [address] 27214 MCHC (RBC) [Mass/Vol] 33.3 g/dL Normal 32.0-36.0 [facility] Comment on above: Performed By: #### 5 7021-8 #### YUMIKO CALHOUN ([id number]) [facility] ([facility]) [address] [place] [address] 92034 MCV (RBC) [Entitic vol] 90 fL Normal 80-100 [facility] Comment on above: Performed By: #### 5 7021-8 #### YUMIKO CALHOUN ([id number]) [facility] ([facility]) [address] [place] [address] 10045 Monocytes (Bld) [#/Vol] 0.55 x10*3/uL Normal 0.10-1.00 [facility] Comment on above: Performed By: #### 5 7021-8 #### YUMIKO CALHOUN ([id number]) [facility] ([facility]) [address] [place] [address] 25487 Monocytes/100 WBC (Bld) 6.7 % Normal 2.0-10.0 [facility] Comment on above: Performed By: #### 5 7021-8 #### YUMIKO CALHOUN ([id number]) [facility] ([facility]) [address] [place] [address] 45294 Neutrophils (Bld) [#/Vol] 5.95 x10*3/uL Normal 1.20-7.70 [facility] Comment on above: Result Comment: Perc ent differential counts (%) should be interpreted in the context of the absolute cell counts (cells/uL). Performed By: #### 5 7021-8 #### YUMIKO CALHOUN ([id number]) [facility] ([facility]) [address] [place] [address] 80786 Neutrophils/100 WBC (Bld) 72.9 % Normal 40.0-80.0 [facility] Comment on above: Performed By: #### 5 7021-8 #### YUMIKO CALHOUN ([id number]) [facility] ([facility]) [address] [place] [address] Nucleated RBC/100 WBC (Bld) [Ratio] 0.0 /100 WBCs Normal 0.0-0.0 [facility] Comment on above: Performed By: #### 5 7021-8 #### YUMIKO CALHOUN ([id number]) [facility] ([facility]) [address] [place] [address] Platelets (Bld) [#/Vol] 384 x10*3/uL Normal 150-450 [facility] Comment on above: Performed By: #### 5 7021-8 #### YUMIKO CALHOUN ([id number]) [facility] ([facility]) [address] [place] [address] RBC (Bld) [#/Vol] 4.94 x10*6/uL Normal 4.00-5.20 [facility] Comment on above: Performed By: #### 5 7021-8 #### YUMIKO CALHOUN ([id number]) [facility] ([facility]) [address] [place] [address] WBC (Bld) [#/Vol] 8.2 x10*3/uL Normal 4.4-11.3 [facility] Comment on above: Performed By: #### 5 7021-8 #### YUMIKO CALHOUN ([id number]) [facility] ([facility]) [address] [place] [address] D-Dimer, VTE ExclusionOrdere d By: Elyssa Nicole on 10-13-2023 Fibrin D-dimer FEU (PPP) [Mass/Vol] [facility] ECG 12-LEADon 10-13-2023 ECG 12-LEAD Ventricular Rate 129 Atrial Rate 129 P-R Interval 136 QRS Duration 76 Q-T Interval 312 QTC Calculation(Bazett) 457 P Lugoff 76 R Lugoff 86 T Lugoff 56 QRS Count 21 Q Onset 221 P Onset 153 P Offset 208 T Offset 377 QTC Fredericia 403 Diagnosis Sinus tachycardia Biatrial enlargement Cannot rule out Inferior infarct , age undetermined Cannot rule out Anterior infarct , age undetermined Abnormal ECG When compared with ECG of 02-MAY-2023 13:26, Vent. rate has increased BY 47 BPM Minimal criteria for Inferior infarct are now Present ST now depressed in Anterior leads See ED provider note for full interpretation and clinical correlation Confirmed by Marleen Jack ([id number]) on 10/18/2023 2:53:35 PM Normal [facility] Fibrin D-dimer FEUon 024 Fibrin D-dimer FEU (PPP) [Mass/Vol] <215 Normal <=500 [facility] Comment on above: Order Comment: The V TE Exclusion D-Dimer assay is reported in ng/mL Fibrinogen Equivalent Units (FEU).Per access database developer's instructions for use, a value of less than 500 ng/mL (FEU) may help to exclude DVT or PE in outpatients when the assay is used with a clinical pretest probability assessment.([facility] must utilize and document eCalc 'Wells Score Deep Vein Thrombosis Risk' for DVT exclusion only. Emergency Department should utilize Guidelines for Emergency Department Use of the VTE Exclusion D-Dimer and Clinical Pretest probability assessment model for DVT or PE exclusion.) Performed By: #### 1 9123-9 #### CALDERON LJ ([id number]) [facility] ([facility]) [address] [place] [phone] Fibrin D-dimer FEU (PPP) [Ma ss/Vol]Ordered By: Elyssa Nicole on 10-13-2023 Interpretation and review of laboratory results Normal [facility] The VTE Exclusion D- Dimer assay is reported in ng/mL Fibrinogen Equivalent Units (FEU). Per access database developer's instructions for use, a value of less than 500 ng/mL (FEU) may help to exclude DVT or PE in outpatients when the assay is used with a clinical pretest probability assessment.([facility]EM[facility] must utilize and document eCalc 'Wells Score Deep Vein Thrombosis Risk' for DVT exclusion only. Emergency Department should utilize Guidelines for Emergency Department Use of the VTE Exclusion D-Dimer and Clinical Pretest probability assessment model for DVT or PE exclusion.) [facility] HCG ( test) IA.rapi d Ql (U)on 10-13-2023 HCG ( test) Ql (U) Negative NEGATIVE [facility] Work Phone: Interpretation and review of laboratory results Normal [facility] Work Phone: [facility] Work Phone: HCG ( test) Ql (U) Negative Normal NEGATIVE [facility] Comment on above: Performed By: #### 1 9123-9 #### YUMIKO CALHOUN ([id number]) [facility] ([facility]) [address] [place] [address] Hepatic function 2000 panelo n 10-13-2023 Albumin BCP dye [Mass/Vol] 4.6 g/dL 3.4 - 5.0 g/dL [facility] ALP [Catalytic activity/Vol] 65 U/L 33 - 110 U/L [facility] ALT With P-5'-P [Catalytic activity/Vol] 46 U/L High 7 - 45 U/L [facility] Comment on above: Patients treated wit h Sulfasalazine may generate falsely decreased results for ALT. AST With P-5'-P [Catalytic activity/Vol] 30 U/L 9 - 39 U/L [facility] Bilirubin [Mass/Vol] 0.4 mg/dL 0.0 - 1 .2 mg/dL [facility] Bilirubin.direct [Mass/Vol] 0.0 mg/dL 0.0 - 0.3 mg/dL [facility] Interpretation and review of laboratory results Abnormal [facility] Protein [Mass/Vol] 7.6 g/dL 6.4 - 8.2 g/dL [facility] Albumin BCP dye [Mass/Vol] 4.6 g/dL Normal 3.4-5.0 [facility] Comment on above: Performed By: #### 1 9123-9 #### YUMIKO CALHOUN ([id number]) [facility] ([facility]) [address] [place] [address] ALP [Catalytic activity/Vol] 65 U/L Normal 33-110 [facility] Comment on above: Performed By: #### 1 9123-9 #### YUMIKO CALHOUN ([id number]) [facility] ([facility]) [address] [place] [address] ALT With P-5'-P [Catalytic activity/Vol] 46 U/L High 7-45 [facility] Comment on above: Result Comment: Bianca ents treated with Sulfasalazine may generate falsely decreased results for ALT. Performed By: #### 1 9123-9 #### YUMIKO CALHOUN ([id number]) [facility] ([facility]) [address] [place] [address] 61072 AST With P-5'-P [Catalytic activity/Vol] 30 U/L Normal 9-39 [facility] Comment on above: Performed By: #### 1 9123-9 #### YUMIKO CALHOUN ([id number]) [facility] ([facility]) [address] [place] [address] 57707 Bilirubin [Mass/Vol] 0.4 mg/dL Normal 0.0-1.2 [facility] Comment on above: Performed By: #### 1 9123-9 #### YUMIKO CALHOUN ([id number]) [facility] ([facility]) [address] [place] [address] 68996 Bilirubin.direct [Mass/Vol] 0.0 mg/dL Normal 0.0-0.3 [facility] Comment on above: Performed By: #### 1 9123-9 #### YUMIKO CALHOUN ([id number]) [facility] ([facility]) [address] [place] [address] 45748 Protein [Mass/Vol] 7.6 g/dL Normal 6.4-8.2 [facility] Comment on above: Performed By: #### 1 9123-9 #### YUMIKO CALHOUN ([id number]) [facility] ([facility]) [address] [place] [address] 26649 Lipaseon 10-13-2023 Lipase [Catalytic activity/Vol] 23 U/L 9 - 82 U/L [facility] Lipase [Catalytic activity/V ol]on 10-13-2023 Interpretation and review of laboratory results Normal [facility] Venipuncture immedia tely after or during the administration of Metamizole may lead to falsely low results. Testing should be performed immediately prior to Metamizole dosing. [facility] Magnesiumon 10-13-2023 Magnesium [Mass/Vol] 1.81 mg/dL 1.60 - 2.40 mg/dL [facility] Magnesium [Mass/Vol] 1.81 mg/dL Normal 1.60-2.40 [facility] Comment on above: Performed By: #### 1 9123-9 #### YUMIKO CALHOUN ([id number]) [facility] ([facility]) [address] [phone] Magnesium [Mass/Vol]on 10-12 Interpretation and review of laboratory results Normal [facility] No Panel Informationon 10-12 [facility] Triacylglycerol lipaseon Lipase [Catalytic activity/Vol] 23 U/L Normal 982 [facility] Comment on above: Order Comment: Venip uncture immediately after or during the administration of Metamizole may lead to falsely low results. Testing should be performed immediately prior to Metamizole dosing. Performed By: #### 1 9123-9 #### YUMIKO CALHOUN ([id number]) [facility] ([facility]) [address] [place], [place] [id number] Tropinin I.cardiac panel Hig h sensitivity methodon 10-13-2023 Interpretation and review of laboratory results Normal [facility] Less than 99th perce ntile of normal range cutoff- Female and children under 18 years old <14 ng/L; Male <21 ng/L: Negative Repeat testing should be performed if clinically indicated. Female and children under 18 years old 14-50 ng/L; Male 21-50 ng/L: Consistent with possible cardiac damage and possible increased clinical risk. Serial measurements may help to assess extent of myocardial damage. >50 ng/L: Consistent with cardiac damage, increased clinical risk and myocardial infarction. Serial measurements may help assess extent of myocardial damage. NOTE: Children less than 1 year old may have higher baseline troponin levels and results should be interpreted in conjunction with the overall clinical context. NOTE: Troponin I testing is performed using a different testing methodology at [facility] than at other [facility]. Direct result comparisons should only be made within the same method. [facility] Troponin I, High Sensitivity on 10-13-2023 Tropinin I.cardiac panel High sensitivity method ng/L 0 - 13 ng/L [facility] Troponin I.cardiac panelon 0 10-13-2023 Tropinin I.cardiac panel High sensitivity method <3 Normal 0-13 [facility] Comment on above: Order Comment: Less than 99th percentile of normal range cutoff-Female and children under 18 years old <14 ng/L; Male <21 ng/L: NegativeRepeat testing should be performed if clinically indicated.Female and children under 18 years old 14-50 ng/L; Male 21-50 ng/L:Consistent with possible cardiac damage and possible increased clinicalrisk. Serial measurements may help to assess extent of myocardial damage.>50 ng/L: Consistent with cardiac damage, increased clinical risk andmyocardial infarction. Serial measurements may help assess extent ofmyocardial damage.NOTE: Children less than 1 year old may have higher baseline troponinlevels and results should be interpreted in conjunction with the overallclinical context.NOTE: Troponin I testing is performed using a differenttesting methodology at [facility] than at [facility]. Direct result comparisons should onlybe made within the same method. Performed By: #### 1 9123-9 #### CALDERON LJ ([id number]) [facility] ([facility]) [address] [place] [address] Urinalysis complete W Reflex Culture panel (U)on 10-13-2023 Appearance (U) Turbid Abnormal Clear [facility] Bacteria Auto (Urine sed) [#/Area] 1+ Abnormal NONE SEEN /HPF [facility] Bilirubin (U) [Mass/Vol] Negative NEGATIVE [facility] Color (U) Yellow Light-[place] ow, Yellow, Dark-Yello w [facility] Epithelial cells.squamous Auto (Urine sed) [#/Area] 10-25 (FEW) Reference range not establishe d. /HPF [facility] Glucose Auto test strip (U) [Mass/Vol] Normal Normal mg/dL [facility] Interpretation and review of laboratory results Abnormal [facility] Ketones (U) [Mass/Vol] 100 (3+) Abnormal NEGATIVE mg/dL [facility] Leukocyte esterase Auto test strip Ql (U) Negative NEGATIVE [facility] Mucus Auto (Urine sed) [#/Area] 4+ Reference range not establishe d. /LPF [facility] Nitrite Auto test strip Ql (U) Negative NEGATIVE [facility] pH (U) 6.0 [pH] 5.0, 5.5, 6.0, 6.5, 7.0, 7.5, 8.0 [facility] Protein (U) [Mass/Vol] 100 (2+) Abnormal NEGATIVE, 10 (TRACE), 20 (TRACE) mg/dL [facility] RBC (U) [#/Vol] 1.0 (3+) Abnormal NEGATIVE [facility] RBC Auto (Urine sed) [#/Area] 3-5 NONE, 1-2, 3-5 /HPF [facility] Specific gravity (U) [Rel density] 1.040 Abnormal 1.005 - 1.035 [facility] Urobilinogen (U) [Mass/Vol] Normal Normal mg/dL [facility] WBC Auto (Urine sed) [#/Area] 6-10 Abnormal 1-5, NONE /HPF [facility] Appearance (U) Turbid Normal Clear [facility] Comment on above: Performed By: #### 1 9123-9 #### YUMIKO CALHOUN ([id number]) [facility] ([facility]) [address] [place] [address] Bacteria Auto (Urine sed) [#/Area] 1+ /HPF Abnormal NONE SEEN [facility] Comment on above: Performed By: #### 1 9123-9 #### YUMIKO CALHOUN ([id number]) [facility] ([facility]) [facility] [place] [address] Bilirubin (U) [Mass/Vol] Negative Normal NEGATIVE [facility] Comment on above: Performed By: #### 1 9123-9 #### YUMIKO CALHOUN ([id number]) [facility] ([facility]) [address] [place] [address] 11161 Color (U) Yellow Normal Light-[facility]id[facility] ow, Yellow, Dark-Yello w [facility] Comment on above: Performed By: #### 1 9123-9 #### YUMIKO CALHOUN ([id number]) [facility] ([facility]) [address] [place] [address] 02802 Epithelial cells.squamous Auto (Urine sed) [#/Area] 10-25 (FEW) Normal Reference range not establishe d. [facility] Comment on above: Performed By: #### 1 9123-9 #### YUMIKO CALHOUN ([id number]) [facility] ([facility]) [address] [place] [address] Glucose Auto test strip (U) [Mass/Vol] Normal Normal Normal [facility] Comment on above: Performed By: #### 1 9123-9 #### YUMIKO CALHOUN ([id number]) [facility] ([facility]) [address] [place] [address] Ketones (U) [Mass/Vol] 100 (3+) Abnormal NEGATIVE [facility] Comment on above: Performed By: #### 1 9123-9 #### YUMIKO CALHOUN ([id number]) [facility] ([facility]) [address] [place] [address] Leukocyte esterase Auto test strip Ql (U) Negative Normal NEGATIVE [facility] Comment on above: Performed By: #### 1 9123-9 #### YUMIKO CALHOUN ([id number]) [facility] ([facility]) [address] [place] [address] Mucus Auto (Urine sed) [#/Area] 4+ /LPF Normal Reference range not establishe d. [facility] Comment on above: Performed By: #### 1 9123-9 #### YUMIKO CALHOUN ([id number]) [facility] ([facility]) [address] [place] [address] Nitrite Auto test strip Ql (U) Negative Normal NEGATIVE [facility] Comment on above: Performed By: #### 1 9123-9 #### YUMIKO CALHOUN ([id number]) [facility] ([facility]) [address] [place] [address] pH (U) 6.0 [pH] Normal 5.0, 5.5, 6.0, 6.5, 7.0, 7.5, 8.0 [facility] Comment on above: Performed By: #### 1 9123-9 #### YUMIKO CALHOUN ([id number]) [facility] ([facility]) [address] [place] [address] 51588 Protein (U) [Mass/Vol] 100 (2+) Abnormal NEGATIVE, 10 (TRACE), 20 (TRACE) [facility] Comment on above: Performed By: #### 1 9123-9 #### YUMIKO CALHOUN ([id number]) [facility] ([facility]) [address] [place] [address] 60142 RBC (U) [#/Vol] 1.0 (3+) Abnormal NEGATIVE [facility] Comment on above: Performed By: #### 1 9123-9 #### YUMIKO CALHOUN ([id number]) [facility] ([facility]) [address] [place] [address] 08436 RBC Auto (Urine sed) [#/Area] 3-5 Normal NONE, 1-2, 3-5 [facility] Comment on above: Performed By: #### 1 9123-9 #### YUMIKO CALHOUN ([id number]) [facility] ([facility]) [address] [place] [address] 04443 Specific gravity (U) [Rel density] 1.040 Normal 1.005-1.03 5 [facility] Comment on above: Performed By: #### 1 9123-9 #### YUMIKO CALHOUN ([id number]) [facility] ([facility]) [address] [place] [address] 13587 Urobilinogen (U) [Mass/Vol] Normal Normal Normal [facility] Comment on above: Performed By: #### 1 9123-9 #### YUMIKO CALHOUN ([id number]) [facility] ([facility]) [address] [place] [address] 91853 WBC Auto (Urine sed) [#/Area] 6-10 Abnormal 1-5, NONE [facility] Comment on above: Performed By: #### 1 9123-9 #### YUMIKO CALHOUN ([id number]) [facility] ([facility]) [address] [id number] XR CHEST 1 VIEWon 10-13-2023 XR CHEST 1 VIEW STUDY: Chest Radiograph; 10/13/2023 at 16:27. INDICATION: Chest pain. COMPARISON: 05/02/2023 XR Chest. ACCESSION NUMBER(S): [id number] ORDERING CLINICIAN: MARLEEN CARPENTER TECHNIQUE: Frontal chest was obtained at hours. FINDINGS: CARDIOMEDIASTINAL SILHOUETTE: Cardiomediastinal silhouette is normal in size and configuration. LUNGS: Lungs are clear. ABDOMEN: No remarkable upper abdominal findings. BONES: No acute osseous changes. IMPRESSION: No acute pulmonary pathology. Signed by Yo Lopez MD [facility] XR Chest Single viewon 10-12 No acute pulmonary pathology. Signed by Yo Lopez MD TELERADIOLOGY STUDY: Chest Radiograph; 10/13/2023 at 16:27. INDICATION: Chest pain. COMPARISON: 05/02/2023 XR Chest. ACCESSION NUMBER(S): [id number] ORDERING CLINICIAN: MARLEEN CARPENTER TECHNIQUE: Frontal chest was obtained at hours. FINDINGS: CARDIOMEDIASTINAL SILHOUETTE: Cardiomediastinal silhouette is normal in size and configuration. LUNGS: Lungs are clear. ABDOMEN: No remarkable upper abdominal findings. BONES: No acute osseous changes. TELERADIOLOGY Yo Lopez M D PhD - 10/13/2023 STUDY: Chest Radiograph; 10/13/2023 at 16:27. INDICATION: Chest pain. COMPARISON: 05/02/2023 XR Chest. ACCESSION NUMBER(S): [id number] ORDERING CLINICIAN: MARLEEN CARPENTER TECHNIQUE: Frontal chest was obtained at hours. FINDINGS: CARDIOMEDIASTINAL SILHOUETTE: Cardiomediastinal silhouette is normal in size and configuration. LUNGS: Lungs are clear. ABDOMEN: No remarkable upper abdominal findings. BONES: No acute osseous changes. IMPRESSION: No acute pulmonary pathology. Signed by Yo Lopez MD [facility] Work Phone: Radiology Study observation (narrative) [facility] Work Phone: XR Chest Single viewOrdered By: Yo Lopez on 10-13-2023 [facility] Work Phone: CBC W Auto Differential pane l (Bld)on 05-02-2023 Basophils (Bld) [#/Vol] 0.03 10*3/uL [facility] Basophils/100 WBC (Bld) 0.2 % 0.0 - 2.0 % [facility] Eosinophils (Bld) [#/Vol] 0.00 10*3/uL [facility] Eosinophils/100 WBC (Bld) 0.0 % 0.0 - 6.0 % [facility] Erythrocyte distribution width (RBC) [Ratio] 12.5 % 11.5 - 14.5 % [facility] Hematocrit (Bld) [Volume fraction] 39.3 % 36.0 - 46.0 % [facility] Hemoglobin (Bld) [Mass/Vol] 13.1 g/dL 12.0 - 16.0 g/dL [facility] Immature granulocytes (Bld) [#/Vol] 0.06 10*3/uL [facility] Immature granulocytes/100 WBC (Bld) 0.4 % 0.0 - 0.9 % [facility] Comment on above: Immature Granulocyte Count (IG) includes promyelocytes, myelocytes and metamyelocytes but does not include bands. Percent differential counts (%) should be interpreted in the context of the absolute cell counts (cells/UL). Interpretation and review of laboratory results Abnormal [facility] Lymphocytes (Bld) [#/Vol] 1.75 10*3/uL [facility] Lymphocytes/100 WBC (Bld) 12.0 % 13.0 - 44.0 % [facility] MCH (RBC) [Entitic mass] 30.3 pg 26.0 - 34.0 pg [facility] MCHC (RBC) [Mass/Vol] 33.3 g/dL 32.0 - 36.0 g/dL [facility] MCV (RBC) [Entitic vol] 91 fL 80 - 100 fL [facility] Monocytes (Bld) [#/Vol] 1.33 10*3/uL High [facility] Monocytes/100 WBC (Bld) 9.1 % 2.0 - 10.0 % [facility] Neutrophils (Bld) [#/Vol] 11.44 10*3/uL High [facility] Comment on above: Percent differential counts (%) should be interpreted in the context of the absolute cell counts (cells/uL). Neutrophils/100 WBC (Bld) 78.3 % 40.0 - 80.0 % [facility] Nucleated RBC/100 WBC (Bld) [Ratio] 0.0 % [facility] Platelets (Bld) [#/Vol] 282 10*3/uL [facility] RBC (Bld) [#/Vol] 4.33 10*6/uL [facility] WBC (Bld) [#/Vol] 14.6 10*3/uL [facility] Basophils (Bld) [#/Vol] 0.03 x10*3/uL Normal 0.00-0.10 [facility] Comment on above: Performed By: #### 5 7021-8 #### YUMIKO CALHOUN ([id number]) [facility] ([facility]) [address] [place] [address] 38577 Basophils/100 WBC (Bld) 0.2 % Normal 0.0-2.0 [facility] Comment on above: Performed By: #### 5 7021-8 #### YUMIKO CALHOUN ([id number]) [facility] ([facility]) [address] [place] [address] 84068 Eosinophils (Bld) [#/Vol] 0.00 x10*3/uL Normal 0.00-0.70 [facility] Comment on above: Performed By: #### 5 7021-8 #### YUMIKO CALHOUN ([id number]) [facility] ([facility]) [address] [place] [address] 39608 Eosinophils/100 WBC (Bld) 0.0 % Normal 0.0-6.0 [facility] Comment on above: Performed By: #### 5 7021-8 #### YUMIKO CALHOUN ([id number]) [facility] [place] [address] Erythrocyte distribution width (RBC) [Ratio] 12.5 % Normal 11.5-14.5 [facility] Comment on above: Performed By: #### 5 7021-8 #### YUMIKO CALHOUN ([id number]) [facility] ([facility]) [address] [place] [address] Hematocrit (Bld) [Volume fraction] 39.3 % Normal 36.0-46.0 [facility] Comment on above: Performed By: #### 5 7021-8 #### YUMIKO CALHOUN ([id number]) [facility] ([facility]) [address] [place] [address] Hemoglobin (Bld) [Mass/Vol] 13.1 g/dL Normal 12.0-16.0 [facility] Comment on above: Performed By: #### 5 7021-8 #### YUMIKO CALHOUN ([id number]) [facility] ([facility]) [address] [place], [place] [id number] Immature granulocytes (Bld) [#/Vol] 0.06 x10*3/uL Normal 0.00-0.70 [facility] Comment on above: Performed By: #### 5 7021-8 #### YUMIKO CALHOUN ([id number]) [facility] ([facility]) [address] [place] [address] Immature granulocytes/100 WBC (Bld) 0.4 % Normal 0.0-0.9 [facility] Comment on above: Result Comment: Audra ture Granulocyte Count (IG) includes promyelocytes, myelocytes and metamyelocytes but does not include bands. Percent differential counts (%) should be interpreted in the context of the absolute cell counts (cells/UL). Performed By: #### 5 7021-8 #### YUMIKO CALHOUN ([id number]) [facility] ([facility]) [address] [place], [place] [address] Lymphocytes (Bld) [#/Vol] 1.75 x10*3/uL Normal 1.20-4.80 [facility] Comment on above: Performed By: #### 5 7021-8 #### YUMIKO CALHOUN ([id number]) [facility] ([facility]) [address] [place] [address] 02034 Lymphocytes/100 WBC (Bld) 12.0 % Normal 13.0-44.0 [facility] Comment on above: Performed By: #### 5 7021-8 #### YUMIKO CALHOUN ([id number]) [facility] ([facility]) [address] [place] [address] 71605 MCH (RBC) [Entitic mass] 30.3 pg Normal 26.0-34.0 [facility] Comment on above: Performed By: #### 5 7021-8 #### YUMIKO CALHOUN ([id number]) [facility] ([facility]) [address] [place] [address] 18072 MCHC (RBC) [Mass/Vol] 33.3 g/dL Normal 32.0-36.0 [facility] Comment on above: Performed By: #### 5 7021-8 #### YUMIKO CALHOUN ([id number]) [facility] ([facility]) [address] [place] [address] 89804 MCV (RBC) [Entitic vol] 91 fL Normal 80-100 [facility] Comment on above: Performed By: #### 5 7021-8 #### YUMIKO CALHOUN ([id number]) [facility] ([facility]) [address] [place] [address] 16949 Monocytes (Bld) [#/Vol] 1.33 x10*3/uL High 0.10-1.00 [facility] Comment on above: Performed By: #### 5 7021-8 #### YUMIKO CALHOUN ([id number]) [facility] ([facility]) [address] [place] [address] 52215 Monocytes/100 WBC (Bld) 9.1 % Normal 2.0-10.0 [facility] Comment on above: Performed By: #### 5 7021-8 #### YUMIKO CALHOUN ([id number]) [facility] ([facility]) [address] [place] [address] 81879 Neutrophils (Bld) [#/Vol] 11.44 x10*3/uL High 1.20-7.70 [facility] Comment on above: Result Comment: Perc ent differential counts (%) should be interpreted in the context of the absolute cell counts (cells/uL). Performed By: #### 5 7021-8 #### YUMIKO CALHOUN ([id number]) [facility] ([facility]) [address] [place] [address] 86608 Neutrophils/100 WBC (Bld) 78.3 % Normal 40.0-80.0 [facility] Comment on above: Performed By: #### 5 7021-8 #### YUMIKO CALHOUN ([id number]) [facility] ([facility]) [address] [place] [address] 81641 Nucleated RBC/100 WBC (Bld) [Ratio] 0.0 /100 WBCs Normal 0.0-0.0 [facility] Comment on above: Performed By: #### 5 7021-8 #### YUMIKO CALHOUN ([id number]) [facility] ([facility]) [address] [place] [address] 30701 Platelets (Bld) [#/Vol] 282 x10*3/uL Normal 150-450 [facility] Comment on above: Performed By: #### 5 7021-8 #### YUMIKO CALHOUN ([id number]) [facility] ([facility]) [address] [place] [address] 92302 RBC (Bld) [#/Vol] 4.33 x10*6/uL Normal 4.00-5.20 [facility] Comment on above: Performed By: #### 5 7021-8 #### YUMIKO CALHOUN ([id number]) [facility] ([facility]) [address] [place] [address] 98651 WBC (Bld) [#/Vol] 14.6 x10*3/uL High 4.4-11.3 [facility] Comment on above: Performed By: #### 5 7021-8 #### YUMIKO CALHOUN ([id number]) [facility] ([facility]) [address] [place] [address] 33156 Comprehensive metabolic 2000 panelon 05-02-2023 Albumin BCP dye [Mass/Vol] 5.2 g/dL High 3.4 - 5.0 g/dL [facility] ALP [Catalytic activity/Vol] 51 U/L 33 - 110 U/L [facility] ALT With P-5'-P [Catalytic activity/Vol] 13 U/L 7 - 45 U/L [facility] Comment on above: Patients treated wit h Sulfasalazine may generate falsely decreased results for ALT. Anion gap [Moles/Vol] 14 mmol/L 10 - 2 0 mmol/L [facility] AST With P-5'-P [Catalytic activity/Vol] 16 U/L 9 - 39 U/L [facility] Bilirubin [Mass/Vol] 0.5 mg/dL 0.0 - 1 .2 mg/dL [facility] Calcium [Mass/Vol] 9.8 mg/dL 8.6 - 10. 3 mg/dL [facility] Chloride [Moles/Vol] 99 mmol/L 98 - 10 7 mmol/L [facility] CO2 [Moles/Vol] 27 mmol/L 21 - 32 mmol/L [facility] Creatinine [Mass/Vol] 0.59 mg/dL 0.50 - 1.05 mg/dL [facility] eGFR - PINF [facility] Comment on above: Calculations of danny mated GFR are performed using the 2020 CKD-EPI Study Refit equation without the race variable for the IDMS-Traceable creatinine methods. https://jasn.asnjournals.org/content//ASN.389679 7629 Glucose [Mass/Vol] 115 mg/dL High 74 - 99 mg/dL [facility] Interpretation and review of laboratory results Abnormal [facility] Potassium [Moles/Vol] 3.1 mmol/L Low 3.5 - 5.3 mmol/L [facility] Protein [Mass/Vol] 8.2 g/dL 6.4 - 8.2 g/dL [facility] Sodium [Moles/Vol] 137 mmol/L 136 - 145 mmol/L [facility] Urea nitrogen [Mass/Vol] 8 mg/dL 6 - 23 mg/dL [facility] Albumin BCP dye [Mass/Vol] 5.2 g/dL High 3.4-5.0 [facility] Comment on above: Performed By: #### 2 4323-8 #### YUMIKO CALHOUN ([id number]) [facility] ([facility]) [address] [place] [address] ALP [Catalytic activity/Vol] 51 U/L Normal 33-110 [facility] Comment on above: Performed By: #### 2 4323-8 #### YUMIKO CALHOUN ([id number]) [facility] ([facility]) [address] [place] [address] ALT With P-5'-P [Catalytic activity/Vol] 13 U/L Normal 7-45 [facility] Comment on above: Result Comment: Bianca ents treated with Sulfasalazine may generate falsely decreased results for ALT. Performed By: #### 2 432-8 #### YUMIKO CALHOUN ([id number]) [facility] ([facility]) [address] [place] [address] Anion gap [Moles/Vol] 14 mmol/L Normal 10-20 [facility] Comment on above: Performed By: #### 2 432-8 #### YUMIKO CALHOUN ([id number]) [facility] ([facility]) [address] [place] [address] AST With P-5'-P [Catalytic activity/Vol] 16 U/L Normal 9-39 [facility] Comment on above: Performed By: #### 2 4323-8 #### YUMIKO CALHOUN ([id number]) [facility] ([facility]) [address] [place] [address] Bilirubin [Mass/Vol] 0.5 mg/dL Normal 0.0-1.2 [facility] Comment on above: Performed By: #### 2 4323-8 #### YUMIKO CALHOUN ([id number]) [facility] ([facility]) [address] [place] [address] Calcium [Mass/Vol] 9.8 mg/dL Normal 8.6-10.3 [facility] Comment on above: Performed By: #### 2 4323-8 #### YUMIKO CALHOUN ([id number]) [facility] ([facility]) [facility] [place] [address] Chloride [Moles/Vol] 99 mmol/L Normal 98-107 [facility] Comment on above: Performed By: #### 2 4323-8 #### YUMIKO CALHOUN ([id number]) [facility] ([facility]) [facility] [place] [address] CO2 [Moles/Vol] 27 mmol/L Normal 21-32 [facility] Comment on above: Performed By: #### 2 4323-8 #### YUMIKO CALHOUN ([id number]) [facility] ([facility]) [address] [place] [address] 67503 Creatinine [Mass/Vol] 0.59 mg/dL Normal 0.50-1.05 [facility] Comment on above: Performed By: #### 2 4323-8 #### YUMIKO CALHOUN ([id number]) [facility] ([facility]) [address] [place] [address] 17230 GFR/1.73 sq M.predicted MDRD (S/P/Bld) [Vol rate/Area] mL/min/{1.73_m2} Normal >60 [facility] Comment on above: Result Comment: Calc ulations of estimated GFR are performed using the 2020 CKD-EPI Study Refit equation without the race variable for the IDMS-Traceable creatinine methods. https://jasn.asnjournals.org/content/early//ASN.904009 1811 Performed By: #### 2 4323-8 #### YUMIKO CALHOUN ([id number]) [facility] ([facility]) [address] [place] [address] 32714 Glucose [Mass/Vol] 115 mg/dL High 74-99 [facility] Comment on above: Performed By: #### 2 4323-8 #### YUMIKO CALHOUN ([id number]) [facility] ([facility]) [address] [place] [address] 43818 Potassium [Moles/Vol] 3.1 mmol/L Low 3.5-5.3 [facility] Comment on above: Performed By: #### 2 4323-8 #### YUMIKO CALHOUN ([id number]) [facility] ([facility]) [address] [place] [address] 39422 Protein [Mass/Vol] 8.2 g/dL Normal 6.4-8.2 [facility] Comment on above: Performed By: #### 2 4323-8 #### YUMIKO CALHOUN ([id number]) [facility] ([facility]) [address] [place] [address] 47713 Sodium [Moles/Vol] 137 mmol/L Normal 136-145 [facility] Comment on above: Performed By: #### 2 4323-8 #### YUMIKO CALHOUN ([id number]) [facility] ([facility]) [address] [place] [address] 58288 Urea nitrogen [Mass/Vol] 8 mg/dL Normal 6-23 [facility] Comment on above: Performed By: #### 2 4323-8 #### YUMIKO CALHOUN ([id number]) [facility] ([facility]) [address] [place] [address] 04486 ECG 12-LEADon 05-02-2023 ECG 12-LEAD Ventricular Rate 82 Atrial Rate 82 P-R Interval 148 QRS Duration 84 Q-T Interval 362 QTC Calculation(Bazett) 422 P Lugoff 73 R Lugoff 76 T Lugoff 63 QRS Count 14 Q Onset 221 P Onset 147 P Offset 196 T Offset 402 QTC Fredericia 401 Diagnosis Normal sinus rhythm Normal ECG When compared with ECG of 15-DEC-2022 09:11, T wave amplitude has decreased in Anterior leads See ED provider note for full interpretation and clinical correlation Confirmed by Lico Ruiz ([id number]) on 05/06/2023 5:50:41 PM Normal [facility] Lipaseon 05-02-2023 Lipase [Catalytic activity/Vol] 14 U/L 9 - 82 U/L [facility] Lipase [Catalytic activity/V ol]on 05-02-2023 Venipuncture immedia tely after or during the administration of Metamizole may lead to falsely low results. Testing should be performed immediately prior to Metamizole dosing. [facility] Magnesiumon 05-02-2023 Magnesium [Mass/Vol] 1.75 mg/dL 1.60 - 2.40 mg/dL [facility] Magnesium [Mass/Vol] 1.75 mg/dL Normal 1.60-2.40 [facility] Comment on above: Performed By: #### 1 9123-9 #### YUMIKO CALHOUN ([id number]) [facility] ([facility]) [facility] [place] [address] No Panel Informationon 05-02 Interpretation and review of laboratory results Normal [facility] Triacylglycerol lipaseon Lipase [Catalytic activity/Vol] 14 U/L Normal 9-82 [facility] Comment on above: Order Comment: Venip uncture immediately after or during the administration of Metamizole may lead to falsely low results. Testing should be performed immediately prior to Metamizole dosing. Performed By: #### 3 040-3 #### YUMIKO CALHOUN ([id number]) [facility] ([facility]) [address] [place] [address] Urinalysis complete W Reflex Culture panel (U)on 05-02-2023 Appearance (U) Hazy Abnormal Clear [facility] Bacteria Auto (Urine sed) [#/Area] 1+ Abnormal NONE SEEN /HPF [facility] [facility] Bil[facility] (U) [Mass/Vol] Negative NEGATIVE [facility] Color (U) Yellow Straw, Yellow [facility] Crystals.amorphous Computer assisted (U) [#/Area] 1+ NONE, 1+, 2+ /HPF [facility] Epithelial cells.squamous Auto (Urine sed) [#/Area] 1-9 (SPARSE) Reference range not establishe d. /HPF [facility] Glucose Auto test strip (U) [Mass/Vol] 50 (1+) Abnormal NEGATIVE mg/dL [facility] Interpretation and review of laboratory results Abnormal [facility] Ketones (U) [Mass/Vol] 80 (2+) Abnormal NEGATIVE mg/dL [facility] Leukocyte esterase Auto test strip Ql (U) Negative NEGATIVE [facility] Mucus Auto (Urine sed) [#/Area] 4+ Reference range not establishe d. /LPF [facility] Nitrite Auto test strip Ql (U) Negative NEGATIVE [facility] pH (U) 7.0 [pH] 5.0, 5.5, 6.0, 6.5, 7.0, 7.5, 8.0 [facility] Protein (U) [Mass/Vol] 100 (2+) Abnormal NEGATIVE mg/dL [facility] RBC (U) [#/Vol] SMALL (1+) Abnormal NEGATIVE [facility] RBC Auto (Urine sed) [#/Area] 6-10 Abnormal NONE, 1-2, 3-5 /HPF [facility] Specific gravity (U) [Rel density] 1.025 1.005 - 1.035 [facility] Urobilinogen (U) [Mass/Vol] mg/dL NINF - 2.0 mg/dL [facility] WBC Auto (Urine sed) [#/Area] 1-5 1-5, NONE /HPF [facility] Appearance (U) Hazy Normal Clear [facility] Comment on above: Performed By: #### 5 8077-9 #### YUMIKO CALHOUN ([id number]) [facility] ([facility]) [address] [place] [address] Bacteria Auto (Urine sed) [#/Area] 1+ /HPF Abnormal NONE SEEN [facility] Comment on above: Performed By: #### 5 8077-9 #### YUMIKO CALHOUN ([id number]) [facility] ([facility]) [facility] [place] [address] Bilirubin (U) [Mass/Vol] Negative Normal NEGATIVE [facility] Comment on above: Performed By: #### 5 8077-9 #### YUMIKO CALHOUN ([id number]) [facility] ([facility]) [address] [place] [address] Color (U) Yellow Normal Straw, Yellow [facility] Comment on above: Performed By: #### 5 8077-9 #### YUMIKO CALHOUN ([id number]) [facility] ([facility]) [address] [place] [address] Crystals.amorphous Computer assisted (U) [#/Area] 1+ /HPF Normal NONE, 1+, 2+ [facility] Comment on above: Performed By: #### 5 8077-9 #### YUMIKO CALHOUN ([id number]) [facility] ([facility]) [address] [place] [address] Epithelial cells.squamous Auto (Urine sed) [#/Area] 1-9 (SPARSE) Normal Reference range not establishe d. [facility] Comment on above: Performed By: #### 5 8077-9 #### YUMIKO CALHOUN ([id number]) [facility] ([facility]) [address] [place] [address] Glucose Auto test strip (U) [Mass/Vol] 50 (1+) Abnormal NEGATIVE [facility] Comment on above: Performed By: #### 5 8077-9 #### YUMIKO CALHOUN ([id number]) [facility] ([facility]) [address] [place] [address] Ketones (U) [Mass/Vol] 80 (2+) Abnormal NEGATIVE [facility] Comment on above: Performed By: #### 5 8077-9 #### YUMIKO CALHOUN ([id number]) [facility] ([facility]) [address] [place] [address] Leukocyte esterase Auto test strip Ql (U) Negative Normal NEGATIVE [facility] Comment on above: Performed By: #### 5 8077-9 #### YUMIKO CALHOUN ([id number]) [facility] ([facility]) [address] [place] [address] Mucus Auto (Urine sed) [#/Area] 4+ /LPF Normal Reference range not establishe d. [facility] Comment on above: Performed By: #### 5 8077-9 #### YUMIKO CALHOUN ([id number]) [facility] ([facility]) [address] [place] [address] Nitrite Auto test strip Ql (U) Negative Normal NEGATIVE [facility] Comment on above: Performed By: #### 5 8077-9 #### YUMIKO CALHOUN ([id number]) [facility] ([facility]) [address] [place] [address] pH (U) 7.0 [pH] Normal 5.0, 5.5, 6.0, 6.5, 7.0, 7.5, 8.0 [facility] Comment on above: Performed By: #### 5 8077-9 #### YUMIKO CALHOUN ([id number]) [facility] ([facility]) [address] [place] [address] Protein (U) [Mass/Vol] 100 (2+) Normal NEGATIVE [facility] Comment on above: Performed By: #### 5 8077-9 #### YUMIKO CALHOUN ([id number]) [facility] ([facility]) [address] [place] [address] RBC (U) [#/Vol] SMALL (1+) Abnormal NEGATIVE [facility] Comment on above: Performed By: #### 5 8077-9 #### YUMIKO CALHOUN ([id number]) [facility] ([facility]) [address] [place] [address]476 RBC Auto (Urine sed) [#/Area] 6-10 Abnormal NONE, 1-2, 3-5 [facility] Comment on above: Performed By: #### 5 8077-9 #### YUMIKO CALHOUN ([id number]) [facility] ([facility]) [address] [place] [address] Specific gravity (U) [Rel density] 1.025 Normal 1.005-1.[address] [place] [address] Comment on above: Performed By: #### 5 8077-9 #### YUMIKO CALHOUN ([id number]) [facility] ([facility]) [address] [place] [address]81 Urobilinogen (U) [Mass/Vol] mg/dL Normal <2.0 [facility] Comment on above: Performed By: #### 5 8077-9 #### YUMIKO CALHOUN ([id number]) [facility] ([facility]) [address] [place] [address] WBC Auto (Urine sed) [#/Area] 1-5 Normal 1-5, NONE [facility] Comment on above: Performed By: #### 5 8077-9 #### CALDERON LJ ([id number]) [facility] ([facility]) [address] [place] [address] XR CHEST 1 VIEWon 05-02-2023 XR CHEST 1 VIEW STUDY: Chest Radiograph; 05/02/2023 at 13:33 hours INDICATION: Chest burning. COMPARISON: None Available ACCESSION NUMBER(S): [id number] ORDERING CLINICIAN: LICO RUIZ TECHNIQUE: Frontal chest was obtained at 13:33 hours. FINDINGS: CARDIOMEDIASTINAL SILHOUETTE: Cardiomediastinal silhouette is normal in size and configuration. LUNGS: Lungs are clear. ABDOMEN: No remarkable upper abdominal findings. BONES: No acute osseous changes. IMPRESSION: No acute process. Signed by Prabhakar Adams MD [facility] XR Chest Single viewon 05-02 No acute process. Signed by Prabhakar Adams MD TELERADIOLOGY STUDY: Chest Radiograph; 05/02/2023 at 13:33 hours INDICATION: Chest burning. COMPARISON: None Available ACCESSION NUMBER(S): [id number] ORDERING CLINICIAN: LICO RUIZ TECHNIQUE: Frontal chest was obtained at 13:33 hours. FINDINGS: CARDIOMEDIASTINAL SILHOUETTE: Cardiomediastinal silhouette is normal in size and configuration. LUNGS: Lungs are clear. ABDOMEN: No remarkable upper abdominal findings. BONES: No acute osseous changes. TELERADIOLOGY Prabhakar Adams MD - 05/02/2023 STUDY: Chest Radiograph; 05/02/2023 at 13:33 hours INDICATION: Chest burning. COMPARISON: None Available ACCESSION NUMBER(S): [id number] ORDERING CLINICIAN: LICO RUIZ TECHNIQUE: Frontal chest was obtained at 13:33 hours. FINDINGS: CARDIOMEDIASTINAL SILHOUETTE: Cardiomediastinal silhouette is normal in size and configuration. LUNGS: Lungs are clear. ABDOMEN: No remarkable upper abdominal findings. BONES: No acute osseous changes. IMPRESSION: No acute process. Signed by Prabhakar Adams MD [facility] Work Phone: Radiology Study observation (narrative) [facility] Work Phone: XR Chest Single viewOrdered By: Prabhakar Adams on 05-02-2023 [facility] Work Phone: Basic metabolic 2000 panelon 03-24-2023 Anion gap [Moles/Vol] 8.0 mmol/L Normal <=15.0 [facility] Comment on above: Performed By: #### 2 4321-2 #### [facility] [address] [place] [address] Director Of Marketing [employer] GONSALVES [id number] Calcium [Mass/Vol] 9.9 mg/dL Normal 8.5-10.1 [facility] Comment on above: Performed By: #### 2 4321-2 #### [place] [address] [place] [address] Director Of Marketing [employer] [place] [id number] Chloride [Moles/Vol] 94 mmol/L Low 98-107 [facility] Comment on above: Performed By: #### 2 4321-2 #### [facility] [address] [place] [address] Director Of Marketing [employer] [place] [id number] CO2 [Moles/Vol] 29 mmol/L Normal 21-32 [facility] Comment on above: Performed By: #### 2 4321-2 #### [facility] [address] [place] [address] Director Of Marketing [employer] [place] [id number] Creatinine [Mass/Vol] 0.61 mg/dL Normal 0.51-0.95 [facility] Comment on above: Performed By: #### 2 4321-2 #### [facility] [address] [place] [address] Director Of Marketing [employer] [place] [id number] GFR/1.73 sq M.predicted MDRD (S/P/Bld) [Vol rate/Area] mL/min/{1.73_m2} Normal >=59 [facility] Comment on above: Performed By: #### 2 4321-2 #### [facility] [address] [place] [address] Director Of Marketing [employer] G[place] [id number] Glucose [Mass/Vol] 118 mg/dL High 74-106 [facility] Comment on above: Performed By: #### 2 4321-2 #### [facility] [address] [facility] [place] [address] Director Of Marketing [employer] GONSAL[employer]ES [id number] HGFR GLOMERULAR FILTRATIO N RATE INTERPRETATION~The eGFR is calculated using the MDRD equation.~This equation has been validated in patients with chronic kidney disease;~however, it underestimates the GFR in healthy patients with GFR's over 60 mL/min.~The equation is not valid in children under the age of 18.~NOTE: Criteria for Chronic Kidney Disease:~ ~1. Kidney damage for at least three months, as defined~by structural or functional abnormalities of the kidney,~with or without decreased glomerular filtration rate, manifested by either:~* Pathological abnormalities or~* Markers of Kidney damage, including abnormalities in~the composition of the blood or urine or abnormalities in imaging tests.~ ~2. GFR <60 mL/min/1.73 m squared for at least three months, with or without kidney damage.~ Normal [facility] Comment on above: Performed By: #### 2 4321-2 #### [facility] [address] [facility]. [place] [address] Director Of Marketing [employer] GONSALVES [id number] Potassium [Moles/Vol] 2.6 mmol/L Critically low 3.5-5.1 [facility] Comment on above: Performed By: #### 2 4321-2 #### [facility] [address] [facility] [place] [address] Director Of Marketing [employer] G[place]ES [id number] Sodium [Moles/Vol] 131 mmol/L Low 136-145 [facility] Comment on above: Performed By: #### 2 4321-2 #### [facility] [address] [facility] [place] [address] Director Of Marketing [employer] [place] [id number] Urea nitrogen [Mass/Vol] 17 mg/dL Normal 7-17 [facility] Comment on above: Performed By: #### 2 4321-2 #### [facility] [address] [place] [address] Director Of Marketing [employer] [place] [id number] CBC W Auto Differential pane l (Bld)on 03-24-2023 Basophils (Bld) [#/Vol] 0.01 10*3/uL Normal <=0.70 [facility] Comment on above: Performed By: #### 2 106-3, UAR #### [facility] [address] [place] [address] Director Of Marketing [employer] [place] [id number] Basophils/100 WBC (Bld) 0.1 % Normal <=2.0 [facility] Comment on above: Performed By: #### 2 106-3, UAR #### [facility] [address] [place] [address] Director Of Marketing [employer] [place] [id number] Eosinophils (Bld) [#/Vol] 0.01 10*3/uL Normal <=0.70 [facility] Comment on above: Performed By: #### 2 106-3, UAR #### [facility] [address] [facility] [place] [address] Director Of Marketing [employer] [place] [id number] Eosinophils/100 WBC (Bld) 0.1 % Normal <=10.0 [facility] Comment on above: Performed By: #### 2 106-3, UAR #### [facility] [address] [place] [address] Director Of Marketing [employer] [place] [id number] Erythrocyte distribution width (RBC) [Entitic vol] 38.9 fL Normal 36.4-46.3 [facility] Comment on above: Performed By: #### 2 106-3, UAR #### [facility] [address] [place], [place] [address] [place] [address] Director Of Marketing [employer] [place] [id number] Hematocrit (Bld) [Volume fraction] 43.7 % Normal 37.0-47.0 [facility] Comment on above: Performed By: #### 2 106-3, UAR #### [facility] [address] [place] [address] Director Of Marketing [employer] [place] [id number] Hemoglobin (Bld) [Mass/Vol] 15.2 g/dL Normal 12.0-16.0 [facility] Comment on above: Performed By: #### 2 106-3, UAR #### [facility] [address] [place] [address] Director Of Marketing [employer] [place] [id number] Immature granulocytes (Bld) [#/Vol] 0.04 10*3/uL Normal <=0.10 [facility] Comment on above: Performed By: #### 2 106-3, UAR #### [facility] [address] [place] [address] Director Of Marketing [employer] [place] [id number] Immature granulocytes/100 WBC (Bld) 0.40 % Normal <=1.50 [facility] Comment on above: Performed By: #### 2 106-3, UAR #### [facility] [address] [place] [address] Director Of Marketing [employer] [place] [id number] Lymphocytes (Bld) [#/Vol] 1.76 10*3/uL Normal 1.20-3.40 [facility] Comment on above: Performed By: #### 2 106-3, UAR #### [facility] [address] [place] [address] Director Of Marketing [employer] [id number] Lymphocytes/100 WBC (Bld) 19.2 % Low 20.0-40.0 [facility] Comment on above: Performed By: #### 2 106-3, UAR #### [facility] [address] [place] [address] Director Of Marketing [employer] [place] [id number] MCH (RBC) [Entitic mass] 30.2 pg Normal 27.0-31.0 [facility] Comment on above: Performed By: #### 2 106-3, UAR #### [address] [place] [address] Director Of Marketing [employer] [id number] MCHC (RBC) [Mass/Vol] 34.8 g/dL Normal 32.0-36.0 [facility] Comment on above: Performed By: #### 2 106-3, UAR #### [address] [place] [address] Director Of Marketing [employer] [id number] MCV (RBC) [Entitic vol] 86.9 fL Normal 80.0-100.0 [facility] Comment on above: Performed By: #### 2 106-3, UAR #### [address] [place] [address] Director Of Marketing [employer] Brice CLIA [id number] Monocytes (Bld) [#/Vol] 1.11 10*3/uL High 0.10-0.60 [facility] Comment on above: Performed By: #### 2 106-3, UAR #### [address] [place] [address] Director Of Marketing [employer] Brice CLIA [id number] Monocytes/100 WBC (Bld) 12.1 % High <=8.0 [facility] Comment on above: Performed By: #### 2 106-3, UAR #### [address] [place] [address] Director Of Marketing [employer] CLIA [id number] Neutrophils (Bld) [#/Vol] 6.24 10*3/uL Normal 1.40-6.50 [facility] Comment on above: Performed By: #### 2 106-3, UAR #### [address] [place] [address] Director Of Marketing [employer] CLIA [id number] Neutrophils/100 WBC (Bld) 68.1 % Normal 50.0-70.0 [facility] Comment on above: Performed By: #### 2 106-3, UAR #### [place] [address] [facility]. [place] [address] Director Of Marketing [employer] [place] [id number] Nucleated RBC (Bld) [#/Vol] 0.00 10*3/uL Normal <=0.10 [facility] Comment on above: Performed By: #### 2 106-3, UAR #### [facility] [address] [place] [address]. [place] [address] Director Of Marketing [employer] [id number] Platelet mean volume (Bld) [Entitic vol] 9.2 fL Normal 9.0-13.0 [facility] Comment on above: Performed By: #### 2 106-3, UAR #### [address] [place] [address] Director Of Marketing [employer] [place] [id number] Platelets (Bld) [#/Vol] 284 10*3/uL Normal 130-400 [facility] Comment on above: Performed By: #### 2 106-3, UAR #### [address] [place] [address] Director Of Marketing [employer] [id number] RBC (Bld) [#/Vol] 5.03 10*6/uL Normal 4.00-6.30 [facility] Comment on above: Performed By: #### 2 106-3, UAR #### [address] [place] [address] Director Of Marketing [employer] [id number] WBC (Bld) [#/Vol] 9.17 10*3/uL Normal 4.80-10.80 [facility] Comment on above: Performed By: #### 2 106-3, UAR #### [address] [place] [address] Director Of Marketing [employer] [id number] Drugs identified Screen Nom (U)on 03-24-2023 Amphetamines Ql (U) Not detected Normal CUTOFF = 500 [facility] Comment on above: Performed By: #### 1 2286-1 #### [facility] [address] [place] [address] Director Of Marketing [employer] [id number] Barbiturates Ql (U) Not detected Normal CUTOFF = 200 [facility] Comment on above: Performed By: #### 1 2286-1 #### [facility] [address] [place] [address] Director Of Marketing [employer] [place] [id number] Benzodiazepines Ql (U) Not detected Normal CUTOFF = 150 [facility] Comment on above: Performed By: #### 1 2286-1 #### [facility] [address] [place] [address] Director Of Marketing [employer] [place] [id number] Cocaine Ql (U) Not detected Normal CUTOFF = 150 [facility] Comment on above: Performed By: #### 1 2286-1 #### [address] [place] [address] Director Of Marketing [employer] [place] [id number] [facility] Drugs of abuse iris more provides only a preliminary analytical test result. A more specific alternate chemical method must be used in order to obtain a confimed analytical result. Clinical consideration and professional judgment should be applied to any drug of abuse test result, particularly when preliminary positive results are obtained. Normal [facility] Comment on above: Performed By: #### 1 2286-1 #### [facility] [address] [place] [address] Director Of Marketing [employer] Brice CLIA [id number] Methadone Ql (U) Not detected Normal CUTOFF = 200 [facility] Comment on above: Performed By: #### 1 2286-1 #### [facility] [address] [place] [address] Director Of Marketing [employer] [place] [id number] Opiates Ql (U) Not detected Normal CUTOFF = 300 [facility] Comment on above: Performed By: #### 1 2286-1 #### [facility] [address] [place] [address] Director Of Marketing [employer] [place] [id number] oxyCODONE Ql (U) Not detected Normal CUTOFF = 100 [facility] Comment on above: Performed By: #### 1 2286-1 #### [facility] [address] [place] [address] Director Of Marketing [employer] Br[employer] CLIA [id number] Phencyclidine Ql (U) Not detected Normal CUTOFF = 25 [facility] Comment on above: Performed By: #### 1 2286-1 #### [facility] [address] [place] [address] Director Of Marketing [employer] [place] [id number] Tetrahydrocannabinol Ql (U) Detected Abnormal CUTOFF = 50 [facility] Comment on above: Performed By: #### 1 2286-1 #### [facility] [address] [place] [address] Director Of Marketing [employer] Br[employer] CLIA [id number] URINALYSIS with reflex to CU LTUREon 03-24-2023 Bacteria LM Ql (Urine sed) Negative Normal TRACE [facility] Comment on above: Performed By: #### 2 106-3, UAR #### [facility] [address] [place] [address] Director Of Marketing [employer] [id number] Bilirubin (U) [Mass/Vol] Negative Normal NEGATIVE [facility] Comment on above: Performed By: #### 2 106-3, UAR #### [facility] [address] [place] [address] Director Of Marketing [employer] [place] [id number] Clarity (U) CLEAR Normal CLEAR [facility] Comment on above: Performed By: #### 2 106-3, UAR #### [facility] [address] [place] [address] Director Of Marketing [employer] [place] [id number] Color (U) YELLOW Normal YELLOW [facility] Comment on above: Performed By: #### 2 106-3, UAR #### [facility] [address] [place] [address] Director Of Marketing [employer] [place] [id number] Glucose Test strip (U) [Mass/Vol] Negative Normal NEGATIVE [facility] Comment on above: Performed By: #### 2 106-3, UAR #### [facility] [address] [place] [address] Director Of Marketing [employer] [place] [id number] HMICRO MICROSCOPIC Normal [facility] Comment on above: Performed By: #### 2 106-3, UAR #### [facility] [address] [facility] [place] [address] Director Of Marketing [employer] [place] [id number] Hyaline casts (Urine sed) [#/Area] 0-8 Normal 0-8 [facility] Comment on above: Performed By: #### 2 106-3, UAR #### [facility] [address] [place] [address] Director Of Marketing [employer] [id number] Ketones (U) [Mass/Vol] 2+ Abnormal NEGATIVE [facility] Comment on above: Performed By: #### 2 106-3, UAR #### [facility] [address] [place] [address] Director Of Marketing [employer] [place] [id number] Leukocyte esterase Qn (U) Negative Normal TRACE [facility] Comment on above: Performed By: #### 2 106-3, UAR #### [facility] [address] [place] [address] Director Of Marketing [employer] [place] [id number] Nitrite Ql (U) Negative Normal NEGATIVE [facility] Comment on above: Performed By: #### 2 106-3, UAR #### [facility] [address] [place] [address] Director Of Marketing [employer] [id number] pH (U) 6.0 [pH] Normal 5.5-7.5 [facility] Comment on above: Performed By: #### 2 106-3, UAR #### [facility] [address] [place] [address] Director Of Marketing [employer] [id number] Protein (U) [Mass/Vol] TRACE Abnormal NEGATIVE [facility] Comment on above: Performed By: #### 2 106-3, UAR #### [facility] [address] [place] [address] Director Of Marketing [employer] [id number] RBC (U) [#/Vol] 3+ Abnormal NEGATIVE [facility] Comment on above: Performed By: #### 2 106-3, UAR #### [facility] [address] [place] [address] Director Of Marketing [employer] [id number] RBC LM.HPF (Urine sed) [#/Area] 4-10 Abnormal 0-4 [facility] Comment on above: Performed By: #### 2 106-3, UAR #### [facility] [address] [place] [address] Director Of Marketing [employer] [id number] Specific gravity (U) [Rel density] 1.021 Normal 1.010-1.03 5 [facility] Comment on above: Performed By: #### 2 106-3, UAR #### [facility] [address] [facility]. [place] [address] Director Of Marketing [employer] [place] GONSALVES [id number] SQUAMOUS EPITHELIALS 0-5 Normal 0-5 [facility] Comment on above: Performed By: #### 2 106-3, UAR #### [facility] [address] [place] [address] Director Of Marketing [employer] [place] GONSALVES [id number] Urobilinogen Qn (U) 0.2 {Inge'U}/dL Normal <=1.0 [facility] Comment on above: Performed By: #### 2 106-3, UAR #### [facility] [address] [place] [address] Director Of Marketing [employer] [place] GONSALVES [id number] WBC LM.HPF (Urine sed) [#/Area] 0-5 Normal 0-5 [facility] Comment on above: Performed By: #### 2 106-3, UAR #### [facility] [address] [place] [address] Director Of Marketing [employer] [place] GONSALVES [id number] URINE QUALITATIVEo n 03-24-2023 HCG ( test) Ql (U) Negative Normal NEGATIVE [facility] Comment on above: Performed By: #### 2 106-3, UAR #### [facility] [address] [place] [address] Director Of Marketing [employer] [place] GONSALVES [id number] CBC AND DIFFERENTIALon 05-22 % AUTOMATED IMMATURE GRAN 0.3 % Normal 0.0 - 0.9 [facility] Comment on above: Result Comment: Audra ture Granulocyte Count (IG) includes promyelocytes, myelocytes and metamyelocytes but does not include bands. Percent differential counts (%) should be interpreted in the context of the absolute cell counts (cells/L). Performed By: #### C BCDF #### [address] [address] Basophils (Bld) [#/Vol] 0.04 10*3/uL Normal 0.00 - 0.10 [facility] Comment on above: Performed By: #### C BCDF #### [address] [address] Basophils/100 WBC (Bld) 0.5 % Normal 0.0 - 2.0 [facility] Comment on above: Performed By: #### C BCDF #### [address] [address] Erythrocyte distribution width (RBC) [Ratio] 12.2 % Normal 11.5 - 14.5 [facility] Comment on above: Performed By: #### C BCDF #### [address] [address] Hematocrit (Bld) [Volume fraction] 41.4 % Normal 36.0 - 46.0 [facility] Comment on above: Performed By: #### C BCDF #### [address] [address] Hemoglobin (Bld) [Mass/Vol] 14.0 g/dL Normal 12.0 - 16.0 [facility] Comment on above: Performed By: #### C BCDF #### [address] [address] Lymphocytes (Bld) [#/Vol] 1.22 10*3/uL Normal 1.20 - 4.80 [facility] Comment on above: Performed By: #### C BCDF #### [address] [address] Lymphocytes/100 WBC (Bld) 16.2 % Normal 13.0 - 44.0 [facility] Comment on above: Performed By: #### C BCDF #### [address] [address] MCHC (RBC) [Mass/Vol] 33.8 g/dL Normal 32.0 - 36.0 [facility] Comment on above: Performed By: #### C BCDF #### [address] [address] MCV (RBC) [Entitic vol] 89 fL Normal 80 - 100 [facility] Comment on above: Performed By: #### C BCDF #### [address] [address] Monocytes (Bld) [#/Vol] 0.31 10*3/uL Normal 0.10 - 1.00 [facility] Comment on above: Performed By: #### C BCDF #### [address] [address] Monocytes/100 WBC (Bld) 4.1 % Normal 2.0 - 10.0 [facility] Comment on above: Performed By: #### C BCDF #### [address] [address] Neutrophils (Bld) [#/Vol] 5.96 10*3/uL Normal 1.20 - 7.70 [facility] Comment on above: Result Comment: Perc ent differential counts (%) should be interpreted in the context of the absolute cell counts (cells/L). Performed By: #### C BCDF #### [address] [address] Neutrophils/100 WBC (Bld) 78.9 % Normal 40.0 - 80.0 [facility] Comment on above: Performed By: #### C BCDF #### [address] [address] Platelets (Bld) [#/Vol] 342 10*3/uL Normal 150 - 450 [facility] Comment on above: Performed By: #### C BCDF #### [address] [address] RBC 4.66 x10E12/L Normal 4.00 - 5.20 [facility] Comment on above: Performed By: #### C BCDF #### [address] [address] WBC (Bld) [#/Vol] 7.6 10*3/uL Normal 4.4 - 11.3 [facility] Comment on above: Performed By: #### C BCDF #### [place] [id number] COMPREHENSIVE PANELon 2022 Albumin [Mass/Vol] 4.5 g/dL Normal 3.4 - 5.0 [facility] Comment on above: Performed By: #### C MP #### [address] [address] ALP [Catalytic activity/Vol] 48 U/L Normal 33 - 110 [facility] Comment on above: Performed By: #### C MP #### [address] [address] ALT [Catalytic activity/Vol] 12 U/L Normal 7 - 45 [facility] Comment on above: Result Comment: Bianca ents treated with Sulfasalazine may generate falsely decreased results for ALT. Performed By: #### C MP #### [place] [id number] Anion gap [Moles/Vol] 15 mmol/L Normal 10 - 20 [facility] Comment on above: Performed By: #### C MP #### [address] [address] AST [Catalytic activity/Vol] 15 U/L Normal 9 - 39 [facility] Comment on above: Performed By: #### C MP #### [address] [address] Bilirubin [Mass/Vol] 0.5 mg/dL Normal 0.0 - 1.2 [facility] Comment on above: Performed By: #### C MP #### [address] [address] Calcium [Mass/Vol] 9.7 mg/dL Normal 8.6 - 10.3 [facility] Comment on above: Performed By: #### C MP #### [address] [address] Chloride [Moles/Vol] 107 mmol/L Normal 98 - 107 [facility] Comment on above: Performed By: #### C MP #### [address] [address] Creatinine [Mass/Vol] 0.59 mg/dL Normal 0.50 - 1.05 [facility] Comment on above: Performed By: #### C MP #### [address] [address] eGFR FEMALE >90 Normal >90 [facility] Comment on above: Result Comment: CALC ULATIONS OF ESTIMATED GFR ARE PERFORMED USING THE 2020 CKD-EPI STUDY REFIT EQUATION WITHOUT THE RACE VARIABLE FOR THE IDMS-TRACEABLE CREATININE METHODS. https://jasn.asnjournals.org/content/early//ASN.629720 8247 Performed By: #### C MP #### [address] [address] Glucose [Mass/Vol] 129 mg/dL High 74 - 99 [facility] Comment on above: Performed By: #### C MP #### [address] [address] HCO3 (Bld) [Moles/Vol] 17 mmol/L Low 21 - 32 [facility] Comment on above: Performed By: #### C MP #### [address] [address] Potassium [Moles/Vol] 3.2 mmol/L Low 3.5 - 5.3 [facility] Comment on above: Performed By: #### C MP #### [address] [address] Protein [Mass/Vol] 7.2 g/dL Normal 6.4 - 8.2 [facility] Comment on above: Performed By: #### C MP #### [address] [address] Sodium [Moles/Vol] 136 mmol/L Normal 136 - 145 [facility] Comment on above: Performed By: #### C MP #### [address] [address] Urea nitrogen [Mass/Vol] 7 mg/dL Normal 6 - 23 [facility] Comment on above: Performed By: #### C MP #### [address] [address] HCG,URINEon 05-22-2022 Beta HCG ( test) Ql (U) Negative Normal Negative [facility] Comment on above: Performed By: #### H CGU #### [address] [address] LACTATEon 05-22-2022 Lactate [Moles/Vol] 2.0 mmol/L Normal 0.4 - 2.0 [facility] Comment on above: Result Comment: Karen puncture immediately after or during the administration of Metamizole may lead to falsely low results. Testing should be performed immediately prior to Metamizole dosing. Performed By: #### L ACT #### [address] [address] LIPASEon 05-22-2022 Lipase [Catalytic activity/Vol] 20 U/L Normal 9 - 82 [facility] Comment on above: Result Comment: Karen puncture immediately after or during the administration of Metamizole may lead to falsely low results. Testing should be performed immediately prior to Metamizole dosing. C-nfabwm-w-benzoquinone imine (metabolite of Acetaminophen) will generate erroneously low results in samples for patients that have taken toxic doses of acetaminophen. Performed By: #### L IPAS #### [place] [address] [place] [address] Provider Note - ED v3on 05-07 Provider Note - ED v3 Provider Note: Chart Review: HISTORY OF PRESENTING ILLNESS BRYNN is a 21 year old Female and was seen by me at 22-May-2022 17:02 for a chief complaint of vomiting (vomiting began around noon today. Upper abdominal pain. rated at 4. Pt thinks pain may be from vomiting. denies diarrhea. Pt had same symptoms 1.5 weeks ago and went to [place] ED. Took nausea med today without change. Chills.)(1). Triage Information: Most recent Vital Sign Value Date Temp (F): 98.7 05-22-2022 16:52 Temp (C): 37 05-22-2022 16:52 Heart Rate (beats/min): 112 05-22-2022 16:52 Respirations (breaths/min): 18 05-22-2022 16:52 SpO2 (%): 99 05-22-2022 16:52 BP Systolic (mm Hg): 132 05-22-2022 16:52 BP Diastolic (mm Hg): 87 05-22-2022 16:52 PAST MEDICAL HISTORY ALLERGIES/INTOLERANCES: No Known Allergies HEALTH HISTORY: No documented data. OUTPATIENT MEDICATIONS: Home Medications Review Status for Reconciliation: Not Done Med Status: Patient Currently Takes Medications Drug Name: Potassium Chloride (Glg-Yhcw-Bpa 10) 10 mEq oral tablet, extended release Instructions: 2 tab(s) orally 2 times a day SIGNIFICANT EVENTS: No documented data. MDM MDM/ED COURSE: PMH: Reviewed PSH: Reviewed Social History: Reviewed. Allergies reviewed. HPI: This is a 21 year old female with history of chronic nausea vomiting, known cannabis hyperemesis syndrome, hypokalemia who presents to the ED today with complaints of vomiting and upper abdominal pain. Patient states vomiting began again around noon today. She is prescribed Protonix and Zofran. She was able to hold the Protonix down this morning, was not able to hold the Zofran down. No diarrhea. No urinary complaints. Was recently seen at [facility] for the same, this is where she was given the prescription for Protonix. Denies chance of , LMP about 3 weeks ago. States she did not use any cannabis today. REVIEW OF SYSTEMS: All other systems reviewed and negative except as listed in HPI. PHYSICAL EXAM: GENERAL: Vitals noted, no distress. Alert and oriented x 3. Non-toxic. EENT: TMs clear. Posterior oropharynx unremarkable. EOMI, no nystagmus noted. NECK: Supple. No masses. No midline tenderness. No meningeal signs. CARDIAC: Regular rate, rhythm. No murmurs rubs or gallops. No JVD. PULMONARY: Lungs clear and equal bilaterally. No wheezes rales or rhonchi. No respiratory distress. ABDOMEN: Soft, nondistended, and mildly tender to palpation diffusely. No peritoneal signs. Bowel sounds are present and normoactive in all 4 quadrants. No pulsatile masses. EXTREMITIES: No peripheral edema. SKIN: No rash. Warm, dry, and intact. NEURO: No focal neurologic deficits. ED COURSE: This patient was seen and examined by myself independently. Vomiting started again today around 12 noon. Suspect likely related to her known cannabis hyperemesis syndrome. We will check basic lab work, electrolytes, give IV fluid and IV nausea medication. Treated nausea here with zofran, phenergan, and haldol IV. Mild hypokalemia on labs today, given 40meq powder liquid K as replacement and tolerated this well. Nausea gone. Recommended PCP followup care in 1 week and e-rx for K sent to her pharmacy of choice for replacement. She is discharged home in a stable condition with computer instructions given and is encouraged to return to the ER for any new or worsening symptoms. DIAGNOSTIC IMPRESSION: #1 n/v #2 hypokalemia DISPOSITION Diagnosis/Annotation: ED Dx Name:Nausea and vomiting Code:R11.2 Name:Hypokalemia Code:E87.6 Disposition: discharged CONSULT CRITICAL CARE TIME Is this a critically ill patient: no Electronic Signatures: Marleen Jack (INFECTION PREVENTION COORDINATOR-WALLCOVERING HANGER) (Signed 22-May-2022 19:52) Authored: HPI, PMH, [facility]/ED Course, Clinical Impression, Attestation, Chart Review, Scores Last Updated: 22-May-2022 19:52 by Marleen Jack (INFECTION PREVENTION COORDINATOR-WALLCOVERING HANGER) References: 1. Data Referenced From Triage - ED 22-May-2022 16:[address] [facility] URINALYSIS WITH CULTURE IF I NDICATEDon 05-22-2022 Appearance (U) CLEAR Normal CLEAR [facility] Comment on above: Performed By: #### U ARFX #### [address] [address] Bilirubin Ql (U) Negative Normal NEGATIVE [facility] Comment on above: Performed By: #### U ARFX #### [place] [address] Color (U) Straw Normal STRAW,YELL OW [facility] Comment on above: Performed By: #### U ARFX #### [address] [address] Glucose Ql (U) Negative Normal NEGATIVE [facility] Comment on above: Performed By: #### U ARFX #### [place] [address] Hemoglobin Ql (U) Negative Normal NEGATIVE [facility] Comment on above: Performed By: #### U ARFX #### [place] [address] Ketones Ql (U) 80(2+) Abnormal NEGATIVE [facility] Comment on above: Performed By: #### U ARFX #### [address] [address] Leukocyte esterase Test strip Ql (U) Negative Normal NEGATIVE [facility] Comment on above: Performed By: #### U ARFX #### [address] [address] Nitrite Ql (U) Negative Normal NEGATIVE [facility] Comment on above: Performed By: #### U ARFX #### [place] [id number] pH (U) 7.0 [pH] Normal 5.0 - 8.0 [facility] Comment on above: Performed By: #### U ARFX #### [place] [address] Protein Ql (U) Negative Normal NEGATIVE [facility] Comment on above: Performed By: #### U ARFX #### [address] [address] Specific gravity (U) [Rel density] 1.014 Normal 1.005 - 1.035 [facility] Comment on above: Performed By: #### U ARFX #### [address] [address] Urobilinogen (U) [Mass/Vol] mg/dL Normal 0.0 - 1.9 [facility] Comment on above: Performed By: #### U ARFX #### [address] [address] Basic metabolic 2000 panelon 05-13-2022 Anion gap [Moles/Vol] 7.0 mmol/L Normal <=15.0 [facility] Comment on above: Performed By: #### 2 4321-2 #### [facility] [address] [facility] [place] [address] Director Of Marketing [employer] [place]ia Brice CLIA [id number] Calcium [Mass/Vol] 8.9 mg/dL Normal 8.5-10.1 [facility] Comment on above: Performed By: #### 2 4321-2 #### [facility] [address] [place] [address] Director Of Marketing [employer] - [facility] CLIA [id number] Chloride [Moles/Vol] 103 mmol/L Normal 98-107 [facility] Comment on above: Performed By: #### 2 4321-2 #### [facility] [address] [facility] [place] [address] Director Of Marketing [employer] [facility] CL[facility] [id number] CO2 [Moles/Vol] 24 mmol/L Normal 21-32 [facility] Comment on above: Performed By: #### 2 4321-2 #### [facility] [address] [facility] [place] [address] Director Of Marketing [employer] [place]ia Brice CLIA [id number] Creatinine [Mass/Vol] 0.50 mg/dL Low 0.51-0.95 [facility] Comment on above: Performed By: #### 2 4321-2 #### [facility] [address] [place] [address] Director Of Marketing [employer] [place] GONSALVES [id number] GFR/1.73 sq M.predicted MDRD (S/P/Bld) [Vol rate/Area] mL/min/{1.73_m2} Normal >=59 [facility] Comment on above: Performed By: #### 2 4321-2 #### [facility] [address] [place] [address] Director Of Marketing [employer] [place] GONSALVES [id number] Glucose [Mass/Vol] 86 mg/dL Normal 74-106 [facility] Comment on above: Performed By: #### 2 4321-2 #### [facility] [address] [place] [address] Director Of Marketing [employer] [place] GONSALVES [id number] HGFR GLOMERULAR FILTRATIO N RATE INTERPRETATION~The eGFR is calculated using the MDRD equation.~This equation has been validated in patients with chronic kidney disease;~however, it underestimates the GFR in healthy patients with GFR's over 60 mL/min.~The equation is not valid in children under the age of 18.~NOTE: Criteria for Chronic Kidney Disease:~ ~1. Kidney damage for at least three months, as defined~by structural or functional abnormalities of the kidney,~with or without decreased glomerular filtration rate, manifested by either:~* Pathological abnormalities or~* Markers of Kidney damage, including abnormalities in~the composition of the blood or urine or abnormalities in imaging tests.~ ~2. GFR <60 mL/min/1.73 m squared for at least three months, with or without kidney damage.~ Normal [facility] Comment on above: Performed By: #### 2 4321-2 #### [facility] [address] [place] [address] Director Of Marketing [employer] [place] GONSALVES [id number] Potassium [Moles/Vol] 3.6 mmol/L Normal 3.5-5.1 [facility] Comment on above: Performed By: #### 2 4321-2 #### [facility] [address] [place] [address] Director Of Marketing [employer] [place] COATESIA [id number] Sodium [Moles/Vol] 134 mmol/L Low 136-145 [facility] Comment on above: Performed By: #### 2 4321-2 #### [facility] [address] [place] [address] Director Of Marketing [employer] [place] COATESIA [id number] Urea nitrogen [Mass/Vol] 5 mg/dL Low 7-17 [facility] Comment on above: Performed By: #### 2 4321-2 #### [facility] [address] [place] [address] Director Of Marketing [employer] [place] COATESIA [id number] Basic metabolic 2000 panelon 05-12-2022 Anion gap [Moles/Vol] 7.0 mmol/L Normal <=15.0 [facility] Comment on above: Performed By: #### 2 106-3, UAR #### [facility] [address] [place] [address] Director Of Marketing [employer] [place] COATESIA [id number] Calcium [Mass/Vol] 8.2 mg/dL Low 8.5-10.1 [facility] Comment on above: Performed By: #### 2 106-3, UAR #### [facility] [address] [place] [address] Director Of Marketing [employer] [place]ia Brice CLIA [id number] Chloride [Moles/Vol] 101 mmol/L Normal 98-107 [facility] Comment on above: Performed By: #### 2 106-3, UAR #### [facility] [address] [place] [address] Director Of Marketing [employer] [place] COATESIA [id number] CO2 [Moles/Vol] 24 mmol/L Normal 21-32 [facility] Comment on above: Performed By: #### 2 106-3, UAR #### [facility] [address] [place] [address] Director Of Marketing [employer] [place] COATESIA [id number] Creatinine [Mass/Vol] 0.52 mg/dL Normal 0.51-0.95 [facility] Comment on above: Performed By: #### 2 106-3, UAR #### [facility] [address] [place] [address] Director Of Marketing [employer] [place] GONSALVES [id number] GFR/1.73 sq M.predicted MDRD (S/P/Bld) [Vol rate/Area] mL/min/{1.73_m2} Normal >=59 [facility] Comment on above: Performed By: #### 2 106-3, UAR #### [facility] [address] [place] [address] Director Of Marketing [employer] [place] GONSALVES [id number] Glucose [Mass/Vol] 102 mg/dL Normal 74-106 [facility] Comment on above: Performed By: #### 2 106-3, UAR #### [facility] [address] [place] [address] Director Of Marketing [employer] [place] GONSALVES [id number] HGFR GLOMERULAR FILTRATIO N RATE INTERPRETATION~The eGFR is calculated using the MDRD equation.~This equation has been validated in patients with chronic kidney disease;~however, it underestimates the GFR in healthy patients with GFR's over 60 mL/min.~The equation is not valid in children under the age of 18.~NOTE: Criteria for Chronic Kidney Disease:~ ~1. Kidney damage for at least three months, as defined~by structural or functional abnormalities of the kidney,~with or without decreased glomerular filtration rate, manifested by either:~* Pathological abnormalities or~* Markers of Kidney damage, including abnormalities in~the composition of the blood or urine or abnormalities in imaging tests.~ ~2. GFR <60 mL/min/1.73 m squared for at least three months, with or without kidney damage.~ Normal [facility] Comment on above: Performed By: #### 2 106-3, UAR #### [facility] [address] [place] [address] Director Of Marketing [employer] [place] GONSALVES [id number] Potassium [Moles/Vol] 3.0 mmol/L Low 3.5-5.1 [facility] Comment on above: Performed By: #### 2 106-3, UAR #### [facility] [address] [place] [address] Director Of Marketing [employer] Portia Brice CLIA [id number] Sodium [Moles/Vol] 132 mmol/L Low 136-145 [facility] Comment on above: Performed By: #### 2 106-3, UAR #### [facility] [address] [place] [address] Director Of Marketing [employer] Portia Brice CLIA [id number] Urea nitrogen [Mass/Vol] 8 mg/dL Normal 7-17 [facility] Comment on above: Performed By: #### 2 106-3, UAR #### [address] [place] [address] Director Of Marketing [employer] Portia Teranrell CLIA [id number] Anion gap [Moles/Vol] 7.0 mmol/L Normal <=15.0 [facility] Comment on above: Performed By: #### 2 106-3, UAR #### [facility] [address] [place] [address] Director Of Marketing [employer] Portia Brice CLIA [id number] Calcium [Mass/Vol] 8.3 mg/dL Low 8.5-10.1 [facility] Comment on above: Performed By: #### 2 106-3, UAR #### [facility] [address] [place] [address] Director Of Marketing [employer] Portia Brice CLIA [id number] Chloride [Moles/Vol] 99 mmol/L Normal 98-107 [facility] Comment on above: Performed By: #### 2 106-3, UAR #### [facility] [address] [place] [address] Director Of Marketing [employer] Portia Teranrell CLIA [id number] CO2 [Moles/Vol] 27 mmol/L Normal 21-32 [facility] Comment on above: Performed By: #### 2 106-3, UAR #### [facility] [address] [place] [address] Director Of Marketing [employer] [place] GONSALVES [id number] Creatinine [Mass/Vol] 0.60 mg/dL Normal 0.51-0.95 [facility] Comment on above: Performed By: #### 2 106-3, UAR #### [facility] [address] [place] [address] Director Of Marketing [employer] - [facility] [id number] GFR/1.73 sq M.predicted MDRD (S/P/Bld) [Vol rate/Area] mL/min/{1.73_m2} Normal >=59 [facility] Comment on above: Performed By: #### 2 106-3, UAR #### [facility] [address] [place] [address] Director Of Marketing [employer] [place]ia GONSALVES [id number] Glucose [Mass/Vol] 92 mg/dL Normal 74-106 [facility] Comment on above: Performed By: #### 2 106-3, UAR #### [facility] [address] [place] [address] Director Of Marketing [employer] [facility] [id number] HGFR GLOMERULAR FILTRATIO N RATE INTERPRETATION~The eGFR is calculated using the MDRD equation.~This equation has been validated in patients with chronic kidney disease;~however, it underestimates the GFR in healthy patients with GFR's over 60 mL/min.~The equation is not valid in children under the age of 18.~NOTE: Criteria for Chronic Kidney Disease:~ ~1. Kidney damage for at least three months, as defined~by structural or functional abnormalities of the kidney,~with or without decreased glomerular filtration rate, manifested by either:~* Pathological abnormalities or~* Markers of Kidney damage, including abnormalities in~the composition of the blood or urine or abnormalities in imaging tests.~ ~2. GFR <60 mL/min/1.73 m squared for at least three months, with or without kidney damage.~ Normal [facility] Comment on above: Performed By: #### 2 106-3, UAR #### [facility] [address] [place] [address] Director Of Marketing [employer] [place] COATESIA [id number] Potassium [Moles/Vol] 2.7 mmol/L Critically low 3.5-5.1 [facility] Comment on above: Performed By: #### 2 106-3, UAR #### [facility] [address] [place] [address] Director Of Marketing [employer] [place]ia GONSALVES [id number] Sodium [Moles/Vol] 133 mmol/L Low 136-145 [facility] Comment on above: Performed By: #### 2 106-3, UAR #### [facility] [address] [place] [address] Director Of Marketing [employer] [place] GONSALVES [id number] Urea nitrogen [Mass/Vol] 11 mg/dL Normal 7-17 [facility] Comment on above: Performed By: #### 2 106-3, UAR #### [facility] [address] [place] [address] Director Of Marketing [employer] [place]ATESIA [id number] CBC panel Auto (Bld)on 05-12 Erythrocyte distribution width (RBC) [Entitic vol] 38.5 fL Normal 36.4-46.3 [facility] Comment on above: Performed By: #### 2 106-3, UAR #### [facility] [address] [place] [address] Director Of Marketing [employer] [place] GONSALVES [id number] Hematocrit (Bld) [Volume fraction] 35.6 % Low 37.0-47.0 [facility] Comment on above: Performed By: #### 2 106-3, UAR #### [facility] [address] [place] [address] Director Of Marketing [employer] [place] GONSALVES [id number] Hemoglobin (Bld) [Mass/Vol] 12.5 g/dL Normal 12.0-16.0 [facility] Comment on above: Performed By: #### 2 106-3, UAR #### [facility] [address] [place] [address] Director Of Marketing [employer] [place] GONSALVES [id number] MCH (RBC) [Entitic mass] 30.8 pg Normal 27.0-31.0 [facility] Comment on above: Performed By: #### 2 106-3, UAR #### [facility] [address] [place] [address] Director Of Marketing [employer] [place] GONSALVES [id number] MCHC (RBC) [Mass/Vol] 35.1 g/dL Normal 32.0-36.0 [facility] Comment on above: Performed By: #### 2 106-3, UAR #### [facility] [address] [place] [address] Director Of Marketing [employer] [place] GONSALVES [id number] MCV (RBC) [Entitic vol] 87.7 fL Normal 80.0-100.0 [facility] Comment on above: Performed By: #### 2 106-3, UAR #### [place] [address] [place] [address] Director Of Marketing [employer] [place] GONSALVES [id number] Platelet mean volume (Bld) [Entitic vol] 9.5 fL Normal 9.0-13.0 [facility] Comment on above: Performed By: #### 2 106-3, UAR #### [facility] [address] [facility]. [place] [address] Director Of Marketing [employer] [place] GONSALVES [id number] Platelets (Bld) [#/Vol] 212 10*3/uL Normal 130-400 [facility] Comment on above: Performed By: #### 2 106-3, UAR #### [facility] [address] [place] [address] Director Of Marketing [employer] [place] [id number] RBC (Bld) [#/Vol] 4.06 10*6/uL Normal 4.00-6.30 [facility] Comment on above: Performed By: #### 2 106-3, UAR #### [facility] [address] [place] [address] Director Of Marketing [employer] [place] GONSALVES [id number] WBC (Bld) [#/Vol] 9.29 10*3/uL Normal 4.80-10.80 [facility] Comment on above: Performed By: #### 2 106-3, UAR #### [facility] [address] [place] [address] Director Of Marketing [employer] [facility] [id number] MAGNESIUMon 05-12-2022 Magnesium [Mass/Vol] 2.2 mg/dL Normal 1.6-2.6 [facility] Comment on above: Performed By: #### 2 106-3, UAR #### [address] [place] [address] Director Of Marketing [employer] - [facility] [id number] TROPONIN HIGH SENSITIVITYon 05-12-2022 TNIH 10.40 pg/mL Normal <=59.00 [facility] Comment on above: Result Comment: <59 pg/mL is considered a negative result. Performed By: #### 2 106-3, UAR #### [place] [address] Director Of Marketing [employer] - [facility] [id number] CBC W Auto Differential pane l (Bld)on 05-11-2022 Basophils (Bld) [#/Vol] 0.02 10*3/uL Normal <=0.70 [facility] Comment on above: Performed By: #### 5 7021-8 #### [place] [address] Director Of Marketing [employer] [facility] [id number] Basophils/100 WBC (Bld) 0.2 % Normal <=2.0 [facility] Comment on above: Performed By: #### 5 7021-8 #### [address] - [facility] CLIA [id number] Eosinophils (Bld) [#/Vol] 0.01 10*3/uL Normal <=0.70 [facility] Comment on above: Performed By: #### 5 7021-8 #### [facility] [address] [place] [address] Director Of Marketing [employer] [place] GONSALVES [id number] Eosinophils/100 WBC (Bld) 0.1 % Normal <=10.0 [facility] Comment on above: Performed By: #### 5 7021-8 #### [facility] [address] [place] [address] Director Of Marketing [employer] [place] GONSALVES [id number] Erythrocyte distribution width (RBC) [Entitic vol] 36.4 fL Normal 36.4-46.3 [facility] Comment on above: Performed By: #### 5 7021-8 #### [facility] [address] [place] [address] Director Of Marketing [employer] [place] GONSALVES [id number] Hematocrit (Bld) [Volume fraction] 46.4 % Normal 37.0-47.0 [facility] Comment on above: Performed By: #### 5 7021-8 #### [facility] [address] [place] [address] Director Of Marketing [employer] [place] GONSALVES [id number] Hemoglobin (Bld) [Mass/Vol] 16.7 g/dL High 12.0-16.0 [facility] Comment on above: Performed By: #### 5 7021-8 #### [place] [address] [place] [address] Director Of Marketing [employer] [place] GONSALVES [id number] Immature granulocytes (Bld) [#/Vol] 0.03 10*3/uL Normal <=0.10 [facility] Comment on above: Performed By: #### 5 7021-8 #### [facility] [address] [place] [address] Director Of Marketing [employer] [place] GONSALVES [id number] Immature granulocytes/100 WBC (Bld) 0.30 % Normal <=1.50 [facility] Comment on above: Performed By: #### 5 7021-8 #### [facility] [address] [place] [address] Director Of Marketing [employer] [place] GONSALVES [id number] Lymphocytes (Bld) [#/Vol] 2.65 10*3/uL Normal 1.20-3.40 [facility] Comment on above: Performed By: #### 5 7021-8 #### [facility] [address] [facility]. [place] [address] Director Of Marketing [employer] [place] [id number] Lymphocytes/100 WBC (Bld) 28.7 % Normal 20.0-40.0 [facility] Comment on above: Performed By: #### 5 7021-8 #### [address] [place] [address] Director Of Marketing [employer] [place] GONSALVES [id number] MCH (RBC) [Entitic mass] 30.5 pg Normal 27.0-31.0 [facility] Comment on above: Performed By: #### 5 7021-8 #### [address] [place] [address] Director Of Marketing [employer] [place] GONSALVES [id number] MCHC (RBC) [Mass/Vol] 36.0 g/dL Normal 32.0-36.0 [facility] Comment on above: Performed By: #### 5 7021-8 #### [address] [place] [address] Director Of Marketing [employer] [place] GONSALVES [id number] MCV (RBC) [Entitic vol] 84.8 fL Normal 80.0-100.0 [facility] Comment on above: Performed By: #### 5 7021-8 #### [address] [place] [address] Director Of Marketing [employer] [place] [id number] Monocytes (Bld) [#/Vol] 1.45 10*3/uL High 0.10-0.60 [facility] Comment on above: Performed By: #### 5 7021-8 #### [address] [place] [address] Director Of Marketing [employer] [place] [id number] Monocytes/100 WBC (Bld) 15.7 % High <=8.0 [facility] Comment on above: Performed By: #### 5 7021-8 #### [place] [address] [facility]. [place] [address] Director Of Marketing [employer] [place] [id number] Neutrophils (Bld) [#/Vol] 5.08 10*3/uL Normal 1.40-6.50 [facility] Comment on above: Performed By: #### 5 7021-8 #### [address] [place] [address] Director Of Marketing [employer] [place] [id number] Neutrophils/100 WBC (Bld) 55.0 % Normal 50.0-70.0 [facility] Comment on above: Performed By: #### 5 7021-8 #### [address] [place] [address] Director Of Marketing [employer] [place] [id number] Nucleated RBC (Bld) [#/Vol] 0.00 10*3/uL Normal <=0.10 [facility] Comment on above: Performed By: #### 5 7021-8 #### [address] [place] [address] Director Of Marketing [employer] [place] [id number] Platelet mean volume (Bld) [Entitic vol] 9.3 fL Normal 9.0-13.0 [facility] Comment on above: Performed By: #### 5 7021-8 #### [address] [place] [address] Director Of Marketing [employer] [place] [id number] Platelets (Bld) [#/Vol] 308 10*3/uL Normal 130-400 [facility] Comment on above: Performed By: #### 5 7021-8 #### [address] [place] [address] Director Of Marketing [employer] [place] [id number] RBC (Bld) [#/Vol] 5.47 10*6/uL Normal 4.00-6.30 [facility] Comment on above: Performed By: #### 5 7021-8 #### [facility] [address] [place] [address] Director Of Marketing [employer] [place] G[place]AL[place]ES [id number] WBC (Bld) [#/Vol] 9.24 10*3/uL Normal 4.80-10.80 [facility] Comment on above: Performed By: #### 5 7021-8 #### [facility] [address] [place] [address] Director Of Marketing [employer] [place] G[place]AL[place]ES [id number] CHEST AP PORTABLEon 05-11-19 CHEST AP PORTABLE AP UPRIGHT PORTABLE CHEST Clinical Information: Vomiting. Comparison: None. No focal consolidations or pleural effusions. Cardiomediastinal silhouette is unremarkable. No acute bony abnormality. IMPRESSION: No acute disease. Normal [facility] CKon 05-11-2022 CK [Catalytic activity/Vol] 238 U/L High 21-215 [facility] Comment on above: Performed By: #### 2 4323-8, 2157-6, 3040-3, 62604-6, 20004-7 #### [facility] [address] [place] [address] Director Of Marketing [employer] [place] GONS[place] [id number] CT ABDOMEN AND PELVIS WITH C ONTRASTon 05-11-2022 CT ABDOMEN AND PELVIS WITH CONTRAST CT ABDOMEN AND PELVIS WITH CONTRAST: INDICATION: Nausea and vomiting. COMPARISON: None. TECHNIQUE: Helical CT images of the abdomen and pelvis were obtained after the administration of intravenous contrast. Dose reduction techniques were achieved by using automated exposure control and/or adjustment of mA and/or kV according to patient size and/or use of iterative reconstruction technique. FINDINGS: LOWER CHEST: The visualized lung bases are clear. There is a small hiatal hernia. LIVER: Unremarkable. GALLBLADDER AND BILIARY SYSTEM: Unremarkable. SPLEEN: Unremarkable. PANCREAS: Unremarkable. ADRENAL GLANDS: Unremarkable. KIDNEYS AND URETERS: The kidneys enhance symmetrically. There is no hydronephrosis. No focal renal lesions. BLADDER: Underdistended. GASTROINTESTINAL TRACT: No evidence of bowel obstruction or colitis. Normal appendix. VASCULATURE: There is mild to moderate compression of the left renal vein between the aorta and the superior mesenteric artery (series 2, image 42). The abdominal aorta is normal in caliber. RETROPERITONEUM AND LYMPH NODES: No lymphadenopathy or mass. PERITONEUM/MESENTERY: No abdominal ascites. No free air. PELVIS: There is a right ovarian follicle measuring 1.4 cm. Trace amount of free fluid in the cul-de-sac. There is a small amount of fluid noted within the upper vaginal canal. No lymphadenopathy. BODY WALL: Unremarkable. BONES: No acute abnormality. IMPRESSION: 1. Right ovarian follicle measuring 1.4 cm. Trace amount of free fluid in the cul-de-sac. Small amount of fluid in the upper vaginal canal. 2. Small hiatal hernia. Normal [facility] Comprehensive metabolic 2000 panelon 05-11-2022 Albumin [Mass/Vol] 4.4 g/dL Normal 3.4-5.0 [facility] Comment on above: Performed By: #### 2 106-3, UAR #### [facility] [address] [facility]. [place] [address] Director Of Marketing [employer] [facility] CLIA [id number] ALP [Catalytic activity/Vol] 72 U/L Normal 50-136 [facility] Comment on above: Performed By: #### 2 106-3, UAR #### [facility] [address] [facility] [place] [address] Director Of Marketing [employer] [facility] JAXONIA [id number] ALT [Catalytic activity/Vol] 30 U/L Normal 14-59 [facility] Comment on above: Performed By: #### 2 106-3, UAR #### [facility] [address] [facility] [place] [address] Director Of Marketing [employer] [place] CLIA [id number] Anion gap [Moles/Vol] 12.0 mmol/L Normal <=15.0 [facility] Comment on above: Performed By: #### 2 106-3, UAR #### [facility] [address] [facility] [place] [address] Director Of Marketing [employer] [facility] [place]AXON[place] [id number] AST [Catalytic activity/Vol] 29 U/L Normal 15-37 [facility] Comment on above: Performed By: #### 2 106-3, UAR #### [facility] [address] [place] [address] Director Of Marketing [employer] [place] CLIA [id number] Bilirubin [Mass/Vol] 1.1 mg/dL High 0.2-1.0 [facility] Comment on above: Performed By: #### 2 106-3, UAR #### [facility] [address] [place] [address] Director Of Marketing [employer] [place] CLIA [id number] Calcium [Mass/Vol] 9.9 mg/dL Normal 8.5-10.1 [facility] Comment on above: Performed By: #### 2 106-3, UAR #### [facility] [address] [place] [address] Director Of Marketing [employer] [place] CLIA [id number] Chloride [Moles/Vol] 82 mmol/L Low 98-107 [facility] Comment on above: Performed By: #### 2 106-3, UAR #### [facility] [address] [place] [address] Director Of Marketing [employer] [place] CLIA [id number] CO2 [Moles/Vol] 32 mmol/L Normal 21-32 [facility] Comment on above: Performed By: #### 2 106-3, UAR #### [facility] [address] [place] [address] Director Of Marketing [employer] [place] [id number] Creatinine [Mass/Vol] 0.58 mg/dL Normal 0.51-0.95 [facility] Comment on above: Performed By: #### 2 106-3, UAR #### [facility] [address] [place] [address] Director Of Marketing [employer] [place] [id number] GFR/1.73 sq M.predicted MDRD (S/P/Bld) [Vol rate/Area] mL/min/{1.73_m2} Normal >=59 [facility] Comment on above: Performed By: #### 2 106-3, UAR #### [facility] [address] [place] [address] Director Of Marketing [employer] [place]ES [id number] Glucose [Mass/Vol] 103 mg/dL Normal 74-106 [facility] Comment on above: Performed By: #### 2 106-3, UAR #### [facility] [address] [place] [address] Director Of Marketing [employer] [place] G[place]ES [id number] HGFR GLOMERULAR FILTRATIO N RATE INTERPRETATION~The eGFR is calculated using the MDRD equation.~This equation has been validated in patients with chronic kidney disease;~however, it underestimates the GFR in healthy patients with GFR's over 60 mL/min.~The equation is not valid in children under the age of 18.~NOTE: Criteria for Chronic Kidney Disease:~ ~1. Kidney damage for at least three months, as defined~by structural or functional abnormalities of the kidney,~with or without decreased glomerular filtration rate, manifested by either:~* Pathological abnormalities or~* Markers of Kidney damage, including abnormalities in~the composition of the blood or urine or abnormalities in imaging tests.~ ~2. GFR <60 mL/min/1.73 m squared for at least three months, with or without kidney damage.~ Normal [facility] Comment on above: Performed By: #### 2 106-3, UAR #### [facility] [address] [facility] [place] [address] Director Of Marketing [employer] [place] [id number] Potassium [Moles/Vol] 2.2 mmol/L Critically low 3.5-5.1 [facility] Comment on above: Performed By: #### 2 106-3, UAR #### [facility] [address] [place] [address] Director Of Marketing [employer] [place] [id number] Protein [Mass/Vol] 9.0 g/dL High 6.4-8.2 [facility] Comment on above: Performed By: #### 2 106-3, UAR #### [facility] [address] [place] [address] Director Of Marketing [employer] [place] [id number] Sodium [Moles/Vol] 126 mmol/L Low 136-145 [facility] Comment on above: Performed By: #### 2 106-3, UAR #### [facility] [address] [place] [address] Director Of Marketing [employer] [place] [id number] Urea nitrogen [Mass/Vol] 15 mg/dL Normal 7-17 [facility] Comment on above: Performed By: #### 2 106-3, UAR #### [facility] [address] [place] [address] Director Of Marketing [employer] [place] [id number] Drugs identified Screen Nom (U)on 05-11-2022 Amphetamines Ql (U) Not detected Normal CUTOFF = 500 [facility] Comment on above: Performed By: #### 1 2286-1 #### [facility] [address] [place] [address] Director Of Marketing [employer] [place] [id number] Barbiturates Ql (U) Not detected Normal CUTOFF = 200 [facility] Comment on above: Performed By: #### 1 2286-1 #### [facility] [address] [place] [address] Director Of Marketing [employer] [place] [id number] Benzodiazepines Ql (U) Not detected Normal CUTOFF = 150 [facility] Comment on above: Performed By: #### 1 2286-1 #### [facility] [address] [place] [address] Director Of Marketing [employer] [place] [id number] Cocaine Ql (U) Not detected Normal CUTOFF = 150 [facility] Comment on above: Performed By: #### 1 2286-1 #### [facility] [address] [place] [address] Director Of Marketing [employer] - [place]AL[place]ES [id number] [facility] Drugs of abuse kglinsey haywoodg provides only a preliminary analytical test result. A more specific alternate chemical method must be used in order to obtain a confimed analytical result. Clinical consideration and professional judgment should be applied to any drug of abuse test result, particularly when preliminary positive results are obtained. Normal [facility] Comment on above: Performed By: #### 1 2286-1 #### [facility] [address] [place] [address] Director Of Marketing [employer] [place] CLIA [id number] Methadone Ql (U) Not detected Normal CUTOFF = 200 [facility] Comment on above: Performed By: #### 1 2286-1 #### [facility] [address] [place] [address] Director Of Marketing [employer] [place] CLIA [id number] Opiates Ql (U) Not detected Normal CUTOFF = 300 [facility] Comment on above: Performed By: #### 1 2286-1 #### [facility] [address] [place] [address] Director Of Marketing [employer] [place] [id number] oxyCODONE Ql (U) Not detected Normal CUTOFF = 100 [facility] Comment on above: Performed By: #### 1 2286-1 #### [facility] [address] [place] [address] Director Of Marketing [employer] [place] [id number] Phencyclidine Ql (U) Not detected Normal CUTOFF = 25 [facility] Comment on above: Performed By: #### 1 2286-1 #### [facility] [address] [place] [address] Director Of Marketing [employer] [place] [id number] Tetrahydrocannabinol Ql (U) Detected Abnormal CUTOFF = 50 [facility] Comment on above: Performed By: #### 1 2286-1 #### [facility] [address] [place] [address] Director Of Marketing [employer] - [place] CLIA [id number] HCG ( test) Ql (U)o n 05-11-2022 Beta HCG ( test) Ql (U) Negative Normal NEGATIVE [facility] Comment on above: Performed By: #### 2 106-3, UAR #### [facility] [address] [place] [address] Director Of Marketing [employer] - [place] CLIA [id number] LACTATEon 05-11-2022 Lactate [Moles/Vol] 2.0 mmol/L Normal 0.4-2.0 [facility] Comment on above: Performed By: #### 2 106-3, UAR #### [facility] [address] [place] [address] Director Of Marketing [employer] - [place] [id number] LIPASEon 05-11-2022 Lipase [Catalytic activity/Vol] 124 U/L Normal 73-393 [facility] Comment on above: Performed By: #### 2 4323-8, 2157-6, 3040-3, 24189-0, 09907-1 #### [facility] [address] [place] [address] Director Of Marketing [employer] [facility] BRINA [id number] MAGNESIUMon 05-11-2022 Magnesium [Mass/Vol] 2.6 mg/dL Normal 1.6-2.6 [facility] Comment on above: Performed By: #### 2 4323-8, 7-6, 3040-3, 82548-5, 44346-7 #### [facility] [address] [place] [address] Director Of Marketing [employer] [facility] BRINA [id number] TROPONIN HIGH SENSITIVITYon 05-11-2022 TNIH 8.90 pg/mL Normal <=59.00 [facility] Comment on above: Result Comment: <59 pg/mL is considered a negative result. Performed By: #### 2 106-3, UAR #### [facility] [address] [place] [address] Director Of Marketing [employer] [facility] [id number] TSH DL <= 0.05 mIU/L Qnon TSH Qn 2.000 uIU/mL Normal 0.358-3.74 0 [facility] Comment on above: Performed By: #### 2 106-3, UAR #### [facility] [address] [place] [address] Director Of Marketing [employer] [facility] BRINA [id number] URINALYSIS with reflex to CU LTUREon 05-11-2022 Bacteria LM.HPF (Urine sed) [#/Area] Negative Normal TRACE [facility] Comment on above: Performed By: #### 2 106-3, UAR #### [facility] [address] [place] [address] Director Of Marketing [employer] - [place] [id number] Bilirubin Ql (U) Negative Normal NEGATIVE [facility] Comment on above: Performed By: #### 2 106-3, UAR #### [facility] [address] [place] [address] Director Of Marketing [employer] - [place] [id number] Clarity (U) CLEAR Normal CLEAR [facility] Comment on above: Performed By: #### 2 106-3, UAR #### [facility] [address] [place] [address] Director Of Marketing [employer] - [place] [id number] Color (U) YELLOW Normal YELLOW [facility] Comment on above: Performed By: #### 2 106-3, UAR #### [place] [address] [place] [address] Director Of Marketing [employer] [place] [id number] Glucose Ql (U) Negative Normal NEGATIVE [facility] Comment on above: Performed By: #### 2 106-3, UAR #### [facility] [address] [place] [address] Director Of Marketing [employer] [place] [id number] Hemoglobin Ql (U) 2+ Abnormal NEGATIVE [facility] Comment on above: Performed By: #### 2 106-3, UAR #### [facility] [address] [place] [address] Director Of Marketing [employer] [place] [id number] HMICRO MICROSCOPIC Normal [facility] Comment on above: Performed By: #### 2 106-3, UAR #### [facility] [address] [place] [address] Director Of Marketing [employer] [place] [id number] Hyaline casts (Urine sed) [#/Area] 0-8 Normal 0-8 [facility] Comment on above: Performed By: #### 2 106-3, UAR #### [facility] [address] [place] [address] Director Of Marketing [employer] [place] [id number] KETONE 1+ Abnormal NEGATIVE [facility] Comment on above: Performed By: #### 2 106-3, UAR #### [facility] [address] [place] [address] Director Of Marketing [employer] [place] [id number] Leukocyte esterase Test strip Ql (U) Negative Normal TRACE [facility] Comment on above: Performed By: #### 2 106-3, UAR #### [facility] [address] [place] [address]. [place] [place] [address] Director Of Marketing [employer] COATES[place] [id number] Nitrite Ql (U) Negative Normal NEGATIVE [facility] Comment on above: Performed By: #### 2 106-3, UAR #### [facility] [address] [place], [place] [address] [place] [address] Director Of Marketing [employer] [place] [id number] pH (U) 6.0 [pH] Normal 5.5-7.5 [facility] Comment on above: Performed By: #### 2 106-3, UAR #### [facility] [address] [place] [address]. [place] [address] Director Of Marketing [employer] [place] [id number] Protein Ql (U) 1+ Abnormal NEGATIVE [facility] Comment on above: Performed By: #### 2 106-3, UAR #### [facility] [address] [facility]. [place] [address] Director Of Marketing [employer] [place] [id number] RBC LM.HPF (Urine sed) [#/Area] 4-10 Abnormal 0-4 [facility] Comment on above: Performed By: #### 2 106-3, UAR #### [facility] [address] [facility]. [place] [address] Director Of Marketing [employer] [place] [id number] Specific gravity (U) [Rel density] 1.019 Normal 1.010-1.03 5 [facility] Comment on above: Performed By: #### 2 106-3, UAR #### [facility] [address] [facility]. [place] [address] Director Of Marketing [employer] [place] GONSALVES [id number] SQUAMOUS EPITHELIALS 0-5 Normal 0-5 [facility] Comment on above: Performed By: #### 2 106-3, UAR #### [facility] [address] [facility]. [place] [address] Director Of Marketing [employer] [place] [id number] Urobilinogen Qn (U) 1.0 {Inge'U}/dL Normal <=1.0 [facility] Comment on above: Performed By: #### 2 106-3, UAR #### [facility] [address] [place] [address] Director Of Marketing [employer] [place] [id number] WBC LM.HPF (Urine sed) [#/Area] 0-5 Normal 0-5 [facility] Comment on above: Performed By: #### 2 106-3, UAR #### [place] [address] Director Of Marketing [employer] [place] G[place]AL[place]ES [id number] Absolute lymphocyte counton 11-16-2021 Lymphocytes Auto (Unsp spec) [#/Vol] 2.97 10*3/uL 0.83-4.51 [facility] Work Phone: Basophil percentageon 2021 Basophil percentage 0-5 SEEN /hpf 0-5 [facility] Work Phone: Basophils/100 WBC (Bld) 0.3 % 0-1 [facility] Work Phone: Bilirubin [Mass/Vol] 1.00 mg/dL 0.20-1.00 [facility] Work Phone: Comment on above: For patients on eltr ombopag therapy, use of Dimension [place] TBIL is not recommended. Chloride [Moles/Vol] 86 mmol/L 98-107 [facility] Work Phone: Eosinophils/100 WBC (Bld) 0.1 % 0-5 [facility] Work Phone: Glucose [Mass/Vol] 109 mg/dL 74-106 [facility] Work Phone: Comment on above: Fasting Glucose resu lt from 100 to 125 mg/dL suggests IMPAIRED HOMEOSTASIS per A.D.A. criteria. Neutrophils (Bld) [#/Vol] 5.3 10*3/uL 2.0-7.7 [facility] Work Phone: Neutrophils/100 WBC (Bld) 57.3 % 47-70 [facility] Work Phone: Potassium [Moles/Vol] 2.5 mmol/L 3.5-5.1 [facility] Work Phone: Comment on above: Critical Result(s) C alled at: 12:02:25 11/16/2021 by: Mary Jiang. Results read back by same. Protein [Mass/Vol] 9.7 g/dL 6.4-8.2 [facility] Work Phone: Sodium [Moles/Vol] 133 mmol/L 136-145 [facility] Work Phone: WBC (Bld) [#/Vol] 9.2 10*3/uL 4.4-11.0 [facility] Work Phone: Bilirubin Test strip Ql (U)o n 11-16-2021 Bilirubin Ql (U) 1 mg/dL Negative [facility] Work Phone: Comment on above: COLOR OF URINE MAY A FFECT DIPSTICK RESULTS. Blood erythrocytes count (nu mber/volume)on 11-16-2021 RBC (Bld) [#/Vol] 5.54 10*6/uL 4.2-5.4 [facility] Work Phone: Blood hemoglobin measurement (mass/volume)on 11-16-2021 Hemoglobin (Bld) [Mass/Vol] 16.9 g/dL 12.0-15.0 [facility] Work Phone: Blood lymphocytes/100 leukoc yteson 11-16-2021 Lymphocytes/100 WBC (Bld) 32.2 % 19-41 [facility] Work Phone: Blood monocytes/100 leukocyt eson 11-16-2021 Monocytes/100 WBC (Bld) 9.9 % 0-10 [facility] Work Phone: Blood platelet mean volumeon 11-16-2021 Platelet mean volume (Bld) [Entitic vol] 9.4 fL 6.2-12.0 [facility] Work Phone: Determination of erythrocyte mean corpuscular volume (MCV)on 11-16-2021 MCV (RBC) [Entitic vol] 89.5 fL 81-99 [facility] Work Phone: Hematocrit Auto (Bld) [Volum e fraction]on 11-16-2021 Hematocrit (Bld) [Volume fraction] 49.6 % 37-47 [facility] Work Phone: Ketones Test strip Ql (U)on 11-16-2021 Ketones Ql (U) 50 mg/dl Negative [facility] Work Phone: Laboratory - Chemistry and C hemistry - challengeon 11-16-2021 HCG ( test) Ql (U) Negative [facility] Work Phone: Comment on above: Very dilute urine sp ecimens, as indicated by a low specificgravity, may not contain entry level account representative levels of hCG. If is still suspected, a first morning urinespecimen should be collected 48 hours later and tested. ALP [Catalytic activity/Vol] 64 U/L 45-117 [facility] Work Phone: ALT [Catalytic activity/Vol] 70 U/L 13-56 [facility] Work Phone: CO2 [Moles/Vol] 35.0 mmol/L 21.0-32.0 [facility] Work Phone: Globulin (S) [Mass/Vol] 4.7 g/dL 2.2-4.2 [facility] Work Phone: Urea nitrogen/Creatinine [Mass ratio] 11.6 mg/mg 10-20 [facility] Work Phone: Laboratory - Hematology and Cell countson 11-16-2021 Erythrocyte distribution width (RBC) [Entitic vol] 37.3 fL 35.1-43.9 [facility] Work Phone: Erythrocyte distribution width (RBC) [Ratio] 11.5 % 11.6-14.6 [facility] Work Phone: Immature granulocytes/100 WBC (Bld) 0.200 % 0.0-0.9 [facility] Work Phone: Comment on above: IG% - Immature Granu locytes (promyelocytes, myelocytes and metamyelocytes) > 1% indicates that a LEFT SHIFT is Present. MCH (RBC) [Entitic mass] 30.5 pg 27.0-32.0 [facility] Work Phone: Nucleated RBC/100 WBC (Bld) [Ratio] 0 % 0-5 [facility] Work Phone: MCHC Auto (RBC) [Mass/Vol]on 11-16-2021 MCHC (RBC) [Mass/Vol] 34.1 g/dL 32-36 [facility] Work Phone: Mucus LM Ql (Urine sed)on Mucus Ql (Urine sed) 0 SEEN /hpf [facility] Work Phone: Nitrite Test strip Ql (U)on 11-16-2021 Nitrite Ql (U) Negative Negative [facility] Work Phone: No Panel Informationon 11-16 Estimated Creatinine Clearance Calc 59.18 ml/min [facility] Work Phone: Estimated GFR (MDRD) Amer 96 mL/min >60 [facility] Work Phone: Comment on above: GFR Calc Estimated GFR (MDRD) Non-Af Amer 79 mL/min >60 [facility] Work Phone: Comment on above: Non- GFR Calc Platelets bldon 11-16-2021 Platelets (Bld) [#/Vol] 364 10*3/uL 150-450 [facility] Work Phone: Protein Test strip Ql (U)on 11-16-2021 Protein Ql (U) 30 mg/dl Negative [facility] Work Phone: Serum or plasma albumin neto urement (mass/volume)on 11-16-2021 Albumin [Mass/Vol] 5.0 g/dL 3.2-5.0 [facility] Work Phone: Serum or plasma albumin/glob ulin mass ratioon 11-16-2021 Albumin/Globulin [Mass ratio] 1.1 {ratio} 0.9-2.4 [facility] Work Phone: Serum or plasma calcium neto urement (mass/volume)on 11-16-2021 Calcium [Mass/Vol] 10.3 mg/dL 8.5-10.1 [facility] Work Phone: Serum or plasma creatinine m easurement (mass/volume)on 11-16-2021 Creatinine [Mass/Vol] 0.94 mg/dL 0.55-1.02 [facility] Work Phone: Comment on above: The validity of the calculated GFR & GFRAA in patients over 70 years has not been determined. Clinical correlation is essential. Serum or plasma urea nitroge n measurement (mass/volume)on 11-16-2021 Urea nitrogen [Mass/Vol] 11 mg/dL 7-18 [facility] Work Phone: Squamous epithelial cells de tection in urine sediment by light microscopyon 11-16-2021 Epithelial cells.squamous LM Ql (Urine sed) 0 SEEN /hpf 5-10 [facility] Work Phone: Thin prep Papanicolaou smear with manual screeningon 11-16-2021 Thin prep Papanicolaou smear with manual screening 39 U/L 15-37 [facility] Work Phone: Thin prep Papanicolaou smear with manual screening 12 5-15 [facility] Work Phone: Urine blood detectionon 11-04 RBC Ql (U) 25 /ul Negative [facility] Work Phone: RBC Ql (U) 0 SEEN /hpf 0-5 [facility] Work Phone: Urine clarityon 11-16-2021 Clarity (U) Clear Clear [facility] Work Phone: Urine color determinationon 11-16-2021 Color (U) Yellow Yellow [facility] Work Phone: Urine glucose detectionon Glucose Ql (U) Normal mg/dl Normal [facility] Work Phone: Urine leukocyte esterase det ection by dipstickon 11-16-2021 Leukocyte esterase Test strip Ql (U) Negative Negative [facility] Work Phone: Urine pHon 11-16-2021 pH (U) 6.0 [pH] 5.0 - 8.0 [facility] Work Phone: Urine sediment bacteria coun t by microscopy (number/high power field)on 11-16-2021 Bacteria LM.HPF (Urine sed) [#/Area] 2 /[HPF] None Seen [facility] Work Phone: Urine specific gravity measu rementon 11-16-2021 Specific gravity (U) [Rel density] 1.025 1.002-1.03 0 [facility] Work Phone: Urobilinogen Auto test strip Ql (U)on 11-16-2021 Urobilinogen Ql (U) 1 mg/dl Normal [facility] Work Phone: Absolute lymphocyte counton 09-06-2021 Lymphocytes Auto (Unsp spec) [#/Vol] 2.20 10*3/uL 0.83-4.51 [facility] Work Phone: Basophil percentageon 2021 Basophil percentage < 0.2 AI 0.0-0.9 [facility] Work Phone: Basophils/100 WBC (Bld) 0.9 % 0-1 [facility] Work Phone: Bilirubin [Mass/Vol] 0.40 mg/dL 0.20-1.00 [facility] Work Phone: Comment on above: For patients on eltr ombopag therapy, use of Dimension [place] TBIL is not recommended. Chloride [Moles/Vol] 107 mmol/L 98-107 [facility] Work Phone: Eosinophils/100 WBC (Bld) 1.1 % 0-5 [facility] Work Phone: Glucose [Mass/Vol] 84 mg/dL 74-106 [facility] Work Phone: Neutrophils (Bld) [#/Vol] 1.7 10*3/uL 2.0-7.7 [facility] Work Phone: Neutrophils/100 WBC (Bld) 37.9 % 47-70 [facility] Work Phone: Potassium [Moles/Vol] 3.8 mmol/L 3.5-5.1 [facility] Work Phone: Protein [Mass/Vol] 8.1 g/dL 6.4-8.2 [facility] Work Phone: Sodium [Moles/Vol] 139 mmol/L 136-145 [facility] Work Phone: WBC (Bld) [#/Vol] 4.4 10*3/uL 4.4-11.0 [facility] Work Phone: Blood erythrocytes count (nu mber/volume)on 09-06-2021 RBC (Bld) [#/Vol] 4.27 10*6/uL 4.2-5.4 [facility] Work Phone: Blood hemoglobin measurement (mass/volume)on 09-06-2021 Hemoglobin (Bld) [Mass/Vol] 13.0 g/dL 12.0-15.0 [facility] Work Phone: Blood lymphocytes/100 leukoc yteson 09-06-2021 Lymphocytes/100 WBC (Bld) 50.3 % 19-41 [facility] Work Phone: Blood monocytes/100 leukocyt eson 09-06-2021 Monocytes/100 WBC (Bld) 9.6 % 0-10 [facility] Work Phone: Blood platelet mean volumeon 09-06-2021 Platelet mean volume (Bld) [Entitic vol] 9.3 fL 6.2-12.0 [facility] Work Phone: Determination of erythrocyte mean corpuscular volume (MCV)on 09-06-2021 MCV (RBC) [Entitic vol] 94.8 fL 81-99 [facility] Work Phone: Erythrocyte sedimentation ra tomer 09-06-2021 ESR (Bld) [Velocity] 4 mm/h 0-30 [facility] Work Phone: Hematocrit Auto (Bld) [Volum e fraction]on 09-06-2021 Hematocrit (Bld) [Volume fraction] 40.5 % 37-47 [facility] Work Phone: Laboratory - Chemistry and C hemistry - challengeon 09-06-2021 ALP [Catalytic activity/Vol] 56 U/L 45-117 [facility] Work Phone: ALT [Catalytic activity/Vol] 15 U/L 13-56 [facility] Work Phone: CO2 [Moles/Vol] 27.0 mmol/L 21.0-32.0 [facility] Work Phone: Globulin (S) [Mass/Vol] 4.0 g/dL 2.2-4.2 [facility] Work Phone: Urea nitrogen/Creatinine [Mass ratio] 14.6 mg/mg 10-20 [facility] Work Phone: Laboratory - Hematology and Cell countson 09-06-2021 Erythrocyte distribution width (RBC) [Entitic vol] 44.4 fL 35.1-43.9 [facility] Work Phone: Erythrocyte distribution width (RBC) [Ratio] 12.7 % 11.6-14.6 [facility] Work Phone: Immature granulocytes/100 WBC (Bld) 0.200 % 0.0-0.9 [facility] Work Phone: Comment on above: IG% - Immature Granu locytes (promyelocytes, myelocytes and metamyelocytes) > 1% indicates that a LEFT SHIFT is Present. MCH (RBC) [Entitic mass] 30.4 pg 27.0-32.0 [facility] Work Phone: Nucleated RBC/100 WBC (Bld) [Ratio] 0 % 0-5 [facility] Work Phone: MCHC Auto (RBC) [Mass/Vol]on 09-06-2021 MCHC (RBC) [Mass/Vol] 32.1 g/dL 32-36 [facility] Work Phone: No Panel Informationon 09-06 Centromere B Antibody <0.2 AI 0.0-0.9 [facility] Work Phone: Endomysial IgA Antibody Negative Negative [facility] Work Phone: Estimated GFR (MDRD) Amer 158 mL/min >60 [facility] Work Phone: Comment on above: GFR Calc Estimated GFR (MDRD) Non-Af Amer 130 mL/min >60 [facility] Work Phone: Comment on above: Non- GFR Calc SALES REPRESENTATIVE CONSULTANT Antibody <0.2 AI 0.0-0.9 [facility] Work Phone: Platelets bldon 09-06-2021 Platelets (Bld) [#/Vol] 269 10*3/uL 150-450 [facility] Work Phone: Serum DNA double strand anti body assay (units/volume)on 09-06-2021 DNA double strand Ab Qn (S) [IU]/mL 0-9 [facility] Work Phone: Comment on above: Negative <5 Equivoca l 5 - 9 Positive >9 Serum IgA measurement (units /volume)on 09-06-2021 IgA Qn (S) 203 mg/dL 87-352 [facility] Work Phone: Comment on above: Performed at: [place] [id number] Director: Xavier Wheeler PhD, Phone: [phone] Serum Beth-1 antibody assay (u nits/volume)on 09-06-2021 Beth-1 extractable nuclear Ab Qn (S) <0.2 AI 0.0-0.9 [facility] Work Phone: Serum Scl-70 extractable nuc lear antibody assay (units/volume)on 09-06-2021 SCL-70 extractable nuclear Ab Qn (S) <0.2 AI 0.0-0.9 [facility] Work Phone: Serum Fields extractable nucl ear antibody detectionon 09-06-2021 Fields extractable nuclear Ab Ql (S) <0.2 AI 0.0-0.9 [facility] Work Phone: Serum or plasma C reactive p rotein measurement (mass/volume)on 09-06-2021 CRP [Mass/Vol] mg/L 0.0-3.0 [facility] Work Phone: Comment on above: C-Reactive Protein ( CRP) provides useful information for thediagnosis, therapy and monitoring of inflammatory processesand associated diseases. For the evaluation of Relative Riskfor Cardiovascular Disease, a High Sensitivity CRP (HSCRP)should be ordered. Serum or plasma albumin neto urement (mass/volume)on 09-06-2021 Albumin [Mass/Vol] 4.1 g/dL 3.2-5.0 [facility] Work Phone: Serum or plasma albumin/glob ulin mass ratioon 09-06-2021 Albumin/Globulin [Mass ratio] 1.0 {ratio} 0.9-2.4 [facility] Work Phone: Serum or plasma calcium neto urement (mass/volume)on 09-06-2021 Calcium [Mass/Vol] 9.4 mg/dL 8.5-10.1 [facility] Work Phone: Serum or plasma creatinine m easurement (mass/volume)on 09-06-2021 Creatinine [Mass/Vol] 0.62 mg/dL 0.55-1.02 [facility] Work Phone: Comment on above: The validity of the calculated GFR & GFRAA in patients over 70 years has not been determined. Clinical correlation is essential. Serum or plasma urea nitroge n measurement (mass/volume)on 09-06-2021 Urea nitrogen [Mass/Vol] 9 mg/dL 7-18 [facility] Work Phone: Serum tissue transglutaminas e IgA antibody assay (units/volume)on 09-06-2021 tTG IgA Qn (S) <2 U/mL 0-3 [facility] Work Phone: Comment on above: Negative 0 - 3 Weak Positive 4 - 10 Positive >10 Tissue Transglutaminase (tTG) has been identified as the endomysial antigen. Studies have demonstr- ated that endomysial IgA antibodies have over 99% specificity for gluten sensitive enteropathy. Thin prep Papanicolaou smear with manual screeningon 09-06-2021 Thin prep Papanicolaou smear with manual screening 10 U/L 15-37 [facility] Work Phone: Thin prep Papanicolaou smear with manual screening 5 5-15 [facility] Work Phone: Absolute lymphocyte counton 07-26-2021 Lymphocytes Auto (Unsp spec) [#/Vol] 1.92 10*3/uL 0.83-4.51 [facility] Work Phone: Basophil percentageon 2021 Basophil percentage 0 SEEN /hpf 0-5 [facility] Work Phone: Basophils/100 WBC (Bld) 0.2 % 0-1 [facility] Work Phone: Bilirubin [Mass/Vol] 0.70 mg/dL 0.20-1.00 [facility] Work Phone: Comment on above: For patients on eltr ombopag therapy, use of Dimension [place] TBIL is not recommended. Chloride [Moles/Vol] 100 mmol/L 98-107 [facility] Work Phone: Eosinophils/100 WBC (Bld) 0.0 % 0-5 [facility] Work Phone: Glucose [Mass/Vol] 109 mg/dL 74-106 [facility] Work Phone: Comment on above: Fasting Glucose resu lt from 100 to 125 mg/dL suggests IMPAIRED HOMEOSTASIS per A.D.A. criteria. Neutrophils (Bld) [#/Vol] 7.1 10*3/uL 2.0-7.7 [facility] Work Phone: Neutrophils/100 WBC (Bld) 69.0 % 47-70 [facility] Work Phone: Potassium [Moles/Vol] 3.0 mmol/L 3.5-5.1 [facility] Work Phone: Protein [Mass/Vol] 8.7 g/dL 6.4-8.2 [facility] Work Phone: Sodium [Moles/Vol] 135 mmol/L 136-145 [facility] Work Phone: WBC (Bld) [#/Vol] 10.3 10*3/uL 4.4-11.0 [facility] Work Phone: Bilirubin Test strip Ql (U)o n 07-26-2021 Bilirubin Ql (U) Negative Negative [facility] Work Phone: Blood erythrocytes count (nu mber/volume)on 07-26-2021 RBC (Bld) [#/Vol] 4.83 10*6/uL 4.2-5.4 [facility] Work Phone: Blood hemoglobin measurement (mass/volume)on 07-26-2021 Hemoglobin (Bld) [Mass/Vol] 14.7 g/dL 12.0-15.0 [facility] Work Phone: Blood lymphocytes/100 leukoc yteson 07-26-2021 Lymphocytes/100 WBC (Bld) 18.7 % 19-41 [facility] Work Phone: Blood monocytes/100 leukocyt eson 07-26-2021 Monocytes/100 WBC (Bld) 11.8 % 0-10 [facility] Work Phone: Blood platelet mean volumeon 07-26-2021 Platelet mean volume (Bld) [Entitic vol] 9.6 fL 6.2-12.0 [facility] Work Phone: Determination of erythrocyte mean corpuscular volume (MCV)on 07-26-2021 MCV (RBC) [Entitic vol] 89.0 fL 81-99 [facility] Work Phone: Hematocrit Auto (Bld) [Volum e fraction]on 07-26-2021 Hematocrit (Bld) [Volume fraction] 43.0 % 37-47 [facility] Work Phone: Ketones Test strip Ql (U)on 07-26-2021 Ketones Ql (U) 150 mg/dl Negative [facility] Work Phone: Comment on above: CRITICAL VALUE *HCRI TICAL VALUE VERIFIED. CALLED TO IQRA [id number] Rios [place].RESULTS READ BACK BY SAME . Laboratory - Chemistry and C hemistry - challengeon 07-26-2021 HCG ( test) Ql (U) Negative [facility] Work Phone: Comment on above: Very dilute urine sp ecimens, as indicated by a low specificgravity, may not contain entry level account representative levels of hCG. If is still suspected, a first morning urinespecimen should be collected 48 hours later and tested. ALP [Catalytic activity/Vol] 64 U/L 45-117 [facility] Work Phone: ALT [Catalytic activity/Vol] 21 U/L 13-56 [facility] Work Phone: CO2 [Moles/Vol] 28.0 mmol/L 21.0-32.0 [facility] Work Phone: Globulin (S) [Mass/Vol] 4.1 g/dL 2.2-4.2 [facility] Work Phone: Lipase [Catalytic activity/Vol] 111 U/L 73-393 [facility] Work Phone: Urea nitrogen/Creatinine [Mass ratio] 13.9 mg/mg 10-20 [facility] Work Phone: Laboratory - Hematology and Cell countson 07-26-2021 Erythrocyte distribution width (RBC) [Entitic vol] 41.7 fL 35.1-43.9 [facility] Work Phone: Erythrocyte distribution width (RBC) [Ratio] 12.7 % 11.6-14.6 [facility] Work Phone: Immature granulocytes/100 WBC (Bld) 0.300 % 0.0-0.9 [facility] Work Phone: Comment on above: IG% - Immature Granu locytes (promyelocytes, myelocytes and metamyelocytes) > 1% indicates that a LEFT SHIFT is Present. MCH (RBC) [Entitic mass] 30.4 pg 27.0-32.0 [facility] Work Phone: Nucleated RBC/100 WBC (Bld) [Ratio] 0 % 0-5 [facility] Work Phone: MCHC Auto (RBC) [Mass/Vol]on 07-26-2021 MCHC (RBC) [Mass/Vol] 34.2 g/dL 32-36 [facility] Work Phone: Mucus LM Ql (Urine sed)on Mucus Ql (Urine sed) 0 SEEN /hpf [facility] Work Phone: Nitrite Test strip Ql (U)on 07-26-2021 Nitrite Ql (U) Negative Negative [facility] Work Phone: No Panel Informationon 07-26 Estimated Creatinine Clearance Calc 88.97 ml/min [facility] Work Phone: Estimated GFR (MDRD) Amer 132 mL/min >60 [facility] Work Phone: Comment on above: GFR Calc Estimated GFR (MDRD) Non-Af Amer 109 mL/min >60 [facility] Work Phone: Comment on above: Non- GFR Calc Platelets bldon 07-26-2021 Platelets (Bld) [#/Vol] 295 10*3/uL 150-450 [facility] Work Phone: Protein Test strip Ql (U)on 07-26-2021 Protein Ql (U) 30 mg/dl Negative [facility] Work Phone: Serum or plasma albumin neto urement (mass/volume)on 07-26-2021 Albumin [Mass/Vol] 4.6 g/dL 3.2-5.0 [facility] Work Phone: Serum or plasma albumin/glob ulin mass ratioon 07-26-2021 Albumin/Globulin [Mass ratio] 1.1 {ratio} 0.9-2.4 [facility] Work Phone: Serum or plasma calcium neto urement (mass/volume)on 07-26-2021 Calcium [Mass/Vol] 10.0 mg/dL 8.5-10.1 [facility] Work Phone: Serum or plasma creatinine m easurement (mass/volume)on 07-26-2021 Creatinine [Mass/Vol] 0.72 mg/dL 0.55-1.02 [facility] Work Phone: Comment on above: The validity of the calculated GFR & GFRAA in patients over 70 years has not been determined. Clinical correlation is essential. Serum or plasma urea nitroge n measurement (mass/volume)on 07-26-2021 Urea nitrogen [Mass/Vol] 10 mg/dL 7-18 [facility] Work Phone: Squamous epithelial cells de tection in urine sediment by light microscopyon 07-26-2021 Epithelial cells.squamous LM Ql (Urine sed) 0 SEEN /hpf 5-10 [facility] Work Phone: Thin prep Papanicolaou smear with manual screeningon 07-26-2021 Thin prep Papanicolaou smear with manual screening 12 U/L 15-37 [facility] Work Phone: Thin prep Papanicolaou smear with manual screening 7 5-15 [facility] Work Phone: Urine blood detectionon - RBC Ql (U) 50 /ul Negative [facility] Work Phone: RBC Ql (U) 0 SEEN /hpf 0-5 [facility] Work Phone: Urine clarityon 07-26-2021 Clarity (U) Clear Clear [facility] Work Phone: Urine color determinationon 07-26-2021 Color (U) Yellow Yellow [facility] Work Phone: Urine glucose detectionon Glucose Ql (U) Normal mg/dl Normal [facility] Work Phone: Urine leukocyte esterase det ection by dipstickon 07-26-2021 Leukocyte esterase Test strip Ql (U) 25 /ul Negative [facility] Work Phone: Urine pHon 07-26-2021 pH (U) 7.0 [pH] 5.0 - 8.0 [facility] Work Phone: Urine sediment bacteria coun t by microscopy (number/high power field)on 07-26-2021 Bacteria LM.HPF (Urine sed) [#/Area] 0 /[HPF] None Seen [facility] Work Phone: Urine specific gravity measu rementon 07-26-2021 Specific gravity (U) [Rel density] 1.005 1.002-1.03 0 [facility] Work Phone: Urobilinogen Auto test strip Ql (U)on 07-26-2021 Urobilinogen Ql (U) Normal mg/dl Normal [facility] Work Phone: Progress Noteon 03-19-2018 Bit [employer] Authentication Interface Message Text Antonio Lo Theo is here for referral at the request of Ayan Jara for thediagnosis of arthralgia.Chief ComplaintPatient presents with Joint PainHistory of Presenting ProblemShe is accompanied by her mother. Brynn is here for evaluation of random chest pain. She notices it if shestretches. It is mostly in sternum and ribs. She has no cough, shortness ofbreath. There is nothing that makes it better or worse. She is complaining ofknee pain randomly. She has had no swelling to her knees. She has no limping ormorning stiffness.She has depression and anxiety. Brynn denies thoughts of hurting herself orothers. Mom states she inappropriately jokes about self injury. She issleeping through the night. She states she has difficulty going to sleep. Sheis not napping. Appetite is decreased. She states she doesn't have time inthe morning. She doesn't like the school lunches. She snacks when she comeshome. She has feelings of guilt and regret. She doesn't disclose reasons.She rates her energy as 7 on a scale of 1-10 with 10 being the most energy. Sherates concentration a 4 on the same scale. She is keeping up with usualactivities.She denies abdominal pain. She has episodes of nauseaLily was evaluated previously in 2015 for arthralgia.CHAQ: Overall CHAQ Score: 0.25Past Medical HistoryHistory reviewed. No pertinent past medical history.History reviewed. No pertinent surgical history.Allergies: No Known AllergiesMedications:Outp atient Encounter Medications as of 03/19/2018Medication Sig Dispense Refill vitamin B-2 (RIBOFLAVIN) 100 MG tablet Take 1 Tab (100 mg) by mouth daily 30Tab 0 Magnesium Oxide (MAG OX) 400 (241.3 Mg) MG TABS tablet Take 1 Tab (400 mg) bymouth daily 30 Tab 2 Melatonin 3-10 MG TABS [DISCONTINUED] meloxicam (MOBIC) 7.5 MG tablet TAKE ONE TABLET BY MOUTH DAILYWITH FOOD 30 Tab 2No facility-administered encounter medications on file as of 03/19/2018.Family Medical History:Family HistoryProblem Relation Age of Onset Rhematoid Arthritis Mother Fibromyalgia Mother Back Problems Mother Raynaud's Mother High Blood Pressure Mother Miscarriages / Stillbirths Mother Back Problems Father Raynaud's Brother Back Problems Maternal Aunt Osteoarthritis Maternal Grandmother Back Problems Maternal Grandmother High Blood Pressure Maternal Grandmother High Blood Pressure Maternal GrandfatherSocial History:Social HistorySocioeconomic History Marital status: Single Spouse name: None Number of children: None Years of education: None Highest education level: NoneSocial Needs Financial resource strain: None Food insecurity - worry: None Food insecurity - inability: None Transportation needs - medical: None Transportation needs - non-medical: NoneOccupational History NoneTobacco Use Smoking status: Passive Smoke Exposure - Never Smoker Smokeless tobacco: Never Used Tobacco comment: only when at dads houseSubstance and Sexual Activity Alcohol use: None Drug use: None Sexual activity: NoneOther Topics Concern NoneSocial History Narrative NoneSocial History Physical Activities: Abilities (Hobbies): not working, no drivers license School Grade Level 12 School Grade GPA a Future planning: [employer] Number of people in the house: Lives with biological parent(s) lives in two homes Foster care Recent travel:Review of SystemsReview of SystemsConstitutional: Negative for decreased appetite, chills, fever, malaise/fatigue,night sweats and weight loss.HENT: Negative for dry mouth, headaches and oral ulcers.Eyes: Negative for dry eyes, eye pain and eye redness.Respiratory: Negative for cough and shortness of breath.Gastrointestinal: Negative for abdominal pain, change in bowel habit,constipation, diarrhea, nausea and vomiting.Musculoskeletal: Negative for difficulty going up stairs, difficulty turningdoorknob, difficulty walking, joint range of motion, joint pain, joint redness,joint swelling, joint tenderness, joint warmth and stiffness.Skin: Negative for dry skin, itching and rash.Psychiatric/Behavior al: The patient does not have insomnia.Physical ExaminationVitals: 03/19/18 1041BP: 106/70Pulse: 90Resp: 20Temp: (!) 35.9 C (96.6 F)Blood pressure percentiles are 30 % systolic and 67 % diastolic based on theAugust 2017 AAP Clinical Practice Guideline.Height: 163.3 cm 51 %ile (Z= 0.04) based on [facility] (Girls, 2-20 Years)[id number] data based on Stature recorded on 03/19/2018.Weight - Scale: 53.7 kg 40 %ile (Z= -0.26) based on [facility] (Girls, 2-20Years) [id number] data using vitals from 03/19/2018.VAS Pain: 0-10 Scale: 3Physical ExamConstitutional: She appears well-developed and well-nourished. She is active.HENT:Nose: No mucosal ulcers.Mouth/Throat: Oropharynx is clear and moist.Eyes: Conjunctivae are normal. Right conjunctiva is not injected. Leftconjunctiva is not injected. No scleral icterus.Neck: Normal range of motion and full passive range of motion without pain. Necksupple. No muscular tenderness present. No thyromegaly present.Cardiovascular: Normal rate, regular rhythm, normal heart sounds and normalpulses.No murmur heard.Pulmonary/Chest: Effort normal and breath sounds normal. No respiratorydistress.Abdom inal: Soft. Normal appearance and bowel sounds are normal. There is nohepatosplenomegaly or hepatomegaly. There is no tenderness.Musculoskeleta l: Normal range of motion. She exhibits no edema or tenderness.Neurological: She is alert.Skin: Skin is warm and dry. No rash noted.Psychiatric: She has a normal mood and affect. Her behavior is normal.There is no synovitis, warmth, erythema, tenderness or restricted range ofmotion to fingers, wrists, elbows, shoulders, toes, ankles, knees or hips. Gaitis normal. She does have pes planus with pronation. She is able to walk on hertoes, walk on her heels, hop on one foot, squat and return to standing withoutdifficulty. She is able to touch her toes without bending her knees.Laboratory Testing:NoneImaging:NoneA ssessment & Plan:Brynn was seen today for joint pain.Diagnoses and all orders for this visit:Arthralgia, unspecified joint- PT Evaluate and Treat; Future- Comprehensive metabolic panel; Future- TSH; Future- T4, free; Future- Complete Blood Count; Future- ESR; FuturePes planus, unspecified laterality- AMB Referral To Orthotics; FutureVitamin D deficiency- Vitamin D 25 hydroxy; FutureSleep disorder- vitamin B-2 (RIBOFLAVIN) 100 MG tablet; Take 1 Tab (100 mg) by mouth daily- Magnesium Oxide (MAG OX) 400 (241.3 Mg) MG TABS tablet; Take 1 Tab (400mg) by mouth dailyReviewed the following lifestyle/preventive care with the patient: vitamin D andexcercise guidelinesLily was referred to the following services: PT and orthotics.Arthritis by definition is persistent swelling to one or more joints for morethan six weeks. She has no evidence of arthritis. Sternal pain can be relatedto anxiety, reflux, asthma. She is encouraged to follow up with PCP if painreturns. She is encouraged to see counseling for anxiety management.She would benefit from orthotics for shoes for protection of feet, reduction inpain and correction of deformity.Mom and Brynn are in agreement with plan. They have no further questions orconcerns. We will see her back if symptoms worsen or persist.Perri Whittaker, CNP03/19/2018 Normal [facility] Vital Signs Date Time Vital Sign Value Performing Clinician Facility 01-30-2024 19:41-0400 Diastolic blood pressure 95 mm[Hg] Kylah Rizo MD Work Phone: [facility] 01-30-2024 19:41-0400 Heart rate 100 /min Kylah Rizo MD Work Phone: [facility] 01-30-2024 19:41-0400 SaO2% (BldA) [Mass fraction] 97 % Kylah Rizo MD Work Phone: [facility] 01-30-2024 19:41-0400 Systolic blood pressure 139 mm[Hg] Kylah Rizo MD Work Phone: [facility] 01-30-2024 19:00-0400 Respiratory rate 18 /min Kylah Rizo MD Work Phone: [facility] 01-30-2024 16:58-0400 Body height 162.6 cm Kylah Rizo MD Work Phone: [facility] 01-30-2024 16:58-0400 Body mass index (BMI) [Ratio] 16.43 kg/m2 Kylah Rizo MD Work Phone: [facility] 01-30-2024 16:58-0400 Body temperature 99.39 [degF] Kylah Rizo MD Work Phone: [facility] 01-30-2024 16:58-0400 Body weight 43.41 kg Kylah Rizo MD Work Phone: [facility] 10-13-2023 18:03-0400 Body temperature 98.2 [degF] Barbra Arellano MD Work Phone: [facility] 10-13-2023 18:03-0400 Diastolic blood pressure 68 mm[Hg] Barbra Arellano MD Work Phone: [facility] 10-13-2023 18:03-0400 Heart rate 77 /min Barbra Arellano MD Work Phone: [facility] 10-13-2023 18:03-0400 Respiratory rate 18 /min Barbra Arellano MD Work Phone: [facility] 10-13-2023 18:03-0400 SaO2% (BldA) [Mass fraction] 97 % Barbra Arellano MD Work Phone: [facility] 10-13-2023 18:03-0400 Systolic blood pressure 102 mm[Hg] Barbra Arellano MD Work Phone: [facility] 10-13-2023 14:45-0400 Body height 162.6 cm Barbra Arellano MD Work Phone: [facility] 10-13-2023 14:45-0400 Body mass index (BMI) [Ratio] 18.02 kg/m2 Barbra Arellano MD Work Phone: [facility] 10-13-2023 14:45-0400 Body weight 47.63 kg Barbra Arellano MD Work Phone: [facility] 05-02-2023 14:57-0500 Diastolic blood pressure 87 mm[Hg] Lico Ruiz DO Work Phone: [facility] 05-02-2023 14:57-0500 Respiratory rate 16 /min Lico Ruiz DO Work Phone: [facility] 05-02-2023 14:57-0500 SaO2% (BldA) [Mass fraction] 96 % Lico Ruiz DO Work Phone: [facility] 05-02-2023 14:57-0500 Systolic blood pressure 101 mm[Hg] Lico Ruiz DO Work Phone: [facility] 05-02-2023 13:14-0500 Body height 162.6 cm Lico Ruiz DO Work Phone: [facility] 05-02-2023 13:14-0500 Body mass index (BMI) [Ratio] 17.51 kg/m2 Lico Ruiz DO Work Phone: [facility] 05-02-2023 13:14-0500 Body temperature 98.4 [degF] Lico Ruiz DO Work Phone: [facility] 05-02-2023 13:14-0500 Body weight 46.27 kg Lico Ruiz DO Work Phone: [facility] 05-02-2023 13:14-0500 Heart rate 100 /min Lico Ruiz DO Work Phone: [facility] 12-16-2022 17:35-0400 Body temperature 98.42 [degF] Lyla Arcos Other Phone: [facility] 12-16-2022 17:35-0400 Diastolic blood pressure 91 mm[Hg] Lyla Arcos Other Phone: [facility] 12-16-2022 17:35-0400 Heart rate 71 /min Lyla Arcos Other Phone: [facility] 12-16-2022 17:35-0400 Respiratory rate 20 /min Lyla Arcos Other Phone: [facility] 12-16-2022 17:35-0400 SaO2% (BldA) [Mass fraction] 100 % Lyla Arcos Other Phone: [facility] 12-16-2022 17:35-0400 Systolic blood pressure 144 mm[Hg] Lyla Arcos Other Phone: [facility] 05-22-2022 21:51-0500 Diastolic blood pressure 75 mm[Hg] Lyla Arcos Other Phone: [facility] 05-22-2022 21:51-0500 Heart rate 112 /min Lyla Arcos Other Phone: [facility] 05-22-2022 21:51-0500 Respiratory rate 18 /min Lyla Arcos Other Phone: [facility] 05-22-2022 21:51-0500 SaO2% (BldA) [Mass fraction] 98 % Lyla Arcos Other Phone: [facility] 05-22-2022 21:51-0500 Systolic blood pressure 128 mm[Hg] Lyla Arcos Other Phone: [facility] 05-22-2022 18:52-0500 Body height 162.5 cm Lyla Arcos Other Phone: [facility] 05-22-2022 18:52-0500 Body temperature 98.6 [degF] Lyla Arcos Other Phone: [facility] 05-22-2022 18:52-0500 Body weight 44.5 kg Lyla Arcos Other Phone: [facility] 05-10-2022 13:33-0500 Body height 162.56 cm [facility] 05-10-2022 13:33-0500 Body mass index (BMI) [Ratio] 16.8 kg/m2 [facility] 05-10-2022 13:33-0500 Body temperature 98 [degF] [facility] 05-10-2022 13:33-0500 Body weight 44.5 kg [facility] 05-10-2022 13:33-0500 Diastolic blood pressure 84 mm[Hg] [facility] 05-10-2022 13:33-0500 Heart rate 91 /min [facility] 05-10-2022 13:33-0500 Respiratory rate 14 /min [facility] 05-10-2022 13:33-0500 SaO2% (BldA) [Mass fraction] 100 % [facility] 05-10-2022 13:33-0500 Systolic blood pressure 113 mm[Hg] [facility] 11-16-2021 13:04-0400 Diastolic blood pressure 64 mm[Hg] Dr. Kylah Rizo Work Phone: [facility] Work Phone: 11-16-2021 13:04-0400 Heart rate 72 /min Dr. Kylah Rizo Work Phone: [facility] Work Phone: 11-16-2021 13:04-0400 Respiratory rate 16 /min Dr. Kylah Rizo Work Phone: [facility] Work Phone: 11-16-2021 13:04-0400 SaO2% (BldA) [Mass fraction] 98 % Dr. Kylah Rizo Work Phone: [facility] Work Phone: 11-16-2021 13:04-0400 Systolic blood pressure 122 mm[Hg] Dr. Kylah Rizo Work Phone: [facility] Work Phone: 11-16-2021 11:06-0400 Body height 162.[address] Kylah Rizo Work Phone: [facility] Work Phone: 11-16-2021 11:06-0400 Body mass index (BMI) [Ratio] 15 kg/m2 Dr. Kylah Rizo Work Phone: [facility] Work Phone: 11-16-2021 11:06-0400 Body temperature 97.5 [degF] Dr. Kylah Rizo Work Phone: [facility] Work Phone: 11-16-2021 11:06-0400 Body weight 39.[address] Kylah Rizo Work Phone: [facility] Work Phone: 09-06-2021 10:19-0400 Body height 162.[address] Kylah Rizo Work Phone: [facility] Work Phone: 09-06-2021 10:19-0400 Body mass index (BMI) [Ratio] 17.2 kg/m2 Dr. Kylah Rizo Work Phone: [facility] Work Phone: 09-06-2021 10:19-0400 Body weight 45.[address] Kylah Rizo Work Phone: [facility] Work Phone: 09-06-2021 10:19-0400 Diastolic blood pressure 60 mm[Hg] Dr. Kylah Rizo Work Phone: [facility] Work Phone: 09-06-2021 10:19-0400 Heart rate 63 /min Dr. Kylah Rizo Work Phone: [facility] Work Phone: 09-06-2021 10:19-0400 SaO2% (BldA) [Mass fraction] 99 % Dr. Kylah Rizo Work Phone: [facility] Work Phone: 09-06-2021 10:19-0400 Systolic blood pressure 94 mm[Hg] Dr. Kylah Rizo Work Phone: [facility] Work Phone: 09-06-2021 10:19-0400 Body height 162.[address] Kylah Rizo Work Phone: [facility] Work Phone: 09-06-2021 10:19-0400 Body mass index (BMI) [Ratio] 17.2 kg/m2 Dr. Kylah Rizo Work Phone: [facility] Work Phone: 09-06-2021 10:19-0400 Body weight 45.[address] Kylah Rizo Work Phone: [facility] Work Phone: 09-06-2021 10:19-0400 Diastolic blood pressure 60 mm[Hg] Dr. Kylah Rizo Work Phone: [facility] Work Phone: 09-06-2021 10:19-0400 Heart rate 63 /min Dr. Kylah Rizo Work Phone: [facility] Work Phone: 09-06-2021 10:19-0400 SaO2% (BldA) [Mass fraction] 99 % Dr. Kylah Rizo Work Phone: [facility] Work Phone: 09-06-2021 10:19-0400 Systolic blood pressure 94 mm[Hg] Dr. Kylah Rizo Work Phone: [facility] Work Phone: 08-29-2021 09:34-0400 Body mass index (BMI) [Ratio] 17 kg/m2 Dr. Kylah Rizo Work Phone: [facility] Work Phone: 08-29-2021 09:34-0400 Body temperature 98.5 [degF] Dr. Kylah Rizo Work Phone: [facility] Work Phone: 08-29-2021 09:34-0400 Body weight 45.[address] Kylah Rizo Work Phone: [facility] Work Phone: 08-29-2021 09:34-0400 Diastolic blood pressure 66 mm[Hg] Dr. Kylah Rizo Work Phone: [facility] Work Phone: 08-29-2021 09:34-0400 Heart rate 83 /min Dr. Kylah Rizo Work Phone: [facility] Work Phone: 08-29-2021 09:34-0400 Respiratory rate 16 /min Dr. Kylah Rizo Work Phone: [facility] Work Phone: 08-29-2021 09:34-0400 SaO2% (BldA) [Mass fraction] 98 % Dr. Kylah Rizo Work Phone: [facility] Work Phone: 08-29-2021 09:34-0400 Systolic blood pressure 88 mm[Hg] Dr. Kylah Rizo Work Phone: [facility] Work Phone: 08-29-2021 09:34-0400 Body mass index (BMI) [Ratio] 17 kg/m2 Dr. Kylah Rizo Work Phone: [facility] Work Phone: 08-29-2021 09:34-0400 Body temperature 98.5 [degF] Dr. Kylah Rizo Work Phone: [facility] Work Phone: 08-29-2021 09:34-0400 Body weight 45.[address] Kylah Rizo Work Phone: [facility] Work Phone: 08-29-2021 09:34-0400 Diastolic blood pressure 66 mm[Hg] Dr. Kylah Rizo Work Phone: [facility] Work Phone: 08-29-2021 09:34-0400 Heart rate 83 /min Dr. Kylah Rizo Work Phone: [facility] Work Phone: 08-29-2021 09:34-0400 Respiratory rate 16 /min Dr. Kylah Rizo Work Phone: [facility] Work Phone: 08-29-2021 09:34-0400 SaO2% (BldA) [Mass fraction] 98 % Dr. Kylah Rizo Work Phone: [facility] Work Phone: 08-29-2021 09:34-0400 Systolic blood pressure 88 mm[Hg] Dr. Kylah Rizo Work Phone: [facility] Work Phone: 07-30-2021 08:38-0400 Body mass index (BMI) [Ratio] 16.8 kg/m2 Dr. Kylah Rizo Work Phone: [facility] Work Phone: 07-30-2021 08:38-0400 Body temperature 98.5 [degF] Dr. Kylah Rizo Work Phone: [facility] Work Phone: 07-30-2021 08:38-0400 Body weight 44.[address] Kylah Rizo Work Phone: [facility] Work Phone: 07-30-2021 08:38-0400 Diastolic blood pressure 82 mm[Hg] Dr. Kylah Rizo Work Phone: [facility] Work Phone: 07-30-2021 08:38-0400 Heart rate 87 /min Dr. Kylah Rizo Work Phone: [facility] Work Phone: 07-30-2021 08:38-0400 Respiratory rate 16 /min Dr. Kylah Rizo Work Phone: [facility] Work Phone: 07-30-2021 08:38-0400 Systolic blood pressure 112 mm[Hg] Dr. Kylah Rizo Work Phone: [facility] Work Phone: 07-30-2021 08:38-0400 Body mass index (BMI) [Ratio] 16.8 kg/m2 Dr. Kylah Rizo Work Phone: [facility] Work Phone: 07-30-2021 08:38-0400 Body temperature 98.5 [degF] Dr. Kylah Rizo Work Phone: [facility] Work Phone: 07-30-2021 08:38-0400 Body weight 44.[address] Kylah Rizo Work Phone: [facility] Work Phone: 07-30-2021 08:38-0400 Diastolic blood pressure 82 mm[Hg] Dr. Kylah Rizo Work Phone: [facility] Work Phone: 07-30-2021 08:38-0400 Heart rate 87 /min Dr. Kylah Rizo Work Phone: [facility] Work Phone: 07-30-2021 08:38-0400 Respiratory rate 16 /min Dr. Kylah Rizo Work Phone: [facility] Work Phone: 07-30-2021 08:38-0400 Systolic blood pressure 112 mm[Hg] Dr. Kylah Rizo Work Phone: [facility] Work Phone: 07-26-2021 22:33-0400 Diastolic blood pressure 60 mm[Hg] [facility] Work Phone: 07-26-2021 22:33-0400 Heart rate 77 /min [facility] Work Phone: 07-26-2021 22:33-0400 Respiratory rate 16 /min [facility] Work Phone: 07-26-2021 22:33-0400 SaO2% (BldA) [Mass fraction] 98 % [facility] Work Phone: 07-26-2021 22:33-0400 Systolic blood pressure 116 mm[Hg] [facility] Work Phone: 07-26-2021 17:33-0400 Body height 162.56 cm [facility] Work Phone: 07-26-2021 17:33-0400 Body mass index (BMI) [Ratio] 17.2 kg/m2 [facility] Work Phone: 07-26-2021 17:33-0400 Body temperature 98.8 [degF] [facility] Work Phone: 07-26-2021 17:33-0400 Body weight 45.6 kg [facility] Work Phone: Encounters Encounter Date Encounter Type Care Provider Facility Start: 09-06-2024 End: 09-06-2024 ambulatory [facility] Start: 09-02-2024 End: 09-02-2024 ambulatory [facility] Start: 08-26-2024 End: 08-26-2024 ambulatory [facility] Start: 08-19-2024 End: 08-19-2024 ambulatory [facility] Start: 08-12-2024 End: 08-12-2024 ambulatory [facility] Start: 08-05-2024 End: 08-05-2024 ambulatory [facility] Start: 07-29-2024 ambulatory [facility] Start: 07-21-2024 End: 07-21-2024 ambulatory [facility] Start: 07-15-2024 End: 07-15-2024 ambulatory Kylah Rizo [facility] Start: 07-04-2024 End: 07-04-2024 ambulatory Kylah Rizo [facility] Start: 06-27-2024 End: 06-27-2024 ambulatory Kylah Darrius [facility] Start: 06-17-2024 End: 06-17-2024 ambulatory Kylah Rizo [facility] Start: 06-10-2024 End: 06-10-2024 ambulatory Kylah Rizo [facility] Start: 06-03-2024 End: 06-03-2024 ambulatory Kylah Rizo [facility] Start: 05-27-2024 End: 05-27-2024 ambulatory Kylah Rizo [facility] Start: 05-19-2024 ambulatory Kylah Rizo [facility] Start: 05-09-2024 End: 05-26-2024 ambulatory Kylah Rizo Facility:[facility] Start: 04-28-2024 End: 04-28-2024 ambulatory Aretha Phan [facility] Start: 04-27-2024 End: 04-27-2024 ambulatory Alessandro L Seese [facility] Start: 04-07-2024 End: 05-06-2024 ambulatory Kenzie Abdul Facility:[facility] Start: 03-15-2024 End: 03-15-2024 ambulatory Alessandro L Seese [facility] Start: 03-15-2024 End: 03-15-2024 ambulatory ISAAC CHRISTINAE Facility:[facility] Start: 03-07-2024 End: 03-25-2024 ambulatory Kenzie Franko Facility:[facility] Start: 02-25-2024 End: 02-25-2024 ambulatory Kylah Rizo [facility] Start: 02-19-2024 End: 02-19-2024 ambulatory Kylah Rizo [facility] Start: 02-19-2024 End: 02-19-2024 ambulatory ISAAC STRAHLE Facility:[facility] Start: 02-11-2024 End: 02-11-2024 ambulatory Alessandro L Seese [facility] Start: 02-05-2024 End: 03-05-2024 ambulatory Kenzie [facility] Facility:[facility] Start: 02-01-2024 End: 02-01-2024 Emergency department patient visit LICO RUIZ [facility] Start: 01-30-2024 End: 01-30-2024 Subsequent hospital visit by physician Jason Bernard [employer] [facility] Comment on above: Arrived Start: 01-30-2024 End: 01-30-2024 ambulatory [facility] Start: 01-30-2024 End: 01-30-2024 Emergency department patient visit KYLAH RIZO [facility] Comment on above: Nausea and vomiting, unspecified vomiting type (Primary Dx); Gastroparesis; Cannabis abuse, daily use Start: 01-26-2024 End: 02-04-2024 ambulatory Freeburn Ramocorina Facility:[facility] Start: 01-13-2024 End: 01-13-2024 ambulatory Kylah Crawfordchner [facility] Start: 11-19-2023 End: 11-19-2023 ambulatory Kylah Rizo [facility] Start: 11-19-2023 End: 11-19-2023 ambulatory Kylahrodrigo Rizo Facility:[facility] Start: 11-03-2023 End: 11-03-2023 Emergency department patient visit LYLA WILSON [facility] Start: 10-27-2023 End: 10-27-2023 ambulatory Kylah Rizo [facility] Start: 10-13-2023 End: 10-13-2023 Emergency department patient visit LYLA [facility] Work Phone: Comment on above: Nausea and vomiting, unspecified vomiting type (Primary Dx); Dehydration Start: 05-02-2023 End: 05-02-2023 Emergency department patient visit Lico Ruiz DO Work Phone: [facility] Comment on above: Nausea and vomiting, unspecified vomiting type (Primary Dx); Hypokalemia Start: 03-24-2023 End: 03-25-2023 ambulatory NICOLA PALOMINO PA-C Facility:[facility] Start: 12-12-2022 End: 12-16-2022 Evaluation and management of inpatient Francisco Jones [facility] 50 Rm [id number] Start: 05-22-2022 End: 05-22-2022 Emergency department patient visit Marleen Jack [facility] Emergency Start: 05-11-2022 End: 05-13-[address] JIMBO OTERO MD Facility:[facility] Start: 05-10-2022 End: 05-10-2022 Emergency department patient visit [facility] Start: 11-16-2021 End: 11-16-2021 Emergency department patient visit Dr. Kylah Rizo Work Phone: [facility] Start: 10-11-2021 End: 10-11-[address] Kylah Rizo Work Phone: [facility] Start: 09-06-2021 End: 09-06-[address] Kylah Rizo Work Phone: [facility]Laboratory Start: 09-06-2021 End: 09-06-[address] Kylah Rizo Work Phone: [facility] Start: 08-29-2021 End: 08-29-[address] Kylah Rizo Work Phone: [facility] Start: 07-30-2021 End: 07-30-[address] Kylah Rizo Work Phone: [facility] Start: 07-26-2021 End: 07-26-2021 Emergency department patient visit [facility] Start: 03-19-2018 End: 03-19-2018 Patient encounter procedure PERRI WHITTAKER [facility] Procedures Date Procedure Procedure Detail Performing Clinician Start: 02-01-2024 Urinalysis LICO MURGUIA Comment on above: Result Comment: URIN ALYSIS Performed By: #### 2 [id number] #### [facility],[address] [address] Start: 01-30-2024 Ecg routine ecg w/le ast 12 lds trcg only w/o i&r Marleen Goreo PA-C Work Phone: Start: 01-30-2024 Radiologic exam ches t single view Marleen Goreo PA-C Work Phone: Start: 01-30-2024 EXTRA TUBES Marleen Goreo PA-C Work Phone: Start: 01-30-2024 VARGAS TOP Marleen Goreo PA-C Work Phone: Start: 01-30-2024 LIGHT BLUE TOP Kiki Benzhio PA-C Work Phone: Start: 01-30-2024 SST TOP Marleen Goreo PA-C Work Phone: Start: 01-30-2024 Comprehensive metabo lic panel Marleen Carpenter PA-C Work Phone: Start: 01-30-2024 Influenza virus A an d B RNA [Identifier] in Unspecified specimen by RENETTA with probe detection Marleen Goreo PA-C Work Phone: Start: 01-30-2024 SARS-CoV-2 (COVID-19 ) RNA [Presence] in Respiratory specimen by RENETTA with probe detection Marleen Goreo PA-C Work Phone: Start: 10-13-2023 Ecg routine ecg w/le ast 12 lds trcg only w/o i&r Barbra Arellano MD Work Phone: Start: 10-13-2023 Urinalysis complete W Reflex Culture panel - Urine Marleen Goreo PA-C Work Phone: Start: 10-13-2023 Urine test visual color cmprsn meths Marleen Carpenter PA-C Work Phone: Start: 10-13-2023 Urnls dip stick/tabl et reagent auto microscopy Marleen Carpenter PA-C Work Phone: Start: 10-13-2023 Fibrin dgradj produc ts d-dimer quantitative Marleen Carpenter PA-C Work Phone: Start: 10-13-2023 Radiologic exam ches t single view Marleen Carpenter PA-C Work Phone: Start: 10-13-2023 End: 10-13-2023 Comprehensive metabolic panel Marleen Carpenter PA-C Work Phone: Start: 05-02-2023 ECG 12-LEAD LYLA MARIE Start: 05-02-2023 EXTRA URINE VARGAS TUBE R KHADIJAHMAREK ARCOS Start: 05-02-2023 URINALYSIS MICROSCOP IC WITH REFLEX CULTURE LYLA ARCOS Start: 05-02-2023 URINALYSIS WITH REFL EX CULTURE AND MICROSCOPIC LYLA ARCOS Start: 05-02-2023 XR CHEST 1 VIEW LYLA ARCOS Start: 05-02-2023 CBC W Auto Different ial panel - Blood LYLA ARCSO Start: 05-02-2023 Comprehensive metabo lic 2000 panel - Serum or Plasma LYLA ARCOS Start: 05-02-2023 Lipase [Enzymatic activity/volume] in Serum or Plasma LYLA ARCOS Start: 05-02-2023 Magnesium [Mass/volu me] in Serum or Plasma LYLA ARCOS Start: 05-02-2023 Ecg routine ecg w/le ast 12 lds trcg only w/o i&r Lico Ruiz DO Work Phone: Start: 05-02-2023 Urinalysis complete W Reflex Culture panel - Urine Lico Ruiz DO Work Phone: Start: 05-02-2023 Urnls dip stick/tabl et reagent auto microscopy Lico Ruiz DO Work Phone: Start: 05-02-2023 Radiologic exam ches t single view Lico Ruiz DO Work Phone: Start: 05-02-2023 Comprehensive metabo lic panel Lico Ruiz DO Work Phone: Start: 12-15-2022 End: 12-15-2022 VASC Access Team Restart Line Order PeripheralIV Therapy Francisco Jones Start: 10-11-2021 Computed tomography of abdomen and pelvis with contrast Dr. Kylah Rizo Work Phone: Plan of Treatment Date Care Activity Detail Author Start: 2050 Zoster Vaccines (1 of 2) Zoste r Vaccines (1 of 2) [facility] Start: 12-06-2023 COVID-19 Vaccine ( season) COVID-19 Vaccine ( season) [facility] Start: 12-06-2023 Influenza vaccination Influenz a Vaccine (#1) [facility] Start: 12-12-2022 End: 12-13-2023 Sodium Chloride 0.9% Injectable Flush Peripheral Line ; via Peripheral LineVolume = 10 mL IntraVenous Flush Every 8 Hours and as Needed Start: 12-Dec-2022 End: 12-Dec-2023 Ordered: 12-Dec-2022 Arina Clifton [facility] Start: 12-05-2022 COVID-19 Vaccine ( season) COVID-19 Vaccine ( season) [facility] Start: 12-05-2022 Influenza vaccination Influenz a Vaccine (#1) [facility] Start: 2022 DTaP/Tdap/Td Vaccine s (1 - Tdap) DTaP/Tdap/Td Vaccines (1 - Tdap) [facility] Start: 11-16-2021 [facility] Work Phone: Start: 07-30-2021 Patient referral [facility] Work Phone: Start: 2021 Screening for malign ant neoplasm of cervix [facility] Start: 07-09-2019 Hepatitis A Vaccines (1 of 2 - Risk 2-dose series) Hepatitis A Vaccines (1 of 2 - Risk 2-dose series) [facility] Start: 2018 [facility] Start: 07-09-2015 HPV Vaccines (1 - 3- dose series) HPV Vaccines (1 - 3-dose series) [facility] Start: 2013 Varicella vaccination Varicell a Vaccines (1 of 2 - 13+ 2-dose series) [facility] Start: 07-09-2011 DTaP/Tdap/Td Vaccine s (6 - Tdap) DTaP/Tdap/Td Vaccines (6 - Tdap) [facility] Start: 07-09-2011 HPV Vaccines (1 - 2- dose series) HPV Vaccines (1 - 2-dose series) [facility] Start: 12-13-2002 Hepatitis B Vaccines (3 of 3 - 3-dose series) Hepatitis B Vaccines (3 of 3 - 3-dose series) [facility] Start: 2001 MMR Vaccines (1 of 1 - Standard series) MMR Vaccines (1 of 1 - Standard series) [facility] Start: 2001 Varicella vaccination Varicell a Vaccines (1 of 2 - 2-dose childhood series) [facility] Start: 01-07-2001 COVID-19 Vaccine (#1) COVID-19 Vacci ne (#1) [facility] Start: 2000 Hepatitis B Vaccines (1 of 3 - 3-dose series) Hepatitis B Vaccines (1 of 3 - 3-dose series) [facility] Start: 2000 HIV screening HIV Screening [facility] Start: 2000 Lipid panel Lipid Panel [facility] Start: 2000 Yearly Adult Physical Yearly Adult P hysical [facility] End: 10-13-2023 Bacteria identified in Urine by Culture [facility] Work Phone: Comment on above: Once (Lab) for 1 Occ urrences starting 10/13/2023 until 10/13/2023 Clostridioides diffi cile DNA [Presence] in Unspecified specimen by RENETTA with probe detection [facility] Work Phone: ECG 12 lead ECG 12 lead ECG STAT 05/02/2023 2:52 PM EST [facility] Work Phone: End: 01-30-2024 ECG 12 Lead [facility] Service Area Work Phone: Comment on above: Once for 1 Occurrenc es starting 01/30/2024 until 01/30/2024 ECG 12 Lead ECG 12 Lead ECG STAT 10/13/2023 5:50 PM EDT [facility] Work Phone: End: 05-02-2023 Extra Urine Vargas Tube [facility] Work Phone: Comment on above: Once for 1 Occurrenc es starting 05/02/2023 until 05/02/2023 End: 10-13-2023 Extra Urine Vargas Tube [facility] Work Phone: Comment on above: Once for 1 Occurrenc es starting 10/13/2023 until 10/13/2023 Gastrointestinal pat hogens panel - Stool by RENETTA with probe detection [facility] Work Phone: Giardia lamblia Ag [Presence] in Stool by Immunoassay [facility] Work Phone: Lactoferrin [Presenc e] in Stool by Immunoassay [facility] Work Phone: Ova and parasites identified in Unspecified specimen by Light microscopy [facility] Work Phone: Patient Education [facility] Work Phone: Patient referral [facility] Work Phone: Protein measurement [facility] Work Phone: End: 05-02-2023 Urinalysis complete W Reflex Culture panel - Urine [facility] Service Area Work Phone: Comment on above: Once (Lab) for 1 Occ urrences starting 05/02/2023 until 05/02/2023 End: 10-13-2023 Urinalysis complete W Reflex Culture panel - Urine [facility] Work Phone: Comment on above: Once (Lab) for 1 Occ urrences starting 10/13/2023 until 10/13/2023 Immunizations Immunization Date Immunization Notes Care Provider Afia whittenariella 07-23-2004 measles, mumps and rubella virus vaccine Lico Ruiz DO Work Phone: [facility] Work Phone: Payers Date Payer Category Payer Medicare [id number] 2023 Self-pay [id number] 2021 Medicaid (Managed Care) [employer] [id number] 2021 Unknown 2000 Unknown [id number] 2.16.840.1.187424.3.579.2. 1069 2000 Unknown [id number] 2.16840.1.803141.3.579.2. 419 2000 Unknown [id number] 2.16840.1.450246.3.579.2. 419 2000 Unknown [id number] 2.16.840.1.177697.3.579.2. 1243 2000 Unknown [id number] 2.16.840.1.341139.3.579.2. 1243 2000 Unknown [id number] 2.16840.1.864351.3.579.2. 1243 2000 Unknown [id number] 2.16.840.1.219903.3.579.2. 1243 2000 Unknown [id number] 2.16.840.1.187567.3.579.2. 1243 2000 Unknown [id number] 2.16.840.1.894609.3.579.2. 1243 2000 Unknown [id number] 2.16.840.1.003086.3.579.2. 651 1976 Unknown [id number] 2.16.840.1.616479.3.579.2. 479 1959 Unknown [id number] Unknown [id number] Unknown [id number] 2..840.1.001217.3.579.2. 462 Unknown [id number] 2.840.1.559349.3.579.2. 462 Unknown [id number] 2..840.1.231175.3.579.2. 462 Unknown [id number] 2.840.1.212047.3.579.2. 462 Unknown [id number] 2.840.1.795139.3.579.2. 462 Unknown [id number] 2.840.1.858910.3.579.2. 462 Unknown [id number] 2.16840.1.291228.3.579.2. 462 Unknown [id number] 2.840.1.955054.3.579.2. 462 Unknown [id number] 2.16840.1.118723.3.579.2. 462 Unknown [id number] 2.16840.1.361345.3.579.2. 462 Unknown [id number] 2.16840.1.407740.3.579.2. 462 Unknown [id number] 2.16840.1.543984.3.579.2. 462 Unknown [id number] 2.16840.1.200354.3.579.2. 462 Unknown [id number] 2.840.1.113190.3.579.2. 462 Unknown [id number] 2.840.1.702658.3.579.2. 462 Unknown [id number] 2.840.1.432565.3.579.2. 462 Unknown [id number] 2.840.1.173224.3.579.2. 462 Unknown [id number] 2.840.1.959453.3.579.2. 462 Unknown [id number] 2.840.1.432170.3.579.2. 462 Unknown [id number] 2.840.1.289753.3.579.2. 462 Unknown [id number] 2.840.1.103577.3.579.2. 462 Unknown [id number] 2.840.1.584021.3.579.2. 462 Unknown [id number] 2.840.1.401514.3.579.2. 462 Unknown [id number] .840.1.725407.3.579.2. 462 Unknown [id number] 2.840.1.245100.3.579.2. 462 Unknown [id number] 2.840.1.650229.3.579.2. 462 Unknown [id number] 2.840.1.668820.3.579.2. 462 Unknown [id number] 2.840.1.698638.3.579.2. 462 Unknown [id number] .840.1.720396.3.579.2. 462 Unknown [id number] 2.840.1.905059.3.579.2. 462 Unknown [id number] 2.840.1.343556.3.579.2. 462 Unknown [id number] 2.840.1.846849.3.579.2. 462 Unknown [id number] 2.840.1.434259.3.579.2. 462 Social History Date Type Detail Facility [facility] Work Phone: Start: 07-26-2021 End: 12-04-2021 Tobacco smoking status NHIS Unknown if ever smoked [facility] Start: 2000 Sex Assigned At Female [facility] Start: 05-02-2023 Tobacco smoking status NHIS Never smoked tobacco [facility] Start: 05-02-2023 Tobacco use and exposure Smokeless tobacco non-user [facility] Work Phone: Start: 05-02-2023 End: 01-30-2024 Alcohol intake Ex-drinker (finding) [facility] Work Phone: Start: 05-02-2023 End: 01-30-2024 History of Social function [facility] Work Phone: Start: 05-02-2023 End: 01-30-2024 Tobacco use panel [facility] Work Phone: Start: 2000 Sex Assigned At Not on file [facility] Work Phone: Start: 04-22-2023 End: 01-30-2024 Exposure to SARS-CoV-2 (event) Not sure [facility] Work Phone: NEGATED: Highlighted row [facility] Clinical Notes 05-02-2023 to 02-02-2024 Lico Ruiz, DO - 05/02/2023 1:10 PM ESTCamannalisa Ruiz, DO - 05/02/2023 1:10 PM EST Note Date & Type Note Facility 02-02-2024 Note Discharge Instructio ns Discharge Summary [address] [address] [id number] 02/01/2024 Patient: BRYNN GOMEZ Sex: Female : 2000 Age: 23y Thank you for visiting [facility]. You have been evaluated today by Lico Ruiz D.O. for the following condition(s): Principal Diagnosis Vomiting with nausea. Sinus tachycardia Hypokalemia INSTRUCTIONS Drink plenty of fluids. Warnings: GENERAL WARNINGS: Return or contact your physician immediately if your condition worsens or changes unexpectedly, if not improving as expected, or if other problems arise. Prescription Medications: potassium chloride ER 20 mEq tablet,extended release: Take 2 tablet by mouth once a day for 7 days, dispense 14 tablet. Refills 0. Pharmacy: [facility] [id number] [phone]. ondansetron 4 mg disintegrating tablet: Take 1 tablet by mouth every eight hours for nausea/vomiting, dispense 15 tablet. Refills 0. Pharmacy: [facility] [id number] [phone]. 1 of 8 Discharge Instructions dicyclomine 10 mg capsule: Take 2 capsule by mouth four times a day as needed for pain for 5 days, dispense 40 capsule. Refills 0. Pharmacy: [facility] [id number] [phone]. Follow-up: Follow up with your healthcare provider in two days. Call for an appointment. Follow-up with: Eran Lowe MD, [facility], General Surgery, , [address] [place] [address] [address], [place] [address]. Follow up in seven days. Call for an appointment. Reason for referral: evaluation and treatment. April Woods MD, [facility], Cardiology, , [address] [place] [address] [address], [place] [address]. Follow up in seven days. Call for an appointment. Reason for referral: evaluation and treatment. You have been given the following additional information: Vomiting (Adult) Tachycardia: PAT (PSVT) Hypokalemia Patient Signature Facility Rn Surgery Icu Date/Time General Instructions with ExitWriter [address] [place] [address] [phone] 02/01/2024 Patient: BRYNN GOMEZ Sex: Female : 2000 Age: 23y Thank you for visiting [facility]. You have been evaluated today by Lico Ruiz D.O. for the following condition(s): 2 of 8 Discharge Instructions Principal Diagnosis Vomiting with nausea. Sinus tachycardia Hypokalemia INSTRUCTIONS Drink plenty of fluids. Warnings: GENERAL WARNINGS: Return or contact your physician immediately if your condition worsens or changes unexpectedly, if not improving as expected, or if other problems arise. Prescription Medications: potassium chloride ER 20 mEq tablet,extended release: Take 2 tablet by mouth once a day for 7 days, dispense 14 tablet. Refills 0. Pharmacy: [facility] [id number] [phone]. ondansetron 4 mg disintegrating tablet: Take 1 tablet by mouth every eight hours for nausea/vomiting, dispense 15 tablet. Refills 0. Pharmacy: [facility] [id number] [place] [address]. dicyclomine 10 mg capsule: Take 2 capsule by mouth four times a day as needed for pain for 5 days, dispense 40 capsule. Refills 0. Pharmacy: [facility] [id number] [place] [address]. Follow-up: Follow up with your healthcare provider in two days. Call for an appointment. Follow-up with: Eran Lowe MD, [facility], General Surgery, , [address] [place] [address] [address], [place] [address]. Follow up in seven days. Call for an appointment. Reason for referral: evaluation and treatment. April Woods MD, [facility], Cardiology, , [address] [place] [address] [address], [place] [address]. Follow up in seven days. Call for an appointment. Reason for referral: evaluation and treatment. 3 of 8 Discharge Instructions ADDITIONAL INFORMATION Vomiting (Adult) Vomiting is a common symptom that may be due to different causes. These include gastroenteritis (stomach flu), food poisoning and gastritis. There are other more serious causes of vomiting which may be hard to diagnose early in the illness. Therefore, it is important to watch for the warning signs listed below. The main danger from repeated vomiting is dehydration. This is due to excess loss of water and minerals from the body. When this occurs, your body fluids must be replaced. Home care If symptoms are (more content not included)... [facility] 05-02-2023 Emergency department Note Associated Order(s): ECG 12 lead HPI Chief Complaint Patient presents with Vomiting C/O N/V SINCE YESTERDAY. DENIES DIARRHEA. C/O CHILLS AND HURTING ALL OVER. Limitations to History: None HPI: 22-year-old female presents with concern for vomiting. Patient has an eating disorder. States she has been vomiting since yesterday. Concern for electrolyte imbalance. Patient states she has some abdominal cramping. Patient also has a burning in her chest. Denies any shortness of breath, fever, chills, cough, urinary symptoms. Currently on menstrual cycle. Physical Exam: VS: As documented in the triage note and EMR flowsheet from this visit were reviewed. Appearance: Alert. cooperative, in no acute distress. Skin: Intact, dry skin, no lesions, rash, petechiae or purpura. Eyes: PERRLA, EOMs intact, Conjunctiva pink with no redness or exudates. HENT: Normocephalic, atraumatic. Nares patent. No intraoral lesions. Neck: Supple, without meningismus. Trachea at midline. No lymphadenopathy. Pulmonary: Clear bilaterally with good chest wall excursion. No rales, rhonchi or wheezing. No accessory muscle use or stridor. Cardiac: Regular rate and rhythm, no rubs, murmurs, or gallops. Abdomen: Abdomen is soft, nontender, and nondistended. No palpable organomegaly. No rebound or guarding. No CVA tenderness. Nonsurgical abdomen Genitourinary: Exam deferred. Musculoskeletal: Full range of motion. Pulses full and equal. No cyanosis, clubbing, or edema. Neurological: Cranial nerves are grossly intact, grossly normal sensation, no weakness, no focal findings identified. Psychiatric: Appropriate mood and affect. [place] Coma Scale Score: 15 Patient History History reviewed. No pertinent past medical history. History reviewed. No pertinent surgical history. No family history on file. Social History Tobacco Use Smoking status: Never Smokeless tobacco: Never Vaping Use Vaping Use: Never used Substance Use Topics Alcohol use: Not Currently Drug use: Yes Types: Marijuana Physical Exam ED Triage Vitals [05/02/23 1314] Temperature Heart Rate Respirations BP 36.9 C (98.4 F) 100 14 116/73 Pulse Ox Temp Source Heart Rate Source Patient Position 97 % Oral Monitor -- BP Location FiO2 (%) -- -- Physical Exam ED Course & MDM Diagnoses as of 05/02/23 1450 Nausea and vomiting, unspecified vomiting type Hypokalemia Medical Decision Making Labs Reviewed CBC WITH AUTO DIFFERENTIAL - Abnormal WBC 14.6 (*) nRBC 0.0 RBC 4.33 Hemoglobin 13.1 Hematocrit 39.3 MCV 91 MCH 30.3 MCHC 33.3 RDW 12.5 Platelets 282 Neutrophils % 78.3 Immature Granulocytes %, Automated 0.4 Lymphocytes % 12.0 Monocytes % 9.1 Eosinophils % 0.0 Basophils % 0.2 Neutrophils Absolute 11.44 (*) Immature Granulocytes Absolute, Au* 0.06 Lymphocytes Absolute 1.75 Monocytes Absolute 1.33 (*) Eosinophils Absolute 0.00 Basophils Absolute 0.03 COMPREHENSIVE METABOLIC PANEL - Abnormal Glucose 115 (*) Sodium 137 Potassium 3.1 (*) Chloride 99 Bicarbonate 27 Anion Gap 14 Urea Nitrogen 8 Creatinine 0.59 eGFR >90 Calcium 9.8 Albumin 5.2 (*) Alkaline Phosphatase 51 Total Protein 8.2 AST 16 Bilirubin, Total 0.5 ALT 13 URINALYSIS WITH REFLEX CULTURE AND MICROSCOPIC - Abnormal Color, Urine Yellow Appearance, Urine Hazy (*) Specific [place], Urine 1.025 pH, Urine 7.0 Protein, Urine 100 (2+) (*) Glucose, Urine 50 (1+) (*) Blood, Urine SMALL (1+) (*) Ketones, Urine 80 (2+) (*) Bilirubin, Urine NEGATIVE Urobilinogen, Urine <2.0 Nitrite, Urine NEGATIVE Leukocyte Esterase, Urine NEGATIVE URINALYSIS MICROSCOPIC WITH REFLEX CULTURE - Abnormal WBC, Urine 1-5 RBC, Urine 6-10 (*) Squamous Epithelial Cells, Urine Bacteria, Urine 1+ (*) Mucus, Urine 4+ Amorphous Crystals, Urine 1+ MAGNESIUM - Normal Magnesium 1.75 LIPASE - Normal Lipase 14 Narrative: Venipuncture immediately after or during the administration of Metamizole may lead to falsely low results. Testing should be performed immediately prior to Metamizole dosing. URINALYSIS WITH REFLEX CULTURE AND MICROSCOPIC Narrative: The following orders were created for panel order Urinalysis with Reflex Culture and Microscopic. Procedure Abnormality Status --------- ------ Urinalysis with Reflex C...[[id number]] Abnormal Final result Extra Urine Vargas Tube[[id number]] In process Please view results for these tests on the individual orders. EXTRA URINE VARGAS TUBE XR chest 1 view Final Result No acute process. Signed by Prabhakar Adams MD Medical Decision Making: Patient appears well nontoxic. Benign abdominal exam. White blood cell count of 14.6. Potassium of 3.1. Treated with oral potassium. Patient treated with 1 L normal saline, Zofran, Protonix. Feeling improved on reevaluation. Will be written for oral Protonix and Zofran. Advised to follow-up with primary care. Stable at time of discharge. Differential Diagnoses Considered: Nausea and vomiting, GERD, electrolyte abnormality Independent Interpretation of Studies: I independently interpreted: Chest x-ray shows no evidence of pneumothorax or pneumonia. Escalation of Care: Appropriate for discharge and follow-up with primary care. Prescription Drug Consideration: Oral Zofran and Protonix. Procedure ECG 12 lead Performed by: Lico Ruiz DO Authorized by: Lico Ruiz DO ECG interpreted by ED Physician in the absence of a consultant: yes Comments: EKG interpreted by Dr. Lico Ruiz: Normal sinus rhythm at 82 bpm. TX interval 148 ms. QTc of 422 ms. Lico Ruiz DO 05/02/23 [id number] documented in this encounter [facility] Work Phone: 05-02-2023 Physician Emergency department Note Associated Order(s): ECG 12 lead HPI Chief Complaint Patient presents with Vomiting C/O N/V SINCE YESTERDAY. DENIES DIARRHEA. C/O CHILLS AND HURTING ALL OVER. Limitations to History: None HPI: 22-year-old female presents with concern for vomiting. Patient has an eating disorder. States she has been vomiting since yesterday. Concern for electrolyte imbalance. Patient states she has some abdominal cramping. Patient also has a burning in her chest. Denies any shortness of breath, fever, chills, cough, urinary symptoms. Currently on menstrual cycle. Physical Exam: VS: As documented in the triage note and EMR flowsheet from this visit were reviewed. Appearance: Alert. cooperative, in no acute distress. Skin: Intact, dry skin, no lesions, rash, petechiae or purpura. Eyes: PERRLA, EOMs intact, Conjunctiva pink with no redness or exudates. HENT: Normocephalic, atraumatic. Nares patent. No intraoral lesions. Neck: Supple, without meningismus. Trachea at midline. No lymphadenopathy. Pulmonary: Clear bilaterally with good chest wall excursion. No rales, rhonchi or wheezing. No accessory muscle use or stridor. Cardiac: Regular rate and rhythm, no rubs, murmurs, or gallops. Abdomen: Abdomen is soft, nontender, and nondistended. No palpable organomegaly. No rebound or guarding. No CVA tenderness. Nonsurgical abdomen Genitourinary: Exam deferred. Musculoskeletal: Full range of motion. Pulses full and equal. No cyanosis, clubbing, or edema. Neurological: Cranial nerves are grossly intact, grossly normal sensation, no weakness, no focal findings identified. Psychiatric: Appropriate mood and affect. Caleb Coma Scale Score: 15 Patient History History reviewed. No pertinent past medical history. History reviewed. No pertinent surgical history. No family history on file. Social History Tobacco Use Smoking status: Never Smokeless tobacco: Never Vaping Use Vaping Use: Never used Substance Use Topics Alcohol use: Not Currently Drug use: Yes Types: Marijuana Physical Exam ED Triage Vitals [05/02/23 1314] Temperature Heart Rate Respirations BP 36.9 C (98.4 F) 100 14 116/73 Pulse Ox Temp Source Heart Rate Source Patient Position 97 % Oral Monitor -- BP Location FiO2 (%) -- -- Physical Exam ED Course & MDM Diagnoses as of 05/02/23 1450 Nausea and vomiting, unspecified vomiting type Hypokalemia Medical Decision Making Labs Reviewed CBC WITH AUTO DIFFERENTIAL - Abnormal WBC 14.6 (*) nRBC 0.0 RBC 4.33 Hemoglobin 13.1 Hematocrit 39.3 MCV 91 MCH 30.3 MCHC 33.3 RDW 12.5 Platelets 282 Neutrophils % 78.3 Immature Granulocytes %, Automated 0.4 Lymphocytes % 12.0 Monocytes % 9.1 Eosinophils % 0.0 Basophils % 0.2 Neutrophils Absolute 11.44 (*) Immature Granulocytes Absolute, Au* 0.06 Lymphocytes Absolute 1.75 Monocytes Absolute 1.33 (*) Eosinophils Absolute 0.00 Basophils Absolute 0.03 COMPREHENSIVE METABOLIC PANEL - Abnormal Glucose 115 (*) Sodium 137 Potassium 3.1 (*) Chloride 99 Bicarbonate 27 Anion Gap 14 Urea Nitrogen 8 Creatinine 0.59 eGFR >90 Calcium 9.8 Albumin 5.2 (*) Alkaline Phosphatase 51 Total Protein 8.2 AST 16 Bilirubin, Total 0.5 ALT 13 URINALYSIS WITH REFLEX CULTURE AND MICROSCOPIC - Abnormal Color, Urine Yellow Appearance, Urine Hazy (*) Specific [place], Urine 1.025 pH, Urine 7.0 Protein, Urine 100 (2+) (*) Glucose, Urine 50 (1+) (*) Blood, Urine SMALL (1+) (*) Ketones, Urine 80 (2+) (*) Bilirubin, Urine NEGATIVE Urobilinogen, Urine <2.0 Nitrite, Urine NEGATIVE Leukocyte Esterase, Urine NEGATIVE URINALYSIS MICROSCOPIC WITH REFLEX CULTURE - Abnormal WBC, Urine 1-5 RBC, Urine 6-10 (*) Squamous Epithelial Cells, Urine Bacteria, Urine 1+ (*) Mucus, Urine 4+ Amorphous Crystals, Urine 1+ MAGNESIUM - Normal Magnesium 1.75 LIPASE - Normal Lipase 14 Narrative: Venipuncture immediately after or during the administration of Metamizole may lead to falsely low results. Testing should be performed immediately prior to Metamizole dosing. URINALYSIS WITH REFLEX CULTURE AND MICROSCOPIC Narrative: The following orders were created for panel order Urinalysis with Reflex Culture and Microscopic. Procedure Abnormality Status --------- ------ Urinalysis with Reflex C...[[id number]] Abnormal Final result Extra Urine Vargas Tube[[id number]] In process Please view results for these tests on the individual orders. EXTRA URINE VARGAS TUBE XR chest 1 view Final Result No acute process. Signed by Prabhakar Adams MD Medical Decision Making: Patient appears well nontoxic. Benign abdominal exam. White blood cell count of 14.6. Potassium of 3.1. Treated with oral potassium. Patient treated with 1 L normal saline, Zofran, Protonix. Feeling improved on reevaluation. Will be written for oral Protonix and Zofran. Advised to follow-up with primary care. Stable at time of discharge. Differential Diagnoses Considered: Nausea and vomiting, GERD, electrolyte abnormality Independent Interpretation of Studies: I independently interpreted: Chest x-ray shows no evidence of pneumothorax or pneumonia. Escalation of Care: Appropriate for discharge and follow-up with primary care. Prescription Drug Consideration: Oral Zofran and Protonix. Procedure ECG 12 lead Performed by: Lico Ruiz DO Authorized by: Lico Ruiz DO ECG interpreted by ED Physician in the absence of a consultant: yes Comments: EKG interpreted by Dr. Lico Ruiz: Normal sinus rhythm at 82 bpm. TX interval 148 ms. QTc of 422 ms. Lico Ruiz DO 05/02/23 1709 [facility] Work Phone: Evaluation note No assessment inform ation available [facility] Work Phone: Evaluation note Diagnosis Onset Date Eating disorder acute Marijuana dependence acute Recurrent vomiting acute Abdominal tenderness of left lower quadrant acute Diarrhea acute Eating disorder acute Marijuana dependence acute Nausea & vomiting acute Recurrent vomiting acute Weight loss acute Abdominal tenderness of left lower quadrant acute Diarrhea acute Hx of acute juvenile rheumatoid arthritis acute Nausea & vomiting acute Weight loss acute [facility] Work Phone: Evaluation note* Extremities: normal extremities, no ankle edema, contusions or wounds, no clubbingGastrointestinal:Nondistended, soft, non-tender, no rebound tenderness or guarding, no masses palpable, no organomegaly, +BS,Neurological: alert and oriented x3, intact senses, motor, response and reflexes, normal strengthPsychological: Appropriate mood and behaviorCardiovascular: Regular, rate and rhythm, no murmurs, normal S 1and S 2Respiratory/Thorax: Patent airways, CTAB, normal breath sounds, No wheezes,Head/Neck: Neck supple, no apparent injury, thyroid without mass or tenderness, No JVD, trachea midline,no bruitsENMT: mucous membranes moist, no apparent injury, no lesions seenEyes: PERRL, EOMI, clear scleraSkin: Warm and dry, no lesions, no rashesMusculoskeletal: ROM intact, no joint swelling,Constitutional: young lady, looks thin, alert and oriented, doesn't seem to be in any distress, [facility]* Diagnosis Nausea and vomiting, unspecified vomiting type- Primary Hypokalemia Hypopotassemia documented in this encounter [facility] Work Phone: Evaluation note* Diagnosis Nausea and vomiting, unspecified vomiting type- Primary Gastroparesis Cannabis abuse, daily use documented in this encounter [facility] Work Phone: Evaluation note* Diagnosis Nausea and vomiting, unspecified vomiting type- Primary Dehydration documented in this encounter [facility] Work Phone: Hospital Discharge instructions Additional Instructions Please advance your [facility] as [facility] instructionsW[facility] Work Phone: Hospital Discharge instructionsWooUC [facility] Work Phone: Hospital Discharge instructions Additional Instructions Take potassium for the next 5 days. Use Zofran as needed for nausea and vomiting. Follow-up with the GI office. If symptoms worsen despite medication return to the ER.[facility] Work Phone: Hospital Discharge instructions* Attachments The following attachments cannot be sent through Care Everywhere. * Gastroparesis (delayed gastric emptying) ([place]izen [place]) * _Cannabinoid Hyperemesis Syndrome, Inpatient, For Teen, [facility] (Citizen Of [place]) [facility] Work Phone: Hospital Discharge instructions* Attachments The following attachments cannot be sent through Care Everywhere. * Dehydration Discharge Instructions, Adult ([place]izen [place]) * Nausea and Vomiting, Adult ED ([place]izen [place]) documented in this [facility]UnUniversity [facility] Work Phone: Retfpf for referral (narrative)* Consultation (Routine) - Authorized Specialty Diagnoses / Procedures Referred By Contac t Referred To Contact Family Medicine / Primary Care Lico Ruiz, [address] [place] [address] Department [place] [address] Referral ID Status Reason Start Date Expiration Date Visits Requested Visits Authorized [id number] Authorized Specialty Services Required 05/02/2023 05/01/2024 1 1 [facility] Work Phone: reason for referral (narrative)* Consultation (Routine) - Authorized Specialty Diagnoses / Procedures Referred By Contac t Referred To Contact Family Medicine / Primary Care Diagnoses Nausea and vomiting, unspecified vomiting type Dehydration Marleen Carpenter PA-C [address] [place] [address] Referral ID Status Reason Start Date Expiration Date Visits Requested Visits Authorized [id number] Authorized Specialty Services Required 10/13/2023 10/12/2024 1 1 [facility] Work Phone: Summary Purpose Family History No Family History Records Found Relationship Condition Age at Onset Recorded Date/T elbert Not Specified Malignant neoplasm Unknown Hypertension Unknown Asthma Unknown Advance Directives No Advanced Directives Records Found Advance Directive Response Recorded Date/ Time Living Will No July 26, 2021 6:45pm Power of Switchboard Manager No July 26 6:45pm Advance Directive Response Recorded Date/ Time Living Will No November 16 11:31am Power of Switchboard Manager No November 16 11:31am Advance Directive Response Recorded Date/ Time Living Will No December 04 11:39am Power of Switchboard Manager No December 04 11:39am Chief Complaint and Reason for Visit Chief Complaint N/V Chief Complaint N/V FU FROM [facility] ER 1 M FU VOMITING E ORDERS Reason for Visit Eating disorder Marijuana dependence Recurrent vomiting Abdominal tenderness of left lower quadrant Diarrhea Eating disorder Marijuana dependence Nausea & vomiting Recurrent vomiting Weight loss Abdominal tenderness of left lower quadrant Diarrhea Hx of acute juvenile rheumatoid arthritis Nausea & vomiting Weight loss Chief Complaint N/V FU FROM [facility] ER 1 M FU VOMITING E ORDERS WEIGHT LOSS Reason for Visit Eating disorder Marijuana dependence Recurrent vomiting Abdominal tenderness of left lower quadrant Diarrhea Eating disorder Marijuana dependence Nausea & vomiting Recurrent vomiting Weight loss Abdominal tenderness of left lower quadrant Diarrhea Hx of acute juvenile rheumatoid arthritis Nausea & vomiting Weight loss Chief Complaint N/V FU FROM [facility] ER 1 M FU VOMITING E ORDERS WEIGHT LOSS n/v Reason for Visit Eating disorder Marijuana dependence Recurrent vomiting Abdominal tenderness of left lower quadrant Diarrhea Eating disorder Marijuana dependence Nausea & vomiting Recurrent vomiting Weight loss Abdominal tenderness of left lower quadrant Diarrhea Hx of acute juvenile rheumatoid arthritis Nausea & vomiting Weight loss Chief Complaint WEAKNESS Reason for Referral * hyperemesishyperemesis Additional Source Comments INFORMATION SOURCE (unrecogn ized section and content) DATE CREATED AUTHOR 03/21/2018 [facility] DATE CREATED AUTHOR AUTHOR'S ORGANIZ ATION 05/24/2022 [facility] DATE CREATED AUTHOR AUTHOR'S ORGANIZ ATION 04/02/2023 [facility] DATE CREATED AUTHOR AUTHOR'S ORGANIZ ATION 02/02/2024 [facility] DATE CREATED AUTHOR AUTHOR'S ORGANIZ ATION 02/02/2024 Dave Corado [facility] DATE CREATED AUTHOR AUTHOR'S ORGANIZ ATION 02/07/2024 [facility] DATE CREATED AUTHOR AUTHOR'S ORGANIZ ATION 09/07/2024 [facility] Goals (unrecognized section and content) Goals may be documented in a n alternate sectionGoals may be documented in an alternate sectionGoals may be documented in an alternate sectionGoals may be documented in an alternate sectionGoals may be documented in an alternate section Care Teams (unrecognized sec tion and content) Team Status: Active Member Role Status Dates Dr. Kylah Rizo MD Primary Care Provider Active Team Status: Inactive Member Role Status Dates Dr. Kylah Rizo MD Primary Care Provider Active Ed Physician Provider Emergency Provider Active Specialist Managers Relationship Specialty Start Date End Date Lyla Arcos MD [address] [place] [address] PCP - General 05/22/22 Specialist Managers Relationship Specialty Start Date End Date Kylah Rizo MD [address] [place], [place] [id number] PCP - General Internal Medicine 01/30/24 Specialist Managers Relationship Specialty Start Date End Date Kylah Rizo MD [address] [place], [place] [address] PCP - General Internal Medicine 01/30/24 Specialist Managers Relationship Specialty Start Date End Date Lyla Arcos MD [address] [place] [address] PCP - General 05/22/22 <item><item> Privacy Markings (unrecogniz ed section and content) Section Author: Suzanne Webber PROHIBITION ON REDISCLOSURE OF CONFIDENTIAL INFORMATION This notice accompanies a disclosure of information concerning a client made to you with the consent of such client. Section Author: Suzanne Webber PROHIBITION ON REDISCLOSURE OF CONFIDENTIAL INFORMATION This notice accompanies a disclosure of information concerning a client made to you with the consent of such client. Reason for Visit (unrecogniz ed section and content) Reason Comments Vomiting C/O N/V SINCE YESTER DAY. DENIES DIARRHEA. C/O CHILLS AND HURTING ALL OVER. Reason Comments Fatigue Patient ambulatory t o ED with c/o nausea and vomiting x 2 days. Hx gastroparesis. C/o generalized fatigue and feels like a weight sitting on my chest and hard to breathe. Taking Rx Reglan without relief. C/o chills, denies fever. Reason Comments Vomiting Patient complains of vomiting for 2 days, states history of gastroparesis, has been taking Reglan at home without relief Scheduled Active and Recently Administ ered Medications (unrecognized section and content) Medication Order 04/30/2023 05/01/2023 05/02/2023 ondansetron (Zofran) injection 4 mg (COMPLETED) 4 mg, intravenous, Once, On 05/02/23 at 1325, For 1 dose, When administering via IV Push, administer over 3-5 minutes. 1331 (Given - Provid er: Verna Diaz RN) pantoprazole (ProtoNix) injection 40 mg (COMPLETED) 40 mg, intravenous, Once, On 05/02/23 at 1335, For 1 dose, Reconstitute with 10 mL sodium chloride 0.9% for injection. Push over 2 minutes. Reconstitute with 10 mL sodium chloride 0.9% for injection. Push over 2 minutes. 1341 (Given - Provid er: Verna Diaz RN) potassium chloride CR (Klor-Con M20) ER tablet 40 mEq (COMPLETED) 40 mEq, oral, Once, On 05/02/23 at 1410, For 1 dose, Best given with food and plenty of water to minimize gastric irritation. Do not crush or chew. 1453 (Given - Provid er: Verna Diaz RN) sodium chloride 0.9 % bolus 1,000 mL (COMPLETED) 1,000 mL, intravenous, at 1,000 mL/hr, Administer over 1 Hours, Once, On 05/02/23 at 1325, For 1 dose 1327 (New Bag - Prov ider: Verna Diaz RN)1427 (Stopped - Provider: Verna Diaz RN) Scheduled Medication Order 01/28/2024 01/29/2024 01/30/2024 diphenhydrAMINE (BENADryl) injection 50 mg (COMPLETED) 50 mg, intravenous, Once, On 01/30/24 at 1725, For 1 dose, If giving IV push, max rate of 25 mg/min. 173 (Given - Provid er: Emma Quiles RN) LORazepam (Ativan) injection 1 mg (COMPLETED) 1 mg, intravenous, Administer over 5 Minutes, Once, On 01/30/24 at 1845, For 1 dose 184 (Given - Provid er: Emma Quiles RN) metoclopramide (Reglan) injection 10 mg (COMPLETED) 10 mg, intravenous, Once, On 01/30/24 at 1725, For 1 dose 173 (Given - Provid er: Emma Quiles RN) pantoprazole (ProtoNix) injection 40 mg 40 mg, intravenous, Daily, First dose on 01/30/24 at 1725 1757 (Given - Provid er: Emma Quiles RN) potassium chloride (Klor-Con) packet 40 mEq (COMPLETED) 40 mEq, oral, Once, On 01/30/24 at 1855, For 1 dose, Dissolve each packet in 4 ounces of water = 5 mEq per 1 oz fluid. 191 (Given - Provid er: Melinda Haro RN) sodium chloride 0.9 % bolus 500 mL (COMPLETED) 500 mL, intravenous, at 500 mL/hr, Administer over 1 Hours, Once, On 01/30/24 at 1725, For 1 dose 1754 (New Bag - Prov ider: Emma Quiles RN)1905 (Stopped - Provider: Melinda Haro RN) Scheduled Medication Order 10/11/2023 10/12/2023 10/13/2023 diphenhydrAMINE (BENADryl) injection 50 mg (COMPLETED) 50 mg, intravenous, Once, On Thu10/13/23 at 1600, For 1 dose, If giving IV push, max rate of 25 mg/min. 1559 (Given - Provid er: Verna Diaz RN) LORazepam (Ativan) injection 0.5 mg (COMPLETED) 0.5 mg, intravenous, Administer over 5 Minutes, Once, On Thu10/13/23 at 1620, For 1 dose, Maximum rate of 2 mg/min. 1647 (Given - Provid er: Verna Diaz RN) potassium chloride (Klor-Con) packet 20 mEq (COMPLETED) 20 mEq, oral, Once, On Thu10/13/23 at 1720, For 1 dose, Dissolve each packet in 4 ounces of water = 5 mEq per 1 oz fluid. 1753 (Given - Provid er: Verna Diaz RN) prochlorperazine (Compazine) injection 10 mg (COMPLETED) 10 mg, intravenous, Once, On Thu10/13/23 at 1530, For 1 dose 1535 (Given - Provid er: Verna Diaz RN) sodium chloride 0.9 % bolus 1,000 mL (COMPLETED) 1,000 mL, intravenous, at 999 mL/hr, Administer over 1 Hours, Once, On Thu10/13/23 at 1515, For 1 dose 1527 (New Bag - Prov ider: Verna Diaz RN)1627 (Stopped - Provider: Verna Diza RN) sodium chloride 0.9 % bolus 1,000 mL (COMPLETED) 1,000 mL, intravenous, at 2,000 mL/hr, Administer over 30 Minutes, Once, On Thu10/13/23 at 1620, For 1 dose 1647 (New Bag - Prov ider: Verna Diaz RN)1717 (Stopped - Provider: Verna Diaz RN) FOR RECORDS PERTAINING TO PATIENTS WHO ARE OR HAVE BEEN ENROLLED IN A CHEMICAL DEPENDENCY/SUBSTANCEABUSE PROGRAM, SOME INFORMATION MAY BE OMITTED. This clinical summary was aggregated from multiple sources. Caution should be exercised in using it in the provision of clinical care. This summary normalizes information from multiple sources, and as a consequence, information in this document may materially change the coding, format and clinical context of patient data. In addition, data may be omitted in some cases. CLINICAL DECISIONS SHOULD BE BASED ON THE PRIMARY CLINICAL RECORDS. [facility] provides no warranty or guarantee of the accuracy or completeness of information in this document.
[2024-09-08 00:52] LABS: Red Blood Cells-Urine 0 SEEN /hpf (0-5)
[2024-09-08 00:55] LABS: Color, Urine Yellow (Yellow); Glucose, Dipstick 100 mg/dl (Normal); Leukocyte Esterase-Dipstick 25 /ul (Negative); Nitrite-Dipstick Negative (Negative); Occult Blood-Urine 150 /ul (Negative); Protein-Dipstick 30 mg/dl (Negative); Specific Gravity, Urine 1.025 (1.002-1.030); Urine Bilirubin Dipstick Negative (Negative); Urine Clarity Clear (Clear); Urine Urobilinogen Normal (Normal)
[2024-09-08 00:58] VITALS: PULSE 100; RESP 19; O2SAT 100
[2024-09-08] MEDS: 0.9% Normal Saline (1000mL) 1,000 ML 999 ML IV (01:10)
[2024-09-08] MEDS: Ondansetron 4 MG/2 ML Vial IV (01:10)
[2024-09-08 01:12] LABS: Ketone-Dipstick 150 mg/dl (Negative)
[2024-09-08 01:23] LABS: Bacteria 1+ /hpf (None Seen); Mucous, Urine RARE /hpf (<or=2+); Squamous Epithelial Cells - UA 0-5 SEEN /hpf (5-10); White Blood Cells 0-5 SEEN /hpf (0-5)
[2024-09-08] MEDS: Morphine 4 MG/ML Syringe IV (01:41)
[2024-09-08] MEDS: Metoclopramide 10 MG/2 ML Vial IV (01:45)
[2024-09-08 02:00] VITALS: BP 116/61; PULSE 94; RESP 14; TEMP 37.1; O2SAT 99
--- NOTE | 2024-09-08 02:36 | EDS_ITS ---
HPI History of Present Illness Chief Complaint: Nausea/Vomiting Informant: patient and friend Narrative Narrative: Patient is a 24-year-old female with past medical history of of chronic anxiety and gastroparesis as well as daily marijuana use. She states that throughout the day today she has had generalized abdominal discomfort with bouts of nausea vomiting and diarrhea. She denies any known sick contact. She denies any fevers or chills. She denies any concern for . She states that her symptoms have not improved and secondary to this presents for evaluation [facility] Medical History Major depressive disorder, recurrent severe without psychotic features Gastroparesis Generalized anxiety disorder Avoidant-restrictive food intake disorder (ARFID) Depression Anxiety Marijuana use Back pain Migraine headache Gastric reflux Shortness of breath on exertion History of edema Abdominal tenderness of left lower quadrant Diarrhea Juvenile idiopathic arthritis Home Medications ?Medication ?Instructions ?Recorded ?Last Taken ?Type metoclopramide HCl 10 mg tablet 10 mg PO TID PRN nause a and 09/08/24 Unknown Rx (Reglan) vomiting /gastroparesis #21 tabs ondansetron 4 mg disintegrating 4 mg PO TID PRN nausea and 09/08/24 Unknown Rx tablet vomiting #21 tabs Allergy/AdvReac Type Severity Reaction Status Date / Time red dye Allergy Mild hives Verified 09/07/24 22:59 yellow dye Allergy Mild hives Verified 09/07/24 22:59 Family History (Updated 09/07/24 @ 23:19 by Donna Jean) Sister Asthma Sister Asthma Mother Hypertension Grandfather Hypertension Other Cancer Social History Smoking Status: Never smoker alcohol intake: current alcohol intake frequency: holidays/special occasions only substance use type: marijuana and other details: smokes daily at least 3 times daily ROS ROS ED Constitutional Constitutional ED: Reports other Details: Positive fatigue ; Denies chills or fever(s) ENT ENT ED: Denies sore throat Cardiovascular Cardiovascular: Denies chest pain Respiratory/Chest Respiratory/Chest: Denies cough or dyspnea Gastrointestinal Gastrointestinal: Reports abdominal pain, diarrhea, nausea and vomiting; Denies melena Genitourinary Genitourinary ED: Denies dysuria or hematuria Musculoskeletal Musculoskeletal: Reports myalgias Integumentary Denies rash Neurologic Neurologic: Denies headache(s) Hematologic/Lymphatic Hematologic/Lymphatic: Denies easy bleeding or easy bruising EXAM Physical Exam Const Vital Signs: 09/07/24 22:59 09/08/24 00:58 Temperature 96.8 F L Temperature Source Temporal Pulse Rate 105 H 100 Respiratory Rate 26 H 19 H Blood Pressure 148/94 H Blood Pressure Mean 112 Pulse Ox 97 100 Oxygen Delivery Method Room Air Room Air Positive well nourished and well developed General Appearance ED: well developed; Negative for pallor HEENT Reports dry mucous membranes HEENT Narrative: Mucous membranes are mildly dry and tacky No tongue or lip swelling no oral lesions no airway edema or compromise No secondary findings in the posterior pharynx to suggest infection Mouth ED: Yes dry mucous membranes Mouth: dry mucous membranes Eyes PERRL and EOMs intact bilaterally General Eye ED: Negative for scleral icterus Neck supple Neck Narrative: No nuchal rigidity or meningeal signs noted Resp normal respiratory effort and clear to auscultation bilaterally Cardio regular rhythm Rate: tachycardic and other Other Details: Slightly tachycardic rate with regular rhythm No murmurs rubs or gallop Radial and carotid pulses are equal and symmetric GI non-distended and no masses GI Narrative: Abdomen is soft and nondistended with hyperactive bowel sounds. There is mild diffuse pain on palpation without voluntary guarding or rigidity. No pulsatile mass or fluid wave. No peritoneal signs. Negative Asencio sign. No localized pain over McBurney's point Auscultation: hyperactive bowel sounds Palpation: soft Back/Spine no CVA tenderness Extremity normal to inspection Neuro oriented x3, CN's II-XII intact bilaterally and no sensory deficits noted Sensorium / Orientation: alert Motor Exam: strength 5/5 throughout Psych mental status grossly normal Skin no rashes or lesions noted and No skin turgor normal Skin Narrative: Skin turgor is slightly increased but otherwise normal General Skin Exam: Negative for jaundice or pallor MDM MDM MDM Narrative Medical decision making narrative: Patient arrived to the ER hypertensive and mildly tachycardic but afebrile. She reported roughly 24 hours of nausea vomiting diarrhea. She does use marijuana daily and there is concern this could be related to cannabis hyperemesis syndrome but with the diarrhea this is not typical for [facility]. she denies any known sick contacts recent travel outside the country or antibiotic use. Patient most likely has a viral stomach infection such as norovirus or rotavirus. Without any significant risk factors concern for infectious diarrhea such as Salmonella Shigella or C. difficile is low and therefore I do not feel the need for stool culture. She does have physical exam findings concerning for dehydration in order to confirm she is not having acute kidney injury or electrolyte abnormality basic blood work was obtained. In order to rule out pancreatitis UTI or potential complication a urine sample and further labs were ordered. Patient's white count is elevated at 17.8 but she is afebrile and o verall her abdomen is soft and nonsurgical and therefore I feel this is most likely stress response and not elevated secondary to a systemic infection. Blood work showed no sign of CAROLYN or clinically significant electrolyte finding. Lipase is normal going against pancreatitis and test negative going against complication. Patient received IV fluids Zofran Reglan and pain medication. She had no further bouts of vomiting and was able to tolerate an oral challenge without difficulty. On reevaluation her abdomen remains soft and nonsurgical. Therefore at this time with improvement of symptoms as well as improvement of vitals and the fact she can tolerate oral fluids I do not feel there is need for CT scan or further evaluation and she is otherwise safe for discharge with symptomatic care. History & Record Review Discussion w/independent historian: Patient and Friend Lab Data Attestation: I reviewed the patient's lab results. Labs: Laboratory Results - last 24 hr 09/07/24 09/07/24 00:35 23:05 WBC 17.8 H RBC 4.56 Hgb 13.8 Hct 40.6 MCV 89.0 MCH 30.3 MCHC 34.0 RDW Std Deviation 39.9 RDW Coeff of [place]ak 12.2 Plt Count 266 MPV 9.3 Immature Gran % (Auto) 0.500 Neut % (Auto) 90.2 H Lymph % (Auto) 4.6 L [place] % (Auto) 4.3 Eos % (Auto) 0.0 Baso % (Auto) 0.4 Absolute Neuts (auto) 16.0 H Absolute Lymphs (auto) 0.82 L Nucleated RBC % 0 Sodium 140 Potassium 3.7 Chloride 104 Carbon Dioxide 19.1 L Anion Gap 17 H BUN 10 Creatinine 0.69 L Estim Creat Clear Calc 91.49 Est GFR (MDRD) Non-Af 124 BUN/Creatinine Ratio 14.0 Glucose 173 H Calcium 9.9 Total Bilirubin 0.57 AST 22 ALT 13 Alkaline Phosphatase 69 Total Protein 8.4 Albumin 4.9 Globulin 3.6 Albumin/Globulin Ratio 1.4 Lipase 17 Serum , Qual NEGATIVE Urine Color Yellow Urine Clarity Clear Urine pH 6.0 Ur Specific [place] 1.025 Urine Protein 30 H Urine Glucose (UA) 100 H Urine Ketones 150 A* Urine Occult Blood 150 H Urine Nitrite Negative Urine Bilirubin Negative Urine Urobilinogen Normal Ur Leukocyte Esterase 25 H Urine RBC 0 SEEN Urine WBC 0-5 SEEN Ur Squamous Epith Cells 0-5 SEEN Urine Bacteria 1+ Urine Mucus RARE Discharge Plan Triage Chief Complaint: Nausea/Vomiting ED Provider: Ladarius Minaya Dx/Rx/DC Orders Clinical Impression: Nausea vomiting and diarrhea, Gastroparesis, Marijuana dependence, Dehydration, Generalized anxiety disorder Instructions: Gastroparesis, ED Gastroenteritis, Viral (Adult) Prescriptions: New metoclopramide HCl [Reglan] 10 mg tablet 10 mg PO TID PRN (Reason: nausea and vomiting /gastroparesis) Qty: 21 0RF ondansetron 4 mg tablet,disintegrating 4 mg PO TID PRN (Reason: nausea and vomiting) Qty: 21 0RF Primary Care Provider: Linda Rizo Referrals: Linda Rizo MD [Primary Care Provider] - Activity Restrictions/Additional Instructions: Your symptoms are most consistent with a viral stomach infection. This will last anywhere from 24 hours to 7 days with the average being 3 days. Take the prescribed medication as directed to help control your gastroparesis as well as nausea and vomiting and keep yourself well-hydrated. If you develop a fever or have intractable vomiting despite taking your medications or increasing pain or any further concerns please return to the ER for repeat evaluation Print Language: Somali Disposition Disposition: Home, Self Care Discharge Date/Time: 09/08/24 02:50
== END 2024-09-08 02:50 | disposition home or self-care (01) ==
PROVIDERS: Emergency Provider Emergency Medicine; PCP Internal Medicine; Visit Provider Emergency Medicine
DX: E86.0 Dehydration (principal); F12.90 Cannabis use, unspecified, uncomplicated; K31.84 Gastroparesis; F41.1 Generalized anxiety disorder; R19.7 Diarrhea, unspecified; R11.2 Nausea with vomiting, unspecified; K21.9 Gastro-esophageal reflux disease without esophagitis
CPT/HCPCS: 80053; 81001; 83690; 84703; 85025; 96361; 96374; 96375; 99283; A4216; J2405